=== PATIENT | female | born 1940 | race Caucasian/White ===

== ENCOUNTER 2016-11-21 10:23 | Inpatient (IN) | payer MEDICARE, OTHER ==
--- NOTE | 2016-11-21 10:58 | ERNOTE ---
Neuro HPI ER Record Date of Service: 11/21/16 Presenting Symptoms: confusion Time Seen by Provider: 11/21/16 10:34 Source: RN notes reviewed, EMS notes reviewed Exam Limitations: clinical condition, hard of hearing Immunizations: IMMUNIZATION HX Immunizations Up to Date Yes History of Influenza Vaccine Yes Hx Pneumococcal Vaccination Yes Allergies/Adverse Reactions: Allergies Allergy/AdvReac Type Severity Reaction Status Date / Time ibuprofen Allergy Verified 10/04/16 03:12 ketorolac tromethamine Allergy Verified 10/04/16 03:12 [From Toradol] tuberculin,PPD,multi-puncture Allergy Verified 10/04/16 03:12 Home Medications: HOME MEDICATIONS Albuterol Sulfate [Albuterol Sulfate 2.5 MG/0.5ML] 1 vial IH Q4H PRN 08/04/16 [ Last Taken Unknown] Glycerin/Witch Diana [place] [Tucks Medicated Pads] 1 appl TP PRN PRN 08/04/16 [ Last Taken Unknown] Hydrophilic Ointment [Aquaphilic Ointment] 1 appl TP PRN PRN 08/04/16 [Last Taken Unknown] Insulin Detemir [Levemir] 10 units SC Q12H 08/04/16 [Last Taken 08/04/16 07:00] Menthol [Biofreeze] 1 appl TP Q4H PRN 08/04/16 [Last Taken Unknown] Multivitamin [One Daily Essential] 1 each PO DAILY 08/04/16 [Last Taken 08:00] Polyvinyl Alcohol [Artificial Tears] 1 drop OP Q4H 08/04/16 [Last Taken 08:00] Simvastatin [Zocor] 40 mg PO HS 08/04/16 [Last Taken 08/03/16 20:00] Acetaminophen [Tylenol] 650 mg PO QID PRN #1 tablet 08/09/16 [Last Taken Unknown ] Sertraline HCl [Zoloft] 50 mg PO DAILY 08/22/16 [Last Taken Unknown] Carvedilol [Coreg] 3.125 mg PO BID #60 tablet 08/23/16 [Last Taken Unknown] Lisinopril [Zestril] 20 mg PO BID #60 tablet 08/23/16 [Last Taken Unknown] Folic Acid 1 mg PO DAILY 09/09/16 [Last Taken Unknown] Warfarin Sodium [Jantoven] 5 mg PO DAILY 09/27/16 [Last Taken Unknown] Cefuroxime Axetil [Ceftin] 500 mg PO BID #60 tab 10/04/16 [Last Taken Unknown] Cholecalciferol [Vitamin D] 1,000 unit PO DAILY capsule 10/04/16 [Last Taken Unknown] Furosemide [Lasix] 40 mg PO DAILY tablet 10/04/16 [Last Taken Unknown] Insulin Lispro [Humalog] See Protocol SC ACHSINS vial 10/04/16 [Last Taken Unknown] Multivitamins [Multivitamin Ines] 1 cap PO DAILY capsule 10/04/16 [Last Taken Unknown] Nystatin [Mycostatin Ointment] 1 appl TP BID tube 10/04/16 [Last Taken Unknown] Psyllium Husk (with Sugar) [Metamucil] 1 each PO BID packet 10/04/16 [Last Taken Unknown] Sertraline HCl [Zoloft] 50 mg PO DAILY tablet 10/04/16 [Last Taken Unknown] risperiDONE [Risperdal] 0.25 mg PO BID tablet 10/04/16 [Last Taken Unknown] - History of Present Illness Narrative: Altagracia is a 76 y/o female brought to the ED by EMS from [facility] for alterred mental status that was first noticed yesterday. She is reported to be wheezing as well. Her caregivers reported that when she becomes confused like this, it is usually due to a UTI. She does not answer questions appropriately but moans. She is chronically confused and oriented to self only. Onset: cannot confirm onset, continues in ER - Character of Deficits Additional Deficits: Present: bed-ridden Baseline Cognition: Present: poor alertness Baseline Gait: Present: unable to walk Associated Symptoms: Reports: altered mental status. Denies: fainting, seizure , agitated, unresponsive Prior Treament: Reports: recently seen, treated by physician, similar symptoms before Review of Systems - Review of Systems Constitutional: Present: recent illness, fever - NE reported temp of 99, fatigue , malaise EYE: Present: no symptoms reported ENT: Present: no symptoms reported Respiratory: Present: cough, wheezing Cardiology: Present: no symptoms reported Gastrointestinal/Abdominal: Absent: vomiting, diarrhea Genitourinary: Present: no symptoms reported Musculoskeletal: Present: no symptoms reported Neurological: Present: weakness. Absent: seizure Endocrine: Present: no symptoms reported Hematologic/Lymphatic: Present: no symptoms reported Psych: Present: no symptoms reported - Patient's Past Medical History Patient History - Medical: Anemia, Anxiety, Arthritis, Cataracts, Chronic Pain, Diabetes Type 2, GERD, Renal Failure, Rheumatoid Arthritis, UTI'S, Other Patient History - Cardiac/Respiratory: Hypertension, Pulmonary Embolism Patient History - Cancer: Colon Patient History - Surgical Procedures: Amputation, Colon Resection, Hysterectomy , Other Patient History - Other: None LMP (females 10-50): Menopausal - Family History Mother Family History - Medical: Family History - Cardiac/Respiratory: History Unknown Father Family History - Medical: Family History - Cardiac/Respiratory: Myocardial Infarction - Social History Living Situations: prison Abuse History: No History of abuse Psych History: Psychiatric Hx, Hx of Anxiety, Hx of Depression, Hx of Schizophrenia, Hx of Psychiatric Tx, Current tx/ever been on anti-depressants or anti-anxiety meds Does anyone smoke in the home?: No Alcohol Use: none Drug Use: none - Immunizations Immunizations Up to Date: Yes Hx Pneumococcal Vaccination: Yes History of Influenza Vaccine: Yes Physical Exam - Physical Exam General Appearance: Present: no apparent distress, lethargic - arouseable, obese Eye Exam: Normal inspection: bilateral, PERRL: bilateral Ears, Nose, Throat: Present: normal ENT inspection, hearing decreased, normal pharynx Neck: Present: normal inspection, nontender, supple Respiratory: Present: no respiratory distress, accessory muscle use - shallow resps, tachypneic but does not appear in distress, rhonchi. Absent: wheezing Cardiovascular/Chest: Present: regular rate, rhythm, no murmur, normal peripheral pulses Gastrointestinal/Abdominal: Present: normal bowel sounds, tenderness - diffuse, moans with palpation of abdomen, distended, hernia - ventral, soft, no discoloration Extremity Exam: Present: normal inspection, non-tender, no edema, other - Rt BKA Neurological Exam: Present: no motor/sensory deficits, disoriented to person, disoriented to time, disoriented to place, disoriented to situation Skin Exam: Present: warm/dry, pallor Diana Coma Scale - Assess Eye Opening: To Voice Motor: Localizes to Pain Verbal: Inappropriate - Total Coma Scale Total: 11 ED Progress - Results and Orders Patient's Lab Results:: I have reviewed the patient's lab results. - Vital Signs Patient's Vital Signs:: I have reviewed the patient's vital signs. Vital Signs: Vital Signs 11/21/16 10:23 Temperature 36.5 C Pulse Rate 70 Respiratory 29 H Rate Blood Pressure 166/72 O2 Sat by Pulse 98 Oximetry - EKG EKG: NSR, nonspecific ST T wave changes - X-Ray X-Ray #1 X-Ray: chest Interpretation: Reviewed by me X-ray Comments: Technique: Frontal views of the chest are evaluated. (1) views. Comparison: Prior exams, most recent is September 27, 2016. Findings: Overlying ECG leads. The lungs are hypoinflated with bibasilar bronchovascular crowding and bibasilar opacities. Slight elevation of the right diaphragm. No pneumothorax or pleural effusion. Suggestion of cardiac silhouette enlargement. Mediastinal contours are unchanged. There is prominence of the central pulmonary vasculature, which is likely secondary to the limited inspiratory result. The osseous structures are remarkable for degenerative changes. No acute osseous findings. IMPRESSION: Hypoventilatory changes. Probable bibasilar atelectasis. Cardiac silhouette enlargement. Additional findings and comments are as above. Electronically signed by Bhupendra Camacho D.O.. - CT/Ultrasound CT/Ultrasound Narrative: Findings: CT Head W/O Contrast *: The patient is tilted in the CT gantry. Exam is degraded by patient motion artifact. Age-related cortical atrophy and periventricular white matter chronic ischemic changes are present. Unchanged appearance of the ventricular system. No obvious acute intracranial hemorrhage. No midline shift or herniation. Unchanged hyperdense mass at the extra-axial right frontal lobe and partially calcified extra-axial mass at the left middle cranial fossa, compatible with meningiomas. No evidence of mass effect. The cortical rios/white matter differentiation is grossly intact. Benign intracranial calcifications noted. There is suggestion of merritt sinus mucosal thickening. There is partial opacification of the sphenoid sinus. Small air-fluid level within the left maxillary sinus. Mastoid air cell complexes are grossly patent. The osseous and soft tissues are unremarkable. IMPRESSION: No obvious acute intracranial hemorrhage or mass effect within the limitations of patient motion. Sinus disease. Additional findings and comments are as above. Electronically signed by Bhupendra Camacho D.O.. - Progress/Reassessment Chief Complaint: Altered Mental Status Progress:: Unchanged Progress Note-Subjective: 11/21/16 12:23 Potassium IVPB ordered for K+ of 2.9. Vitamin K ordered for INR of 8.22. Her last INR was 5.34 on 11/18/16. Her Coumadin was decreased from 5 mg to 4 mg daily at that time. The patient's son is now here. He reports that she has been doing remarkably well since her last hospitalization in September. She has not had any illnesses until yesterday when he was contacted about her having a low grade fever and congestion. Plan - Plan Plan: Admission discussed with Dr. Soler for IV antibiotics and correction of hypokalemia and elevated INR. Son in agreement with plan. Departure Clinical Impression: Prolonged INR, Hypokalemia, UTI (urinary tract infection), bacterial Altered mental status Qualifiers: Altered mental status type: unspecified Qualified Code(s): R41.82 - Altered mental status, unspecified - Departure Disposition: [facility] Condition: Fair
[2016-11-21 11:00] LABS: Hematocrit 33.7 % (37.0-47.0); Mean Cell Volume 91.6 fl (78-100); Mean Corpuscular Hemoglobin 29.9 pg (27-31); Mean Corpuscular Hgb Conc 32.6 g/dl (32-36); Mean Platelet Volume 9.1 fl (6.0-9.5); Neutrophil # 2.5 K/mm3 (1.3-6.0); Neutrophil % 75.1 % (42-75.0); Platelet Count 120 K/mm3 (150-450); Red Blood Count 3.68 M/mm3 (4.2-5.4); Red Cell Distribution Width 19.3 % (11.5-14.0); White Blood Count 3.4 K/mm3 (4.0-10.5)
[2016-11-21 11:16] LABS: Anion Gap 5.8 mmol/L (6.8-13.8); BUN/Creatinine Ratio 13.2 (9.0-21.6); Bilirubin, Total 0.6 mg/dL (0.0-1.1); Ca. Corrected For Albumin 9.1 mg/dL (8.4-10.2); Calcium * 8.6 mg/dL (7.9-10.9); Carbon Dioxide 28.1 mmol/L (24-32.6); Potassium 2.9 mmol/L (3.4-4.6); Total Protein 6.4 gm/dL (6.2-8.2)
[2016-11-21] MEDS ORDERED: POTASSIUM CHLORIDE 100 ML IV ONE (11:25)
[2016-11-21 11:26] LABS: Prothrombin Time (Patient) 85.5 Seconds (9.4-11.4)
[2016-11-21 11:29] LABS: INR 8.22 INR (0.90-1.10)
[2016-11-21] MEDS ORDERED: PHYTONADIONE (VIT K1) 10 MG/ML AMPUL IV ONE (11:57)
[2016-11-21 12:04] LABS: Urine Bilirubin Negative (NEGATIVE); Urine Blood 50 /ul (NEGATIVE); Urine Ketone Negative (NEGATIVE); Urine Protein 30 mg/dL (NEGATIVE); Urine Urobilinogen Normal (NORMAL)
[2016-11-21] MEDS ORDERED: PHYTONADIONE (VIT K1) 10 MG/ML AMPUL ONE (12:04)
[2016-11-21 12:20] LABS: Urine Appearance Turbid; Urine Color Yellow; Urine Nitrite Positive (NEGATIVE); Urine RBC >50 /hpf (0-5)
[2016-11-21 12:21] LABS: Urine WBC >50 /hpf (0-5)
[2016-11-21] MEDS ORDERED: POTASSIUM CHLORIDE 20 MEQ TABLET.SA PO ONE (13:49)
[2016-11-21] MEDS ORDERED: POTASSIUM CHLORIDE 20 MEQ TABLET.SA ONE (14:15)
[2016-11-21] MEDS ORDERED: HYDROPHILIC OINTMENT 454 APPL JAR TP PRN (14:18)
[2016-11-21] MEDS ORDERED: NON-FORMULARY 1 DOSE DOSE (Menthol [Biofreeze] 1 APPL) TP PRN (14:18)
[2016-11-21] MEDS ORDERED: GLYCERIN/WITCH HAZEL LEAF 40 APPL BOX TP PRN (14:18)
[2016-11-21] MEDS ORDERED: ALBUTEROL SULFATE 2.5 MG/0.5 ML VIAL.NEB IH PRN (14:18)
[2016-11-21] MEDS ORDERED: VANCOMYCIN HCL 1 GM in DEXTROSE 5 % IN WATER 250 ML IV ONE ×2 (14:25)
[2016-11-21] MEDS: MEROPENEM 1 GM in NORMAL SALINE 100 ML IV SCH (15:57)
[2016-11-21] MEDS: POTASSIUM CHLORIDE 20 MEQ TABLET.SA PO SCH (16:18)
[2016-11-21] MEDS: VANCOMYCIN HCL 1 GM in DEXTROSE 5 % IN WATER 250 ML IV SCH ×2 (16:45)
[2016-11-21] MEDS: POLYVINYL ALCOHOL 150 DROP BTL OP SCH ×2 (16:59→21:08)
--- NOTE | 2016-11-21 18:42 | HP ---
Chief Complaint - Chief Complaint Date of Service: 11/21/16 Time of Service: 18:44 Chief Complaint: Altered mental status History of Present Illness: Altagracia is a 76 [facility] female [facility] ED by EMS from [facility] for alterred mental status that was first noticed yesterday. She is reported to be wheezing as well. Her caregivers reported that when she becomes confused like this, it is usually due to a UTI. She does not answer questions appropriately but moans. She is chronically confused and oriented to self only. By phone today, the [facility] staff reported she was too obtunded today to take any oral medications. She has diabetes. There was no fever at the [facility]. 6 weeks ago, she was in this same hospital for pneumonia and a UTI. Upon discharge, she was given one month of oral cefuroxime 500 mg twice daily, which ended about two weeks ago. There is also a previous history in this individual of MRSA infection. - Patient's Past Medical History Patient History - Medical: Anemia, Anxiety, Arthritis, Cataracts, Chronic Pain, Diabetes Type 2, GERD, Renal Failure, Rheumatoid Arthritis, UTI'S, Other - schizophrenia Patient History - Cardiac/Respiratory: Hypertension, Pulmonary Embolism Patient History - Cancer: Colon Patient History - Surgical Procedures: Amputation, Colon Resection, Hysterectomy Patient History - Other: None LMP (females 10-50): Menopausal - Family History Mother Family History - Medical: Family History - Cardiac/Respiratory: History Unknown Father Family History - Medical: Family History - Cardiac/Respiratory: Myocardial Infarction - Social History Living Situations: [facility] Abuse History: No History of abuse Psych History: Psychiatric Hx, Hx of Anxiety, Hx of Depression, Hx of Schizophrenia, Hx of Psychiatric Tx, Current tx/ever been on anti-depressants or anti-anxiety meds Does anyone smoke in the home?: No Smoking Status: Never smoker Have you smoked in the past 12 months: No Alcohol Use: none Drug Use: none - Immunizations Immunizations Up to Date: Yes Hx Pneumococcal Vaccination: Yes History of Influenza Vaccine: Yes Review Of Systems (GEN) - Review of Systems Generalized/Overall Review: Present: No Symptoms Reported - unable to provide, obtunded and confused. Allergies/Adverse Reactions: Allergies Allergy/AdvReac Type Severity Reaction Status Date / Time ibuprofen Allergy Verified 11/21/16 15:16 ketorolac tromethamine Allergy Verified 11/21/16 15:16 [From Toradol] tuberculin,PPD,multi-puncture Allergy Verified 11/21/16 15:16 Home Medications: HOME MEDICATIONS Acetaminophen 650 mg PO BID 11/21/16 [Last Taken Unknown] Acetaminophen 650 mg PO QID PRN 11/21/16 [Last Taken Unknown] Albuterol Sulfate [Albuterol Sulfate 2.5 MG/0.5ML] 1 vial IH Q4H PRN 11/21/16 [ Last Taken Unknown] Carvedilol [Coreg] 3.125 mg PO BID 11/21/16 [Last Taken Unknown] Cholecalciferol (Vitamin D3) [Vitamin D3] 1,000 unit PO DAILY 11/21/16 [Last Taken Unknown] Colchicine [Colcrys] 0.6 mg PO BID 11/21/16 [Last Taken Unknown] Folic Acid 1 mg PO DAILY 11/21/16 [Last Taken Unknown] Furosemide [Lasix] 40 mg PO DAILY 11/21/16 [Last Taken Unknown] Insulin Aspart [Novolog] 0 units SQ ACHS 11/21/16 [Last Taken Unknown] Insulin Detemir [Levemir] 10 unit SQ BID 11/21/16 [Last Taken Unknown] Lisinopril [Zestril] 20 mg PO BID 11/21/16 [Last Taken Unknown] Menthol [Biofreeze] 1 appl TP Q4H PRN 11/21/16 [Last Taken Unknown] Multivitamins [Multivitamin Ines] 1 cap PO DAILY 11/21/16 [Last Taken Unknown] Oxymetazoline HCl [Afrin Nasal [place]] 2 sprays NS BID 11/21/16 [Last Taken Unknown] Polyvinyl Alcohol [Artificial Tears] 1 drop OP Q4H 11/21/16 [Last Taken Unknown] Promethazine HCl [Phenergan] 6.25 mg PO QID PRN 11/21/16 [Last Taken Unknown] Psyllium Husk (with Sugar) [Metamucil] 1 pkt PO BID 11/21/16 [Last Taken Unknown ] Sertraline HCl [Zoloft] 50 mg PO DAILY 11/21/16 [Last Taken Unknown] Simvastatin [Zocor] 40 mg PO HS 11/21/16 [Last Taken Unknown] Warfarin Sodium [Jantoven] 4 mg PO DAILY 11/21/16 [Last Taken Unknown] risperiDONE [Risperdal] 0.25 mg PO BID 11/21/16 [Last Taken Unknown] Exam - Exam Vital Signs: Vital Signs - Last Taken Temp 36.8 C 11/21/16 16:11 Pulse 73 11/21/16 17:08 Resp 20 11/21/16 16:11 BP 187/78 11/21/16 16:11 Pulse Ox 97 11/21/16 16:11 Constitutional: Present: Cooperative, Well developed, Mild distress, Obese ENT Exam: Present: normal ENT inspection, hard of hearing Eye Exam: bilateral eye: normal inspection, PERRL, EOMI Neck: Present: normal inspection Back Exam: Present: normal inspection Respiratory: Present: normal breath sounds, respiratory distress Cardiovascular/Chest: Present: regular rate, rhythm, no murmur Abdomen: Present: Normal bowel sounds, soft, nontender, nondistended, no rebound tenderness, no hepatospenomegaly, no masses, obese Extremity: Present: pedal edema, other - right leg amputation Skin Exam: Present: no cyanosis, cool/dry Neurologic: Present: motor weakness. Absent: oriented x 3 Appearance: Present: appropriate appearance, neat Eye contact: Present: cooperative Diagnostic Studies: Laboratory Results WBC 3.4 K/mm3 (4.0-10.5) L 11/21/16 10:51 RBC 3.68 M/mm3 (4.2-5.4) L 11/21/16 10:51 Hgb 11.0 gm/dL (12.5-16.0) L 11/21/16 10:51 Hct 33.7 % (37.0-47.0) L 11/21/16 10:51 MCV 91.6 fl (78-100) 11/21/16 10:51 MCH 29.9 pg (27-31) 11/21/16 10:51 MCHC 32.6 g/dl (32-36) 11/21/16 10:51 RDW 19.3 % (11.5-14.0) H 11/21/16 10:51 Plt Count 120 K/mm3 (150-450) L 11/21/16 10:51 MPV 9.1 fl (6.0-9.5) 11/21/16 10:51 Immature Gran % (Auto) 1.80 % (0.001-0.429) H 11/21/16 10:51 Immature Gran # (Auto) 0.06 K/mm3 (0.000-0.0310) H 11/21/16 10:51 Neutrophils % 75.1 % (42-75.0) H 11/21/16 10:51 Lymphocytes % 8.9 % (20-51) L 11/21/16 10:51 Monocytes % 13.9 % (0.0-9) H 11/21/16 10:51 Eosinophils % 0.3 % (0.0-3.0) 11/21/16 10:51 Basophils % 0.0 % (0.0-1.0) 11/21/16 10:51 Nucleated RBC % 0.0 k/mm3 (0-1) 11/21/16 10:51 Neutrophils # 2.5 K/mm3 (1.3-6.0) 11/21/16 10:51 Lymphocytes # 0.3 k/mm3 (1.5-3.5) L 11/21/16 10:51 Monocytes # 0.5 k/mm3 (0.0-1.0) 11/21/16 10:51 Eosinophils # 0.0 k/mm3 (0.0-0.7) 11/21/16 10:51 Absolute Basophils 0.0 k/mm3 (0.0-0.1) 11/21/16 10:51 PT 85.5 Seconds (9.4-11.4) H 11/21/16 10:51 INR (Anticoag Therapy) 8.22 INR (0.90-1.10) H* 11/21/16 10:51 Sodium 140 mmol/L (132-142) 11/21/16 10:51 Plasma Sodium 140 mmol/L (130-142) 11/21/16 10:51 Potassium 2.9 mmol/L (3.4-4.6) L 11/21/16 10:51 Chloride 109 mmol/L (97-106) H 11/21/16 10:51 Carbon Dioxide 28.1 mmol/L (24-32.6) 11/21/16 10:51 Anion Gap 5.8 mmol/L (6.8-13.8) L 11/21/16 10:51 BUN 12 mg/dL (3-23) 11/21/16 10:51 Creatinine 0.91 mg/dL (0.4-1.4) 11/21/16 10:51 Est GFR (Non-Af Amer) 64 mL/min (60-130) 11/21/16 10:51 BUN/Creatinine Ratio 13.2 (9.0-21.6) 11/21/16 10:51 Random Glucose 94 mg/dL (70-110) 11/21/16 10:51 Lactic Acid, Venous 1.7 mmol/L (0.4-2.0) 11/21/16 10:51 Calcium 8.6 mg/dL (7.9-10.9) 11/21/16 10:51 Calcium Adj for Albumin 9.1 mg/dL (8.4-10.2) 11/21/16 10:51 Total Bilirubin 0.6 mg/dL (0.0-1.1) 11/21/16 10:51 AST 46 U/L (0-48) 11/21/16 10:51 ALT 52 U/L (19-67) 11/21/16 10:51 Alkaline Phosphatase 110 U/L (50-170) 11/21/16 10:51 Total Protein 6.4 gm/dL (6.2-8.2) 11/21/16 10:51 Albumin 3.0 gm/dl (3.4-5.0) L 11/21/16 10:51 Urine Color Yellow 11/21/16 11:39 Urine Appearance Turbid 11/21/16 11:39 Urine pH 6.0 pH (5.0-7.0) 11/21/16 11:39 Ur Specific [place] 1.020 SP.GR. (1.005-1.010) 11/21/16 11:39 Urine Protein 30 mg/dL (NEGATIVE) H 11/21/16 11:39 Urine Glucose (UA) Negative mg/dL (NEGATIVE) 11/21/16 11:39 Urine Ketones Negative mg/dL (NEGATIVE) 11/21/16 11:39 Urine Blood 50 /ul (NEGATIVE) H 11/21/16 11:39 Urine Nitrate Positive (NEGATIVE) H 11/21/16 11:39 Urine Bilirubin Negative mg/dl (NEGATIVE) 11/21/16 11:39 Prot Sulfosalicylic Acd 2+ mg/dL (0) H 11/21/16 11:39 Urine Urobilinogen Normal EU/dl (NORMAL) 11/21/16 11:39 Ur Leukocyte Esterase 500 /ul (NEGATIVE) H 11/21/16 11:39 Urine RBC >50 /hpf (0-5) H 11/21/16 11:39 Urine WBC >50 /hpf (0-5) H 11/21/16 11:39 Urine Culture Comments Culture to follow 11/21/16 11:39 Assessment/Plan - Narrative Narrative: Hold any psychoactive drugs for now. IV Merem and Vancomycin, because she is a MRSA carrier and also just finished Cefuroxime 500 mg BID two weeks ago for a UTI and Pneumonia, pending cultures. Restore potassium. Follow labs. Estimate stay of 3-4 days. Hold coumadin, because her INR is supratherapeutic. - Assessment/Plan (1) Altered mental status Assessment: Due to UTI and sepsis Problem: Acute Qualifiers: Altered mental status type: delirium Qualified Code(s): R41.0 - Disorientation, unspecified (2) Prolonged INR Problem: Acute (3) UTI (urinary tract infection), bacterial Problem: Acute (4) Leukopenia Problem: Acute Qualifiers: Leukopenia type: neutropenia Neutropenia type: unspecified Qualified Code (s): D70.9 - Neutropenia, unspecified (5) Altered mental status Problem: Acute Qualifiers: Altered mental status type: delirium Qualified Code(s): R41.0 - Disorientation, unspecified (6) Anemia Problem: Chronic Qualifiers: Anemia type: iron deficiency Iron deficiency anemia type: unspecified iron deficiency Qualified Code(s): D50.9 - Iron deficiency anemia, unspecified (7) Chronic congestive heart failure with left ventricular diastolic dysfunction Problem: Chronic (8) Chronic pain Problem: Chronic Qualifiers: Chronic pain type: other chronic pain Qualified Code(s): G89.29 - Other chronic pain (9) Chronic restrictive lung disease Problem: Chronic (10) 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 Problem: Chronic Qualifiers: 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 type: type 2 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 complication status: with other specified complication 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 manager terminal insulin use: with half-way use Qualified Code(s): E11.69 - Type 2 diabetes mellitus with other specified complication (11) GERD (gastroesophageal reflux disease) Problem: Chronic Qualifiers: Esophagitis presence: without esophagitis (12) Gallstones Problem: Chronic Qualifiers: Cholecystitis presence: without cholecystitis Biliary obstruction: without biliary obstruction Qualified Code(s): K80.20 - Calculus of gallbladder without cholecystitis without obstruction (13) Gout Problem: Chronic Qualifiers: Gout site: unspecified site Gout etiology: idiopathic Chronicity: chronic Presence of tophus: without tophus Qualified Code(s): M1A.00X0 - Idiopathic chronic gout, unspecified site, without tophus (tophi) (14) HLD (hyperlipidemia) Problem: Chronic Qualifiers: Hyperlipidemia type: mixed hyperlipidemia Qualified Code(s): E78.2 - Mixed hyperlipidemia (15) RED DEVIL (hard of hearing) Problem: Chronic Qualifiers: Laterality: bilateral Qualified Code(s): H91.93 - Unspecified hearing loss , bilateral (16) History of recurrent UTIs Problem: Chronic (17) Hypertension Problem: Chronic Qualifiers: Hypertension type: essential hypertension Qualified Code(s): I10 - Essential (primary) hypertension (18) Hypoventilation associated with obesity syndrome Problem: Chronic (19) Immunosuppressed status Problem: Chronic (20) MRSA (methicillin resistant Staphylococcus aureus) carrier Problem: Chronic (21) Parkinsons Problem: Chronic (22) Pulmonary hypertension Problem: Chronic (23) Severe hearing loss Problem: Chronic Qualifiers: Laterality: bilateral Qualified Code(s): H91.93 - Unspecified hearing loss , bilateral (24) 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
[2016-11-21] MEDS: INSULIN DETEMIR 100 UNITS/ML VIAL SC SCH (20:42)
[2016-11-21] MEDS: CARVEDILOL 3.125 MG TABLET PO SCH (20:43)
[2016-11-21] MEDS: COLCHICINE 0.6 MG TABLET PO SCH (20:43)
[2016-11-21] MEDS: PSYLLIUM SEED 1 PACKET PACKET PO SCH (20:43)
[2016-11-21] MEDS: LISINOPRIL 20 MG TABLET PO SCH (20:44)
[2016-11-21] MEDS: SIMVASTATIN 40 MG TABLET PO SCH (20:44)
[2016-11-21] MEDS: NYSTATIN 15 APPL TUBE TP SCH (20:44)
[2016-11-22] MEDS: MEROPENEM 1 GM in NORMAL SALINE 100 ML IV SCH ×2 (02:40→15:37)
[2016-11-22] MEDS: POLYVINYL ALCOHOL 150 DROP BTL OP SCH ×6 (02:40→22:04)
[2016-11-22] MEDS: VANCOMYCIN HCL 1 GM in DEXTROSE 5 % IN WATER 250 ML IV SCH ×2 (03:19)
[2016-11-22 06:11] LABS: Hematocrit 31.4 % (37.0-47.0); Hemoglobin 10.1 gm/dL (12.5-16.0); Mean Cell Volume 92.6 fl (78-100); Mean Corpuscular Hemoglobin 29.8 pg (27-31); Mean Corpuscular Hgb Conc 32.2 g/dl (32-36); Mean Platelet Volume 10.4 fl (6.0-9.5); Platelet Count 110 K/mm3 (150-450); Red Blood Count 3.39 M/mm3 (4.2-5.4); Red Cell Distribution Width 19.5 % (11.5-14.0); White Blood Count 2.8 K/mm3 (4.0-10.5)
[2016-11-22 06:14] LABS: Total Cells Counted 100
[2016-11-22 06:17] LABS: Prothrombin Time (Patient) 16.7 Seconds (9.4-11.4)
[2016-11-22 06:19] LABS: INR 1.61 INR (0.90-1.10)
[2016-11-22 06:23] LABS: Albumin * 2.8 gm/dl (3.4-5.0); Anion Gap 13.5 mmol/L (6.8-13.8); BUN/Creatinine Ratio 12.1 (9.0-21.6); Bilirubin, Total 0.9 mg/dL (0.0-1.1); Calcium * 8.4 mg/dL (7.9-10.9); Carbon Dioxide 25.9 mmol/L (24-32.6); Potassium 3.4 mmol/L (3.4-4.6); Total Protein 5.9 gm/dL (6.2-8.2)
[2016-11-22 06:45] LABS: Atypical (Reactive) Lymph 3 % (0-2); Eosinophil 1 % (0-3); Lymphocyte 14 % (20-51); Monocyte 15 % (0-9); Neutrophil 67 % (42-75); Neutrophil # 1.9 K/mm3 (1.3-6.0); Platelet Estimate Normal (NORMAL)
[2016-11-22 06:47] LABS: Tear Drop Cells Trace
[2016-11-22] MEDS ORDERED: NON-FORMULARY 1 DOSE DOSE (Multivitamin [One Daily Essential] 1 EACH) PO SCH (09:00)
[2016-11-22] MEDS: FUROSEMIDE 40 MG TABLET PO SCH (09:04)
[2016-11-22] MEDS: CARVEDILOL 3.125 MG TABLET PO SCH ×2 (09:04→21:56)
[2016-11-22] MEDS: MULTIVITAMINS 1 CAP CAPSULE PO SCH (09:04)
[2016-11-22] MEDS: COLCHICINE 0.6 MG TABLET PO SCH ×2 (09:04→21:56)
[2016-11-22] MEDS: NYSTATIN 15 APPL TUBE TP SCH ×2 (09:05→21:57)
[2016-11-22] MEDS: CHOLECALCIFEROL 1,000 UNIT CAPSULE PO SCH (09:05)
[2016-11-22] MEDS: POTASSIUM CHLORIDE 20 MEQ TABLET.SA PO SCH ×2 (09:05→16:36)
[2016-11-22] MEDS: PSYLLIUM SEED 1 PACKET PACKET PO SCH ×2 (09:05→21:57)
[2016-11-22] MEDS: FOLIC ACID 1 MG TABLET PO SCH (09:05)
[2016-11-22] MEDS: INSULIN DETEMIR 100 UNITS/ML VIAL SC SCH ×2 (09:05→21:58)
[2016-11-22] MEDS: LISINOPRIL 20 MG TABLET PO SCH ×2 (09:05→21:58)
--- NOTE | 2016-11-22 12:23 | PN ---
Subjective - Date and Time Seen Date: 11/22/16 Time: 06:50 Subjective Narrative: Denies pain. Denies SOB. Denies nausea. More awake this morning. MRSA screen positive. Growing gram negative rods from urine culture. Objective - Review of Systems Generalized/Overall Review: Reports: No Symptoms Reported EENTM: Reports: No Symptoms Reported Respiratory: Reports: No Symptoms Reported Cardiac: Reports: No Symptoms Reported Abdominal: Reports: No Symptoms Reported Genitourinary Symptoms: Reports: No Symptoms Reported Musculoskeletal Complaints: Reports: No Symptoms Reported Neurological: Reports: Pre-existing Deficit Skin: Reports: No Symptoms Reported Endocrine: Reports: No Symptoms Reported Misc: All systems neg except as marked - Vitals Vitals: Last Vital Signs Selected Entries 11/21/16 11/21/16 11/21/16 10:23 11:05 16:11 Temperature 36.5 C 36.2 C L 36.8 C Temperature Tympanic Oral Source Pulse Rate 70 75 Pulse Rhythm Regular Pulse Strength Normal Respiratory 29 H 20 Rate Respiratory Normal Depth Respiratory Normal Effort Non-Labored Respiratory Tachypnea Normal Pattern Blood Pressure 166/72 187/78 Blood Pressure Supine Sitting Position O2 Sat by Pulse 98 97 Oximetry Oxygen Delivery Room Air Room Air Method 11/22/16 06:30 Temperature 36.3 C L Temperature Oral Source Pulse Rate 73 Pulse Rhythm Pulse Strength Respiratory 18 Rate Respiratory Normal Depth Respiratory Effort Respiratory Pattern Blood Pressure 166/70 Blood Pressure Supine Position O2 Sat by Pulse 98 Oximetry Oxygen Delivery Room Air Method - Abnormal Lab Findings Abnormal Lab Findings: Abnormal Lab Results 11/22/16 11/22/16 11/22/16 Range/Units 05:00 05:00 05:00 WBC 2.8 L (4.0-10.5) K/mm3 RBC 3.39 L (4.2-5.4) M/mm3 Hgb 10.1 L (12.5-16.0) gm/dL Hct 31.4 L (37.0-47.0) % RDW 19.5 H (11.5-14.0) % Plt Count 110 L (150-450) K/mm3 MPV 10.4 H (6.0-9.5) fl Lymphocytes % (Manual) 14 L (20-51) % Monocytes % (Manual) 15 H (0-9) % Lymphocytes # (Manual) 0.4 L (1.5-3.5) k/mm3 Atypic/Reactive Lymphs 3 H (0-2) % PT 16.7 H (9.4-11.4) Seconds INR (Anticoag Therapy) 1.61 H (0.90-1.10) INR Plasma Sodium 143 H (130-142) mmol/L Random Glucose 146 H D (70-110) mg/dL Total Protein 5.9 L (6.2-8.2) gm/dL Albumin 2.8 L (3.4-5.0) gm/dl - Exam Constitutional: Present: Alert, Cooperative, Well developed, No distress, Obese ENT Exam: Present: normal ENT inspection, hard of hearing Neck: Present: normal inspection Respiratory: Present: lungs clear, no respiratory distress Cardiovascular/Chest: Present: regular rate, rhythm, no murmur Abdomen: Present: Normal bowel sounds, soft, nontender, nondistended, no rebound tenderness, no hepatospenomegaly, no masses, obese Extremity: Present: pedal edema - right leg amputation Skin Exam: Present: normal color, warm/dry, no cyanosis Neurologic: Present: alert, other - oriented to her person and to me. Appearance: Present: appropriate appearance, neat Eye contact: Present: cooperative Assessment/Plan Plan Narrative: Follow labs. IV antibiotics. Bactroban and Hibiclens for positive nasal swab. - Problems/Diagnosis (1) Altered mental status Problem: Acute Qualifiers: Altered mental status type: delirium Qualified Code(s): R41.0 - Disorientation, unspecified (2) Prolonged INR Problem: Acute (3) UTI (urinary tract infection), bacterial Problem: Acute (4) Leukopenia Problem: Acute Qualifiers: Leukopenia type: neutropenia Neutropenia type: unspecified Qualified Code (s): D70.9 - Neutropenia, unspecified (5) Altered mental status Problem: Acute Qualifiers: Altered mental status type: delirium Qualified Code(s): R41.0 - Disorientation, unspecified (6) Anemia Problem: Chronic Qualifiers: Anemia type: iron deficiency Iron deficiency anemia type: unspecified iron deficiency Qualified Code(s): D50.9 - Iron deficiency anemia, unspecified (7) Chronic congestive heart failure with left ventricular diastolic dysfunction Problem: Chronic (8) Chronic pain Problem: Chronic Qualifiers: Chronic pain type: other chronic pain Qualified Code(s): G89.29 - Other chronic pain (9) Chronic restrictive lung disease Problem: Chronic (10) 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 Problem: Chronic Qualifiers: 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 type: type 2 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 complication status: with other specified complication 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 fpc insulin use: with fpc use Qualified Code(s): E11.69 - Type 2 diabetes mellitus with other specified complication (11) GERD (gastroesophageal reflux disease) Problem: Chronic Qualifiers: Esophagitis presence: without esophagitis (12) Gallstones Problem: Chronic Qualifiers: Cholecystitis presence: without cholecystitis Biliary obstruction: without biliary obstruction Qualified Code(s): K80.20 - Calculus of gallbladder without cholecystitis without obstruction (13) Gout Problem: Chronic Qualifiers: Gout site: unspecified site Gout etiology: idiopathic Chronicity: chronic Presence of tophus: without tophus Qualified Code(s): M1A.00X0 - Idiopathic chronic gout, unspecified site, without tophus (tophi) (14) HLD (hyperlipidemia) Problem: Chronic Qualifiers: Hyperlipidemia type: mixed hyperlipidemia Qualified Code(s): E78.2 - Mixed hyperlipidemia (15) [place] (hard of hearing) Problem: Chronic Qualifiers: Laterality: bilateral Qualified Code(s): H91.93 - Unspecified hearing loss , bilateral (16) History of recurrent UTIs Problem: Chronic (17) Hypertension Problem: Chronic Qualifiers: Hypertension type: essential hypertension Qualified Code(s): I10 - Essential (primary) hypertension (18) Hypoventilation associated with obesity syndrome Problem: Chronic (19) Immunosuppressed status Problem: Chronic (20) MRSA (methicillin resistant Staphylococcus aureus) carrier Problem: Chronic (21) Parkinsons Problem: Chronic (22) Pulmonary hypertension Problem: Chronic (23) Severe hearing loss Problem: Chronic Qualifiers: Laterality: bilateral Qualified Code(s): H91.93 - Unspecified hearing loss , bilateral (24) 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
[2016-11-22] MEDS: WARFARIN SODIUM 5 MG TABLET PO SCH (16:37)
[2016-11-22] MEDS: MUPIROCIN 22 APPL TUBE TP SCH (21:56)
[2016-11-22] MEDS: CHLORHEX GL/ISOPROPYL ALCOHOL 960 APPL BTL TP SCH (21:57)
[2016-11-22] MEDS: SIMVASTATIN 40 MG TABLET PO SCH (21:58)
[2016-11-23] MEDS: POLYVINYL ALCOHOL 150 DROP BTL OP SCH ×6 (02:16→21:10)
[2016-11-23] MEDS: MEROPENEM 1 GM in NORMAL SALINE 100 ML IV SCH (04:05)
[2016-11-23 04:52] LABS: Hematocrit 33.2 % (37.0-47.0); Hemoglobin 10.6 gm/dL (12.5-16.0); Mean Cell Volume 92.5 fl (78-100); Mean Corpuscular Hemoglobin 29.5 pg (27-31); Mean Corpuscular Hgb Conc 31.9 g/dl (32-36); Mean Platelet Volume 10.5 fl (6.0-9.5); Neutrophil # 1.3 K/mm3 (1.3-6.0); Neutrophil % 52.4 % (42-75.0); Platelet Count 106 K/mm3 (150-450); Red Blood Count 3.59 M/mm3 (4.2-5.4); Red Cell Distribution Width 19.1 % (11.5-14.0); White Blood Count 2.5 K/mm3 (4.0-10.5)
[2016-11-23 05:00] LABS: Prothrombin Time (Patient) 10.9 Seconds (9.4-11.4)
[2016-11-23 05:02] LABS: INR 1.05 INR (0.90-1.10)
[2016-11-23 05:08] LABS: Anion Gap 11.8 mmol/L (6.8-13.8); BUN/Creatinine Ratio 18.5 (9.0-21.6); Calcium * 9.1 mg/dL (7.9-10.9); Carbon Dioxide 26.1 mmol/L (24-32.6); Estimated Creat Clear 42.4; Potassium 3.9 mmol/L (3.4-4.6)
--- NOTE | 2016-11-23 07:18 | PN ---
Subjective - Date and Time Seen Date: 11/23/16 Time: 07:15 Subjective Narrative: Denies pain. Denies SOB. Denies nausea. More awake this morning, but disoriented and confused. MRSA screen positive. Growing gram negative rods from urine culture. Ongoing pancytopenia, unknown cause. Objective - Review of Systems Generalized/Overall Review: Reports: No Symptoms Reported - poor historian due to dementia - Vitals Vitals: Last Vital Signs Selected Entries 11/23/16 03:00 Temperature 36.9 C Temperature Oral Source Pulse Rate 81 Respiratory 20 Rate Blood Pressure 179/78 Blood Pressure Supine Position O2 Sat by Pulse 94 Oximetry Oxygen Delivery Room Air Method - Abnormal Lab Findings Abnormal Lab Findings: Abnormal Lab Results 11/23/16 11/23/16 Range/Units 04:51 04:51 WBC 2.5 L (4.0-10.5) K/mm3 RBC 3.59 L (4.2-5.4) M/mm3 Hgb 10.6 L (12.5-16.0) gm/dL Hct 33.2 L (37.0-47.0) % MCHC 31.9 L (32-36) g/dl RDW 19.1 H (11.5-14.0) % Plt Count 106 L (150-450) K/mm3 MPV 10.5 H (6.0-9.5) fl Immature Gran % (Auto) 2.40 H (0.001-0.429) % Immature Gran # (Auto) 0.06 H (0.000-0.0310) K/mm3 Monocytes % 20.8 H (0.0-9) % Lymphocytes # 0.6 L (1.5-3.5) k/mm3 Random Glucose 126 H (70-110) mg/dL - Exam Constitutional: Present: Alert, Cooperative, Well developed, Mild distress ENT Exam: Present: normal ENT inspection, hard of hearing Neck: Present: normal inspection Respiratory: Present: lungs clear, no respiratory distress Cardiovascular/Chest: Present: regular rate, rhythm, no murmur Abdomen: Present: Normal bowel sounds, soft, nontender, no rebound tenderness, no masses Extremity: Present: pedal edema, other - amputation right leg Skin Exam: Present: normal color, warm/dry, no cyanosis Neurologic: Present: alert Appearance: Present: appropriate appearance, neat Eye contact: Present: cooperative Assessment/Plan Plan Narrative: DC tele. Follow labs. Continue IV antibiotics. Resume risperdal. - Problems/Diagnosis (1) Altered mental status Problem: Acute Qualifiers: Altered mental status type: delirium Qualified Code(s): R41.0 - Disorientation, unspecified (2) Prolonged INR Problem: Acute (3) UTI (urinary tract infection), bacterial Problem: Acute (4) Leukopenia Problem: Acute Qualifiers: Leukopenia type: neutropenia Neutropenia type: unspecified Qualified Code (s): D70.9 - Neutropenia, unspecified (5) Altered mental status Problem: Acute Qualifiers: Altered mental status type: delirium Qualified Code(s): R41.0 - Disorientation, unspecified (6) Anemia Problem: Chronic Qualifiers: Anemia type: iron deficiency Iron deficiency anemia type: unspecified iron deficiency Qualified Code(s): D50.9 - Iron deficiency anemia, unspecified (7) Chronic congestive heart failure with left ventricular diastolic dysfunction Problem: Chronic (8) Chronic pain Problem: Chronic Qualifiers: Chronic pain type: other chronic pain Qualified Code(s): G89.29 - Other chronic pain (9) Chronic restrictive lung disease Problem: Chronic (10) 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 Problem: Chronic Qualifiers: 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 type: type 2 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 complication status: with other specified complication 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 intermediate designer insulin use: with half-way use Qualified Code(s): E11.69 - Type 2 diabetes mellitus with other specified complication (11) GERD (gastroesophageal reflux disease) Problem: Chronic Qualifiers: Esophagitis presence: without esophagitis (12) Gallstones Problem: Chronic Qualifiers: Cholecystitis presence: without cholecystitis Biliary obstruction: without biliary obstruction Qualified Code(s): K80.20 - Calculus of gallbladder without cholecystitis without obstruction (13) Gout Problem: Chronic Qualifiers: Gout site: unspecified site Gout etiology: idiopathic Chronicity: chronic Presence of tophus: without tophus Qualified Code(s): M1A.00X0 - Idiopathic chronic gout, unspecified site, without tophus (tophi) (14) HLD (hyperlipidemia) Problem: Chronic Qualifiers: Hyperlipidemia type: mixed hyperlipidemia Qualified Code(s): E78.2 - Mixed hyperlipidemia (15) [place] (hard of hearing) Problem: Chronic Qualifiers: Laterality: bilateral Qualified Code(s): H91.93 - Unspecified hearing loss , bilateral (16) History of recurrent UTIs Problem: Chronic (17) Hypertension Problem: Chronic Qualifiers: Hypertension type: essential hypertension Qualified Code(s): I10 - Essential (primary) hypertension (18) Hypoventilation associated with obesity syndrome Problem: Chronic (19) Immunosuppressed status Problem: Chronic (20) MRSA (methicillin resistant Staphylococcus aureus) carrier Problem: Chronic (21) Parkinsons Problem: Chronic (22) Pulmonary hypertension Problem: Chronic (23) Severe hearing loss Problem: Chronic Qualifiers: Laterality: bilateral Qualified Code(s): H91.93 - Unspecified hearing loss , bilateral (24) 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
[2016-11-23] MEDS: MULTIVITAMINS 1 CAP CAPSULE PO SCH (08:22)
[2016-11-23] MEDS: LISINOPRIL 20 MG TABLET PO SCH ×2 (08:22→21:10)
[2016-11-23] MEDS: POTASSIUM CHLORIDE 20 MEQ TABLET.SA PO SCH ×2 (08:22→17:40)
[2016-11-23] MEDS: FOLIC ACID 1 MG TABLET PO SCH (08:22)
[2016-11-23] MEDS: COLCHICINE 0.6 MG TABLET PO SCH ×2 (08:22→21:08)
[2016-11-23] MEDS: MUPIROCIN 22 APPL TUBE TP SCH ×2 (08:23→21:08)
[2016-11-23] MEDS: FUROSEMIDE 40 MG TABLET PO SCH (08:23)
[2016-11-23] MEDS: PSYLLIUM SEED 1 PACKET PACKET PO SCH ×2 (08:23→21:09)
[2016-11-23] MEDS: CHOLECALCIFEROL 1,000 UNIT CAPSULE PO SCH (08:23)
[2016-11-23] MEDS: CHLORHEX GL/ISOPROPYL ALCOHOL 960 APPL BTL TP SCH ×2 (08:23→21:09)
[2016-11-23] MEDS: CARVEDILOL 3.125 MG TABLET PO SCH ×2 (08:23→21:09)
[2016-11-23] MEDS: NYSTATIN 15 APPL TUBE TP SCH ×2 (08:24→21:10)
[2016-11-23] MEDS: INSULIN DETEMIR 100 UNITS/ML VIAL SC SCH ×2 (08:25→21:09)
[2016-11-23] MEDS ORDERED: VANCOMYCIN HCL LEVEL XX ONE (15:30)
[2016-11-23] MEDS: WARFARIN SODIUM 5 MG TABLET PO SCH (17:40)
[2016-11-23] MEDS ORDERED: risperiDONE 0.25 MG TABLET PO SCH (21:00)
[2016-11-23] MEDS: CIPROFLOXACIN HCL 500 MG TABLET PO SCH (21:08)
[2016-11-23] MEDS: SIMVASTATIN 40 MG TABLET PO SCH (21:10)
[2016-11-24] MEDS: POLYVINYL ALCOHOL 150 DROP BTL OP SCH ×6 (01:07→22:32)
[2016-11-24 05:10] LABS: Anion Gap 13.6 mmol/L (6.8-13.8); BUN/Creatinine Ratio 21.1 (9.0-21.6); Calcium * 9.1 mg/dL (7.9-10.9); Carbon Dioxide 26.9 mmol/L (24-32.6); Estimated Creat Clear 43.3; Hematocrit 33.6 % (37.0-47.0); Hemoglobin 10.5 gm/dL (12.5-16.0); Mean Cell Volume 95.2 fl (78-100); Mean Corpuscular Hemoglobin 29.7 pg (27-31); Mean Corpuscular Hgb Conc 31.3 g/dl (32-36); Mean Platelet Volume 11.9 fl (6.0-9.5); Platelet Count 108 K/mm3 (150-450); Potassium 3.5 mmol/L (3.4-4.6); Red Blood Count 3.53 M/mm3 (4.2-5.4); Red Cell Distribution Width 19.4 % (11.5-14.0); White Blood Count 1.8 K/mm3 (4.0-10.5)
[2016-11-24 05:12] LABS: INR 1.11 INR (0.90-1.10); Prothrombin Time (Patient) 11.5 Seconds (9.4-11.4); Total Cells Counted 100
[2016-11-24 06:00] LABS: Lymphocyte 48 % (20-51); Monocyte 5 % (0-9); Neutrophil 47 % (42-75)
[2016-11-24 06:01] LABS: Platelet Estimate Decreased (NORMAL)
[2016-11-24 06:03] LABS: Anisocytosis 1+; Spherocyte 1+
[2016-11-24 06:46] LABS: Urine Bilirubin Negative (NEGATIVE); Urine Blood Negative /ul (NEGATIVE); Urine Ketone Negative (NEGATIVE); Urine Nitrite Negative (NEGATIVE); Urine Protein 30 mg/dL (NEGATIVE); Urine Specific Gravity 1.025 SP.GR. (1.005-1.010); Urine Urobilinogen Normal (NORMAL); Urine pH 5.5 pH (5.0-7.0)
[2016-11-24 07:00] LABS: Urine Appearance Cloudy; Urine Color Yellow
[2016-11-24 07:01] LABS: Urine Bacteria TRACE; Urine RBC None Seen /hpf (0-5); Urine WBC 0-5 /hpf (0-5)
--- NOTE | 2016-11-24 08:25 | PN ---
Subjective - Date and Time Seen Date: 11/24/16 Time: 06:50 Subjective Narrative: Denies pain. Denies SOB. Denies nausea. More awake this morning, but disoriented and confused. MRSA screen positive. Growing Enterobacter from urine culture, sensitive to Cipro. Ongoing pancytopenia, unknown cause. Objective - Review of Systems Generalized/Overall Review: Reports: No Symptoms Reported - poor historian, confused - Vitals Vitals: Last Vital Signs Selected Entries 11/24/16 01:40 Temperature 36.6 C Temperature Oral Source Pulse Rate 80 Respiratory 18 Rate Blood Pressure 166/79 Blood Pressure Supine Position O2 Sat by Pulse 92 Oximetry Oxygen Delivery Room Air Method - Abnormal Lab Findings Abnormal Lab Findings: Abnormal Lab Results 11/23/16 11/24/16 11/24/16 Range/Units 15:40 04:55 04:55 WBC 1.8 L D (4.0-10.5) K/mm3 RBC 3.53 L (4.2-5.4) M/mm3 Hgb 10.5 L (12.5-16.0) gm/dL Hct 33.6 L (37.0-47.0) % MCHC 31.3 L (32-36) g/dl RDW 19.4 H (11.5-14.0) % Plt Count 108 L (150-450) K/mm3 MPV 11.9 H (6.0-9.5) fl Lymphocytes # (Manual) 0.9 L (1.5-3.5) k/mm3 Platelet Estimate Decreased L (NORMAL) PT 11.5 H (9.4-11.4) Seconds INR (Anticoag Therapy) 1.11 H (0.90-1.10) INR Sodium (132-142) mmol/L Plasma Sodium (130-142) mmol/L Chloride (97-106) mmol/L Random Glucose (70-110) mg/dL Urine Protein (NEGATIVE) mg/dL Ur Leukocyte Esterase (NEGATIVE) /ul Urine Comment Vancomycin Trough 7.7 L (10.0-20.0) mcg/mL 11/24/16 11/24/16 Range/Units 04:55 06:23 WBC (4.0-10.5) K/mm3 RBC (4.2-5.4) M/mm3 Hgb (12.5-16.0) gm/dL Hct (37.0-47.0) % MCHC (32-36) g/dl RDW (11.5-14.0) % Plt Count (150-450) K/mm3 MPV (6.0-9.5) fl Lymphocytes # (Manual) (1.5-3.5) k/mm3 Platelet Estimate (NORMAL) PT (9.4-11.4) Seconds INR (Anticoag Therapy) (0.90-1.10) INR Sodium 144 H (132-142) mmol/L Plasma Sodium 144 H (130-142) mmol/L Chloride 107 H (97-106) mmol/L Random Glucose 116 H (70-110) mg/dL Urine Protein 30 H (NEGATIVE) mg/dL Ur Leukocyte Esterase 25 H (NEGATIVE) /ul Urine Comment Culture ordered L Vancomycin Trough (10.0-20.0) mcg/mL - Exam Constitutional: Present: Alert, Cooperative, Well developed, Well nourished, No distress ENT Exam: Present: normal ENT inspection, hard of hearing Neck: Present: normal inspection Respiratory: Present: lungs clear, no respiratory distress Cardiovascular/Chest: Present: regular rate, rhythm, no murmur Abdomen: Present: Normal bowel sounds, soft, nontender, nondistended, no rebound tenderness, no hepatospenomegaly, no masses Extremity: Present: normal inspection, pedal edema, other - amputation right leg Skin Exam: Present: normal color, warm/dry, no cyanosis Lymphatic: Present: no adenopathy Neurologic: Present: disoriented x 3 Appearance: Present: appropriate appearance, neat Eye contact: Present: cooperative Assessment/Plan Plan Narrative: Follow blood count. Cipro. - Problems/Diagnosis (1) Altered mental status Problem: Acute Qualifiers: Altered mental status type: delirium Qualified Code(s): R41.0 - Disorientation, unspecified (2) Prolonged INR Problem: Acute (3) UTI (urinary tract infection), bacterial Problem: Acute (4) Leukopenia Problem: Acute Qualifiers: Leukopenia type: neutropenia Neutropenia type: unspecified Qualified Code (s): D70.9 - Neutropenia, unspecified (5) Altered mental status Problem: Acute Qualifiers: Altered mental status type: delirium Qualified Code(s): R41.0 - Disorientation, unspecified (6) Anemia Problem: Chronic Qualifiers: Anemia type: iron deficiency Iron deficiency anemia type: unspecified iron deficiency Qualified Code(s): D50.9 - Iron deficiency anemia, unspecified (7) Chronic congestive heart failure with left ventricular diastolic dysfunction Problem: Chronic (8) Chronic pain Problem: Chronic Qualifiers: Chronic pain type: other chronic pain Qualified Code(s): G89.29 - Other chronic pain (9) Chronic restrictive lung disease Problem: Chronic (10) 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 Problem: Chronic Qualifiers: 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 type: type 2 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 complication status: with other specified complication 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 exterminator helper termite insulin use: with prison use Qualified Code(s): E11.69 - Type 2 diabetes mellitus with other specified complication (11) GERD (gastroesophageal reflux disease) Problem: Chronic Qualifiers: Esophagitis presence: without esophagitis (12) Gallstones Problem: Chronic Qualifiers: Cholecystitis presence: without cholecystitis Biliary obstruction: without biliary obstruction Qualified Code(s): K80.20 - Calculus of gallbladder without cholecystitis without obstruction (13) Gout Problem: Chronic Qualifiers: Gout site: unspecified site Gout etiology: idiopathic Chronicity: chronic Presence of tophus: without tophus Qualified Code(s): M1A.00X0 - Idiopathic chronic gout, unspecified site, without tophus (tophi) (14) HLD (hyperlipidemia) Problem: Chronic Qualifiers: Hyperlipidemia type: mixed hyperlipidemia Qualified Code(s): E78.2 - Mixed hyperlipidemia (15) [place] (hard of hearing) Problem: Chronic Qualifiers: Laterality: bilateral Qualified Code(s): H91.93 - Unspecified hearing loss , bilateral (16) History of recurrent UTIs Problem: Chronic (17) Hypertension Problem: Chronic Qualifiers: Hypertension type: essential hypertension Qualified Code(s): I10 - Essential (primary) hypertension (18) Hypoventilation associated with obesity syndrome Problem: Chronic (19) Immunosuppressed status Problem: Chronic (20) MRSA (methicillin resistant Staphylococcus aureus) carrier Problem: Chronic (21) Parkinsons Problem: Chronic (22) Pulmonary hypertension Problem: Chronic (23) Severe hearing loss Problem: Chronic Qualifiers: Laterality: bilateral Qualified Code(s): H91.93 - Unspecified hearing loss , bilateral (24) 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
[2016-11-24] MEDS: COLCHICINE 0.6 MG TABLET PO SCH ×2 (10:24→20:14)
[2016-11-24] MEDS: FUROSEMIDE 40 MG TABLET PO SCH (10:24)
[2016-11-24] MEDS: MUPIROCIN 22 APPL TUBE TP SCH ×2 (10:24→20:14)
[2016-11-24] MEDS: FOLIC ACID 1 MG TABLET PO SCH (10:25)
[2016-11-24] MEDS: LISINOPRIL 20 MG TABLET PO SCH ×2 (10:25→20:16)
[2016-11-24] MEDS: MULTIVITAMINS 1 CAP CAPSULE PO SCH (10:25)
[2016-11-24] MEDS: CARVEDILOL 3.125 MG TABLET PO SCH ×2 (10:25→20:15)
[2016-11-24] MEDS: CIPROFLOXACIN HCL 500 MG TABLET PO SCH ×2 (10:25→20:14)
[2016-11-24] MEDS: POTASSIUM CHLORIDE 20 MEQ TABLET.SA PO SCH ×2 (10:25→16:46)
[2016-11-24] MEDS: CHOLECALCIFEROL 1,000 UNIT CAPSULE PO SCH (10:26)
[2016-11-24] MEDS: PSYLLIUM SEED 1 PACKET PACKET PO SCH ×2 (10:26→20:16)
[2016-11-24] MEDS: INSULIN DETEMIR 100 UNITS/ML VIAL SC SCH ×2 (10:26→20:21)
[2016-11-24] MEDS: CHLORHEX GL/ISOPROPYL ALCOHOL 960 APPL BTL TP SCH ×2 (10:27→20:17)
[2016-11-24] MEDS: NYSTATIN 15 APPL TUBE TP SCH ×2 (10:27→20:16)
[2016-11-24] MEDS: metroNIDAZOLE 500 MG TABLET PO SCH ×3 (13:27→20:15)
[2016-11-24] MEDS: SACCHAROMYCES BOULARDII 250 MG CAPSULE PO SCH ×3 (13:27→20:15)
[2016-11-24] MEDS: ACETAMINOPHEN 325 MG TABLET PO PRN (13:33)
[2016-11-24] MEDS: WARFARIN SODIUM 5 MG TABLET PO SCH (16:46)
[2016-11-24] MEDS: ZIPRASIDONE HCL 20 MG CAPSULE PO SCH (20:15)
[2016-11-24] MEDS: SIMVASTATIN 40 MG TABLET PO SCH (20:16)
[2016-11-25] MEDS: POLYVINYL ALCOHOL 150 DROP BTL OP SCH ×6 (01:42→21:09)
[2016-11-25 07:01] LABS: Hematocrit 34.3 % (37.0-47.0); Mean Corpuscular Hemoglobin 29.5 pg (27-31); Mean Corpuscular Hgb Conc 32.1 g/dl (32-36); Neutrophil # 1.2 K/mm3 (1.3-6.0); Neutrophil % 55.4 % (42-75.0); Platelet Count 149 K/mm3 (150-450); Red Blood Count 3.73 M/mm3 (4.2-5.4); Red Cell Distribution Width 18.8 % (11.5-14.0); White Blood Count 2.1 K/mm3 (4.0-10.5)
[2016-11-25 07:05] LABS: Prothrombin Time (Patient) 13.6 Seconds (9.4-11.4)
[2016-11-25 07:15] LABS: Urine Bilirubin Negative (NEGATIVE); Urine Blood Negative /ul (NEGATIVE); Urine Ketone Negative (NEGATIVE); Urine Nitrite Negative (NEGATIVE); Urine Protein Negative (NEGATIVE); Urine Urobilinogen Normal (NORMAL); Urine pH 5.5 pH (5.0-7.0)
[2016-11-25 07:18] LABS: INR 1.31 INR (0.90-1.10)
[2016-11-25 07:20] LABS: Albumin * 2.9 gm/dl (3.4-5.0); Anion Gap 14.9 mmol/L (6.8-13.8); BUN/Creatinine Ratio 24.2 (9.0-21.6); Bilirubin, Total 0.5 mg/dL (0.0-1.1); Ca. Corrected For Albumin 9.7 mg/dL (8.4-10.2); Calcium * 9.1 mg/dL (7.9-10.9); Carbon Dioxide 26.5 mmol/L (24-32.6); Potassium 3.4 mmol/L (3.4-4.6); Total Protein 6.2 gm/dL (6.2-8.2)
[2016-11-25 07:24] LABS: Urine Appearance Clear; Urine Bacteria 1+; Urine Color Yellow; Urine RBC None Seen /hpf (0-5); Urine WBC None Seen /hpf (0-5)
[2016-11-25] MEDS: CIPROFLOXACIN HCL 500 MG TABLET PO SCH ×2 (09:12→21:07)
[2016-11-25] MEDS: FOLIC ACID 1 MG TABLET PO SCH (09:13)
[2016-11-25] MEDS: SACCHAROMYCES BOULARDII 250 MG CAPSULE PO SCH ×4 (09:13→21:08)
[2016-11-25] MEDS: MULTIVITAMINS 1 CAP CAPSULE PO SCH (09:14)
[2016-11-25] MEDS: metroNIDAZOLE 500 MG TABLET PO SCH ×4 (09:14→21:05)
[2016-11-25] MEDS: FUROSEMIDE 40 MG TABLET PO SCH (09:14)
[2016-11-25] MEDS: MUPIROCIN 22 APPL TUBE TP SCH ×2 (09:15→21:04)
[2016-11-25] MEDS: CARVEDILOL 3.125 MG TABLET PO SCH ×2 (09:15→21:05)
[2016-11-25] MEDS: COLCHICINE 0.6 MG TABLET PO SCH ×2 (09:15→21:07)
[2016-11-25] MEDS: NYSTATIN 15 APPL TUBE TP SCH ×2 (09:16→21:08)
[2016-11-25] MEDS: CHLORHEX GL/ISOPROPYL ALCOHOL 960 APPL BTL TP SCH ×2 (09:17→21:06)
[2016-11-25] MEDS: CHOLECALCIFEROL 1,000 UNIT CAPSULE PO SCH (09:17)
[2016-11-25] MEDS: INSULIN DETEMIR 100 UNITS/ML VIAL SC SCH ×2 (09:18→21:32)
[2016-11-25] MEDS: PSYLLIUM SEED 1 PACKET PACKET PO SCH ×2 (09:18→21:06)
[2016-11-25] MEDS: LISINOPRIL 20 MG TABLET PO SCH ×2 (09:18→21:08)
[2016-11-25] MEDS: POTASSIUM CHLORIDE 20 MEQ TABLET.SA PO SCH ×2 (09:33→17:08)
[2016-11-25] MEDS: LACTOBACILLUS ACIDOPHILUS 100 CAP BTL PO SCH ×3 (09:33→17:06)
[2016-11-25] MEDS: ACETAMINOPHEN 325 MG TABLET PO PRN (10:53)
--- NOTE | 2016-11-25 13:03 | PN ---
Subjective - Date and Time Seen Date: 11/25/16 Time: 06:30 Subjective Narrative: Denies pain. Denies SOB. Denies nausea. More awake this morning, but disoriented and confused. MRSA screen positive. Growing Enterobacter from urine culture, sensitive to Cipro. Ongoing pancytopenia, unknown cause. WBC count a little better this morning. Objective - Review of Systems Generalized/Overall Review: Reports: Malaise EENTM: Reports: No Symptoms Reported Respiratory: Reports: No Symptoms Reported Cardiac: Reports: No Symptoms Reported Abdominal: Reports: No Symptoms Reported Genitourinary Symptoms: Reports: No Symptoms Reported Musculoskeletal Complaints: Reports: No Symptoms Reported Neurological: Reports: No Symptoms Reported Skin: Reports: No Symptoms Reported Endocrine: Reports: No Symptoms Reported Misc: All systems neg except as marked - Vitals Vitals: Last Vital Signs Selected Entries 11/25/16 06:25 Temperature 37.1 C Temperature Tympanic Source Pulse Rate 70 Respiratory 24 H Rate Respiratory Normal Depth Blood Pressure 176/75 Blood Pressure Supine Position O2 Sat by Pulse 95 Oximetry Oxygen Delivery Room Air Method - Abnormal Lab Findings Abnormal Lab Findings: Abnormal Lab Results 11/25/16 11/25/16 11/25/16 Range/Units 06:30 06:52 06:52 WBC 2.1 L (4.0-10.5) K/mm3 RBC 3.73 L (4.2-5.4) M/mm3 Hgb 11.0 L (12.5-16.0) gm/dL Hct 34.3 L (37.0-47.0) % RDW 18.8 H (11.5-14.0) % Plt Count 149 L (150-450) K/mm3 MPV 10.0 H (6.0-9.5) fl Immature Gran % (Auto) 0.90 H (0.001-0.429) % Monocytes % 15.5 H (0.0-9) % Neutrophils # 1.2 L (1.3-6.0) K/mm3 Lymphocytes # 0.6 L (1.5-3.5) k/mm3 PT 13.6 H (9.4-11.4) Seconds INR (Anticoag Therapy) 1.31 H (0.90-1.10) INR Sodium (132-142) mmol/L Plasma Sodium (130-142) mmol/L Anion Gap (6.8-13.8) mmol/L BUN/Creatinine Ratio (9.0-21.6) Random Glucose (70-110) mg/dL Albumin (3.4-5.0) gm/dl Urine Bacteria 1+ H (NONE) 11/25/16 Range/Units 06:52 WBC (4.0-10.5) K/mm3 RBC (4.2-5.4) M/mm3 Hgb (12.5-16.0) gm/dL Hct (37.0-47.0) % RDW (11.5-14.0) % Plt Count (150-450) K/mm3 MPV (6.0-9.5) fl Immature Gran % (Auto) (0.001-0.429) % Monocytes % (0.0-9) % Neutrophils # (1.3-6.0) K/mm3 Lymphocytes # (1.5-3.5) k/mm3 PT (9.4-11.4) Seconds INR (Anticoag Therapy) (0.90-1.10) INR Sodium 144 H (132-142) mmol/L Plasma Sodium 144 H (130-142) mmol/L Anion Gap 14.9 H (6.8-13.8) mmol/L BUN/Creatinine Ratio 24.2 H (9.0-21.6) Random Glucose 125 H (70-110) mg/dL Albumin 2.9 L (3.4-5.0) gm/dl Urine Bacteria (NONE) - Exam Constitutional: Present: Alert, Cooperative, Well developed, No distress ENT Exam: Present: normal ENT inspection, hard of hearing Neck: Present: normal inspection Respiratory: Present: lungs clear, no respiratory distress Cardiovascular/Chest: Present: regular rate, rhythm, no murmur Abdomen: Present: Normal bowel sounds, soft, nontender, nondistended, no rebound tenderness, no hepatospenomegaly, no masses Extremity: Present: non-tender, no pedal edema Skin Exam: Present: normal color, warm/dry, no cyanosis Neurologic: Present: alert Appearance: Present: appropriate appearance, neat Eye contact: Present: cooperative Assessment/Plan Plan Narrative: continue antibiotics. follow labs. continue lasix. - Problems/Diagnosis (1) Altered mental status Problem: Acute Qualifiers: Altered mental status type: delirium Qualified Code(s): R41.0 - Disorientation, unspecified (2) Prolonged INR Problem: Acute (3) UTI (urinary tract infection), bacterial Problem: Acute (4) Leukopenia Problem: Acute Qualifiers: Leukopenia type: neutropenia Neutropenia type: unspecified Qualified Code (s): D70.9 - Neutropenia, unspecified (5) Altered mental status Problem: Acute Qualifiers: Altered mental status type: delirium Qualified Code(s): R41.0 - Disorientation, unspecified (6) Anemia Problem: Chronic Qualifiers: Anemia type: iron deficiency Iron deficiency anemia type: unspecified iron deficiency Qualified Code(s): D50.9 - Iron deficiency anemia, unspecified (7) Chronic congestive heart failure with left ventricular diastolic dysfunction Problem: Chronic (8) Chronic pain Problem: Chronic Qualifiers: Chronic pain type: other chronic pain Qualified Code(s): G89.29 - Other chronic pain (9) Chronic restrictive lung disease Problem: Chronic (10) 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 Problem: Chronic Qualifiers: 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 type: type 2 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 complication status: with other specified complication 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 halfway insulin use: with halfway use Qualified Code(s): E11.69 - Type 2 diabetes mellitus with other specified complication (11) GERD (gastroesophageal reflux disease) Problem: Chronic Qualifiers: Esophagitis presence: without esophagitis (12) Gallstones Problem: Chronic Qualifiers: Cholecystitis presence: without cholecystitis Biliary obstruction: without biliary obstruction Qualified Code(s): K80.20 - Calculus of gallbladder without cholecystitis without obstruction (13) Gout Problem: Chronic Qualifiers: Gout site: unspecified site Gout etiology: idiopathic Chronicity: chronic Presence of tophus: without tophus Qualified Code(s): M1A.00X0 - Idiopathic chronic gout, unspecified site, without tophus (tophi) (14) HLD (hyperlipidemia) Problem: Chronic Qualifiers: Hyperlipidemia type: mixed hyperlipidemia Qualified Code(s): E78.2 - Mixed hyperlipidemia (15) [place] (hard of hearing) Problem: Chronic Qualifiers: Laterality: bilateral Qualified Code(s): H91.93 - Unspecified hearing loss , bilateral (16) History of recurrent UTIs Problem: Chronic (17) Hypertension Problem: Chronic Qualifiers: Hypertension type: essential hypertension Qualified Code(s): I10 - Essential (primary) hypertension (18) Hypoventilation associated with obesity syndrome Problem: Chronic (19) Immunosuppressed status Problem: Chronic (20) MRSA (methicillin resistant Staphylococcus aureus) carrier Problem: Chronic (21) Parkinsons Problem: Chronic (22) Pulmonary hypertension Problem: Chronic (23) Severe hearing loss Problem: Chronic Qualifiers: Laterality: bilateral Qualified Code(s): H91.93 - Unspecified hearing loss , bilateral (24) 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
[2016-11-25] MEDS: WARFARIN SODIUM 5 MG TABLET PO SCH (17:06)
[2016-11-25] MEDS: ZIPRASIDONE HCL 20 MG CAPSULE PO SCH (21:06)
[2016-11-25] MEDS: SIMVASTATIN 40 MG TABLET PO SCH (21:09)
[2016-11-26] MEDS: POLYVINYL ALCOHOL 150 DROP BTL OP SCH ×6 (02:33→21:17)
[2016-11-26 05:17] LABS: Hematocrit 35.6 % (37.0-47.0); Hemoglobin 11.4 gm/dL (12.5-16.0); Mean Cell Volume 92.5 fl (78-100); Mean Corpuscular Hemoglobin 29.6 pg (27-31); Mean Platelet Volume 10.4 fl (6.0-9.5); Neutrophil # 2.1 K/mm3 (1.3-6.0); Neutrophil % 67.1 % (42-75.0); Platelet Count 157 K/mm3 (150-450); Red Blood Count 3.85 M/mm3 (4.2-5.4); Red Cell Distribution Width 19.1 % (11.5-14.0); White Blood Count 3.2 K/mm3 (4.0-10.5)
[2016-11-26 05:37] LABS: Prothrombin Time (Patient) 18.7 Seconds (9.4-11.4)
[2016-11-26 05:39] LABS: Anion Gap 16.2 mmol/L (6.8-13.8); BUN/Creatinine Ratio 21.7 (9.0-21.6); Carbon Dioxide 24.3 mmol/L (24-32.6); Estimated Creat Clear 33.9; Potassium 3.5 mmol/L (3.4-4.6)
[2016-11-26 05:49] LABS: INR 1.8 INR (0.90-1.10)
[2016-11-26] MEDS: metroNIDAZOLE 500 MG TABLET PO SCH ×4 (10:58→21:13)
[2016-11-26] MEDS: COLCHICINE 0.6 MG TABLET PO SCH ×2 (10:58→21:11)
[2016-11-26] MEDS: CIPROFLOXACIN HCL 500 MG TABLET PO SCH ×2 (10:58→21:11)
[2016-11-26] MEDS: MUPIROCIN 22 APPL TUBE TP SCH ×2 (10:58→23:08)
[2016-11-26] MEDS: LACTOBACILLUS ACIDOPHILUS 100 CAP BTL PO SCH ×3 (10:58→16:18)
[2016-11-26] MEDS: CARVEDILOL 3.125 MG TABLET PO SCH ×2 (10:58→21:12)
[2016-11-26] MEDS: MULTIVITAMINS 1 CAP CAPSULE PO SCH (10:59)
[2016-11-26] MEDS: FOLIC ACID 1 MG TABLET PO SCH (10:59)
[2016-11-26] MEDS: NYSTATIN 15 APPL TUBE TP SCH ×2 (10:59→21:16)
[2016-11-26] MEDS: POTASSIUM CHLORIDE 20 MEQ TABLET.SA PO SCH ×2 (10:59→16:20)
[2016-11-26] MEDS: SACCHAROMYCES BOULARDII 250 MG CAPSULE PO SCH ×4 (10:59→21:13)
[2016-11-26] MEDS: FUROSEMIDE 40 MG TABLET PO SCH (10:59)
[2016-11-26] MEDS: CHLORHEX GL/ISOPROPYL ALCOHOL 960 APPL BTL TP SCH ×2 (10:59→21:14)
[2016-11-26] MEDS: CHOLECALCIFEROL 1,000 UNIT CAPSULE PO SCH (10:59)
[2016-11-26] MEDS: LISINOPRIL 20 MG TABLET PO SCH ×2 (10:59→21:17)
[2016-11-26] MEDS: PSYLLIUM SEED 1 PACKET PACKET PO SCH ×2 (10:59→21:16)
[2016-11-26] MEDS: INSULIN DETEMIR 100 UNITS/ML VIAL SC SCH ×2 (11:00→21:14)
[2016-11-26] MEDS: ACETAMINOPHEN 325 MG TABLET PO PRN (16:17)
[2016-11-26] MEDS: WARFARIN SODIUM 5 MG TABLET PO SCH (16:19)
--- NOTE | 2016-11-26 17:53 | PN ---
Subjective - Date and Time Seen Date: 11/26/16 Time: 06:50 Subjective Narrative: Denies pain. Denies SOB. Denies nausea. More awake this morning, but disoriented and confused. MRSA screen positive. Growing Enterobacter from urine culture, sensitive to Cipro. Ongoing pancytopenia, unknown cause. WBC count a little better this morning. C dif from stool, now taking oral flagyl. Objective - Review of Systems Generalized/Overall Review: Reports: Malaise EENTM: Reports: No Symptoms Reported Respiratory: Reports: No Symptoms Reported Cardiac: Reports: No Symptoms Reported Abdominal: Reports: Abdominal Pain Genitourinary Symptoms: Reports: No Symptoms Reported Musculoskeletal Complaints: Reports: No Symptoms Reported Neurological: Reports: No Symptoms Reported Skin: Reports: No Symptoms Reported Endocrine: Reports: No Symptoms Reported Misc: All systems neg except as marked - Vitals Vitals: Last Vital Signs Selected Entries 11/25/16 06:25 Temperature 37.1 C Temperature Tympanic Source Pulse Rate 70 Respiratory 24 H Rate Respiratory Normal Depth Blood Pressure 176/75 Blood Pressure Supine Position O2 Sat by Pulse 95 Oximetry Oxygen Delivery Room Air Method - Abnormal Lab Findings Abnormal Lab Findings: Abnormal Lab Results 11/26/16 11/26/16 11/26/16 Range/Units 04:55 04:55 04:55 WBC 3.2 L D (4.0-10.5) K/mm3 RBC 3.85 L (4.2-5.4) M/mm3 Hgb 11.4 L (12.5-16.0) gm/dL Hct 35.6 L (37.0-47.0) % RDW 19.1 H (11.5-14.0) % MPV 10.4 H (6.0-9.5) fl Immature Gran % (Auto) 0.90 H (0.001-0.429) % Lymphocytes % 18.9 L (20-51) % Monocytes % 11.9 H (0.0-9) % Lymphocytes # 0.6 L (1.5-3.5) k/mm3 PT 18.7 H (9.4-11.4) Seconds INR (Anticoag Therapy) 1.80 H (0.90-1.10) INR Sodium 144 H (132-142) mmol/L Plasma Sodium 144 H (130-142) mmol/L Chloride 107 H (97-106) mmol/L Anion Gap 16.2 H (6.8-13.8) mmol/L BUN 25 H (3-23) mg/dL Est GFR (Non-Af Amer) 49 L (60-130) mL/min BUN/Creatinine Ratio 21.7 H (9.0-21.6) Random Glucose 128 H (70-110) mg/dL - Exam Constitutional: Present: Alert, Cooperative, Well developed, No distress ENT Exam: Present: normal ENT inspection, hearing grossly normal Neck: Present: normal inspection Respiratory: Present: lungs clear, no respiratory distress Cardiovascular/Chest: Present: normal peripheral pulses, regular rate, rhythm, no chest tenderness, no edema, no gallop, no JVD, no murmur Extremity: Present: pedal edema Skin Exam: Present: normal color, warm/dry, no cyanosis Neurologic: Present: alert Appearance: Present: appropriate appearance, neat. Absent: appropriate insight , no memory impairment Eye contact: Present: cooperative Thoughts: Absent: normal thought pattern Assessment/Plan Plan Narrative: Continue flagyl. Follow labs. - Problems/Diagnosis (1) Altered mental status Problem: Acute Qualifiers: Altered mental status type: delirium Qualified Code(s): R41.0 - Disorientation, unspecified (2) Prolonged INR Problem: Acute (3) UTI (urinary tract infection), bacterial Problem: Acute (4) Leukopenia Problem: Acute Qualifiers: Leukopenia type: neutropenia Neutropenia type: unspecified Qualified Code (s): D70.9 - Neutropenia, unspecified (5) Altered mental status Problem: Acute Qualifiers: Altered mental status type: delirium Qualified Code(s): R41.0 - Disorientation, unspecified (6) Anemia Problem: Chronic Qualifiers: Anemia type: iron deficiency Iron deficiency anemia type: unspecified iron deficiency Qualified Code(s): D50.9 - Iron deficiency anemia, unspecified (7) Chronic congestive heart failure with left ventricular diastolic dysfunction Problem: Chronic (8) Chronic pain Problem: Chronic Qualifiers: Chronic pain type: other chronic pain Qualified Code(s): G89.29 - Other chronic pain (9) Chronic restrictive lung disease Problem: Chronic (10) 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 Problem: Chronic Qualifiers: 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 type: type 2 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 complication status: with other specified complication 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 long term care social worker insulin use: with long term care social worker use Qualified Code(s): E11.69 - Type 2 diabetes mellitus with other specified complication (11) GERD (gastroesophageal reflux disease) Problem: Chronic Qualifiers: Esophagitis presence: without esophagitis (12) Gallstones Problem: Chronic Qualifiers: Cholecystitis presence: without cholecystitis Biliary obstruction: without biliary obstruction Qualified Code(s): K80.20 - Calculus of gallbladder without cholecystitis without obstruction (13) Gout Problem: Chronic Qualifiers: Gout site: unspecified site Gout etiology: idiopathic Chronicity: chronic Presence of tophus: without tophus Qualified Code(s): M1A.00X0 - Idiopathic chronic gout, unspecified site, without tophus (tophi) (14) HLD (hyperlipidemia) Problem: Chronic Qualifiers: Hyperlipidemia type: mixed hyperlipidemia Qualified Code(s): E78.2 - Mixed hyperlipidemia (15) [place] (hard of hearing) Problem: Chronic Qualifiers: Laterality: bilateral Qualified Code(s): H91.93 - Unspecified hearing loss , bilateral (16) History of recurrent UTIs Problem: Chronic (17) Hypertension Problem: Chronic Qualifiers: Hypertension type: essential hypertension Qualified Code(s): I10 - Essential (primary) hypertension (18) Hypoventilation associated with obesity syndrome Problem: Chronic (19) Immunosuppressed status Problem: Chronic (20) MRSA (methicillin resistant Staphylococcus aureus) carrier Problem: Chronic (21) Parkinsons Problem: Chronic (22) Pulmonary hypertension Problem: Chronic (23) Severe hearing loss Problem: Chronic Qualifiers: Laterality: bilateral Qualified Code(s): H91.93 - Unspecified hearing loss , bilateral (24) 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
[2016-11-26] MEDS: ZIPRASIDONE HCL 20 MG CAPSULE PO SCH (21:14)
[2016-11-26] MEDS: SIMVASTATIN 40 MG TABLET PO SCH (21:17)
[2016-11-27] MEDS: POLYVINYL ALCOHOL 150 DROP BTL OP SCH ×6 (03:13→22:52)
[2016-11-27 05:52] LABS: Hemoglobin 10.8 gm/dL (12.5-16.0); Mean Cell Volume 91.6 fl (78-100); Mean Corpuscular Hemoglobin 29.1 pg (27-31); Mean Corpuscular Hgb Conc 31.8 g/dl (32-36); Mean Platelet Volume 10.3 fl (6.0-9.5); Neutrophil # 1.2 K/mm3 (1.3-6.0); Neutrophil % 57.1 % (42-75.0); Platelet Count 142 K/mm3 (150-450); Red Blood Count 3.71 M/mm3 (4.2-5.4); White Blood Count 2.2 K/mm3 (4.0-10.5)
[2016-11-27 06:03] LABS: Prothrombin Time (Patient) 28.2 Seconds (9.4-11.4)
[2016-11-27 06:04] LABS: Anion Gap 15.6 mmol/L (6.8-13.8); BUN/Creatinine Ratio 21.1 (9.0-21.6); Calcium * 8.4 mg/dL (7.9-10.9); Carbon Dioxide 23.9 mmol/L (24-32.6); Estimated Creat Clear 27.4; Potassium 3.5 mmol/L (3.4-4.6)
[2016-11-27 06:06] LABS: INR 2.71 INR (0.90-1.10)
[2016-11-27] MEDS: FUROSEMIDE 40 MG TABLET PO SCH (08:54)
[2016-11-27] MEDS: LISINOPRIL 20 MG TABLET PO SCH ×2 (08:55→20:13)
[2016-11-27] MEDS: FOLIC ACID 1 MG TABLET PO SCH (08:56)
[2016-11-27] MEDS: CHOLECALCIFEROL 1,000 UNIT CAPSULE PO SCH (08:56)
[2016-11-27] MEDS: metroNIDAZOLE 500 MG TABLET PO SCH ×4 (08:57→20:10)
[2016-11-27] MEDS: SACCHAROMYCES BOULARDII 250 MG CAPSULE PO SCH ×4 (08:57→20:10)
[2016-11-27] MEDS: POTASSIUM CHLORIDE 20 MEQ TABLET.SA PO SCH (08:57)
[2016-11-27] MEDS: CIPROFLOXACIN HCL 500 MG TABLET PO SCH ×2 (08:57→20:08)
[2016-11-27] MEDS: COLCHICINE 0.6 MG TABLET PO SCH ×2 (08:58→20:08)
[2016-11-27] MEDS: PSYLLIUM SEED 1 PACKET PACKET PO SCH ×2 (08:59→20:12)
[2016-11-27] MEDS: CARVEDILOL 3.125 MG TABLET PO SCH ×2 (08:59→20:09)
[2016-11-27] MEDS: NYSTATIN 15 APPL TUBE TP SCH ×2 (08:59→20:12)
[2016-11-27] MEDS: MULTIVITAMINS 1 CAP CAPSULE PO SCH (08:59)
[2016-11-27] MEDS: CHLORHEX GL/ISOPROPYL ALCOHOL 960 APPL BTL TP SCH ×2 (09:01→20:11)
[2016-11-27] MEDS: LACTOBACILLUS ACIDOPHILUS 100 CAP BTL PO SCH ×3 (09:01→16:50)
[2016-11-27] MEDS: INSULIN DETEMIR 100 UNITS/ML VIAL SC SCH ×2 (09:02→20:14)
[2016-11-27] MEDS: ACETAMINOPHEN 325 MG TABLET PO PRN (11:53)
[2016-11-27] MEDS ORDERED: WARFARIN SODIUM 1 MG TABLET PO SCH (17:00)
[2016-11-27] MEDS: PROMETHAZINE HCL 12.5 MG in DEXTROSE 5 % IN WATER 50 ML IV SCH ×4 (17:20→22:53)
[2016-11-27] MEDS: SIMVASTATIN 40 MG TABLET PO SCH (20:13)
[2016-11-27] MEDS: ZIPRASIDONE HCL 20 MG CAPSULE PO SCH (20:15)
[2016-11-28] MEDS: POLYVINYL ALCOHOL 150 DROP BTL OP SCH ×6 (01:51→23:42)
[2016-11-28] MEDS: PROMETHAZINE HCL 12.5 MG in DEXTROSE 5 % IN WATER 50 ML IV SCH ×8 (05:20→23:49)
[2016-11-28 06:14] LABS: Hematocrit 35.8 % (37.0-47.0); Hemoglobin 11.4 gm/dL (12.5-16.0); Mean Corpuscular Hemoglobin 29.3 pg (27-31); Mean Corpuscular Hgb Conc 31.8 g/dl (32-36); Mean Platelet Volume 10.2 fl (6.0-9.5); Neutrophil # 2.1 K/mm3 (1.3-6.0); Neutrophil % 65.2 % (42-75.0); Platelet Count 152 K/mm3 (150-450); Red Blood Count 3.89 M/mm3 (4.2-5.4); Red Cell Distribution Width 19.2 % (11.5-14.0); White Blood Count 3.2 K/mm3 (4.0-10.5)
[2016-11-28 06:21] LABS: Anion Gap 13.5 mmol/L (6.8-13.8); BUN/Creatinine Ratio 22.2 (9.0-21.6); Calcium * 8.2 mg/dL (7.9-10.9); Carbon Dioxide 24.1 mmol/L (24-32.6); Estimated Creat Clear 27.1; Potassium 3.6 mmol/L (3.4-4.6)
[2016-11-28] MEDS: metroNIDAZOLE/SODIUM CHLORIDE 500 MG/100 ML BAG IV SCH ×3 (07:09→19:05)
[2016-11-28] MEDS ORDERED: COD LIVER OIL/ZINC OXIDE 113 APPL TUBE TP PRN (07:34)
[2016-11-28 07:39] LABS: Prothrombin Time (Patient) 41.8 Seconds (9.4-11.4)
[2016-11-28 07:49] LABS: INR 4.02 INR (0.90-1.10)
[2016-11-28] MEDS: COLCHICINE 0.6 MG TABLET PO SCH (08:25)
[2016-11-28] MEDS: FOLIC ACID 1 MG TABLET PO SCH (08:26)
[2016-11-28] MEDS: CIPROFLOXACIN HCL 500 MG TABLET PO SCH ×2 (08:26→20:35)
[2016-11-28] MEDS: LISINOPRIL 20 MG TABLET PO SCH ×2 (08:26→20:45)
[2016-11-28] MEDS: MULTIVITAMINS 1 CAP CAPSULE PO SCH (08:27)
[2016-11-28] MEDS: CARVEDILOL 3.125 MG TABLET PO SCH ×2 (08:28→20:45)
[2016-11-28] MEDS: SACCHAROMYCES BOULARDII 250 MG CAPSULE PO SCH ×4 (08:28→20:36)
[2016-11-28] MEDS: CHOLECALCIFEROL 1,000 UNIT CAPSULE PO SCH (08:30)
[2016-11-28] MEDS: PSYLLIUM SEED 1 PACKET PACKET PO SCH ×2 (08:31→20:35)
[2016-11-28] MEDS: LACTOBACILLUS ACIDOPHILUS 100 CAP BTL PO SCH ×3 (08:33→17:02)
[2016-11-28] MEDS: CHLORHEX GL/ISOPROPYL ALCOHOL 960 APPL BTL TP SCH ×2 (08:34→20:34)
[2016-11-28] MEDS: NYSTATIN 15 APPL TUBE TP SCH ×2 (08:34→20:34)
[2016-11-28] MEDS: INSULIN DETEMIR 100 UNITS/ML VIAL SC SCH ×2 (08:38→20:46)
--- NOTE | 2016-11-28 13:06 | PN ---
Subjective - Date and Time Seen Date: 11/28/16 Time: 21:10 Subjective Narrative: Denies pain. Denies SOB. Denies nausea. Mid day today vomited a small amount, and has been nauseated the rest of the day. I suspect the cause is the oral flagyl, so I changed it to IV, and we are giving small doses of IV Phenergan. Objective - Review of Systems Generalized/Overall Review: Reports: Malaise EENTM: Reports: No Symptoms Reported Respiratory: Reports: No Symptoms Reported Cardiac: Reports: No Symptoms Reported Abdominal: Reports: Nausea Genitourinary Symptoms: Reports: No Symptoms Reported Musculoskeletal Complaints: Reports: No Symptoms Reported Neurological: Reports: No Symptoms Reported Skin: Reports: No Symptoms Reported Endocrine: Reports: No Symptoms Reported Misc: All systems neg except as marked - Vitals Vitals: Last Vital Signs Selected Entries 11/27/16 11/27/16 11/27/16 18:02 20:09 20:13 Temperature 36.8 C Temperature Oral Source Pulse Rate 70 70 70 Respiratory 24 H Rate Blood Pressure 171/72 171/72 171/72 Blood Pressure Supine Position O2 Sat by Pulse 99 Oximetry Oxygen Delivery Room Air Method - Abnormal Lab Findings Abnormal Lab Findings: Abnormal Lab Results 11/28/16 11/28/16 11/28/16 Range/Units 06:00 06:11 06:11 WBC 3.2 L D (4.0-10.5) K/mm3 RBC 3.89 L (4.2-5.4) M/mm3 Hgb 11.4 L (12.5-16.0) gm/dL Hct 35.8 L (37.0-47.0) % MCHC 31.8 L (32-36) g/dl RDW 19.2 H (11.5-14.0) % MPV 10.2 H (6.0-9.5) fl Immature Gran % (Auto) 0.60 H (0.001-0.429) % Monocytes % 11.1 H (0.0-9) % Lymphocytes # 0.7 L (1.5-3.5) k/mm3 PT 41.8 H (9.4-11.4) Seconds INR (Anticoag Therapy) 4.02 H* (0.90-1.10) INR Chloride 108 H (97-106) mmol/L BUN 32 H (3-23) mg/dL Creatinine 1.44 H (0.4-1.4) mg/dL Est GFR (Non-Af Amer) 38 L (60-130) mL/min BUN/Creatinine Ratio 22.2 H (9.0-21.6) Random Glucose 117 H (70-110) mg/dL - Exam Constitutional: Present: Alert, Cooperative, Well developed, No distress ENT Exam: Present: normal ENT inspection, hard of hearing Neck: Present: normal inspection Respiratory: Present: lungs clear, no respiratory distress Cardiovascular/Chest: Present: regular rate, rhythm, no murmur Abdomen: Present: Normal bowel sounds, soft, nontender, nondistended, no rebound tenderness, no hepatospenomegaly, no masses Extremity: Present: pedal edema, 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 Appearance: Present: appropriate appearance, neat Eye contact: Present: cooperative Assessment/Plan Plan Narrative: Switch oral flagyl to IV flagyl. IV phenergan. Follow labs. - Problems/Diagnosis (1) Altered mental status Problem: Acute Qualifiers: Altered mental status type: delirium Qualified Code(s): R41.0 - Disorientation, unspecified (2) Prolonged INR Problem: Acute (3) UTI (urinary tract infection), bacterial Problem: Acute (4) Leukopenia Problem: Acute Qualifiers: Leukopenia type: neutropenia Neutropenia type: unspecified Qualified Code (s): D70.9 - Neutropenia, unspecified (5) Altered mental status Problem: Acute Qualifiers: Altered mental status type: delirium Qualified Code(s): R41.0 - Disorientation, unspecified (6) Anemia Problem: Chronic Qualifiers: Anemia type: iron deficiency Iron deficiency anemia type: unspecified iron deficiency Qualified Code(s): D50.9 - Iron deficiency anemia, unspecified (7) Chronic congestive heart failure with left ventricular diastolic dysfunction Problem: Chronic (8) Chronic pain Problem: Chronic Qualifiers: Chronic pain type: other chronic pain Qualified Code(s): G89.29 - Other chronic pain (9) Chronic restrictive lung disease Problem: Chronic (10) 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 Problem: Chronic Qualifiers: 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 type: type 2 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 complication status: with other specified complication 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 marketing professor insulin use: with senior care use Qualified Code(s): E11.69 - Type 2 diabetes mellitus with other specified complication (11) GERD (gastroesophageal reflux disease) Problem: Chronic Qualifiers: Esophagitis presence: without esophagitis (12) Gallstones Problem: Chronic Qualifiers: Cholecystitis presence: without cholecystitis Biliary obstruction: without biliary obstruction Qualified Code(s): K80.20 - Calculus of gallbladder without cholecystitis without obstruction (13) Gout Problem: Chronic Qualifiers: Gout site: unspecified site Gout etiology: idiopathic Chronicity: chronic Presence of tophus: without tophus Qualified Code(s): M1A.00X0 - Idiopathic chronic gout, unspecified site, without tophus (tophi) (14) HLD (hyperlipidemia) Problem: Chronic Qualifiers: Hyperlipidemia type: mixed hyperlipidemia Qualified Code(s): E78.2 - Mixed hyperlipidemia (15) [place] (hard of hearing) Problem: Chronic Qualifiers: Laterality: bilateral Qualified Code(s): H91.93 - Unspecified hearing loss , bilateral (16) History of recurrent UTIs Problem: Chronic (17) Hypertension Problem: Chronic Qualifiers: Hypertension type: essential hypertension Qualified Code(s): I10 - Essential (primary) hypertension (18) Hypoventilation associated with obesity syndrome Problem: Chronic (19) Immunosuppressed status Problem: Chronic (20) MRSA (methicillin resistant Staphylococcus aureus) carrier Problem: Chronic (21) Parkinsons Problem: Chronic (22) Pulmonary hypertension Problem: Chronic (23) Severe hearing loss Problem: Chronic Qualifiers: Laterality: bilateral Qualified Code(s): H91.93 - Unspecified hearing loss , bilateral (24) 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
--- NOTE | 2016-11-28 18:56 | PN ---
Subjective - Date and Time Seen Date: 11/28/16 Time: 18:53 Subjective Narrative: Denies pain. Denies SOB. Denies nausea. No more vomiting. Still has loose stools, but no todd diarrhea. Objective - Review of Systems Generalized/Overall Review: Reports: Malaise EENTM: Reports: No Symptoms Reported Respiratory: Reports: No Symptoms Reported Cardiac: Reports: No Symptoms Reported Abdominal: Reports: Diarrhea Genitourinary Symptoms: Reports: No Symptoms Reported Musculoskeletal Complaints: Reports: No Symptoms Reported Neurological: Reports: No Symptoms Reported Skin: Reports: No Symptoms Reported Endocrine: Reports: No Symptoms Reported Misc: All systems neg except as marked - Vitals Vitals: Last Vital Signs Selected Entries 11/28/16 14:00 Temperature 36.4 C L Temperature Oral Source Pulse Rate 74 Respiratory 18 Rate Blood Pressure 127/67 Blood Pressure Supine Position O2 Sat by Pulse 98 Oximetry Oxygen Delivery Room Air Method - Abnormal Lab Findings Abnormal Lab Findings: Abnormal Lab Results 11/28/16 11/28/16 11/28/16 Range/Units 06:00 06:11 06:11 WBC 3.2 L D (4.0-10.5) K/mm3 RBC 3.89 L (4.2-5.4) M/mm3 Hgb 11.4 L (12.5-16.0) gm/dL Hct 35.8 L (37.0-47.0) % MCHC 31.8 L (32-36) g/dl RDW 19.2 H (11.5-14.0) % MPV 10.2 H (6.0-9.5) fl Immature Gran % (Auto) 0.60 H (0.001-0.429) % Monocytes % 11.1 H (0.0-9) % Lymphocytes # 0.7 L (1.5-3.5) k/mm3 PT 41.8 H (9.4-11.4) Seconds INR (Anticoag Therapy) 4.02 H* (0.90-1.10) INR Chloride 108 H (97-106) mmol/L BUN 32 H (3-23) mg/dL Creatinine 1.44 H (0.4-1.4) mg/dL Est GFR (Non-Af Amer) 38 L (60-130) mL/min BUN/Creatinine Ratio 22.2 H (9.0-21.6) Random Glucose 117 H (70-110) mg/dL - Exam Constitutional: Present: Alert, Cooperative, Well developed, Well nourished, No distress ENT Exam: Present: normal ENT inspection, hard of hearing Neck: Present: normal inspection Respiratory: Present: lungs clear, no respiratory distress Cardiovascular/Chest: Present: regular rate, rhythm, no murmur Abdomen: Present: Normal bowel sounds, soft, nontender, nondistended, no rebound tenderness, no hepatospenomegaly, no masses Extremity: Present: non-tender, no calf tenderness, pedal edema, other - right leg amputation Skin Exam: Present: normal color, warm/dry, no cyanosis Neurologic: Present: depressed affect Appearance: Present: appropriate appearance, neat Eye contact: Present: cooperative Assessment/Plan Plan Narrative: We will continue current antibiotics. We will follow labs. We will continue to keep her safe, with paln to send her home in the near future. - Problems/Diagnosis (1) Altered mental status Problem: Acute Qualifiers: Altered mental status type: delirium Qualified Code(s): R41.0 - Disorientation, unspecified (2) Prolonged INR Problem: Acute (3) UTI (urinary tract infection), bacterial Problem: Acute (4) Leukopenia Problem: Acute Qualifiers: Leukopenia type: neutropenia Neutropenia type: unspecified Qualified Code (s): D70.9 - Neutropenia, unspecified (5) Altered mental status Problem: Acute Qualifiers: Altered mental status type: delirium Qualified Code(s): R41.0 - Disorientation, unspecified (6) Anemia Problem: Chronic Qualifiers: Anemia type: iron deficiency Iron deficiency anemia type: unspecified iron deficiency Qualified Code(s): D50.9 - Iron deficiency anemia, unspecified (7) Chronic congestive heart failure with left ventricular diastolic dysfunction Problem: Chronic (8) Chronic pain Problem: Chronic Qualifiers: Chronic pain type: other chronic pain Qualified Code(s): G89.29 - Other chronic pain (9) Chronic restrictive lung disease Problem: Chronic (10) 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 Problem: Chronic Qualifiers: 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 type: type 2 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 complication status: with other specified complication 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 shelter insulin use: with shelter use Qualified Code(s): E11.69 - Type 2 diabetes mellitus with other specified complication (11) GERD (gastroesophageal reflux disease) Problem: Chronic Qualifiers: Esophagitis presence: without esophagitis (12) Gallstones Problem: Chronic Qualifiers: Cholecystitis presence: without cholecystitis Biliary obstruction: without biliary obstruction Qualified Code(s): K80.20 - Calculus of gallbladder without cholecystitis without obstruction (13) Gout Problem: Chronic Qualifiers: Gout site: unspecified site Gout etiology: idiopathic Chronicity: chronic Presence of tophus: without tophus Qualified Code(s): M1A.00X0 - Idiopathic chronic gout, unspecified site, without tophus (tophi) (14) HLD (hyperlipidemia) Problem: Chronic Qualifiers: Hyperlipidemia type: mixed hyperlipidemia Qualified Code(s): E78.2 - Mixed hyperlipidemia (15) [place] (hard of hearing) Problem: Chronic Qualifiers: Laterality: bilateral Qualified Code(s): H91.93 - Unspecified hearing loss , bilateral (16) History of recurrent UTIs Problem: Chronic (17) Hypertension Problem: Chronic Qualifiers: Hypertension type: essential hypertension Qualified Code(s): I10 - Essential (primary) hypertension (18) Hypoventilation associated with obesity syndrome Problem: Chronic (19) Immunosuppressed status Problem: Chronic (20) MRSA (methicillin resistant Staphylococcus aureus) carrier Problem: Chronic (21) Parkinsons Problem: Chronic (22) Pulmonary hypertension Problem: Chronic (23) Severe hearing loss Problem: Chronic Qualifiers: Laterality: bilateral Qualified Code(s): H91.93 - Unspecified hearing loss , bilateral (24) 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
[2016-11-28] MEDS: SIMVASTATIN 40 MG TABLET PO SCH (20:36)
[2016-11-28] MEDS: ZIPRASIDONE HCL 20 MG CAPSULE PO SCH (20:36)
[2016-11-29] MEDS: POLYVINYL ALCOHOL 150 DROP BTL OP SCH ×6 (02:44→21:17)
[2016-11-29] MEDS: metroNIDAZOLE/SODIUM CHLORIDE 500 MG/100 ML BAG IV SCH ×4 (02:44→19:52)
[2016-11-29] MEDS: PROMETHAZINE HCL 12.5 MG in DEXTROSE 5 % IN WATER 50 ML IV SCH ×2 (05:06)
[2016-11-29 06:23] LABS: Hemoglobin 10.7 gm/dL (12.5-16.0); Mean Cell Volume 90.7 fl (78-100); Mean Corpuscular Hemoglobin 29.4 pg (27-31); Mean Corpuscular Hgb Conc 32.4 g/dl (32-36); Neutrophil # 1.7 K/mm3 (1.3-6.0); Neutrophil % 58.3 % (42-75.0); Platelet Count 146 K/mm3 (150-450); Red Blood Count 3.64 M/mm3 (4.2-5.4); Red Cell Distribution Width 19.2 % (11.5-14.0); White Blood Count 2.9 K/mm3 (4.0-10.5)
[2016-11-29 06:31] LABS: INR 3.85 INR (0.90-1.10)
[2016-11-29 06:32] LABS: Anion Gap 16.1 mmol/L (6.8-13.8); BUN/Creatinine Ratio 21.6 (9.0-21.6); Carbon Dioxide 20.2 mmol/L (24-32.6); Estimated Creat Clear 22.8; Potassium 3.3 mmol/L (3.4-4.6)
[2016-11-29] MEDS ORDERED: DEXTROSE 5% IV PRN ×2 (07:02)
[2016-11-29] MEDS ORDERED: PROMETHAZINE HCL IV PRN ×2 (07:02)
[2016-11-29] MEDS ORDERED: WATER IV PRN ×2 (07:02)
--- NOTE | 2016-11-29 07:13 | PN ---
Subjective - Date and Time Seen Date: 11/29/16 Time: 07:08 Subjective Narrative: Too sleepy to wake this morning. Yesterday, did fine, including eating. Loose stools, no diarrhea. Objective - Review of Systems Generalized/Overall Review: Reports: No Symptoms Reported - too sleepy to answer - Vitals Vitals: Last Vital Signs Selected Entries 11/29/16 01:51 Temperature 36.9 C Temperature Oral Source Pulse Rate 84 Respiratory 20 Rate Blood Pressure 129/75 Blood Pressure Supine Position O2 Sat by Pulse 98 Oximetry Oxygen Delivery Room Air Method - Abnormal Lab Findings Abnormal Lab Findings: Abnormal Lab Results 11/28/16 11/29/16 11/29/16 Range/Units 06:00 06:14 06:14 WBC 2.9 L (4.0-10.5) K/mm3 RBC 3.64 L (4.2-5.4) M/mm3 Hgb 10.7 L (12.5-16.0) gm/dL Hct 33.0 L (37.0-47.0) % RDW 19.2 H (11.5-14.0) % Plt Count 146 L (150-450) K/mm3 MPV 10.0 H (6.0-9.5) fl Immature Gran % (Auto) 1.00 H (0.001-0.429) % Monocytes % 15.3 H (0.0-9) % Lymphocytes # 0.7 L (1.5-3.5) k/mm3 PT 41.8 H (9.4-11.4) Seconds INR (Anticoag Therapy) 4.02 H* (0.90-1.10) INR Potassium 3.3 L (3.4-4.6) mmol/L Carbon Dioxide 20.2 L (24-32.6) mmol/L Anion Gap 16.1 H (6.8-13.8) mmol/L BUN 37 H (3-23) mg/dL Creatinine 1.71 H (0.4-1.4) mg/dL Est GFR (Non-Af Amer) 31 L (60-130) mL/min Random Glucose 124 H (70-110) mg/dL 11/29/16 Range/Units 06:14 WBC (4.0-10.5) K/mm3 RBC (4.2-5.4) M/mm3 Hgb (12.5-16.0) gm/dL Hct (37.0-47.0) % RDW (11.5-14.0) % Plt Count (150-450) K/mm3 MPV (6.0-9.5) fl Immature Gran % (Auto) (0.001-0.429) % Monocytes % (0.0-9) % Lymphocytes # (1.5-3.5) k/mm3 PT 40.0 H (9.4-11.4) Seconds INR (Anticoag Therapy) 3.85 H (0.90-1.10) INR Potassium (3.4-4.6) mmol/L Carbon Dioxide (24-32.6) mmol/L Anion Gap (6.8-13.8) mmol/L BUN (3-23) mg/dL Creatinine (0.4-1.4) mg/dL Est GFR (Non-Af Amer) (60-130) mL/min Random Glucose (70-110) mg/dL - Exam Constitutional: Present: Well developed, Well nourished, No distress, Obtunded, Elderly ENT Exam: Present: normal ENT inspection Neck: Present: normal inspection Respiratory: Present: lungs clear, no respiratory distress Cardiovascular/Chest: Present: regular rate, rhythm, no murmur Abdomen: Present: Normal bowel sounds, soft, nondistended, no hepatospenomegaly , no masses Skin Exam: Present: normal color, warm/dry, no cyanosis Appearance: Present: appropriate appearance, neat Assessment/Plan Plan Narrative: Nausea apparently resolve with IV flagyl instead of po. Too sleepy with current dose phenergan. Loose stools. IV flagyl. Check stools. Oral potassium. Follow labs. Possibly mcc in 3 days. Decrease phenergan dose and make it prn. - Problems/Diagnosis (1) Altered mental status Problem: Acute Qualifiers: Altered mental status type: delirium Qualified Code(s): R41.0 - Disorientation, unspecified (2) Prolonged INR Problem: Acute (3) UTI (urinary tract infection), bacterial Problem: Acute (4) Leukopenia Problem: Acute Qualifiers: Leukopenia type: neutropenia Neutropenia type: unspecified Qualified Code (s): D70.9 - Neutropenia, unspecified (5) Altered mental status Problem: Acute Qualifiers: Altered mental status type: delirium Qualified Code(s): R41.0 - Disorientation, unspecified (6) Anemia Problem: Chronic Qualifiers: Anemia type: iron deficiency Iron deficiency anemia type: unspecified iron deficiency Qualified Code(s): D50.9 - Iron deficiency anemia, unspecified (7) Chronic congestive heart failure with left ventricular diastolic dysfunction Problem: Chronic (8) Chronic pain Problem: Chronic Qualifiers: Chronic pain type: other chronic pain Qualified Code(s): G89.29 - Other chronic pain (9) Chronic restrictive lung disease Problem: Chronic (10) 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 Problem: Chronic Qualifiers: 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 type: type 2 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 complication status: with other specified complication 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 superintendent marine oil terminal insulin use: with jail use Qualified Code(s): E11.69 - Type 2 diabetes mellitus with other specified complication (11) GERD (gastroesophageal reflux disease) Problem: Chronic Qualifiers: Esophagitis presence: without esophagitis (12) Gallstones Problem: Chronic Qualifiers: Cholecystitis presence: without cholecystitis Biliary obstruction: without biliary obstruction Qualified Code(s): K80.20 - Calculus of gallbladder without cholecystitis without obstruction (13) Gout Problem: Chronic Qualifiers: Gout site: unspecified site Gout etiology: idiopathic Chronicity: chronic Presence of tophus: without tophus Qualified Code(s): M1A.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 - Idiopathic chronic gout, unspecified site, without tophus (tophi) (14) HLD (hyperlipidemia) Problem: Chronic Qualifiers: Hyperlipidemia type: mixed hyperlipidemia Qualified Code(s): E78.2 - Mixed hyperlipidemia (15) [place] (hard of hearing) Problem: Chronic Qualifiers: Laterality: bilateral Qualified Code(s): H91.93 - Unspecified hearing loss , bilateral (16) History of recurrent UTIs Problem: Chronic (17) Hypertension Problem: Chronic Qualifiers: Hypertension type: essential hypertension Qualified Code(s): I10 - Essential (primary) hypertension (18) Hypoventilation associated with obesity syndrome Problem: Chronic (19) Immunosuppressed status Problem: Chronic (20) MRSA (methicillin resistant Staphylococcus aureus) carrier Problem: Chronic (21) Parkinsons Problem: Chronic (22) Pulmonary hypertension Problem: Chronic (23) Severe hearing loss Problem: Chronic Qualifiers: Laterality: bilateral Qualified Code(s): H91.93 - Unspecified hearing loss , bilateral (24) 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
[2016-11-29] MEDS ORDERED: POTASSIUM CHLORIDE 20 MEQ TABLET.SA PO SCH (09:00)
[2016-11-29] MEDS: CHLORHEX GL/ISOPROPYL ALCOHOL 960 APPL BTL TP SCH ×3 (09:45→20:38)
[2016-11-29] MEDS: FOLIC ACID 1 MG TABLET PO SCH (09:45)
[2016-11-29] MEDS: CARVEDILOL 3.125 MG TABLET PO SCH ×2 (09:45→20:18)
[2016-11-29] MEDS: CIPROFLOXACIN HCL 500 MG TABLET PO SCH ×2 (09:45→20:18)
[2016-11-29] MEDS: INSULIN DETEMIR 100 UNITS/ML VIAL SC SCH ×2 (09:45→20:33)
[2016-11-29] MEDS: SACCHAROMYCES BOULARDII 250 MG CAPSULE PO SCH ×4 (09:45→20:19)
[2016-11-29] MEDS: LACTOBACILLUS ACIDOPHILUS 100 CAP BTL PO SCH ×3 (09:45→17:27)
[2016-11-29] MEDS: COLCHICINE 0.6 MG TABLET PO SCH (09:45)
[2016-11-29] MEDS: LISINOPRIL 20 MG TABLET PO SCH ×2 (09:46→20:20)
[2016-11-29] MEDS: PSYLLIUM SEED 1 PACKET PACKET PO SCH ×2 (09:46→20:20)
[2016-11-29] MEDS: CHOLECALCIFEROL 1,000 UNIT CAPSULE PO SCH (09:46)
[2016-11-29] MEDS: MULTIVITAMINS 1 CAP CAPSULE PO SCH (09:46)
[2016-11-29] MEDS: NYSTATIN 15 APPL TUBE TP SCH ×2 (09:46→20:21)
[2016-11-29] MEDS ORDERED: WARFARIN SODIUM 1 TAB TAB PO SCH (17:00)
[2016-11-29] MEDS: SIMVASTATIN 40 MG TABLET PO SCH (20:20)
[2016-11-29] MEDS: ZIPRASIDONE HCL 20 MG CAPSULE PO SCH (20:20)
[2016-11-30] MEDS: metroNIDAZOLE/SODIUM CHLORIDE 500 MG/100 ML BAG IV SCH ×4 (01:44→19:22)
[2016-11-30] MEDS: POLYVINYL ALCOHOL 150 DROP BTL OP SCH ×6 (01:44→21:30)
[2016-11-30 05:50] LABS: Hematocrit 31.8 % (37.0-47.0); Hemoglobin 10.2 gm/dL (12.5-16.0); Mean Cell Volume 90.9 fl (78-100); Mean Corpuscular Hemoglobin 29.1 pg (27-31); Mean Corpuscular Hgb Conc 32.1 g/dl (32-36); Mean Platelet Volume 10.6 fl (6.0-9.5); Neutrophil # 1.4 K/mm3 (1.3-6.0); Neutrophil % 56.5 % (42-75.0); Platelet Count 136 K/mm3 (150-450); White Blood Count 2.5 K/mm3 (4.0-10.5)
[2016-11-30 06:05] LABS: Anion Gap 16.2 mmol/L (6.8-13.8); BUN/Creatinine Ratio 26.6 (9.0-21.6); Calcium * 8.2 mg/dL (7.9-10.9); Carbon Dioxide 20.1 mmol/L (24-32.6); Estimated Creat Clear 25.3; Potassium 3.3 mmol/L (3.4-4.6)
[2016-11-30 06:06] LABS: Prothrombin Time (Patient) 30.7 Seconds (9.4-11.4)
[2016-11-30 06:07] LABS: INR 2.95 INR (0.90-1.10)
--- NOTE | 2016-11-30 08:50 | PN ---
Subjective - Date and Time Seen Date: 11/30/16 Time: 08:47 Subjective Narrative: Awake. No pain. No vomiting. No nausea. Still with diarrhea. Still C dif positive in spite of flagyl. Objective - Review of Systems Generalized/Overall Review: Reports: Malaise EENTM: Reports: No Symptoms Reported Respiratory: Reports: No Symptoms Reported Cardiac: Reports: No Symptoms Reported Abdominal: Reports: Diarrhea Genitourinary Symptoms: Reports: No Symptoms Reported Musculoskeletal Complaints: Reports: No Symptoms Reported Neurological: Reports: No Symptoms Reported Skin: Reports: No Symptoms Reported Endocrine: Reports: No Symptoms Reported Misc: All systems neg except as marked - Vitals Vitals: Last Vital Signs Selected Entries 11/30/16 06:54 Temperature 36.7 C Temperature Oral Source Pulse Rate 74 Respiratory 20 Rate Blood Pressure 144/67 Blood Pressure Supine Position O2 Sat by Pulse 96 Oximetry Oxygen Delivery Room Air Method - Abnormal Lab Findings Abnormal Lab Findings: Abnormal Lab Results 11/29/16 11/30/16 11/30/16 Range/Units 09:40 04:55 04:55 WBC 2.5 L (4.0-10.5) K/mm3 RBC 3.50 L (4.2-5.4) M/mm3 Hgb 10.2 L (12.5-16.0) gm/dL Hct 31.8 L (37.0-47.0) % RDW 19.0 H (11.5-14.0) % Plt Count 136 L (150-450) K/mm3 MPV 10.6 H (6.0-9.5) fl Immature Gran % (Auto) 0.80 H (0.001-0.429) % Monocytes % 15.4 H (0.0-9) % Lymphocytes # 0.7 L (1.5-3.5) k/mm3 PT 30.7 H (9.4-11.4) Seconds INR (Anticoag Therapy) 2.95 H (0.90-1.10) INR Potassium (3.4-4.6) mmol/L Chloride (97-106) mmol/L Carbon Dioxide (24-32.6) mmol/L Anion Gap (6.8-13.8) mmol/L BUN (3-23) mg/dL Creatinine (0.4-1.4) mg/dL Est GFR (Non-Af Amer) (60-130) mL/min BUN/Creatinine Ratio (9.0-21.6) Random Glucose (70-110) mg/dL Stl C.difficile Tox A&B Positive H (Negative) 11/30/16 Range/Units 04:55 WBC (4.0-10.5) K/mm3 RBC (4.2-5.4) M/mm3 Hgb (12.5-16.0) gm/dL Hct (37.0-47.0) % RDW (11.5-14.0) % Plt Count (150-450) K/mm3 MPV (6.0-9.5) fl Immature Gran % (Auto) (0.001-0.429) % Monocytes % (0.0-9) % Lymphocytes # (1.5-3.5) k/mm3 PT (9.4-11.4) Seconds INR (Anticoag Therapy) (0.90-1.10) INR Potassium 3.3 L (3.4-4.6) mmol/L Chloride 109 H (97-106) mmol/L Carbon Dioxide 20.1 L (24-32.6) mmol/L Anion Gap 16.2 H (6.8-13.8) mmol/L BUN 41 H (3-23) mg/dL Creatinine 1.54 H (0.4-1.4) mg/dL Est GFR (Non-Af Amer) 35 L (60-130) mL/min BUN/Creatinine Ratio 26.6 H (9.0-21.6) Random Glucose 117 H (70-110) mg/dL Stl C.difficile Tox A&B (Negative) - Exam Constitutional: Present: Alert, Cooperative, Well developed, Well nourished, No distress ENT Exam: Present: normal ENT inspection, hard of hearing Neck: Present: normal inspection Respiratory: Present: lungs clear, no respiratory distress Cardiovascular/Chest: Present: regular rate, rhythm, no murmur Abdomen: Present: Normal bowel sounds, soft, nontender, nondistended, no rebound tenderness, no hepatospenomegaly, no masses Extremity: Present: pedal edema - amputation right leg Skin Exam: Present: normal color, warm/dry, no cyanosis Neurologic: Present: alert Appearance: Present: appropriate appearance, neat Eye contact: Present: cooperative Assessment/Plan Plan Narrative: Follow labs. Add oral vancomycin to IV flagyl. - Problems/Diagnosis (1) Altered mental status Problem: Acute Qualifiers: Altered mental status type: delirium Qualified Code(s): R41.0 - Disorientation, unspecified (2) Prolonged INR Problem: Acute (3) UTI (urinary tract infection), bacterial Problem: Acute (4) Leukopenia Problem: Acute Qualifiers: Leukopenia type: neutropenia Neutropenia type: unspecified Qualified Code (s): D70.9 - Neutropenia, unspecified (5) Altered mental status Problem: Acute Qualifiers: Altered mental status type: delirium Qualified Code(s): R41.0 - Disorientation, unspecified (6) Anemia Problem: Chronic Qualifiers: Anemia type: iron deficiency Iron deficiency anemia type: unspecified iron deficiency Qualified Code(s): D50.9 - Iron deficiency anemia, unspecified (7) Chronic congestive heart failure with left ventricular diastolic dysfunction Problem: Chronic (8) Chronic pain Problem: Chronic Qualifiers: Chronic pain type: other chronic pain Qualified Code(s): G89.29 - Other chronic pain (9) Chronic restrictive lung disease Problem: Chronic (10) 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 Problem: Chronic Qualifiers: 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 type: type 2 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 complication status: with other specified complication 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 nursing home insulin use: with intermediate frame tender use Qualified Code(s): E11.69 - Type 2 diabetes mellitus with other specified complication (11) GERD (gastroesophageal reflux disease) Problem: Chronic Qualifiers: Esophagitis presence: without esophagitis (12) Gallstones Problem: Chronic Qualifiers: Cholecystitis presence: without cholecystitis Biliary obstruction: without biliary obstruction Qualified Code(s): K80.20 - Calculus of gallbladder without cholecystitis without obstruction (13) Gout Problem: Chronic Qualifiers: Gout site: unspecified site Gout etiology: idiopathic Chronicity: chronic Presence of tophus: without tophus Qualified Code(s): M1A.00X0 - Idiopathic chronic gout, unspecified site, without tophus (tophi) (14) HLD (hyperlipidemia) Problem: Chronic Qualifiers: Hyperlipidemia type: mixed hyperlipidemia Qualified Code(s): E78.2 - Mixed hyperlipidemia (15) [place] (hard of hearing) Problem: Chronic Qualifiers: Laterality: bilateral Qualified Code(s): H91.93 - Unspecified hearing loss , bilateral (16) History of recurrent UTIs Problem: Chronic (17) Hypertension Problem: Chronic Qualifiers: Hypertension type: essential hypertension Qualified Code(s): I10 - Essential (primary) hypertension (18) Hypoventilation associated with obesity syndrome Problem: Chronic (19) Immunosuppressed status Problem: Chronic (20) MRSA (methicillin resistant Staphylococcus aureus) carrier Problem: Chronic (21) Parkinsons Problem: Chronic (22) Pulmonary hypertension Problem: Chronic (23) Severe hearing loss Problem: Chronic Qualifiers: Laterality: bilateral Qualified Code(s): H91.93 - Unspecified hearing loss , bilateral (24) 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
[2016-11-30] MEDS: CIPROFLOXACIN HCL 500 MG TABLET PO SCH ×2 (09:36→21:24)
[2016-11-30] MEDS: COLCHICINE 0.6 MG TABLET PO SCH (09:36)
[2016-11-30] MEDS: LACTOBACILLUS ACIDOPHILUS 100 CAP BTL PO SCH ×3 (09:36→17:29)
[2016-11-30] MEDS: FOLIC ACID 1 MG TABLET PO SCH (09:37)
[2016-11-30] MEDS: CARVEDILOL 3.125 MG TABLET PO SCH ×2 (09:37→21:25)
[2016-11-30] MEDS: SACCHAROMYCES BOULARDII 250 MG CAPSULE PO SCH ×4 (09:37→21:33)
[2016-11-30] MEDS: POTASSIUM CHLORIDE 20 MEQ TABLET.SA PO SCH ×2 (09:37→21:28)
[2016-11-30] MEDS: INSULIN DETEMIR 100 UNITS/ML VIAL SC SCH ×2 (09:37→21:31)
[2016-11-30] MEDS: LISINOPRIL 20 MG TABLET PO SCH ×2 (09:38→21:29)
[2016-11-30] MEDS: CHOLECALCIFEROL 1,000 UNIT CAPSULE PO SCH (09:38)
[2016-11-30] MEDS: NYSTATIN 15 APPL TUBE TP SCH ×2 (09:38→21:28)
[2016-11-30] MEDS: MULTIVITAMINS 1 CAP CAPSULE PO SCH (09:38)
[2016-11-30] MEDS: VANCOMYCIN HCL 50 MG/ML BTL PO SCH ×3 (09:38→21:35)
[2016-11-30] MEDS: PSYLLIUM SEED 1 PACKET PACKET PO SCH ×2 (09:38→21:28)
[2016-11-30] MEDS: WARFARIN SODIUM 4 MG TABLET PO SCH (17:30)
[2016-11-30] MEDS: ZIPRASIDONE HCL 20 MG CAPSULE PO SCH (21:27)
[2016-11-30] MEDS: SIMVASTATIN 40 MG TABLET PO SCH (21:30)
[2016-12-01] MEDS: metroNIDAZOLE/SODIUM CHLORIDE 500 MG/100 ML BAG IV SCH ×4 (02:24→19:53)
[2016-12-01] MEDS: POLYVINYL ALCOHOL 150 DROP BTL OP SCH ×6 (02:25→21:02)
[2016-12-01] MEDS: VANCOMYCIN HCL 50 MG/ML BTL PO SCH ×4 (02:25→20:55)
[2016-12-01 05:44] LABS: Hematocrit 30.6 % (37.0-47.0); Hemoglobin 9.7 gm/dL (12.5-16.0); Mean Cell Volume 90.8 fl (78-100); Mean Corpuscular Hemoglobin 28.8 pg (27-31); Mean Corpuscular Hgb Conc 31.7 g/dl (32-36); Mean Platelet Volume 11.5 fl (6.0-9.5); Neutrophil # 1.1 K/mm3 (1.3-6.0); Neutrophil % 50.4 % (42-75.0); Platelet Count 140 K/mm3 (150-450); Red Blood Count 3.37 M/mm3 (4.2-5.4); Red Cell Distribution Width 19.1 % (11.5-14.0); White Blood Count 2.1 K/mm3 (4.0-10.5)
[2016-12-01 05:53] LABS: Anion Gap 16.1 mmol/L (6.8-13.8); BUN/Creatinine Ratio 28.6 (9.0-21.6); Calcium * 8.5 mg/dL (7.9-10.9); Carbon Dioxide 20.7 mmol/L (24-32.6); Estimated Creat Clear 30.9; Potassium 3.8 mmol/L (3.4-4.6)
[2016-12-01 05:54] LABS: Prothrombin Time (Patient) 23.5 Seconds (9.4-11.4)
[2016-12-01 06:05] LABS: INR 2.26 INR (0.90-1.10)
[2016-12-01] MEDS: CIPROFLOXACIN HCL 500 MG TABLET PO SCH (09:47)
[2016-12-01] MEDS: LACTOBACILLUS ACIDOPHILUS 100 CAP BTL PO SCH ×4 (09:47→20:46)
[2016-12-01] MEDS: COLCHICINE 0.6 MG TABLET PO SCH (09:47)
[2016-12-01] MEDS: FOLIC ACID 1 MG TABLET PO SCH (09:48)
[2016-12-01] MEDS: SACCHAROMYCES BOULARDII 250 MG CAPSULE PO SCH ×4 (09:48→20:47)
[2016-12-01] MEDS: CARVEDILOL 3.125 MG TABLET PO SCH ×2 (09:48→20:47)
[2016-12-01] MEDS: POTASSIUM CHLORIDE 20 MEQ TABLET.SA PO SCH ×2 (09:48→20:48)
[2016-12-01] MEDS: INSULIN DETEMIR 100 UNITS/ML VIAL SC SCH ×2 (09:48→20:52)
[2016-12-01] MEDS: MULTIVITAMINS 1 CAP CAPSULE PO SCH (09:49)
[2016-12-01] MEDS: PSYLLIUM SEED 1 PACKET PACKET PO SCH ×2 (09:49→20:49)
[2016-12-01] MEDS: LISINOPRIL 20 MG TABLET PO SCH ×2 (09:49→20:50)
[2016-12-01] MEDS: CHOLECALCIFEROL 1,000 UNIT CAPSULE PO SCH (09:50)
[2016-12-01] MEDS: NYSTATIN 15 APPL TUBE TP SCH ×2 (09:50→20:49)
--- NOTE | 2016-12-01 12:48 | PN ---
Subjective - Date and Time Seen Date: 12/01/16 Time: 12:45 Subjective Narrative: Awake. No pain. No vomiting. No nausea. Still with diarrhea. Still C dif positive in spite of flagyl. Has completed 10 days of Cipro for her UTI, so we will stop it. In good spirits. Objective - Review of Systems Generalized/Overall Review: Reports: Malaise EENTM: Reports: No Symptoms Reported Respiratory: Reports: No Symptoms Reported Cardiac: Reports: No Symptoms Reported Abdominal: Reports: Diarrhea Genitourinary Symptoms: Reports: No Symptoms Reported Musculoskeletal Complaints: Reports: No Symptoms Reported Neurological: Reports: No Symptoms Reported Skin: Reports: No Symptoms Reported Endocrine: Reports: No Symptoms Reported Misc: All systems neg except as marked - Vitals Vitals: Last Vital Signs Selected Entries 12/01/16 12/01/16 01:57 09:49 Temperature 36.9 C Temperature Oral Source Pulse Rate 68 68 Respiratory 20 Rate Respiratory Normal Depth Respiratory Normal Effort Respiratory Normal Pattern Blood Pressure 125/68 125/68 Blood Pressure Supine Position Oxygen Delivery Room Air Method Oxygen Flow 98 Rate - Abnormal Lab Findings Abnormal Lab Findings: Abnormal Lab Results 12/01/16 12/01/16 12/01/16 Range/Units 05:00 05:00 05:00 WBC 2.1 L (4.0-10.5) K/mm3 RBC 3.37 L (4.2-5.4) M/mm3 Hgb 9.7 L (12.5-16.0) gm/dL Hct 30.6 L (37.0-47.0) % MCHC 31.7 L (32-36) g/dl RDW 19.1 H (11.5-14.0) % Plt Count 140 L (150-450) K/mm3 MPV 11.5 H (6.0-9.5) fl Immature Gran % (Auto) 1.00 H (0.001-0.429) % Monocytes % 19.5 H (0.0-9) % Neutrophils # 1.1 L (1.3-6.0) K/mm3 Lymphocytes # 0.6 L (1.5-3.5) k/mm3 PT 23.5 H (9.4-11.4) Seconds INR (Anticoag Therapy) 2.26 H (0.90-1.10) INR Sodium 143 H (132-142) mmol/L Plasma Sodium 143 H (130-142) mmol/L Chloride 110 H (97-106) mmol/L Carbon Dioxide 20.7 L (24-32.6) mmol/L Anion Gap 16.1 H (6.8-13.8) mmol/L BUN 36 H (3-23) mg/dL Est GFR (Non-Af Amer) 44 L D (60-130) mL/min BUN/Creatinine Ratio 28.6 H (9.0-21.6) Random Glucose 123 H (70-110) mg/dL - Exam Constitutional: Present: Alert, Cooperative, Well developed, No distress, Obese ENT Exam: Present: normal ENT inspection, hard of hearing Neck: Present: normal inspection Respiratory: Present: lungs clear, no respiratory distress Cardiovascular/Chest: Present: regular rate, rhythm, no edema Abdomen: Present: Normal bowel sounds, soft, nontender, nondistended, no rebound tenderness, no hepatospenomegaly, no masses, obese Extremity: Present: pedal edema, other - amputation right leg. Lymphatic: Present: no adenopathy Neurologic: Present: alert Appearance: Present: appropriate appearance, neat Eye contact: Present: cooperative Assessment/Plan Plan Narrative: Stop Cipro. Follow labs. Continue oral vancomycine, oral probiotics and IV flagyl. - Problems/Diagnosis (1) Altered mental status Problem: Acute Qualifiers: Altered mental status type: delirium Qualified Code(s): R41.0 - Disorientation, unspecified (2) Prolonged INR Problem: Acute (3) UTI (urinary tract infection), bacterial Problem: Acute (4) Leukopenia Problem: Acute Qualifiers: Leukopenia type: neutropenia Neutropenia type: unspecified Qualified Code (s): D70.9 - Neutropenia, unspecified (5) Altered mental status Problem: Acute Qualifiers: Altered mental status type: delirium Qualified Code(s): R41.0 - Disorientation, unspecified (6) Anemia Problem: Chronic Qualifiers: Anemia type: iron deficiency Iron deficiency anemia type: unspecified iron deficiency Qualified Code(s): D50.9 - Iron deficiency anemia, unspecified (7) Chronic congestive heart failure with left ventricular diastolic dysfunction Problem: Chronic (8) Chronic pain Problem: Chronic Qualifiers: Chronic pain type: other chronic pain Qualified Code(s): G89.29 - Other chronic pain (9) Chronic restrictive lung disease Problem: Chronic (10) 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 Problem: Chronic Qualifiers: 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 type: type 2 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 complication status: with other specified complication 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 exterminator helper termite insulin use: with exterminator helper termite use Qualified Code(s): E11.69 - Type 2 diabetes mellitus with other specified complication (11) GERD (gastroesophageal reflux disease) Problem: Chronic Qualifiers: Esophagitis presence: without esophagitis (12) Gallstones Problem: Chronic Qualifiers: Cholecystitis presence: without cholecystitis Biliary obstruction: without biliary obstruction Qualified Code(s): K80.20 - Calculus of gallbladder without cholecystitis without obstruction (13) Gout Problem: Chronic Qualifiers: Gout site: unspecified site Gout etiology: idiopathic Chronicity: chronic Presence of tophus: without tophus Qualified Code(s): M1A.00X0 - Idiopathic chronic gout, unspecified site, without tophus (tophi) (14) HLD (hyperlipidemia) Problem: Chronic Qualifiers: Hyperlipidemia type: mixed hyperlipidemia Qualified Code(s): E78.2 - Mixed hyperlipidemia (15) [place] (hard of hearing) Problem: Chronic Qualifiers: Laterality: bilateral Qualified Code(s): H91.93 - Unspecified hearing loss , bilateral (16) History of recurrent UTIs Problem: Chronic (17) Hypertension Problem: Chronic Qualifiers: Hypertension type: essential hypertension Qualified Code(s): I10 - Essential (primary) hypertension (18) Hypoventilation associated with obesity syndrome Problem: Chronic (19) Immunosuppressed status Problem: Chronic (20) MRSA (methicillin resistant Staphylococcus aureus) carrier Problem: Chronic (21) Parkinsons Problem: Chronic (22) Pulmonary hypertension Problem: Chronic (23) Severe hearing loss Problem: Chronic Qualifiers: Laterality: bilateral Qualified Code(s): H91.93 - Unspecified hearing loss , bilateral (24) 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
[2016-12-01] MEDS: WARFARIN SODIUM 4 MG TABLET PO SCH (17:10)
[2016-12-01] MEDS: ZIPRASIDONE HCL 20 MG CAPSULE PO SCH (20:48)
[2016-12-01] MEDS: SIMVASTATIN 40 MG TABLET PO SCH (20:51)
[2016-12-02] MEDS: metroNIDAZOLE/SODIUM CHLORIDE 500 MG/100 ML BAG IV SCH ×4 (01:38→18:50)
[2016-12-02] MEDS: POLYVINYL ALCOHOL 150 DROP BTL OP SCH ×6 (01:39→22:52)
[2016-12-02] MEDS: VANCOMYCIN HCL 50 MG/ML BTL PO SCH ×4 (03:49→20:12)
[2016-12-02 05:47] LABS: Hematocrit 30.3 % (37.0-47.0); Hemoglobin 9.9 gm/dL (12.5-16.0); Mean Cell Volume 91.3 fl (78-100); Mean Corpuscular Hemoglobin 29.8 pg (27-31); Mean Corpuscular Hgb Conc 32.7 g/dl (32-36); Mean Platelet Volume 10.7 fl (6.0-9.5); Neutrophil # 1.1 K/mm3 (1.3-6.0); Neutrophil % 49.9 % (42-75.0); Platelet Count 120 K/mm3 (150-450); Red Blood Count 3.32 M/mm3 (4.2-5.4); Red Cell Distribution Width 19.1 % (11.5-14.0); White Blood Count 2.2 K/mm3 (4.0-10.5)
[2016-12-02 05:57] LABS: Prothrombin Time (Patient) 26.9 Seconds (9.4-11.4)
[2016-12-02 05:58] LABS: INR 2.59 INR (0.90-1.10)
[2016-12-02 05:59] LABS: Anion Gap 14.9 mmol/L (6.8-13.8); BUN/Creatinine Ratio 26.3 (9.0-21.6); Calcium * 8.5 mg/dL (7.9-10.9); Carbon Dioxide 19.2 mmol/L (24-32.6); Estimated Creat Clear 39.4; Potassium 4.1 mmol/L (3.4-4.6)
--- NOTE | 2016-12-02 07:33 | PN ---
Subjective - Date and Time Seen Date: 12/02/16 Time: 07:28 Subjective Narrative: Awake. No pain. No vomiting. No nausea. Still with diarrhea. Cheerful, working in [employer] book. Best she's looked since admission. Objective - Review of Systems Generalized/Overall Review: Reports: No Symptoms Reported EENTM: Reports: No Symptoms Reported Respiratory: Reports: No Symptoms Reported Cardiac: Reports: No Symptoms Reported Abdominal: Reports: Diarrhea Genitourinary Symptoms: Reports: No Symptoms Reported Musculoskeletal Complaints: Reports: No Symptoms Reported Neurological: Reports: No Symptoms Reported Skin: Reports: No Symptoms Reported Endocrine: Reports: No Symptoms Reported Misc: All systems neg except as marked - Vitals Vitals: Last Vital Signs Selected Entries 12/02/16 07:15 Temperature 36.6 C Temperature Oral Source Pulse Rate 77 Respiratory 20 Rate Blood Pressure 155/79 Blood Pressure Sitting Position O2 Sat by Pulse 99 Oximetry Oxygen Delivery Room Air Method - Abnormal Lab Findings Abnormal Lab Findings: Abnormal Lab Results 12/02/16 12/02/16 12/02/16 Range/Units 04:55 04:55 04:55 WBC 2.2 L (4.0-10.5) K/mm3 RBC 3.32 L (4.2-5.4) M/mm3 Hgb 9.9 L (12.5-16.0) gm/dL Hct 30.3 L (37.0-47.0) % RDW 19.1 H (11.5-14.0) % Plt Count 120 L (150-450) K/mm3 MPV 10.7 H (6.0-9.5) fl Immature Gran % (Auto) 1.40 H (0.001-0.429) % Monocytes % 17.6 H (0.0-9) % Neutrophils # 1.1 L (1.3-6.0) K/mm3 Lymphocytes # 0.7 L (1.5-3.5) k/mm3 PT 26.9 H (9.4-11.4) Seconds INR (Anticoag Therapy) 2.59 H (0.90-1.10) INR Chloride 111 H (97-106) mmol/L Carbon Dioxide 19.2 L (24-32.6) mmol/L Anion Gap 14.9 H (6.8-13.8) mmol/L BUN 26 H (3-23) mg/dL Est GFR (Non-Af Amer) 58 L D (60-130) mL/min BUN/Creatinine Ratio 26.3 H (9.0-21.6) Random Glucose 131 H (70-110) mg/dL - Exam Constitutional: Present: Alert, Cooperative, Well developed, No distress, Other - oriented except to time, Obese ENT Exam: Present: normal ENT inspection, hard of hearing Neck: Present: normal inspection Respiratory: Present: lungs clear, no respiratory distress Cardiovascular/Chest: Present: regular rate, rhythm, no murmur Abdomen: Present: Normal bowel sounds, soft, nontender, nondistended, no rebound tenderness, no hepatospenomegaly, no masses, obese Extremity: Present: pedal edema, other - amputation right leg Skin Exam: Present: normal color, warm/dry, no cyanosis Neurologic: Present: alert Appearance: Present: appropriate appearance, neat Eye contact: Present: cooperative, good eye contact Assessment/Plan Plan Narrative: Follow labs. Continue IV flagyl and oral vancomycin. Back to skilled nursing when eating well and diarrhea better. - Problems/Diagnosis (1) Altered mental status Problem: Acute Qualifiers: Altered mental status type: delirium Qualified Code(s): R41.0 - Disorientation, unspecified (2) Prolonged INR Problem: Acute (3) Leukopenia Problem: Acute Qualifiers: Leukopenia type: neutropenia Neutropenia type: unspecified Qualified Code (s): D70.9 - Neutropenia, unspecified (4) Altered mental status Problem: Acute Qualifiers: Altered mental status type: delirium Qualified Code(s): R41.0 - Disorientation, unspecified (5) Anemia Problem: Chronic Qualifiers: Anemia type: iron deficiency Iron deficiency anemia type: unspecified iron deficiency Qualified Code(s): D50.9 - Iron deficiency anemia, unspecified (6) Chronic congestive heart failure with left ventricular diastolic dysfunction Problem: Chronic (7) Chronic pain Problem: Chronic Qualifiers: Chronic pain type: other chronic pain Qualified Code(s): G89.29 - Other chronic pain (8) Chronic restrictive lung disease Problem: Chronic (9) 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 Problem: Chronic Qualifiers: 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 type: type 2 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 complication status: with other specified complication 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 nursing home insulin use: 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 Qualified Code(s): E11.69 - Type 2 diabetes mellitus with other specified complication (10) GERD (gastroesophageal reflux disease) Problem: Chronic Qualifiers: Esophagitis presence: without esophagitis (11) Gallstones Problem: Chronic Qualifiers: Cholecystitis presence: without cholecystitis Biliary obstruction: without biliary obstruction Qualified Code(s): K80.20 - Calculus of gallbladder without cholecystitis without obstruction (12) Gout Problem: Chronic Qualifiers: Gout site: unspecified site Gout etiology: idiopathic Chronicity: chronic Presence of tophus: without tophus Qualified Code(s): M1A.00X0 - Idiopathic chronic gout, unspecified site, without tophus (tophi) (13) HLD (hyperlipidemia) Problem: Chronic Qualifiers: Hyperlipidemia type: mixed hyperlipidemia Qualified Code(s): E78.2 - Mixed hyperlipidemia (14) [place] (hard of hearing) Problem: Chronic Qualifiers: Laterality: bilateral Qualified Code(s): H91.93 - Unspecified hearing loss , bilateral (15) History of recurrent UTIs Problem: Chronic (16) Hypertension Problem: Chronic Qualifiers: Hypertension type: essential hypertension Qualified Code(s): I10 - Essential (primary) hypertension (17) Hypoventilation associated with obesity syndrome Problem: Chronic (18) Immunosuppressed status Problem: Chronic (19) MRSA (methicillin resistant Staphylococcus aureus) carrier Problem: Chronic (20) Parkinsons Problem: Chronic (21) Pulmonary hypertension Problem: Chronic (22) Severe hearing loss Problem: Chronic Qualifiers: Laterality: bilateral Qualified Code(s): H91.93 - Unspecified hearing loss , bilateral (23) 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 (24) Vitamin D deficiency Problem: Chronic (25) chronic psychiatric illness Problem: Chronic (26) Sepsis Problem: Acute Qualifiers: Sepsis type: sepsis due to unspecified organism Qualified Code(s): A41.9 - Sepsis, unspecified organism (27) Hypokalemia Problem: Acute (28) Clostridium difficile colitis Problem: Acute (29) Vomiting Problem: Acute Qualifiers: Vomiting type: unspecified Vomiting Intractability: non-intractable Nausea presence: with nausea Qualified Code(s): R11.2 - Nausea with vomiting, unspecified (30) Infection caused by Enterobacter cloacae Problem: Acute (31) UTI (lower urinary tract infection) Problem: Acute Narrative: Enterobacter
[2016-12-02] MEDS: FOLIC ACID 1 MG TABLET PO SCH (09:21)
[2016-12-02] MEDS: LACTOBACILLUS ACIDOPHILUS 100 CAP BTL PO SCH ×4 (09:21→20:01)
[2016-12-02] MEDS: SACCHAROMYCES BOULARDII 250 MG CAPSULE PO SCH ×4 (09:21→20:02)
[2016-12-02] MEDS: CARVEDILOL 3.125 MG TABLET PO SCH ×2 (09:21→20:01)
[2016-12-02] MEDS: POTASSIUM CHLORIDE 20 MEQ TABLET.SA PO SCH ×2 (09:22→20:02)
[2016-12-02] MEDS: NYSTATIN 15 APPL TUBE TP SCH ×2 (09:22→20:03)
[2016-12-02] MEDS: MULTIVITAMINS 1 CAP CAPSULE PO SCH (09:22)
[2016-12-02] MEDS: PSYLLIUM SEED 1 PACKET PACKET PO SCH ×2 (09:22→20:03)
[2016-12-02] MEDS: LISINOPRIL 20 MG TABLET PO SCH ×2 (09:23→20:03)
[2016-12-02] MEDS: CHOLECALCIFEROL 1,000 UNIT CAPSULE PO SCH (09:23)
[2016-12-02] MEDS: INSULIN DETEMIR 100 UNITS/ML VIAL SC SCH ×2 (09:25→20:11)
[2016-12-02] MEDS ORDERED: ONDANSETRON HCL/PF 2 MG/ML VIAL IV PRN (14:07)
[2016-12-02] MEDS: WARFARIN SODIUM 4 MG TABLET PO SCH (16:40)
[2016-12-02] MEDS: ZIPRASIDONE HCL 20 MG CAPSULE PO SCH (20:02)
[2016-12-02] MEDS: SIMVASTATIN 40 MG TABLET PO SCH (20:03)
[2016-12-03] MEDS: POLYVINYL ALCOHOL 150 DROP BTL OP SCH ×6 (02:02→21:23)
[2016-12-03] MEDS: VANCOMYCIN HCL 50 MG/ML BTL PO SCH ×4 (02:03→21:24)
[2016-12-03] MEDS: metroNIDAZOLE/SODIUM CHLORIDE 500 MG/100 ML BAG IV SCH ×4 (02:03→19:18)
[2016-12-03 05:35] LABS: Hematocrit 31.3 % (37.0-47.0); Hemoglobin 9.9 gm/dL (12.5-16.0); Mean Cell Volume 92.3 fl (78-100); Mean Corpuscular Hemoglobin 29.2 pg (27-31); Mean Corpuscular Hgb Conc 31.6 g/dl (32-36); Mean Platelet Volume 10.2 fl (6.0-9.5); Neutrophil # 1.5 K/mm3 (1.3-6.0); Neutrophil % 56.5 % (42-75.0); Platelet Count 143 K/mm3 (150-450); Red Blood Count 3.39 M/mm3 (4.2-5.4); Red Cell Distribution Width 19.2 % (11.5-14.0); White Blood Count 2.7 K/mm3 (4.0-10.5)
[2016-12-03 05:47] LABS: Prothrombin Time (Patient) 33.1 Seconds (9.4-11.4)
[2016-12-03 05:56] LABS: Anion Gap 12.6 mmol/L (6.8-13.8); BUN/Creatinine Ratio 22.6 (9.0-21.6); Calcium * 8.9 mg/dL (7.9-10.9); Carbon Dioxide 20.2 mmol/L (24-32.6); Estimated Creat Clear 36.8; INR 3.18 INR (0.90-1.10); Potassium 4.8 mmol/L (3.4-4.6)
--- NOTE | 2016-12-03 06:59 | PN ---
Subjective - Date and Time Seen Date: 12/03/16 Time: 06:56 Subjective Narrative: Awake. No pain. No vomiting. No nausea. Still with diarrhea. Sugars slightly on the high side. Objective - Review of Systems Generalized/Overall Review: Reports: No Symptoms Reported EENTM: Reports: No Symptoms Reported Respiratory: Reports: No Symptoms Reported Cardiac: Reports: No Symptoms Reported Abdominal: Reports: Diarrhea Genitourinary Symptoms: Reports: No Symptoms Reported Musculoskeletal Complaints: Reports: No Symptoms Reported Neurological: Reports: No Symptoms Reported Skin: Reports: No Symptoms Reported Endocrine: Reports: No Symptoms Reported Misc: All systems neg except as marked - Vitals Vitals: Last Vital Signs Selected Entries 12/03/16 06:40 Temperature 36.8 C Temperature Oral Source Pulse Rate 70 Respiratory 20 Rate Blood Pressure 148/60 Blood Pressure Supine Position O2 Sat by Pulse 96 Oximetry Oxygen Delivery Room Air Method - Abnormal Lab Findings Abnormal Lab Findings: Abnormal Lab Results 12/03/16 12/03/16 12/03/16 Range/Units 05:00 05:00 05:00 WBC 2.7 L D (4.0-10.5) K/mm3 RBC 3.39 L (4.2-5.4) M/mm3 Hgb 9.9 L (12.5-16.0) gm/dL Hct 31.3 L (37.0-47.0) % MCHC 31.6 L (32-36) g/dl RDW 19.2 H (11.5-14.0) % Plt Count 143 L (150-450) K/mm3 MPV 10.2 H (6.0-9.5) fl Immature Gran % (Auto) 1.90 H (0.001-0.429) % Immature Gran # (Auto) 0.05 H (0.000-0.0310) K/mm3 Monocytes % 17.0 H (0.0-9) % Lymphocytes # 0.6 L (1.5-3.5) k/mm3 PT 33.1 H (9.4-11.4) Seconds INR (Anticoag Therapy) 3.18 H (0.90-1.10) INR Potassium 4.8 H (3.4-4.6) mmol/L Chloride 111 H (97-106) mmol/L Carbon Dioxide 20.2 L (24-32.6) mmol/L BUN 24 H (3-23) mg/dL Est GFR (Non-Af Amer) 53 L (60-130) mL/min BUN/Creatinine Ratio 22.6 H (9.0-21.6) Random Glucose 149 H (70-110) mg/dL - Exam Constitutional: Present: Alert, Cooperative, Well developed, No distress, Obese ENT Exam: Present: normal ENT inspection, hard of hearing Neck: Present: normal inspection Respiratory: Present: lungs clear, no respiratory distress Cardiovascular/Chest: Present: regular rate, rhythm, no murmur Abdomen: Present: Normal bowel sounds, soft, nontender, nondistended, no rebound tenderness, no hepatospenomegaly, no masses, obese Extremity: Present: pedal edema, other - amputation right leg Skin Exam: Present: normal color, warm/dry, no cyanosis Neurologic: Present: alert Appearance: Present: appropriate appearance, neat Eye contact: Present: cooperative Assessment/Plan Plan Narrative: Adjust insulin. Continue IV flagyl and oral vancomycin. Follow labs. Possibly back to the correction tomorrow. - Problems/Diagnosis (1) Altered mental status Problem: Acute Qualifiers: Altered mental status type: delirium Qualified Code(s): R41.0 - Disorientation, unspecified (2) Prolonged INR Problem: Acute (3) Leukopenia Problem: Acute Qualifiers: Leukopenia type: neutropenia Neutropenia type: unspecified Qualified Code (s): D70.9 - Neutropenia, unspecified (4) Altered mental status Problem: Acute Qualifiers: Altered mental status type: delirium Qualified Code(s): R41.0 - Disorientation, unspecified (5) Anemia Problem: Chronic Qualifiers: Anemia type: iron deficiency Iron deficiency anemia type: unspecified iron deficiency Qualified Code(s): D50.9 - Iron deficiency anemia, unspecified (6) Chronic congestive heart failure with left ventricular diastolic dysfunction Problem: Chronic (7) Chronic pain Problem: Chronic Qualifiers: Chronic pain type: other chronic pain Qualified Code(s): G89.29 - Other chronic pain (8) Chronic restrictive lung disease Problem: Chronic (9) 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 Problem: Chronic Qualifiers: 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 type: type 2 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 complication status: with other specified complication 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 long-term insulin use: with exterminator use Qualified Code(s): E11.69 - Type 2 diabetes mellitus with other specified complication (10) GERD (gastroesophageal reflux disease) Problem: Chronic Qualifiers: Esophagitis presence: without esophagitis (11) Gallstones Problem: Chronic Qualifiers: Cholecystitis presence: without cholecystitis Biliary obstruction: without biliary obstruction Qualified Code(s): K80.20 - Calculus of gallbladder without cholecystitis without obstruction (12) Gout Problem: Chronic Qualifiers: Gout site: unspecified site Gout etiology: idiopathic Chronicity: chronic Presence of tophus: without tophus Qualified Code(s): M1A.00X0 - Idiopathic chronic gout, unspecified site, without tophus (tophi) (13) HLD (hyperlipidemia) Problem: Chronic Qualifiers: Hyperlipidemia type: mixed hyperlipidemia Qualified Code(s): E78.2 - Mixed hyperlipidemia (14) [place] (hard of hearing) Problem: Chronic Qualifiers: Laterality: bilateral Qualified Code(s): H91.93 - Unspecified hearing loss , bilateral (15) History of recurrent UTIs Problem: Chronic (16) Hypertension Problem: Chronic Qualifiers: Hypertension type: essential hypertension Qualified Code(s): I10 - Essential (primary) hypertension (17) Hypoventilation associated with obesity syndrome Problem: Chronic (18) Immunosuppressed status Problem: Chronic (19) MRSA (methicillin resistant Staphylococcus aureus) carrier Problem: Chronic (20) Parkinsons Problem: Chronic (21) Pulmonary hypertension Problem: Chronic (22) Severe hearing loss Problem: Chronic Qualifiers: Laterality: bilateral Qualified Code(s): H91.93 - Unspecified hearing loss , bilateral (23) 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 (24) Vitamin D deficiency Problem: Chronic (25) chronic psychiatric illness Problem: Chronic (26) Sepsis Problem: Acute Qualifiers: Sepsis type: sepsis due to unspecified organism Qualified Code(s): A41.9 - Sepsis, unspecified organism (27) Hypokalemia Problem: Acute (28) Clostridium difficile colitis Problem: Acute (29) Vomiting Problem: Acute Qualifiers: Vomiting type: unspecified Vomiting Intractability: non-intractable Nausea presence: with nausea Qualified Code(s): R11.2 - Nausea with vomiting, unspecified (30) Infection caused by Enterobacter cloacae Problem: Acute (31) UTI (lower urinary tract infection) Problem: Acute
[2016-12-03] MEDS: INSULIN LISPRO 100 UNITS/ML VIAL SC SCH ×4 (07:33→21:26)
[2016-12-03] MEDS: INSULIN DETEMIR 100 UNITS/ML VIAL SC SCH ×2 (07:34→17:55)
[2016-12-03] MEDS: ACETAMINOPHEN 325 MG TABLET PO PRN ×2 (08:45→19:21)
[2016-12-03] MEDS ORDERED: POTASSIUM CHLORIDE 20 MEQ TABLET.SA PO SCH (09:00)
[2016-12-03] MEDS: SACCHAROMYCES BOULARDII 250 MG CAPSULE PO SCH ×4 (10:16→21:22)
[2016-12-03] MEDS: CARVEDILOL 3.125 MG TABLET PO SCH ×2 (10:17→21:22)
[2016-12-03] MEDS: LISINOPRIL 20 MG TABLET PO SCH ×2 (10:17→21:23)
[2016-12-03] MEDS: CHOLECALCIFEROL 1,000 UNIT CAPSULE PO SCH (10:17)
[2016-12-03] MEDS: FOLIC ACID 1 MG TABLET PO SCH (10:19)
[2016-12-03] MEDS: MULTIVITAMINS 1 CAP CAPSULE PO SCH (10:19)
[2016-12-03] MEDS: NYSTATIN 15 APPL TUBE TP SCH ×2 (10:19→21:23)
[2016-12-03] MEDS: PSYLLIUM SEED 1 PACKET PACKET PO SCH ×2 (10:19→21:22)
[2016-12-03] MEDS: LACTOBACILLUS ACIDOPHILUS 100 CAP BTL PO SCH ×4 (10:19→21:21)
[2016-12-03] MEDS: ZIPRASIDONE HCL 20 MG CAPSULE PO SCH (21:22)
[2016-12-03] MEDS: SIMVASTATIN 40 MG TABLET PO SCH (21:22)
[2016-12-04] MEDS: metroNIDAZOLE/SODIUM CHLORIDE 500 MG/100 ML BAG IV SCH ×2 (02:02→07:08)
[2016-12-04] MEDS: POLYVINYL ALCOHOL 150 DROP BTL OP SCH ×3 (02:02→10:37)
[2016-12-04] MEDS: VANCOMYCIN HCL 50 MG/ML BTL PO SCH ×2 (02:03→08:39)
[2016-12-04 05:52] LABS: Hematocrit 33.8 % (37.0-47.0); Hemoglobin 10.7 gm/dL (12.5-16.0); Mean Cell Volume 92.9 fl (78-100); Mean Corpuscular Hemoglobin 29.4 pg (27-31); Mean Corpuscular Hgb Conc 31.7 g/dl (32-36); Mean Platelet Volume 10.7 fl (6.0-9.5); Neutrophil % 61.1 % (42-75.0); Platelet Count 159 K/mm3 (150-450); Red Blood Count 3.64 M/mm3 (4.2-5.4); Red Cell Distribution Width 19.6 % (11.5-14.0); White Blood Count 3.2 K/mm3 (4.0-10.5)
[2016-12-04 05:57] LABS: Prothrombin Time (Patient) 32.2 Seconds (9.4-11.4)
[2016-12-04 06:00] LABS: Anion Gap 15.2 mmol/L (6.8-13.8); BUN/Creatinine Ratio 21.3 (9.0-21.6); Calcium * 8.9 mg/dL (7.9-10.9); Carbon Dioxide 19.5 mmol/L (24-32.6); Estimated Creat Clear 41.5; Potassium 4.7 mmol/L (3.4-4.6)
[2016-12-04 06:05] LABS: INR 3.1 INR (0.90-1.10)
[2016-12-04] MEDS: INSULIN LISPRO 100 UNITS/ML VIAL SC SCH (07:03)
[2016-12-04] MEDS: INSULIN DETEMIR 100 UNITS/ML VIAL SC SCH (07:05)
[2016-12-04 07:07] VITALS: BP 165/75
--- NOTE | 2016-12-04 07:07 | DS ---
(1) Altered mental status Problem: Acute Qualifiers: Altered mental status type: delirium Qualified Code(s): R41.0 - Disorientation, unspecified (2) Prolonged INR Problem: Acute (3) Leukopenia Problem: Acute Qualifiers: Leukopenia type: neutropenia Neutropenia type: unspecified Qualified Code (s): D70.9 - Neutropenia, unspecified (4) Altered mental status Problem: Resolved Qualifiers: Altered mental status type: delirium Qualified Code(s): R41.0 - Disorientation, unspecified (5) Anemia Problem: Chronic Qualifiers: Anemia type: iron deficiency Iron deficiency anemia type: unspecified iron deficiency Qualified Code(s): D50.9 - Iron deficiency anemia, unspecified (6) Chronic congestive heart failure with left ventricular diastolic dysfunction Problem: Chronic (7) Chronic pain Problem: Chronic Qualifiers: Chronic pain type: other chronic pain Qualified Code(s): G89.29 - Other chronic pain (8) Chronic restrictive lung disease Problem: Chronic (9) 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 Problem: Chronic Qualifiers: 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 type: type 2 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 complication status: with other specified complication 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 extermination inspector insulin use: with [facility] use Qualified Code(s): E11.69 - Type 2 diabetes mellitus with other specified complication; Z79.4 - USP (current) use of insulin (10) GERD (gastroesophageal reflux disease) Problem: Chronic Qualifiers: Esophagitis presence: without esophagitis Qualified Code(s): K21.9 - Gastro -esophageal reflux disease without esophagitis (11) Gallstones Problem: Chronic Qualifiers: Cholecystitis presence: without cholecystitis Biliary obstruction: without biliary obstruction Qualified Code(s): K80.20 - Calculus of gallbladder without cholecystitis without obstruction (12) Gout Problem: Chronic Qualifiers: Gout site: unspecified site Gout etiology: idiopathic Chronicity: chronic Presence of tophus: without tophus Qualified Code(s): M1A.00X0 - Idiopathic chronic gout, unspecified site, without tophus (tophi) (13) HLD (hyperlipidemia) Problem: Chronic Qualifiers: Hyperlipidemia type: mixed hyperlipidemia Qualified Code(s): E78.2 - Mixed hyperlipidemia (14) [place] (hard of hearing) Problem: Chronic Qualifiers: Laterality: bilateral (15) History of recurrent UTIs Problem: Chronic (16) Hypertension Problem: Chronic Qualifiers: Hypertension type: essential hypertension Qualified Code(s): I10 - Essential (primary) hypertension (17) Hypoventilation associated with obesity syndrome Problem: Chronic (18) Immunosuppressed status Problem: Chronic (19) MRSA (methicillin resistant Staphylococcus aureus) carrier Problem: Chronic (20) Parkinsons Problem: Chronic (21) Pulmonary hypertension Problem: Chronic (22) Severe hearing loss Problem: Chronic Qualifiers: Laterality: bilateral Qualified Code(s): H91.93 - Unspecified hearing loss , bilateral (23) 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 (24) Vitamin D deficiency Problem: Chronic (25) chronic psychiatric illness Problem: Chronic (26) Sepsis Problem: Acute Qualifiers: Sepsis type: sepsis due to unspecified organism Qualified Code(s): A41.9 - Sepsis, unspecified organism (27) Hypokalemia Problem: Acute (28) Clostridium difficile colitis Problem: Acute (29) Vomiting Problem: Acute Qualifiers: Vomiting type: unspecified Vomiting Intractability: non-intractable Nausea presence: with nausea Qualified Code(s): R11.2 - Nausea with vomiting, unspecified (30) Infection caused by Enterobacter cloacae Problem: Acute (31) UTI (lower urinary tract infection) Diagnosis(s): Enterobacter Problem: Acute (32) Weakness generalized Problem: Acute (33) Thrombocytopenia Problem: Acute (34) Pulmonary embolism Problem: Chronic Qualifiers: Pulmonary embolism type: other Chronicity: unspecified Acute cor pulmonale presence: without acute cor pulmonale Qualified Code(s): I26.99 - Other pulmonary embolism without acute cor pulmonale Description of Stay: Slow resolution of uti with antibiotics, but then developed C dif colitis. Started on oral flagyl, but diarrhea persisted and she became nauseated, so switched to oral vancomycin and IV flagyl. Diarrhea persists, but nausea is better. Delerium resolved. She is probably at baseline dementia. She is a jasmin lift only at present, but has been able to stand and take steps in the past. Sugars were elevated, and diabetic meds adjusted. Procedures Performed: none Discharge Disposition: [facility] Disposition: [facility] [place] Condition: Fair Discharge Activity: Activity as tolerated Discharge Diet: Consistent carbs Discharge Level of Care:: SNF - [facility] Therapy: Physicial Therapy, Occupation Therapy Problem Oriented Discharge Instructions to Patient/Family: Clostridium Difficile FAQs - [place], Urosepsis Additional Patient Instructions (free text): At present, she is a jasmin lift only, but in the past could walk with her prosthesis. Let's see if we can gradually restore her with PT OT. Fingerstick blood sugars before meals and at bedtime. CBC BMP and Prothrombin Time in 5 days. Prescriptions (Any new or edited meds): Carvedilol [Coreg] 6.25 mg PO BID #1 tablet Insulin Lispro [Humalog] 0 units SC ACHSINS #1 vial Lactobacillus Acidophilus [Bacid] 1 cap PO QID #56 cap Saccharomyces Boulardii [Florastor] 250 mg PO QID #56 capsule Vancomycin HCl [Vancomycin] 250 mg PO Q6H #1 btl Warfarin Sodium [Coumadin] 3 mg PO DAILY #1 tablet Complete Home Medications List: Complete Home Medication List: Acetaminophen [Tylenol] 650 mg PO QID PRN #0 tablet 12/04/16 Carvedilol [Coreg] 6.25 mg PO BID #1 tablet 12/04/16 Cholecalciferol [Vitamin D] 1,000 unit PO DAILY capsule 12/04/16 Cod Liver Oil/Zinc Oxide [Desitin] 1 appl TP PRN PRN #0 tube 12/04/16 Folic Acid 1 mg PO DAILY tablet 12/04/16 Glycerin/Witch [place] [Tucks Medicated Pads] 1 appl TP PRN PRN #0 box Hydrophilic Ointment [Aquaphilic Ointment] 1 appl TP PRN PRN #0 jar 12/04/16 Insulin Detemir [Levemir] 14 units SC Q12H vial 12/04/16 Insulin Lispro [Humalog] 0 units SC ACHSINS #1 vial 12/04/16 Lactobacillus Acidophilus [Bacid] 1 cap PO QID #56 cap 12/04/16 Lisinopril [Zestril] 20 mg PO BID tablet 12/04/16 Menthol [Biofreeze] 1 appl TP Q4H PRN 12/04/16 Multivitamins [Multivitamin Ines] 1 cap PO DAILY capsule 12/04/16 Nystatin [Mycostatin Ointment] 1 appl TP BID tube 12/04/16 Polyvinyl Alcohol [Artificial Tears] 1 drop OP Q4H btl 12/04/16 Psyllium Husk (with Sugar) [Metamucil] 1 each PO BID packet 12/04/16 Saccharomyces Boulardii [Florastor] 250 mg PO QID #56 capsule 12/04/16 Simvastatin [Zocor] 40 mg PO HS tablet 12/04/16 Vancomycin HCl [Vancomycin] 250 mg PO Q6H #1 btl 12/04/16 Warfarin Sodium [Coumadin] 3 mg PO DAILY #1 tablet 12/04/16 Ziprasidone HCl [Geodon] 20 mg PO HS capsule 12/04/16 Amb Orders for Discharge: Basic Metabolic Panel Time Frame: 5 Days, Location: Determined By Patient CBC Time Frame: 5 Days, Location: Determined By Patient Prothrombin Time Time Frame: 5 Days, Location: Determined By Patient
[2016-12-04] MEDS: ACETAMINOPHEN 325 MG TABLET PO PRN (07:16)
[2016-12-04] MEDS: PSYLLIUM SEED 1 PACKET PACKET PO SCH (08:32)
[2016-12-04] MEDS: LISINOPRIL 20 MG TABLET PO SCH (08:32)
[2016-12-04] MEDS: FOLIC ACID 1 MG TABLET PO SCH (08:33)
[2016-12-04] MEDS: MULTIVITAMINS 1 CAP CAPSULE PO SCH (08:33)
[2016-12-04] MEDS: SACCHAROMYCES BOULARDII 250 MG CAPSULE PO SCH (08:33)
[2016-12-04] MEDS: CARVEDILOL 3.125 MG TABLET PO SCH (08:33)
[2016-12-04] MEDS: CHOLECALCIFEROL 1,000 UNIT CAPSULE PO SCH (08:33)
[2016-12-04] MEDS: LACTOBACILLUS ACIDOPHILUS 100 CAP BTL PO SCH (08:34)
[2016-12-04] MEDS: NYSTATIN 15 APPL TUBE TP SCH (08:35)
[2016-12-04] MEDS ORDERED: WARFARIN SODIUM 1 TAB TAB PO SCH (17:00)
== END 2016-12-04 11:40 | DRG 872 ==
LOC: ER 10:23 → UNDOADMIN 13:55 → MS 13:55
PROVIDERS: ADMIT Allergy & Immunology; ATTEND Allergy & Immunology
DX: A41.9 Sepsis, unspecified organism (principal); N39.0 Urinary tract infection, site not specified; I50.32 Chronic diastolic (congestive) heart failure; N18.4 Chronic kidney disease, stage 4 (severe); E87.6 Hypokalemia; R41.82 Altered mental status, unspecified; D70.9 Neutropenia, unspecified; D50.9 Iron deficiency anemia, unspecified; E78.2 Mixed hyperlipidemia; I27.2 Other secondary pulmonary hypertension; E11.22 Type 2 diabetes mellitus with diabetic chronic kidney disease; I12.9 Hypertensive chronic kidney disease with stage 1 through stage 4 chronic kidney disease, or unspecified chronic kidney disease; B96.89 Other specified bacterial agents as the cause of diseases classified elsewhere; Z79.4 Long term (current) use of insulin; Z86.711 Personal history of pulmonary embolism; Z79.01 Long term (current) use of anticoagulants; Z22.322 Carrier or suspected carrier of Methicillin resistant Staphylococcus aureus

== ENCOUNTER 2016-12-18 18:41 | Inpatient (IN) | payer MEDICARE, OTHER ==
[2016-12-18] MEDS ORDERED: NORMAL SALINE 1,000 ML IV ONE (19:37)
--- OUTSIDE RECORDS SUMMARY | 2016-12-18 19:38 | XMS REPORT | Continuity of Care Document ---
:1940 Author Organization [facility] ([facility]) Address [place] [address] Phone [phone] Care Team Providers Name Role Phone Jaylen Soler Primary Care Provider [phone] Source Comments This disclosure is being made pursuant to the Care Everywhere program, applicable federal and state laws, and may not contain all informaitonavailable regarding this patient.[facility] ([facility]) Active Allergies and Adverse Reactions Allergen Noted Date Severity Reactions Comments Ibuprofen 09/04/2010 Unknown Ketorolac 09/04/2010 Unknown Other Agent 03/08/2011 OTHER TB Vaccination Current Medications Prescription Sig. Disp. Refills Start Date End Date Status metoPROLol (LOPRESSOR) Take 1 Tab by mouth 60 Tab 0 09/19/2010 Active 25 mg tablet every 12 hours. Indications: Hypertension MULTIVITAMIN PO Take by mouth. Active cholecalciferol Take 1,000 Units by Active (VITAMIN D3) 1,000 unit mouth daily. Tab tablet hydroxychloroquine 200 Take 200 mg by Active mg tablet mouth 2 times daily. artificial tears 1 Drop as needed. Active (ARTIFICIAL TEARS) Drop ophthalmic solution colchicine (COLCRYS) Take 0.6 mg by Active 0.6 mg tablet mouth daily. sucralfate 1000 mg Take 1,000 mg by Active tablet mouth before meals and at bedtime. docusate 100 mg capsule Take 100 mg by Active mouth 2 times daily as needed. acetaminophen 325 mg Take 325 mg by Active tablet mouth every 4 hours as needed. budesonide (PULMICORT) Use 0.5 mg by Active 0.5 mg/2 mL nebulizer inhalation daily. suspension enalapril 20 mg tablet Take 20 mg by mouth Active daily. FUROSEMIDE 80 mg tablet Take 80 mg by mouth 02/06/2015 Active daily. GABAPENTIN 300 mg Take 300 mg by 02/06/2015 Active capsule mouth 3 times daily GLIPIZIDE 5 mg tablet Take 10 mg by mouth 02/17/2015 Active 2 times daily KLOR-CON M20 20 mEq Take 20 mEq by 02/06/2015 Active tablet mouth 2 times daily SIMVASTATIN 40 mg Take 40 mg by mouth 02/06/2015 Active tablet at bedtime pantoprazole 40 mg EC Take 40 mg by mouth Active tablet daily albuterol 2.5 mg/3 mL Use 3 mL by Active inhalation solution inhalation every 4 hours as needed polyethylene glycol Take 17 g by mouth Active 3350 17 gram packet daily as needed MONOJECT INSULIN SAFETY 08/17/2015 Active SYR 29 x 1/2" syrg MONOJECT INSULIN SAFETY 08/17/2015 Active SYRING 1/2 mL 29 x 1/2" syrg JANTOVEN 2.5 mg tab 09/07/2015 Active tablet montelukast 10 mg 08/20/2015 Active tablet LEVEMIR 100 unit/mL 6 Units every 07/15/2015 Active injection vial morning. GENTAK 0.3 % (3 mg/g) 08/18/2015 Active oint ophthalmic ointment sulfacetamide 10 % 12/12/2015 Active ophthalmic solution ipratropium 0.06 % 11/30/2015 Active nasal spray JANTOVEN 3 mg tab 11/30/2015 Active tablet SUPPLY blood glucose 2 times daily Check Active test strips blood sugar BID . risperiDONE 0.5 mg Take 1 tablet (0.5 30 tablet 11 12/25/2015 Active tablet mg total) by mouth daily. risperiDONE 1 mg tablet Take 1 tablet (1 mg 30 tablet 6 02/19/2016 Active total) by mouth at bedtime. furosemide 20 mg tablet Take 20 mg by mouth Active daily. psyllium (METAMUCIL SF) Take 3.4 g by mouth Active powder daily. Dilute in at least 8 ounces of water. insulin aspart (NovoLOG Inject Active PENFILL) 100 unit/mL (3 subcutaneously 3 mL) cartridge times daily before meals. SERTraline 50 mg tablet One tab daily 30 tablet 6 07/01/2016 Active Active Problems Problem Noted Date Urinary obstruction 01/22/2014 Hydronephrosis 01/22/2014 Meningioma 2013 Anemia 09/04/2010 Essential hypertension 09/04/2010 Schizophrenia, paranoid 09/04/2010 Personal history of venous thrombosis and embolism 09/04/2010 Status post colectomy 09/04/2010 Overview: For colon cancer, remote, uncertain amount of colon resected Osteomyelitis of ankle, right, acute 09/04/2010 Most Recent Encounters Date Type Specialty Providers Description 10/08/2016 Office Visit Urology Mago Alexandra MD Dx: Urinary retention (Primary Dx) Social History Tobacco Use Types Packs/Day Years Used Date Never Smoker Smokeless Tobacco: Never Used Tobacco Cessation:Counseling Given: Yes Comments: Alcohol Use Drinks/Week oz/Week Comments No Last Filed Vital Signs Vital Sign Reading Time Taken Blood Pressure 191/81 07/01/2016 9:27 AM CDT Pulse 59 07/01/2016 9:27 AM CDT Temperature 36.4 C (97.5 F) 03/28/2016 11:15 AM CDT Respiratory Rate 20 09/01/2014 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 Height 1.67 m (5' 5.75") 12/14/2015 12:38 PM 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 Weight 87.544 kg (193 lb) 07/01/2016 9:27 AM CDT Body Mass Index 31.39 07/01/2016 9:27 AM CDT Oxygen Saturation 92% 08/04/2013 1:19 PM CDT Plan of Care Date Type Specialty Providers Description 12/19/2016 Appointment Radiology Chief Comp: Patient Reported Reason For Visit 12/19/2016 Appointment Urology Mago Alexandra, Chief Comp: Patient Reported Reason For [address] [place] [address] [phone] (Fax) 12/30/2016 Appointment 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, 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 Reason For [address] [place] [address] [phone] (Fax) 12/30/2016 Appointment Radiology Chief Comp: Patient Reported Reason For Visit 12/30/2016 Appointment Radiation Oncology Segundo Samson MD Chief Comp: Patient [address] [place] [address] Visit [phone] (Fax) Health Maintenance Due Date Last Done Comments Hepatitis B Vaccine (1 of 3 - Primary Series) 1940 Tdap Vaccine 1950 Lipid Disorder Screening 1957 Td Vaccine 1957 Mammogram 1979 Colonoscopy 08/15/1989 Zoster Vaccine 1999 Osteoporosis Screening (DXA Bone Density) 2004 Pneumococcal Vaccine (1 of 2 - PCV13) 2004 Influenza Vaccine: Seasonal (#1) 05/20/2016 Results from Last 3 Months Not on file
--- NOTE | 2016-12-18 19:56 | ERNOTE ---
Upper Extremity HPI - Narrative Date of Service: 12/18/16 - General Extremities Pain Location: arm: left Time Seen by Provider: 12/18/16 19:23 Source: patient Exam Limitations: no limitations - Immun/Allergies/Home Medications Immunizations: IMMUNIZATION HX Immunizations Up to Date Yes History of Influenza Vaccine Yes Hx Pneumococcal Vaccination Yes Allergies/Adverse Reactions: Allergies Allergy/AdvReac Type Severity Reaction Status Date / Time ibuprofen Allergy Verified 12/18/16 19:00 ketorolac tromethamine Allergy Verified 12/18/16 19:00 [From Toradol] tuberculin,PPD,multi-puncture Allergy Verified 12/18/16 19:00 risperidone [From Risperdal] AdvReac Severe pancytopeni Verified 12/18/16 19:00 a Home Medications: HOME MEDICATIONS Acetaminophen [Tylenol] 650 mg PO QID PRN #0 tablet 12/04/16 [Last Taken Unknown ] Carvedilol [Coreg] 6.25 mg PO BID #1 tablet 12/04/16 [Last Taken Unknown] Cholecalciferol [Vitamin D] 1,000 unit PO DAILY capsule 12/04/16 [Last Taken Unknown] Cod Liver Oil/Zinc Oxide [Desitin] 1 appl TP PRN PRN #0 tube 12/04/16 [Last Taken Unknown] Folic Acid 1 mg PO DAILY tablet 12/04/16 [Last Taken Unknown] Glycerin/Witch Diana Gobles [Tucks Medicated Pads] 1 appl TP PRN PRN #0 box [Last Taken Unknown] Hydrophilic Ointment [Aquaphilic Ointment] 1 appl TP PRN PRN #0 jar 12/04/16 [ Last Taken Unknown] Insulin Detemir [Levemir] 14 units SC Q12H vial 12/04/16 [Last Taken Unknown] Lactobacillus Acidophilus [Bacid] 1 cap PO QID #56 cap 12/04/16 [Last Taken Unknown] Lisinopril [Zestril] 20 mg PO BID tablet 12/04/16 [Last Taken Unknown] Menthol [Biofreeze] 1 appl TP Q4H PRN 12/04/16 [Last Taken Unknown] Multivitamins [Multivitamin Ines] 1 cap PO DAILY capsule 12/04/16 [Last Taken Unknown] Nystatin [Mycostatin Ointment] 1 appl TP BID tube 12/04/16 [Last Taken Unknown] Polyvinyl Alcohol [Artificial Tears] 1 drop OP Q4H btl 12/04/16 [Last Taken Unknown] Psyllium Husk (with Sugar) [Metamucil] 1 each PO BID packet 12/04/16 [Last Taken Unknown] Saccharomyces Boulardii [Florastor] 250 mg PO QID #56 capsule 12/04/16 [Last Taken Unknown] Simvastatin [Zocor] 40 mg PO HS tablet 12/04/16 [Last Taken Unknown] Warfarin Sodium [Coumadin] 3 mg PO DAILY #1 tablet 12/04/16 [Last Taken Unknown] Ziprasidone HCl [Geodon] 20 mg PO HS capsule 12/04/16 [Last Taken Unknown] Insulin Aspart [Novolog] See Protocol SQ ACHS 12/19/16 [Last Taken Unknown] LORazepam [Ativan] 0.5 mg PO TID 12/19/16 [Last Taken Unknown] Potassium Chloride 8 meq PO DAILY 12/19/16 [Last Taken Unknown] Vancomycin HCl [Vancomycin] 125 mg PO Q6H 12/19/16 [Last Taken Unknown] - History of Present Illness Narrative: Pt. comes in with c/o swollen L arm and leg with redness of the left forearm and fever of T max 101.1 today. Pt. denies any SOB, CP, NVD, numbness or tingling. Pt. has an extensive medical history and [facility]. Pt. denies any prehospital treatment, alleviating factors or aggravating factors. Pt. was recently treated for cellulitis of the R hand. Review of Systems - Review of Systems Constitutional: Present: recent illness, fever, fatigue, malaise. Absent: weakness, weight loss EYE: Present: no symptoms reported ENT: Present: no symptoms reported Respiratory: Present: shortness of breath. Absent: cough, wheezing Cardiology: Present: edema - LLQ LUQ. Absent: chest pain, palpitations Gastrointestinal/Abdominal: Absent: nausea, vomiting, diarrhea, abdominal pain Genitourinary: Present: no symptoms reported Musculoskeletal: Present: joint pain - L arm. Absent: back pain Skin: Present: change in color - redness ALLISON Neurological: Present: no symptoms reported. Absent: headache, dizziness/light- headedness, numbness, tingling All Other Systems: All systems neg except as marked - Patient's Past Medical History Patient History - Medical: Anemia, Anxiety, Arthritis, Cataracts, Chronic Pain, Diabetes Type 2, GERD, Renal Failure, Rheumatoid Arthritis, UTI'S Patient History - Cardiac/Respiratory: Hypertension, Pulmonary Embolism Patient History - Cancer: Colon Patient History - Surgical Procedures: Amputation, Colon Resection, Hysterectomy Patient History - Other: None - Family History Mother Family History - Medical: Family History - Cardiac/Respiratory: History Unknown Father Family History - Medical: Family History - Cardiac/Respiratory: Myocardial Infarction - Social History Living Situations: snf Abuse History: No History of abuse Psych History: Psychiatric Hx, Hx of Anxiety, Hx of Depression, Hx of Schizophrenia, Hx of Psychiatric Tx, Current tx/ever been on anti-depressants or anti-anxiety meds Does anyone smoke in the home?: No Smoking Status: Never smoker Have you smoked in the past 12 months: No Alcohol Use: none Drug Use: none - Immunizations Immunizations Up to Date: Yes Hx Pneumococcal Vaccination: Yes History of Influenza Vaccine: Yes Physical Exam - Physical Exam General Appearance: Present: wd/wn, alert, no apparent distress Eye Exam: Normal inspection: bilateral, PERRL: bilateral, EOMI: bilateral Ears, Nose, Throat: Present: normal ENT inspection, normal pharynx Neck: Present: normal inspection, nontender Respiratory: Present: normal breath sounds, no accessory muscle use, chest nontender, lungs clear, other - tachypneic. Absent: rales, rhonchi, stridor Cardiovascular/Chest: Present: regular rate, rhythm, no murmur, normal peripheral pulses Gastrointestinal/Abdominal: Present: normal bowel sounds, nontender, soft, no organomegaly, distended Back Exam: Present: normal inspection Extremity Exam: Present: extremity edema - LUE LLE +3 Neurological Exam: Present: alert, oriented, normal mood/affect, motor weakness - normal for pt Skin Exam: Present: warm/dry, pallor ED Progress - Date and Time Seen: Date and Time: 12/18/16 21:53 Discussed with Sima and she will admit pt. for CHF, cellulitis, SIRS, hyponatremia, and hypertension. - Results and Orders Patient's Lab Results:: I have reviewed the patient's lab results. - Vital Signs Patient's Vital Signs:: I have reviewed the patient's vital signs. Vital Signs: Vital Signs 12/18/16 18:54 Temperature 37.8 C H Pulse Rate 96 Respiratory 32 H Rate Blood Pressure 218/96 O2 Sat by Pulse 97 Oximetry - EKG EKG: NSR, unchanged from 10/04, other - old inferior wall changes no acute EKG read: Interp. by me - X-Ray X-Ray #1 X-Ray: chest Interpretation: Interp. by me X-ray Comments: bilateral atelactasis and mild stable cardiomegaly. 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
[2016-12-18 20:03] LABS: Hematocrit 29.2 % (37.0-47.0); Hemoglobin 9.1 gm/dL (12.5-16.0); Mean Cell Volume 90.7 fl (78-100); Mean Corpuscular Hemoglobin 28.3 pg (27-31); Mean Corpuscular Hgb Conc 31.2 g/dl (32-36); Mean Platelet Volume 9.3 fl (6.0-9.5); Neutrophil % 83.7 % (42-75.0); Platelet Count 163 K/mm3 (150-450); Red Blood Count 3.22 M/mm3 (4.2-5.4); White Blood Count 9.6 K/mm3 (4.0-10.5)
[2016-12-18 20:14] LABS: Prothrombin Time (Patient) 20.2 Seconds (9.4-11.4)
[2016-12-18 20:22] LABS: Albumin * 2.3 gm/dl (3.4-5.0); BUN/Creatinine Ratio 14.4 (9.0-21.6); Bilirubin, Total 0.4 mg/dL (0.0-1.1); Ca. Corrected For Albumin 9.5 mg/dL (8.4-10.2); Calcium * 8.5 mg/dL (7.9-10.9); Carbon Dioxide 25.9 mmol/L (24-32.6); Potassium 2.9 mmol/L (3.4-4.6); Total Protein 5.9 gm/dL (6.2-8.2); Troponin I 0.02 ng/ml (0.00-0.10)
[2016-12-18 20:23] LABS: INR 1.94 INR (0.90-1.10); Partial Thrombolplastin Time 42.3 Seconds (24-32)
[2016-12-18] MEDS ORDERED: POTASSIUM CHLORIDE 100 ML IV ONE ×2 (20:44→20:52)
[2016-12-18] MEDS ORDERED: FUROSEMIDE 10 MG/ML VIAL IV ONE (20:44)
[2016-12-18] MEDS ORDERED: hydrALAZINE HCL 20 MG/ML VIAL IV ONE (21:36)
--- OUTSIDE RECORDS SUMMARY | 2016-12-18 21:59 | XMS REPORT | Continuity of Care Document ---
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 1.67 m (5' 5.75") 12/14/2015 12:38 PM 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 Weight 87.544 kg (193 lb) 07/01/2016 9:27 AM CDT Body Mass Index 31.39 07/01/2016 9:27 AM CDT Oxygen Saturation 92% 08/04/2013 1:19 PM CDT Plan of Care Date Type Specialty Providers Description 12/19/2016 Appointment Radiology Chief Comp: Patient Reported Reason For Visit 12/19/2016 Appointment Urology Mago Alexandra, Chief Comp: Patient Reported Reason For [address] [place] [address] [phone] (Fax) 12/30/2016 Appointment 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
[2016-12-18 22:15] LABS: Urine Bilirubin Negative (NEGATIVE); Urine Blood Negative /ul (NEGATIVE); Urine Ketone Negative (NEGATIVE); Urine Nitrite Negative (NEGATIVE); Urine Protein 100 mg/dL (NEGATIVE); Urine Specific Gravity 1.015 SP.GR. (1.005-1.010); Urine Urobilinogen Normal (NORMAL)
[2016-12-18 22:24] LABS: Urine Appearance Clear; Urine Bacteria TRACE; Urine Color Yellow; Urine RBC None Seen /hpf (0-5); Urine WBC None Seen /hpf (0-5)
[2016-12-18 22:25] LABS: Urine Other Crystal Moderate - 2+ /hpf
[2016-12-19] MEDS ORDERED: HYDROPHILIC OINTMENT 454 APPL JAR TP PRN (01:10)
[2016-12-19] MEDS ORDERED: NON-FORMULARY 1 DOSE DOSE (Menthol [Biofreeze] 1 APPL) TP PRN (01:18)
[2016-12-19] MEDS ORDERED: GLYCERIN/WITCH HAZEL LEAF 40 APPL BOX TP PRN (01:18)
[2016-12-19] MEDS ORDERED: COD LIVER OIL/ZINC OXIDE 113 APPL TUBE TP PRN (01:18)
[2016-12-19] MEDS ORDERED: POTASSIUM CHLORIDE 20 MEQ TABLET.SA PO ONE (01:30)
[2016-12-19] MEDS ORDERED: INSULIN DETEMIR 100 UNITS/ML VIAL SC SCH (01:30)
[2016-12-19] MEDS: hydrALAZINE HCL 20 MG/ML VIAL IV PRN (01:32)
[2016-12-19] MEDS: POLYVINYL ALCOHOL 150 DROP BTL OP SCH ×6 (01:43→21:10)
--- NOTE | 2016-12-19 02:02 | HP ---
<Jaylen Gold - Last Filed: 12/19/16 10:42> Immunizations: IMMUNIZATION HX Immunizations Up to Date Yes History of Influenza Vaccine Yes Hx Pneumococcal Vaccination Yes Allergies/Adverse Reactions: Allergies Allergy/AdvReac Type Severity Reaction Status Date / Time ibuprofen Allergy Verified 12/18/16 19:00 ketorolac tromethamine Allergy Verified 12/18/16 19:00 [From Toradol] tuberculin,PPD,multi-puncture Allergy Verified 12/18/16 19:00 risperidone [From Risperdal] AdvReac Severe pancytopeni Verified 12/18/16 19:00 a Home Medications: HOME MEDICATIONS Acetaminophen [Tylenol] 650 mg PO QID PRN #0 tablet 12/04/16 [Last Taken Unknown ] Carvedilol [Coreg] 6.25 mg PO BID #1 tablet 12/04/16 [Last Taken Unknown] Cholecalciferol [Vitamin D] 1,000 unit PO DAILY capsule 12/04/16 [Last Taken Unknown] Cod Liver Oil/Zinc Oxide [Desitin] 1 appl TP PRN PRN #0 tube 12/04/16 [Last Taken Unknown] Folic Acid 1 mg PO DAILY tablet 12/04/16 [Last Taken Unknown] Glycerin/Witch Diana [place] [Tucks Medicated Pads] 1 appl TP PRN PRN #0 box [Last Taken Unknown] Hydrophilic Ointment [Aquaphilic Ointment] 1 appl TP PRN PRN #0 jar 12/04/16 [ Last Taken Unknown] Insulin Detemir [Levemir] 14 units SC Q12H vial 12/04/16 [Last Taken Unknown] Lactobacillus Acidophilus [Bacid] 1 cap PO QID #56 cap 12/04/16 [Last Taken Unknown] Lisinopril [Zestril] 20 mg PO BID tablet 12/04/16 [Last Taken Unknown] Menthol [Biofreeze] 1 appl TP Q4H PRN 12/04/16 [Last Taken Unknown] Multivitamins [Multivitamin Ines] 1 cap PO DAILY capsule 12/04/16 [Last Taken Unknown] Nystatin [Mycostatin Ointment] 1 appl TP BID tube 12/04/16 [Last Taken Unknown] Polyvinyl Alcohol [Artificial Tears] 1 drop OP Q4H btl 12/04/16 [Last Taken Unknown] Psyllium Husk (with Sugar) [Metamucil] 1 each PO BID packet 12/04/16 [Last Taken Unknown] Saccharomyces Boulardii [Florastor] 250 mg PO QID #56 capsule 12/04/16 [Last Taken Unknown] Simvastatin [Zocor] 40 mg PO HS tablet 12/04/16 [Last Taken Unknown] Warfarin Sodium [Coumadin] 3 mg PO DAILY #1 tablet 12/04/16 [Last Taken Unknown] Ziprasidone HCl [Geodon] 20 mg PO HS capsule 12/04/16 [Last Taken Unknown] Insulin Aspart [Novolog] See Protocol SQ ACHS 12/19/16 [Last Taken Unknown] LORazepam [Ativan] 0.5 mg PO TID 12/19/16 [Last Taken Unknown] Potassium Chloride 8 meq PO DAILY 12/19/16 [Last Taken Unknown] Vancomycin HCl [Vancomycin] 125 mg PO Q6H 12/19/16 [Last Taken Unknown] Exam - Exam Vital Signs: Vital Signs - Last Taken Temp 37 C 12/19/16 10:10 Pulse 82 12/19/16 10:10 Resp 24 H 12/19/16 10:10 BP 136/64 12/19/16 10:10 Pulse Ox 94 12/19/16 10:10 Diagnostic Studies: Abnormal Lab Results 12/18/16 12/19/16 12/19/16 Range/Units 22:12 10:15 10:15 RBC 2.90 L (4.2-5.4) M/mm3 Hgb 8.2 L (12.5-16.0) gm/dL Hct 26.3 L (37.0-47.0) % MCHC 31.2 L (32-36) g/dl RDW 17.8 H (11.5-14.0) % Immature Gran % (Auto) 1.20 H (0.001-0.429) % Immature Gran # (Auto) 0.10 H (0.000-0.0310) K/mm3 Neutrophils % 83.9 H (42-75.0) % Lymphocytes % 5.7 L (20-51) % Neutrophils # 7.2 H (1.3-6.0) K/mm3 Lymphocytes # 0.5 L (1.5-3.5) k/mm3 PT 19.4 H (9.4-11.4) Seconds INR (Anticoag Therapy) 1.87 H (0.90-1.10) INR Urine Protein 100 H (NEGATIVE) mg/dL Other Crystals Moderate - 2+ H (NONE) /hpf Microbiology 12/18/16 Unknown Urine Culture - Preliminary Urine,Catheterized No Growth Laboratory Results WBC 8.5 K/mm3 (4.0-10.5) 12/19/16 10:15 RBC 2.90 M/mm3 (4.2-5.4) L 12/19/16 10:15 Hgb 8.2 gm/dL (12.5-16.0) L 12/19/16 10:15 Hct 26.3 % (37.0-47.0) L 12/19/16 10:15 MCV 90.7 fl (78-100) 12/19/16 10:15 MCH 28.3 pg (27-31) 12/19/16 10:15 MCHC 31.2 g/dl (32-36) L 12/19/16 10:15 RDW 17.8 % (11.5-14.0) H 12/19/16 10:15 Plt Count 161 K/mm3 (150-450) 12/19/16 10:15 MPV 9.3 fl (6.0-9.5) 12/19/16 10:15 Immature Gran % (Auto) 1.20 % (0.001-0.429) H 12/19/16 10:15 Immature Gran # (Auto) 0.10 K/mm3 (0.000-0.0310) H 12/19/16 10:15 Neutrophils % 83.9 % (42-75.0) H 12/19/16 10:15 Lymphocytes % 5.7 % (20-51) L 12/19/16 10:15 Monocytes % 8.5 % (0.0-9) 12/19/16 10:15 Eosinophils % 0.6 % (0.0-3.0) 12/19/16 10:15 Basophils % 0.1 % (0.0-1.0) 12/19/16 10:15 Nucleated RBC % 0.0 k/mm3 (0-1) 12/19/16 10:15 Neutrophils # 7.2 K/mm3 (1.3-6.0) H 12/19/16 10:15 Lymphocytes # 0.5 k/mm3 (1.5-3.5) L 12/19/16 10:15 Monocytes # 0.7 k/mm3 (0.0-1.0) 12/19/16 10:15 Eosinophils # 0.1 k/mm3 (0.0-0.7) 12/19/16 10:15 Absolute Basophils 0.0 k/mm3 (0.0-0.1) 12/19/16 10:15 ESR 81 mm/hr (0-15) H 12/18/16 19:55 PT 19.4 Seconds (9.4-11.4) H 12/19/16 10:15 INR (Anticoag Therapy) 1.87 INR (0.90-1.10) H 12/19/16 10:15 PTT ([place]) 42.3 Seconds (24-32) H 12/18/16 19:55 Sodium 141 mmol/L (132-142) 12/18/16 19:55 Plasma Sodium 143 mmol/L (130-142) H 12/18/16 19:55 Potassium 2.9 mmol/L (3.4-4.6) L 12/18/16 19:55 Chloride 106 mmol/L (97-106) 12/18/16 19:55 Carbon Dioxide 25.9 mmol/L (24-32.6) 12/18/16 19:55 Anion Gap 12.0 mmol/L (6.8-13.8) 12/18/16 19:55 BUN 13 mg/dL (3-23) 12/18/16 19:55 Creatinine 0.90 mg/dL (0.4-1.4) 12/18/16 19:55 Est GFR (Non-Af Amer) 65 mL/min (60-130) D 12/18/16 19:55 BUN/Creatinine Ratio 14.4 (9.0-21.6) 12/18/16 19:55 Random Glucose 215 mg/dL (70-110) H D 12/18/16 19:55 Lactic Acid, Venous 2.0 mmol/L (0.4-2.0) 12/18/16 19:55 Calcium 8.5 mg/dL (7.9-10.9) 12/18/16 19:55 Calcium Adj for Albumin 9.5 mg/dL (8.4-10.2) 12/18/16 19:55 Total Bilirubin 0.4 mg/dL (0.0-1.1) 12/18/16 19:55 AST 19 U/L (0-48) 12/18/16 19:55 ALT 21 U/L (19-67) 12/18/16 19:55 Alkaline Phosphatase 72 U/L (50-170) 12/18/16 19:55 Troponin I 0.020 ng/ml (0.00-0.10) 12/18/16 19:55 C-Reactive Prot, Quant 17.0 mg/dL (0.0-0.9) H 12/18/16 19:55 B-Natriuretic Peptide 3048 pg/mL (5-550) H 12/18/16 19:55 Total Protein 5.9 gm/dL (6.2-8.2) L 12/18/16 19:55 Albumin 2.3 gm/dl (3.4-5.0) L 12/18/16 19:55 Urine Color Yellow 12/18/16 22:12 Urine Appearance Clear 12/18/16 22:12 Urine pH 6.0 pH (5.0-7.0) 12/18/16 22:12 Ur Specific [place] 1.015 SP.GR. (1.005-1.010) 12/18/16 22:12 Urine Protein 100 mg/dL (NEGATIVE) H 12/18/16 22:12 Urine Glucose (UA) Negative mg/dL (NEGATIVE) 12/18/16 22:12 Urine Ketones Negative mg/dL (NEGATIVE) 12/18/16 22:12 Urine Blood Negative /ul (NEGATIVE) 12/18/16 22:12 Urine Nitrate Negative (NEGATIVE) 12/18/16 22:12 Urine Bilirubin Negative mg/dl (NEGATIVE) 12/18/16 22:12 Prot Sulfosalicylic Acd 1+ mg/dL (0) 12/18/16 22:12 Urine Urobilinogen Normal EU/dl (NORMAL) 12/18/16 22:12 Ur Leukocyte Esterase Negative /ul (NEGATIVE) 12/18/16 22:12 Urine RBC None seen /hpf (0-5) 12/18/16 22:12 Urine WBC None seen /hpf (0-5) 12/18/16 22:12 Ur Epithelial Cells None seen /hpf (0-5) 12/18/16 22:12 Other Crystals Moderate - 2+ /hpf (NONE) H 12/18/16 22:12 Urine Bacteria Trace (NONE) 12/18/16 22:12 Urine Culture Comments Culture to follow 12/18/16 22:12 Assessment/Plan - Narrative Narrative: Radiologist now reporting pneumonia on today's CXR. Will add that to our current working diagnoses. Needless to say, current clinical condition quite complex. Record reviewed, patient examined. I directly supervised Sima Martinez's care for this patient. Estimate hospital stay of 1-2 weeks. - Assessment/Plan (1) Cellulitis of wrist Assessment: While she may indeed have cellulitis, the changes on inspection of her upper extremities, in combination with the SEVERE tenderness of her fingers, make me think this is more related to gout than cellulitis. Problem: Acute (2) Hypokalemia Assessment: Chemistries from this morning are still pending. Problem: Acute (3) Weakness generalized Problem: Acute (4) CHF (congestive heart failure) Problem: Chronic QualifierTitle: Congestive heart failure type: diastolic Congestive heart failure chronicity: chronic Qualified Code(s): I50.32 - Chronic diastolic (congestive) heart failure (5) Altered mental status Problem: Acute QualifierTitle: Altered mental status type: delirium Qualified Code(s): R41.0 - Disorientation, unspecified (6) Clostridium difficile colitis Assessment: Ongoing, still being treated, which makes the entire clinical situation difficult and dangerous, as she now needs antibiotics again. We will continue to treat for C dif colitis. Problem: Suspected (7) acute on chronic anemia Problem: Acute (8) Chronic congestive heart failure with left ventricular diastolic dysfunction Problem: Chronic (9) Chronic pain Problem: Chronic QualifierTitle: Chronic pain type: other chronic pain Qualified Code(s): G89.29 - Other chronic pain (10) Chronic restrictive lung disease Problem: Chronic (11) 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 Problem: Chronic QualifierTitle: 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 type: type 2 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 complication status: with other specified complication 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 buttermaker helper insulin use: with buttermaker helper use Qualified Code(s): E11.69 - Type 2 diabetes mellitus with other specified complication; Z79.4 - prison (current ) use of insulin (12) GERD (gastroesophageal reflux disease) Problem: Chronic QualifierTitle: Esophagitis presence: without esophagitis Qualified Code( s): K21.9 - Gastro-esophageal reflux disease without esophagitis (13) Gallstones Assessment: It is also slightly possible that acute cholecystitis is complicating the clinical picture now, but not very likely. Current antibiotics will also cover cholecystitis. Problem: Chronic QualifierTitle: Cholecystitis presence: without cholecystitis Biliary obstruction: without biliary obstruction Qualified Code(s): K80.20 - Calculus of gallbladder without cholecystitis without obstruction (14) Gout Problem: Acute QualifierTitle: Gout site: multiple sites Gout etiology: idiopathic Chronicity: chronic Presence of tophus: without tophus Qualified Code(s): M1A.09X0 - Idiopathic chronic gout, multiple sites, without tophus (tophi) (15) HLD (hyperlipidemia) Problem: Chronic QualifierTitle: Hyperlipidemia type: mixed hyperlipidemia Qualified Code( s): E78.2 - Mixed hyperlipidemia (16) ALUTIIQ (hard of hearing) Problem: Chronic QualifierTitle: Laterality: bilateral (17) History of recurrent UTIs Problem: Chronic (18) Hypertension Problem: Chronic QualifierTitle: Hypertension type: essential hypertension Qualified Code( s): I10 - Essential (primary) hypertension (19) Hypoventilation associated with obesity syndrome Problem: Chronic (20) Immunosuppressed status Problem: Chronic (21) MRSA (methicillin resistant Staphylococcus aureus) carrier Problem: Inactive (22) Parkinsons Problem: Chronic (23) Pulmonary embolism Problem: Inactive QualifierTitle: Pulmonary embolism type: other Chronicity: unspecified Acute cor pulmonale presence: without acute cor pulmonale Qualified Code(s): I26.99 - Other pulmonary embolism without acute cor pulmonale (24) Pulmonary hypertension Problem: Chronic (25) 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 (26) Vitamin D deficiency Problem: Chronic (27) chronic psychiatric illness Problem: Chronic (28) Pneumonia Problem: Acute QualifierTitle: Pneumonia type: due to unspecified organism Laterality: left Lung location: lower lobe of lung Qualified Code(s): J18.1 - Lobar pneumonia, unspecified organism <Sima Martinez - Last Filed: 12/19/16 21:22> Chief Complaint - Chief Complaint Date of Service: 12/18/16 Time of Service: 23:10 Chief Complaint: Left arm pain and swelling History of Present Illness: 76 years old female adm to the hospital from ER, pt a resident of [facility]. She was brought to the ER with reports of right arm pain and swelling. Pt a poor historian and additional information obtained from previous records. She is confused and oriented to self, she was last hospitalized 11/21 for altered mental status changes from her baseline and UTI. She was recently discharge back to halfway 12/04/16 and was DC with oral vanco for c-diff colitis. In ER CXR: Borderline pulmonary vascular congestion, low lung volume. Venous duplex negative for DVT, Hypokalemic with potassium 2.9, BNP 3048 and reports of diarrhea. f - Patient's Past Medical History Patient History - Medical: Anemia, Anxiety, Arthritis, Cataracts, Chronic Pain, Diabetes Type 2, Diabetes Type 2 Insulin Dependent, GERD, Renal Failure, Rheumatoid Arthritis, UTI'S Patient History - Cardiac/Respiratory: CHF - diastolic dysfunction, Hypertension , Pulmonary Embolism Patient History - Cancer: Colon Patient History - Surgical Procedures: Amputation, Colon Resection, Hysterectomy , Orthopedic - Right AKA Patient History - Other: None - Family History Mother Family History - Medical: Family History - Cardiac/Respiratory: History Unknown Father Family History - Medical: Family History - Cardiac/Respiratory: Myocardial Infarction - Social History Living Situations: [facility] Abuse History: No History of abuse Psych History: Psychiatric Hx, Hx of Anxiety, Hx of Depression, Hx of Schizophrenia, Hx of Psychiatric Tx, Current tx/ever been on anti-depressants or anti-anxiety meds Does anyone smoke in the home?: No Smoking Status: Never smoker Have you smoked in the past 12 months: No Alcohol Use: none Drug Use: none - Immunizations Immunizations Up to Date: Yes Hx Pneumococcal Vaccination: Yes History of Influenza Vaccine: Yes Review Of Systems (GEN) - Review of Systems Generalized/Overall Review: Present: Weakness EENTM: Present: No Symptoms Reported Respiratory: Present: No Symptoms Reported Cardiac: Present: No Symptoms Reported Abdominal: Present: No Symptoms Reported Genitourinary: Present: No Symptoms Reported Musculoskeletal: Present: Joint Pain, Joint Swelling, Muscle Pain Neurological: Present: No Symptoms Reported Skin: Present: Bruising, Other - cellulitis Endocrine: Present: No Symptoms Reported Immunizations: IMMUNIZATION HX Immunizations Up to Date Yes History of Influenza Vaccine Yes Hx Pneumococcal Vaccination Yes Exam - Exam Vital Signs: Vital Signs - Last Taken Temp 37.1 C 12/18/16 22:53 Pulse 100 12/19/16 01:32 Resp 24 H 12/18/16 23:38 BP 195/97 12/19/16 01:32 Pulse Ox 100 12/18/16 23:38 Constitutional: Present: Cooperative, No distress, Elderly, Obese ENT Exam: Present: hard of hearing, moist mucous membranes Eye Exam: bilateral eye: PERRL Neck: Present: full range of motion Back Exam: Present: normal inspection Breasts: Present: Exam deferred Respiratory: Present: normal breath sounds, no respiratory distress, decreased breath sounds Cardiovascular/Chest: Present: no chest tenderness, no JVD, edema - Left left, right stump and BL upper arms Peripheral Pulses: dorsalis-pedis (R): 0 - AKA, dorsalis-pedis (L): 2+ Abdomen: Present: Normal bowel sounds, soft, nontender, nondistended, no rebound tenderness /Rectal: Present: Other - Galo cath, placed in ER Extremity: Present: lower extremity edema, slow capillary refill, other - upper extremity edema Skin Exam: Present: other - righthand erythema and swelling, left elbow and hand erythema and swelling Neurologic: Present: motor weakness, disoriented x 3 Appearance: Present: impaired insight, impaired remote memory Eye contact: Present: good eye contact, normal speech Thoughts: Present: no apparent hallucination Diagnostic Studies: Abnormal Lab Results 12/18/16 Range/Units 22:12 Urine Protein 100 H (NEGATIVE) mg/dL Other Crystals Moderate - 2+ H (NONE) /hpf Laboratory Results WBC 9.6 K/mm3 (4.0-10.5) D 12/18/16 19:55 RBC 3.22 M/mm3 (4.2-5.4) L 12/18/16 19:55 Hgb 9.1 gm/dL (12.5-16.0) L 12/18/16 19:55 Hct 29.2 % (37.0-47.0) L 12/18/16 19:55 MCV 90.7 fl (78-100) 12/18/16 19:55 MCH 28.3 pg (27-31) 12/18/16 19:55 MCHC 31.2 g/dl (32-36) L 12/18/16 19:55 RDW 18.0 % (11.5-14.0) H 12/18/16 19:55 Plt Count 163 K/mm3 (150-450) 12/18/16 19:55 MPV 9.3 fl (6.0-9.5) 12/18/16 19:55 Immature Gran % (Auto) 1.00 % (0.001-0.429) H 12/18/16 19:55 Immature Gran # (Auto) 0.10 K/mm3 (0.000-0.0310) H 12/18/16 19:55 Neutrophils % 83.7 % (42-75.0) H 12/18/16 19:55 Lymphocytes % 6.4 % (20-51) L 12/18/16 19:55 Monocytes % 7.3 % (0.0-9) 12/18/16 19:55 Eosinophils % 1.5 % (0.0-3.0) 12/18/16 19:55 Basophils % 0.1 % (0.0-1.0) 12/18/16 19:55 Nucleated RBC % 0.0 k/mm3 (0-1) 12/18/16 19:55 Neutrophils # 8.0 K/mm3 (1.3-6.0) H 12/18/16 19:55 Lymphocytes # 0.6 k/mm3 (1.5-3.5) L 12/18/16 19:55 Monocytes # 0.7 k/mm3 (0.0-1.0) 12/18/16 19:55 Eosinophils # 0.1 k/mm3 (0.0-0.7) 12/18/16 19:55 Absolute Basophils 0.0 k/mm3 (0.0-0.1) 12/18/16 19:55 ESR 81 mm/hr (0-15) H 12/18/16 19:55 PT 20.2 Seconds (9.4-11.4) H 12/18/16 19:55 INR (Anticoag Therapy) 1.94 INR (0.90-1.10) H 12/18/16 19:55 PTT ([place]) 42.3 Seconds (24-32) H 12/18/16 19:55 Sodium 141 mmol/L (132-142) 12/18/16 19:55 Plasma Sodium 143 mmol/L (130-142) H 12/18/16 19:55 Potassium 2.9 mmol/L (3.4-4.6) L 12/18/16 19:55 Chloride 106 mmol/L (97-106) 12/18/16 19:55 Carbon Dioxide 25.9 mmol/L (24-32.6) 12/18/16 19:55 Anion Gap 12.0 mmol/L (6.8-13.8) 12/18/16 19:55 BUN 13 mg/dL (3-23) 12/18/16 19:55 Creatinine 0.90 mg/dL (0.4-1.4) 12/18/16 19:55 Est GFR (Non-Af Amer) 65 mL/min (60-130) D 12/18/16 19:55 BUN/Creatinine Ratio 14.4 (9.0-21.6) 12/18/16 19:55 Random Glucose 215 mg/dL (70-110) H D 12/18/16 19:55 Lactic Acid, Venous 2.0 mmol/L (0.4-2.0) 12/18/16 19:55 Calcium 8.5 mg/dL (7.9-10.9) 12/18/16 19:55 Calcium Adj for Albumin 9.5 mg/dL (8.4-10.2) 12/18/16 19:55 Total Bilirubin 0.4 mg/dL (0.0-1.1) 12/18/16 19:55 AST 19 U/L (0-48) 12/18/16 19:55 ALT 21 U/L (19-67) 12/18/16 19:55 Alkaline Phosphatase 72 U/L (50-170) 12/18/16 19:55 Troponin I 0.020 ng/ml (0.00-0.10) 12/18/16 19:55 C-Reactive Prot, Quant 17.0 mg/dL (0.0-0.9) H 12/18/16 19:55 B-Natriuretic Peptide 3048 pg/mL (5-550) H 12/18/16 19:55 Total Protein 5.9 gm/dL (6.2-8.2) L 12/18/16 19:55 Albumin 2.3 gm/dl (3.4-5.0) L 12/18/16 19:55 Urine Color Yellow 12/18/16 22:12 Urine Appearance Clear 12/18/16 22:12 Urine pH 6.0 pH (5.0-7.0) 12/18/16 22:12 Ur Specific [place] 1.015 SP.GR. (1.005-1.010) 12/18/16 22:12 Urine Protein 100 mg/dL (NEGATIVE) H 12/18/16 22:12 Urine Glucose (UA) Negative mg/dL (NEGATIVE) 12/18/16 22:12 Urine Ketones Negative mg/dL (NEGATIVE) 12/18/16 22:12 Urine Blood Negative /ul (NEGATIVE) 12/18/16 22:12 Urine Nitrate Negative (NEGATIVE) 12/18/16 22:12 Urine Bilirubin Negative mg/dl (NEGATIVE) 12/18/16 22:12 Prot Sulfosalicylic Acd 1+ mg/dL (0) 12/18/16 22:12 Urine Urobilinogen Normal EU/dl (NORMAL) 12/18/16 22:12 Ur Leukocyte Esterase Negative /ul (NEGATIVE) 12/18/16 22:12 Urine RBC None seen /hpf (0-5) 12/18/16 22:12 Urine WBC None seen /hpf (0-5) 12/18/16 22:12 Ur Epithelial Cells None seen /hpf (0-5) 12/18/16 22:12 Other Crystals Moderate - 2+ /hpf (NONE) H 12/18/16 22:12 Urine Bacteria Trace (NONE) 12/18/16 22:12 Urine Culture Comments Culture to follow 12/18/16 22:12 Assessment/Plan - Narrative Narrative: Cellulitis Right hand likely due to chronic edema On adm WBC 9.6--WNL, neutrophils 83.7, temp 37.7, ESR 81 and CRP 17, lactic acid 2.0 continue to trend in am Continue with IV Rocephin and keep limbs elevated Blood cultures pending Venous duplex negative for DVT Diabetes Monitor Accu-check AC+HS and sliding scale May resume home dose of medications On adm blood glucose 215 CHF diastolic dysfunction 08/04 Last Echo EF 60% LVEF normal, A/E reversed diastolic dysfunction. Right leg pitting edema and borderline pulmonary vascular congestion seen on CXR BNP > 3K monitor in am Lasix 20mg given in ER Hypertension- gradually improving On adm BP 195/97 Monitor vital signs and Hydralazine 10mg for SBP >160 and DBP>80 May resume home dose of medications Hypokalemia- pt with chronic history and possible due to diarrhea On adm Potassium level 2.9 Supplemented and monitor CMP in am PE -chronic on Coumadin INR 1.9, continue to monitor daily and resume home dose of Coumadin pharmacy to dose. SIRs: likely due to cellulitis plans same as #1 Code status : DNR VTE ppx : Therapeutic coumadin Anticipate 1-3 days and DC to care home Time 45 minutes - Assessment/Plan (1) Hypokalemia Problem: Acute (2) CHF (congestive heart failure) Problem: Chronic Qualifiers: Congestive heart failure type: diastolic Congestive heart failure chronicity: chronic Qualified Code(s): I50.32 - Chronic diastolic (congestive ) heart failure (3) 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 Problem: Chronic Qualifiers: 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 type: type 2 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 complication status: with other specified complication 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 nursing home insulin use: with nursing home use Qualified Code(s): E11.69 - Type 2 diabetes mellitus with other specified complication; 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
[2016-12-19] MEDS ORDERED: FUROSEMIDE 10 MG/ML VIAL IV ONE (06:00)
[2016-12-19] MEDS: VANCOMYCIN HCL 50 MG/ML BTL PO SCH ×3 (06:02→18:46)
[2016-12-19] MEDS: INSULIN LISPRO 100 UNITS/ML VIAL SC SCH ×4 (07:05→21:10)
[2016-12-19] MEDS: HYDROcodone/ACETAMINOPHEN 1 EACH TABLET PO PRN ×2 (08:56→17:05)
[2016-12-19] MEDS: AMPICILLIN SODIUM/SULBACTAM NA 1.5 GM in NORMAL SALINE 100 ML IV SCH ×3 (08:58→21:02)
[2016-12-19] MEDS ORDERED: CARVEDILOL 3.125 MG TABLET PO SCH (09:00)
[2016-12-19] MEDS: ZIPRASIDONE HCL 20 MG CAPSULE PO SCH ×2 (09:07→21:09)
[2016-12-19] MEDS: COLCHICINE 0.6 MG TABLET PO SCH (09:07)
[2016-12-19] MEDS: POTASSIUM CHLORIDE 20 MEQ TABLET.SA PO SCH ×2 (09:08→16:52)
[2016-12-19] MEDS: LISINOPRIL 20 MG TABLET PO SCH ×2 (09:09→21:09)
[2016-12-19] MEDS: CHOLECALCIFEROL 1,000 UNIT CAPSULE PO SCH (09:10)
[2016-12-19] MEDS: FOLIC ACID 1 MG TABLET PO SCH (09:10)
[2016-12-19] MEDS: MULTIVITAMINS 1 CAP CAPSULE PO SCH (09:10)
[2016-12-19] MEDS: LACTOBACILLUS ACIDOPHILUS 100 CAP BTL PO SCH ×4 (09:11→21:08)
[2016-12-19] MEDS: CARVEDILOL 6.25 MG TABLET PO SCH ×2 (09:11→21:09)
[2016-12-19] MEDS: NYSTATIN 15 APPL TUBE TP SCH ×2 (09:12→21:09)
[2016-12-19] MEDS: LORazepam 0.5 MG TABLET PO SCH ×3 (09:13→17:05)
[2016-12-19] MEDS: INSULIN DETEMIR 100 UNITS/ML VIAL SC SCH ×2 (09:20→21:15)
[2016-12-19 10:30] LABS: Hematocrit 26.3 % (37.0-47.0); Hemoglobin 8.2 gm/dL (12.5-16.0); Mean Cell Volume 90.7 fl (78-100); Mean Corpuscular Hemoglobin 28.3 pg (27-31); Mean Corpuscular Hgb Conc 31.2 g/dl (32-36); Mean Platelet Volume 9.3 fl (6.0-9.5); Neutrophil # 7.2 K/mm3 (1.3-6.0); Neutrophil % 83.9 % (42-75.0); Platelet Count 161 K/mm3 (150-450); Red Cell Distribution Width 17.8 % (11.5-14.0); White Blood Count 8.5 K/mm3 (4.0-10.5)
[2016-12-19 10:32] LABS: Prothrombin Time (Patient) 19.4 Seconds (9.4-11.4)
[2016-12-19 10:33] LABS: INR 1.87 INR (0.90-1.10)
[2016-12-19 10:46] LABS: Albumin * 1.9 gm/dl (3.4-5.0); Anion Gap 11.4 mmol/L (6.8-13.8); BUN/Creatinine Ratio 13.9 (9.0-21.6); Bilirubin, Total 0.4 mg/dL (0.0-1.1); Ca. Corrected For Albumin 9.5 mg/dL (8.4-10.2); Calcium * 8.1 mg/dL (7.9-10.9); Carbon Dioxide 26.9 mmol/L (24-32.6); Potassium 3.3 mmol/L (3.4-4.6); Total Protein 5.4 gm/dL (6.2-8.2)
[2016-12-19] MEDS: WARFARIN SODIUM 3 MG TABLET PO SCH (16:52)
[2016-12-19] MEDS ORDERED: ZIPRASIDONE HCL 20 MG CAPSULE PO SCH (21:00)
[2016-12-19] MEDS: SIMVASTATIN 40 MG TABLET PO SCH (21:09)
[2016-12-20] MEDS: VANCOMYCIN HCL 50 MG/ML BTL PO SCH ×5 (00:06→23:51)
[2016-12-20] MEDS: AMPICILLIN SODIUM/SULBACTAM NA 1.5 GM in NORMAL SALINE 100 ML IV SCH ×4 (01:18→19:53)
[2016-12-20] MEDS: hydrALAZINE HCL 20 MG/ML VIAL IV PRN ×2 (01:19→19:49)
[2016-12-20] MEDS: POLYVINYL ALCOHOL 150 DROP BTL OP SCH ×6 (01:19→21:55)
[2016-12-20 05:27] LABS: Hematocrit 26.9 % (37.0-47.0); Hemoglobin 8.2 gm/dL (12.5-16.0); Mean Cell Volume 91.8 fl (78-100); Mean Corpuscular Hgb Conc 30.5 g/dl (32-36); Mean Platelet Volume 9.7 fl (6.0-9.5); Neutrophil # 7.1 K/mm3 (1.3-6.0); Neutrophil % 82.7 % (42-75.0); Platelet Count 162 K/mm3 (150-450); Red Blood Count 2.93 M/mm3 (4.2-5.4); Red Cell Distribution Width 18.1 % (11.5-14.0); White Blood Count 8.6 K/mm3 (4.0-10.5)
[2016-12-20] MEDS: HYDROcodone/ACETAMINOPHEN 1 EACH TABLET PO PRN (05:31)
[2016-12-20] MEDS: INSULIN LISPRO 100 UNITS/ML VIAL SC SCH ×4 (06:54→21:49)
[2016-12-20] MEDS: LACTOBACILLUS ACIDOPHILUS 100 CAP BTL PO SCH ×4 (08:42→20:43)
[2016-12-20] MEDS: LORazepam 0.5 MG TABLET PO SCH ×3 (08:42→16:25)
[2016-12-20] MEDS: POTASSIUM CHLORIDE 20 MEQ TABLET.SA PO SCH ×2 (08:43→16:27)
[2016-12-20] MEDS: CARVEDILOL 6.25 MG TABLET PO SCH ×2 (08:43→20:41)
[2016-12-20] MEDS: ZIPRASIDONE HCL 20 MG CAPSULE PO SCH ×2 (08:43→20:41)
[2016-12-20] MEDS: FOLIC ACID 1 MG TABLET PO SCH (08:43)
[2016-12-20] MEDS: COLCHICINE 0.6 MG TABLET PO SCH (08:43)
[2016-12-20] MEDS: MULTIVITAMINS 1 CAP CAPSULE PO SCH (08:44)
[2016-12-20] MEDS: NYSTATIN 15 APPL TUBE TP SCH ×2 (08:44→20:43)
[2016-12-20] MEDS: INSULIN DETEMIR 100 UNITS/ML VIAL SC SCH ×3 (08:44→21:49)
[2016-12-20] MEDS: CHOLECALCIFEROL 1,000 UNIT CAPSULE PO SCH (08:45)
[2016-12-20] MEDS: LISINOPRIL 20 MG TABLET PO SCH ×2 (08:45→20:40)
[2016-12-20] MEDS: ACETAMINOPHEN 325 MG TABLET PO PRN (08:50)
[2016-12-20 15:04] LABS: Anion Gap 13.4 mmol/L (6.8-13.8); BUN/Creatinine Ratio 16.3 (9.0-21.6); Bilirubin, Total 0.5 mg/dL (0.0-1.1); Ca. Corrected For Albumin 9.8 mg/dL (8.4-10.2); Calcium * 8.5 mg/dL (7.9-10.9); Carbon Dioxide 24.6 mmol/L (24-32.6); Total Protein 5.7 gm/dL (6.2-8.2)
[2016-12-20 15:34] LABS: Prothrombin Time (Patient) 25.7 Seconds (9.4-11.4)
[2016-12-20 15:35] LABS: INR 2.47 INR (0.90-1.10)
[2016-12-20] MEDS: WARFARIN SODIUM 3 MG TABLET PO SCH (16:26)
--- NOTE | 2016-12-20 18:11 | PN ---
Subjective - Date and Time Seen Date: 12/20/16 Time: 18:09 Subjective Narrative: Confused. Poor historian. Refusing needle sticks today. Objective - Review of Systems Generalized/Overall Review: Reports: No Symptoms Reported - poor historian - Vitals Vitals: Last Vital Signs Selected Entries 12/20/16 12/20/16 10:18 14:24 Temperature 36.8 C Temperature Temporal Artery Source Scan Pulse Rate 80 Respiratory 26 H 40 H Rate Respiratory Short of Breath Effort Blood Pressure 125/87 Blood Pressure Supine Position O2 Sat by Pulse 95 Oximetry Oxygen Delivery Room Air Method - Abnormal Lab Findings Abnormal Lab Findings: Abnormal Lab Results 12/20/16 12/20/16 12/20/16 Range/Units 00:06 05:20 05:21 RBC 2.93 L (4.2-5.4) M/mm3 Hgb 8.2 L (12.5-16.0) gm/dL Hct 26.9 L (37.0-47.0) % MCHC 30.5 L (32-36) g/dl RDW 18.1 H (11.5-14.0) % MPV 9.7 H (6.0-9.5) fl Immature Gran % (Auto) 1.30 H (0.001-0.429) % Immature Gran # (Auto) 0.11 H (0.000-0.0310) K/mm3 Neutrophils % 82.7 H (42-75.0) % Lymphocytes % 6.8 L (20-51) % Neutrophils # 7.1 H (1.3-6.0) K/mm3 Lymphocytes # 0.6 L (1.5-3.5) k/mm3 ESR 98 H (0-15) mm/hr PT (9.4-11.4) Seconds INR (Anticoag Therapy) (0.90-1.10) INR Total Protein (6.2-8.2) gm/dL Albumin (3.4-5.0) gm/dl Stl C.difficile Tox A&B Formed stool A (Negative) 12/20/16 12/20/16 Range/Units 06:00 15:20 RBC (4.2-5.4) M/mm3 Hgb (12.5-16.0) gm/dL Hct (37.0-47.0) % MCHC (32-36) g/dl RDW (11.5-14.0) % MPV (6.0-9.5) fl Immature Gran % (Auto) (0.001-0.429) % Immature Gran # (Auto) (0.000-0.0310) K/mm3 Neutrophils % (42-75.0) % Lymphocytes % (20-51) % Neutrophils # (1.3-6.0) K/mm3 Lymphocytes # (1.5-3.5) k/mm3 ESR (0-15) mm/hr PT 25.7 H (9.4-11.4) Seconds INR (Anticoag Therapy) 2.47 H (0.90-1.10) INR Total Protein 5.7 L (6.2-8.2) gm/dL Albumin 2.0 L (3.4-5.0) gm/dl Stl C.difficile Tox A&B (Negative) - Exam Constitutional: Present: Alert, Well developed, Obese ENT Exam: Present: normal ENT inspection, hard of hearing Neck: Present: normal inspection Respiratory: Present: normal breath sounds, other - tachypnea Cardiovascular/Chest: Present: regular rate, rhythm, no murmur Abdomen: Present: Normal bowel sounds, soft, nontender, nondistended, no rebound tenderness, no hepatospenomegaly, no masses, obese Extremity: Present: pedal edema, other - tender finger joints. Lymphatic: Present: no adenopathy Neurologic: Present: alert. Absent: oriented x 3 Appearance: Present: appropriate appearance, neat Cauti Physician Documentation - Urinary Catheter Management Uretheral (Galo) Date of Insertion: 12/18/16 Time of Insertion: 22:10 Assessment/Plan Plan Narrative: Continue IV antibiotics. Follow labs. - Problems/Diagnosis (1) Cellulitis of wrist Problem: Acute (2) Hypokalemia Problem: Acute (3) Weakness generalized Problem: Acute (4) CHF (congestive heart failure) Problem: Chronic Qualifiers: Congestive heart failure type: diastolic Congestive heart failure chronicity: acute on chronic Qualified Code(s): I50.33 - Acute on chronic diastolic (congestive) heart failure (5) Altered mental status Problem: Acute Qualifiers: Altered mental status type: delirium Qualified Code(s): R41.0 - Disorientation, unspecified (6) Clostridium difficile colitis Problem: Suspected (7) acute on chronic anemia Problem: Acute (8) Chronic congestive heart failure with left ventricular diastolic dysfunction Problem: Chronic (9) Chronic pain Problem: Chronic Qualifiers: Chronic pain type: other chronic pain Qualified Code(s): G89.29 - Other chronic pain (10) Chronic restrictive lung disease Problem: Chronic (11) 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 Problem: Chronic Qualifiers: 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 type: type 2 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 complication status: with other specified complication 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 exterminator helper termite insulin use: with exterminator helper termite use Qualified Code(s): E11.69 - Type 2 diabetes mellitus with other specified complication; Z79.4 - intermediate (current) use of insulin (12) GERD (gastroesophageal reflux disease) Problem: Chronic Qualifiers: Esophagitis presence: without esophagitis Qualified Code(s): K21.9 - Gastro -esophageal reflux disease without esophagitis (13) Gallstones Problem: Chronic Qualifiers: Cholecystitis presence: without cholecystitis Biliary obstruction: without biliary obstruction Qualified Code(s): K80.20 - Calculus of gallbladder without cholecystitis without obstruction (14) Gout Problem: Acute Qualifiers: Gout site: multiple sites Gout etiology: idiopathic Chronicity: chronic Presence of tophus: without tophus Qualified Code(s): M1A.09X0 - Idiopathic chronic gout, multiple sites, without tophus (tophi) (15) HLD (hyperlipidemia) Problem: Chronic Qualifiers: Hyperlipidemia type: mixed hyperlipidemia Qualified Code(s): E78.2 - Mixed hyperlipidemia (16) [place] (hard of hearing) Problem: Chronic Qualifiers: Laterality: bilateral (17) History of recurrent UTIs Problem: Chronic (18) Hypertension Problem: Chronic Qualifiers: Hypertension type: essential hypertension Qualified Code(s): I10 - Essential (primary) hypertension (19) Hypoventilation associated with obesity syndrome Problem: Chronic (20) Immunosuppressed status Problem: Chronic (21) MRSA (methicillin resistant Staphylococcus aureus) carrier Problem: Inactive (22) Parkinsons Problem: Chronic (23) Pulmonary embolism Problem: Inactive Qualifiers: Pulmonary embolism type: other Chronicity: unspecified Acute cor pulmonale presence: without acute cor pulmonale Qualified Code(s): I26.99 - Other pulmonary embolism without acute cor pulmonale (24) Pulmonary hypertension Problem: Chronic (25) 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
[2016-12-20] MEDS: SIMVASTATIN 40 MG TABLET PO SCH (20:40)
[2016-12-21] MEDS ORDERED: FUROSEMIDE 10 MG/ML VIAL IV ONE (00:32)
[2016-12-21] MEDS: ACETAMINOPHEN 325 MG TABLET PO PRN (01:45)
[2016-12-21] MEDS: POLYVINYL ALCOHOL 150 DROP BTL OP SCH ×6 (01:47→23:28)
[2016-12-21] MEDS: hydrALAZINE HCL 20 MG/ML VIAL IV PRN (01:49)
[2016-12-21] MEDS: AMPICILLIN SODIUM/SULBACTAM NA 1.5 GM in NORMAL SALINE 100 ML IV SCH ×4 (01:51→20:43)
[2016-12-21] MEDS: VANCOMYCIN HCL 50 MG/ML BTL PO SCH ×4 (05:37→23:35)
[2016-12-21 06:27] LABS: Prothrombin Time (Patient) 20.9 Seconds (9.4-11.4)
[2016-12-21 06:28] LABS: INR 2.01 INR (0.90-1.10); Uric Acid 8.9 mg/dL (2.6-7.2)
[2016-12-21 06:40] LABS: CRP 33.3 mg/dL (0.0-0.9)
[2016-12-21] MEDS: INSULIN LISPRO 100 UNITS/ML VIAL SC SCH ×4 (07:14→20:56)
[2016-12-21] MEDS: HYDROcodone/ACETAMINOPHEN 1 EACH TABLET PO PRN ×2 (07:15→14:43)
[2016-12-21] MEDS ORDERED: VANCOMYCIN HCL 1 GM in DEXTROSE 5 % IN WATER 250 ML IV ONE ×2 (08:07)
[2016-12-21] MEDS ORDERED: VANCOMYCIN HCL 1 GM in DEXTROSE 5 % IN WATER 250 ML IV SCH ×4 (08:15→09:30)
[2016-12-21] MEDS ORDERED: VANCOMYCIN HCL 1.25 GM in DEXTROSE 5 % IN WATER 250 ML IV SCH ×2 (09:30)
[2016-12-21] MEDS: NYSTATIN 15 APPL TUBE TP SCH ×2 (09:38→20:54)
[2016-12-21] MEDS: LACTOBACILLUS ACIDOPHILUS 100 CAP BTL PO SCH ×4 (09:39→20:50)
[2016-12-21] MEDS: ALLOPURINOL 300 MG TABLET PO SCH (09:40)
[2016-12-21] MEDS: COLCHICINE 0.6 MG TABLET PO SCH ×3 (09:40→16:23)
[2016-12-21] MEDS: FOLIC ACID 1 MG TABLET PO SCH (09:41)
[2016-12-21] MEDS: CARVEDILOL 6.25 MG TABLET PO SCH ×2 (09:42→20:52)
[2016-12-21] MEDS: CHOLECALCIFEROL 1,000 UNIT CAPSULE PO SCH (09:42)
[2016-12-21] MEDS: LISINOPRIL 20 MG TABLET PO SCH ×2 (09:43→20:53)
[2016-12-21] MEDS: MULTIVITAMINS 1 CAP CAPSULE PO SCH (09:43)
[2016-12-21] MEDS: ZIPRASIDONE HCL 20 MG CAPSULE PO SCH ×2 (09:44→20:51)
[2016-12-21] MEDS: POTASSIUM CHLORIDE 20 MEQ TABLET.SA PO SCH ×2 (09:44→16:27)
[2016-12-21] MEDS: LEVOFLOXACIN/D5W 500 MG/100 ML BAG IV SCH (09:49)
--- NOTE | 2016-12-21 09:52 | PN ---
Subjective - Date and Time Seen Date: 12/21/16 Time: 09:45 Subjective Narrative: Confused. Poor historian. Neck pain. Left knee pain. Sed rate and CRP going up in spite of antibiotics. Tachypnea, but good O2 sats. Elevated uric acid level. Objective - Review of Systems Generalized/Overall Review: Reports: Weakness, Malaise EENTM: Reports: No Symptoms Reported Respiratory: Reports: No Symptoms Reported - but is tachypneic Cardiac: Reports: No Symptoms Reported Abdominal: Reports: No Symptoms Reported Genitourinary Symptoms: Reports: No Symptoms Reported Musculoskeletal Complaints: Reports: Other - see HPI Neurological: Reports: No Symptoms Reported Skin: Reports: No Symptoms Reported Endocrine: Reports: No Symptoms Reported Misc: All systems neg except as marked - Vitals Vitals: Last Vital Signs Selected Entries 12/20/16 12/21/16 12/21/16 23:20 00:40 07:10 Temperature 37.2 C 36.8 C Temperature Temporal Artery Oral Source Scan Pulse Rate 87 83 Respiratory 22 H 48 H 30 H Rate Respiratory Irregular Pattern Blood Pressure 188/85 185/78 Blood Pressure Supine Position O2 Sat by Pulse 92 95 Oximetry Oxygen Delivery Room Air Room Air Method - Abnormal Lab Findings Abnormal Lab Findings: Abnormal Lab Results 12/20/16 12/20/16 12/21/16 Range/Units 06:00 15:20 05:57 ESR (0-15) mm/hr PT 25.7 H 20.9 H (9.4-11.4) Seconds INR (Anticoag Therapy) 2.47 H 2.01 H (0.90-1.10) INR Uric Acid (2.6-7.2) mg/dL C-Reactive Prot, Quant (0.0-0.9) mg/dL Total Protein 5.7 L (6.2-8.2) gm/dL Albumin 2.0 L (3.4-5.0) gm/dl 12/21/16 12/21/16 Range/Units 05:57 05:57 ESR 100 H (0-15) mm/hr PT (9.4-11.4) Seconds INR (Anticoag Therapy) (0.90-1.10) INR Uric Acid 8.9 H (2.6-7.2) mg/dL C-Reactive Prot, Quant 33.3 H (0.0-0.9) mg/dL Total Protein (6.2-8.2) gm/dL Albumin (3.4-5.0) gm/dl - Exam Constitutional: Present: Alert, Cooperative, Well developed, No distress - but tachypneic, Obese ENT Exam: Present: normal ENT inspection, hard of hearing Neck: Present: normal inspection Respiratory: Present: lungs clear, no respiratory distress Cardiovascular/Chest: Present: regular rate, rhythm, no murmur Abdomen: Present: Normal bowel sounds, soft, nontender, nondistended, no rebound tenderness, no hepatospenomegaly, no masses, obese Extremity: Present: pedal edema Skin Exam: Present: normal color, warm/dry, no cyanosis Neurologic: Present: alert, oriented x 3 Appearance: Present: appropriate appearance, neat Eye contact: Present: cooperative Cauti Physician Documentation - Urinary Catheter Management Uretheral (Galo) Date of Insertion: 12/18/16 Time of Insertion: 22:10 Assessment/Plan Plan Narrative: Has pneumonia, nothing growing on culture to guide therapy. Elevated uric acid. CRP and sed rate going up. Expand antibiotic coverage for pneumonia. C/ 0 neck and shoulder pain (chronic). Add allopurinol. Increase colchicine. Follow labs. May easily be in hospital another week or two for IV antibiotics. Clinical picture is fuzzy at present. - Problems/Diagnosis (1) Cellulitis of wrist Problem: Acute (2) Hypokalemia Problem: Acute (3) Weakness generalized Problem: Acute (4) CHF (congestive heart failure) Problem: Chronic Qualifiers: Congestive heart failure type: diastolic Congestive heart failure chronicity: acute on chronic Qualified Code(s): I50.33 - Acute on chronic diastolic (congestive) heart failure (5) Altered mental status Problem: Acute Qualifiers: Altered mental status type: delirium Qualified Code(s): R41.0 - Disorientation, unspecified (6) Clostridium difficile colitis Problem: Suspected (7) acute on chronic anemia Problem: Acute (8) Chronic congestive heart failure with left ventricular diastolic dysfunction Problem: Chronic (9) Chronic pain Problem: Chronic Qualifiers: Chronic pain type: other chronic pain Qualified Code(s): G89.29 - Other chronic pain (10) Chronic restrictive lung disease Problem: Chronic (11) 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 Problem: Chronic Qualifiers: 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 type: type 2 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 complication status: with other specified complication 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 termite control technician insulin use: with custodial use Qualified Code(s): E11.69 - Type 2 diabetes mellitus with other specified complication; Z79.4 - assisted (current) use of insulin (12) GERD (gastroesophageal reflux disease) Problem: Chronic Qualifiers: Esophagitis presence: without esophagitis Qualified Code(s): K21.9 - Gastro -esophageal reflux disease without esophagitis (13) Gallstones Problem: Chronic Qualifiers: Cholecystitis presence: without cholecystitis Biliary obstruction: without biliary obstruction Qualified Code(s): K80.20 - Calculus of gallbladder without cholecystitis without obstruction (14) Gout Problem: Acute Qualifiers: Gout site: multiple sites Gout etiology: idiopathic Chronicity: chronic Presence of tophus: without tophus Qualified Code(s): M1A.09X0 - Idiopathic chronic gout, multiple sites, without tophus (tophi) (15) HLD (hyperlipidemia) Problem: Chronic Qualifiers: Hyperlipidemia type: mixed hyperlipidemia Qualified Code(s): E78.2 - Mixed hyperlipidemia (16) [place] (hard of hearing) Problem: Chronic Qualifiers: Laterality: bilateral (17) History of recurrent UTIs Problem: Chronic (18) Hypertension Problem: Chronic Qualifiers: Hypertension type: essential hypertension Qualified Code(s): I10 - Essential (primary) hypertension (19) Hypoventilation associated with obesity syndrome Problem: Chronic (20) Immunosuppressed status Problem: Chronic (21) MRSA (methicillin resistant Staphylococcus aureus) carrier Problem: Inactive (22) Parkinsons Problem: Chronic (23) Pulmonary embolism Problem: Inactive Qualifiers: Pulmonary embolism type: other Chronicity: unspecified Acute cor pulmonale presence: without acute cor pulmonale Qualified Code(s): I26.99 - Other pulmonary embolism without acute cor pulmonale (24) Pulmonary hypertension Problem: Chronic (25) 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
[2016-12-21] MEDS: INSULIN DETEMIR 100 UNITS/ML VIAL SC SCH ×2 (10:05→20:58)
[2016-12-21] MEDS: LORazepam 0.5 MG TABLET PO SCH ×3 (10:10→16:31)
[2016-12-21] MEDS: hydrALAZINE HCL 10 MG TABLET PO SCH ×3 (11:11→23:36)
[2016-12-21 15:14] LABS: Urine Appearance Slightly Cloudy; Urine Color Yellow
[2016-12-21 15:15] LABS: Urine Amorphous Sediment Few - 1+ (NONE-FEW); Urine Bacteria None Seen; Urine Bilirubin Negative (NEGATIVE); Urine Blood 50 /ul (NEGATIVE); Urine Ketone Negative (NEGATIVE); Urine Nitrite Negative (NEGATIVE); Urine Protein 100 mg/dL (NEGATIVE); Urine Urobilinogen Normal (NORMAL); Urine WBC 0-5 /hpf (0-5)
[2016-12-21] MEDS: WARFARIN SODIUM 3 MG TABLET PO SCH (16:24)
[2016-12-21] MEDS: SIMVASTATIN 40 MG TABLET PO SCH (20:53)
[2016-12-22] MEDS: POLYVINYL ALCOHOL 150 DROP BTL OP SCH ×6 (02:13→22:30)
[2016-12-22] MEDS: AMPICILLIN SODIUM/SULBACTAM NA 1.5 GM in NORMAL SALINE 100 ML IV SCH ×4 (02:14→20:23)
[2016-12-22] MEDS: hydrALAZINE HCL 10 MG TABLET PO SCH ×4 (05:06→22:29)
[2016-12-22] MEDS: VANCOMYCIN HCL 50 MG/ML BTL PO SCH ×3 (05:06→17:11)
[2016-12-22] MEDS: INSULIN LISPRO 100 UNITS/ML VIAL SC SCH ×4 (07:34→20:30)
--- NOTE | 2016-12-22 08:02 | PN ---
Subjective - Date and Time Seen Date: 12/22/16 Time: 08:00 Subjective Narrative: Confused. Poor historian. Neck pain. Left knee pain. Labs not yet drawn this morning due to lack of patient cooperation. Objective - Review of Systems Generalized/Overall Review: Reports: Malaise EENTM: Reports: No Symptoms Reported Respiratory: Reports: No Symptoms Reported Cardiac: Reports: No Symptoms Reported Abdominal: Reports: No Symptoms Reported Genitourinary Symptoms: Reports: No Symptoms Reported Musculoskeletal Complaints: Reports: Joint Pain, Neck Pain Neurological: Reports: No Symptoms Reported Skin: Reports: No Symptoms Reported Endocrine: Reports: No Symptoms Reported Misc: All systems neg except as marked - Vitals Vitals: Last Vital Signs Selected Entries 12/22/16 06:46 Temperature 36.9 C Temperature Oral Source Pulse Rate 83 Respiratory 28 H Rate Blood Pressure 186/75 Blood Pressure Supine Position O2 Sat by Pulse 96 Oximetry Oxygen Delivery Room Air Method - Abnormal Lab Findings Abnormal Lab Findings: Abnormal Lab Results 12/21/16 Range/Units 14:45 Urine Protein 100 H (NEGATIVE) mg/dL Urine Blood 50 H (NEGATIVE) /ul Prot Sulfosalicylic Acd 4+ H (0) mg/dL Urine RBC 5-10 H (0-5) /hpf - Exam Constitutional: Present: Alert, Well developed, No distress, Obese. Absent: Cooperative ENT Exam: Present: normal ENT inspection, hard of hearing Neck: Present: normal inspection, tender midline Respiratory: Present: lungs clear, no respiratory distress Cardiovascular/Chest: Present: regular rate, rhythm, no murmur Abdomen: Present: Normal bowel sounds, soft, nontender, nondistended, no rebound tenderness, no hepatospenomegaly, no masses, obese Extremity: Present: pedal edema, other - amputation right leg Neurologic: Present: alert Appearance: Present: appropriate appearance, neat Eye contact: Absent: cooperative Cauti Physician Documentation - Urinary Catheter Management Uretheral (Galo) Date of Insertion: 12/18/16 Time of Insertion: 22:10 Assessment/Plan Plan Narrative: Labs. Antibiotics. Increase hydralazine. - Problems/Diagnosis (1) Cellulitis of wrist Problem: Acute (2) Hypokalemia Problem: Acute (3) Weakness generalized Problem: Acute (4) CHF (congestive heart failure) Problem: Chronic Qualifiers: Congestive heart failure type: diastolic Congestive heart failure chronicity: acute on chronic Qualified Code(s): I50.33 - Acute on chronic diastolic (congestive) heart failure (5) Altered mental status Problem: Acute Qualifiers: Altered mental status type: delirium Qualified Code(s): R41.0 - Disorientation, unspecified (6) Clostridium difficile colitis Problem: Suspected (7) acute on chronic anemia Problem: Acute (8) Chronic congestive heart failure with left ventricular diastolic dysfunction Problem: Chronic (9) Chronic pain Problem: Chronic Qualifiers: Chronic pain type: other chronic pain Qualified Code(s): G89.29 - Other chronic pain (10) Chronic restrictive lung disease Problem: Chronic (11) 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 Problem: Chronic Qualifiers: 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 type: type 2 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 complication status: with other specified complication 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 prison insulin use: with watermelon harvesting supervisor use Qualified Code(s): E11.69 - Type 2 diabetes mellitus with other specified complication; Z79.4 - watermelon harvesting supervisor (current) use of insulin (12) GERD (gastroesophageal reflux disease) Problem: Chronic Qualifiers: Esophagitis presence: without esophagitis Qualified Code(s): K21.9 - Gastro -esophageal reflux disease without esophagitis (13) Gallstones Problem: Chronic Qualifiers: Cholecystitis presence: without cholecystitis Biliary obstruction: without biliary obstruction Qualified Code(s): K80.20 - Calculus of gallbladder without cholecystitis without obstruction (14) Gout Problem: Acute Qualifiers: Gout site: multiple sites Gout etiology: idiopathic Chronicity: chronic Presence of tophus: without tophus Qualified Code(s): M1A.09X0 - Idiopathic chronic gout, multiple sites, without tophus (tophi) (15) HLD (hyperlipidemia) Problem: Chronic Qualifiers: Hyperlipidemia type: mixed hyperlipidemia Qualified Code(s): E78.2 - Mixed hyperlipidemia (16) [place] (hard of hearing) Problem: Chronic Qualifiers: Laterality: bilateral (17) History of recurrent UTIs Problem: Chronic (18) Hypertension Problem: Chronic Qualifiers: Hypertension type: essential hypertension Qualified Code(s): I10 - Essential (primary) hypertension (19) Hypoventilation associated with obesity syndrome Problem: Chronic (20) Immunosuppressed status Problem: Chronic (21) MRSA (methicillin resistant Staphylococcus aureus) carrier Problem: Inactive (22) Parkinsons Problem: Chronic (23) Pulmonary embolism Problem: Inactive Qualifiers: Pulmonary embolism type: other Chronicity: unspecified Acute cor pulmonale presence: without acute cor pulmonale Qualified Code(s): I26.99 - Other pulmonary embolism without acute cor pulmonale (24) Pulmonary hypertension Problem: Chronic (25) 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
[2016-12-22] MEDS ORDERED: LORazepam 0.5 MG TABLET PO ONE (08:07)
[2016-12-22] MEDS ORDERED: ZIPRASIDONE HCL 20 MG CAPSULE PO ONE (08:07)
[2016-12-22] MEDS: LORazepam 0.5 MG TABLET PO SCH ×3 (08:30→16:36)
[2016-12-22] MEDS: LEVOFLOXACIN/D5W 500 MG/100 ML BAG IV SCH (08:32)
[2016-12-22] MEDS: FOLIC ACID 1 MG TABLET PO SCH (08:33)
[2016-12-22] MEDS: COLCHICINE 0.6 MG TABLET PO SCH ×3 (08:33→16:38)
[2016-12-22] MEDS: CARVEDILOL 6.25 MG TABLET PO SCH ×2 (08:33→20:35)
[2016-12-22] MEDS: LACTOBACILLUS ACIDOPHILUS 100 CAP BTL PO SCH ×4 (08:33→20:27)
[2016-12-22] MEDS: INSULIN DETEMIR 100 UNITS/ML VIAL SC SCH ×2 (08:34→20:33)
[2016-12-22] MEDS: MULTIVITAMINS 1 CAP CAPSULE PO SCH (08:34)
[2016-12-22] MEDS: ZIPRASIDONE HCL 20 MG CAPSULE PO SCH ×2 (08:34→20:35)
[2016-12-22] MEDS: POTASSIUM CHLORIDE 20 MEQ TABLET.SA PO SCH ×2 (08:34→16:40)
[2016-12-22] MEDS: NYSTATIN 15 APPL TUBE TP SCH ×2 (08:35→20:34)
[2016-12-22] MEDS: CHOLECALCIFEROL 1,000 UNIT CAPSULE PO SCH (08:35)
[2016-12-22] MEDS: LISINOPRIL 20 MG TABLET PO SCH ×2 (08:35→20:35)
[2016-12-22] MEDS: ALLOPURINOL 300 MG TABLET PO SCH (08:35)
[2016-12-22] MEDS ORDERED: VANCOMYCIN HCL 1.5 GM in DEXTROSE 5 % IN WATER 500 ML IV SCH ×2 (08:45)
[2016-12-22] MEDS: HYDROcodone/ACETAMINOPHEN 1 EACH TABLET PO PRN ×2 (08:56→20:41)
[2016-12-22] MEDS: VANCOMYCIN HCL 1.5 GM in DEXTROSE 5 % IN WATER 500 ML IV SCH ×2 (09:49)
[2016-12-22 09:54] LABS: Hematocrit 25.5 % (37.0-47.0); Mean Cell Volume 90.4 fl (78-100); Mean Corpuscular Hemoglobin 28.4 pg (27-31); Mean Corpuscular Hgb Conc 31.4 g/dl (32-36); Mean Platelet Volume 9.1 fl (6.0-9.5); Neutrophil # 2.4 K/mm3 (1.3-6.0); Neutrophil % 69.8 % (42-75.0); Platelet Count 183 K/mm3 (150-450); Red Blood Count 2.82 M/mm3 (4.2-5.4); Red Cell Distribution Width 17.9 % (11.5-14.0); White Blood Count 3.4 K/mm3 (4.0-10.5)
[2016-12-22 09:59] LABS: Anion Gap 12.4 mmol/L (6.8-13.8); BUN/Creatinine Ratio 19.8 (9.0-21.6); Calcium * 8.3 mg/dL (7.9-10.9); Carbon Dioxide 25.9 mmol/L (24-32.6); Estimated Creat Clear 35.2; Potassium 4.3 mmol/L (3.4-4.6)
[2016-12-22 10:05] LABS: CRP 14.9 mg/dL (0.0-0.9)
[2016-12-22 10:31] LABS: INR 2.21 INR (0.90-1.10)
[2016-12-22] MEDS: WARFARIN SODIUM 3 MG TABLET PO SCH (16:38)
[2016-12-22] MEDS: SIMVASTATIN 40 MG TABLET PO SCH (20:35)
[2016-12-23] MEDS: VANCOMYCIN HCL 50 MG/ML BTL PO SCH ×4 (00:19→17:17)
[2016-12-23] MEDS: POLYVINYL ALCOHOL 150 DROP BTL OP SCH ×6 (02:06→22:12)
[2016-12-23] MEDS: AMPICILLIN SODIUM/SULBACTAM NA 1.5 GM in NORMAL SALINE 100 ML IV SCH ×4 (02:07→19:38)
[2016-12-23] MEDS: hydrALAZINE HCL 10 MG TABLET PO SCH ×2 (05:22→11:12)
[2016-12-23] MEDS: INSULIN LISPRO 100 UNITS/ML VIAL SC SCH ×4 (07:26→22:05)
[2016-12-23 08:04] LABS: Hematocrit 27.7 % (37.0-47.0); Hemoglobin 8.5 gm/dL (12.5-16.0); Mean Cell Volume 90.5 fl (78-100); Mean Corpuscular Hemoglobin 27.8 pg (27-31); Mean Corpuscular Hgb Conc 30.7 g/dl (32-36); Mean Platelet Volume 9.3 fl (6.0-9.5); Platelet Count 207 K/mm3 (150-450); Red Blood Count 3.06 M/mm3 (4.2-5.4); Red Cell Distribution Width 17.8 % (11.5-14.0)
[2016-12-23] MEDS: LEVOFLOXACIN/D5W 500 MG/100 ML BAG IV SCH (08:05)
[2016-12-23 08:07] LABS: Prothrombin Time (Patient) 29.7 Seconds (9.4-11.4)
[2016-12-23 08:08] LABS: Total Cells Counted 100
[2016-12-23 08:09] LABS: Anion Gap 13.9 mmol/L (6.8-13.8); BUN/Creatinine Ratio 19.5 (9.0-21.6); CRP 7.3 mg/dL (0.0-0.9); Calcium * 8.7 mg/dL (7.9-10.9); Carbon Dioxide 27.1 mmol/L (24-32.6); Estimated Creat Clear 45.4; INR 2.86 INR (0.90-1.10)
[2016-12-23 09:04] LABS: Band 4 % (0-2.0); Basophil 1 % (0-1); Eosinophil 3 % (0-3); Lymphocyte 19 % (20-51); Monocyte 5 % (0-9); Neutrophil 68 % (42-75)
[2016-12-23 09:05] LABS: Platelet Estimate Normal (NORMAL); RBC Morphology Normal (NORMAL)
[2016-12-23] MEDS: COLCHICINE 0.6 MG TABLET PO SCH ×3 (09:12→16:43)
[2016-12-23] MEDS: FOLIC ACID 1 MG TABLET PO SCH (09:13)
[2016-12-23] MEDS: ZIPRASIDONE HCL 20 MG CAPSULE PO SCH ×2 (09:13→22:11)
[2016-12-23] MEDS: CARVEDILOL 6.25 MG TABLET PO SCH (09:13)
[2016-12-23] MEDS: POTASSIUM CHLORIDE 20 MEQ TABLET.SA PO SCH ×2 (09:14→16:44)
[2016-12-23] MEDS: MULTIVITAMINS 1 CAP CAPSULE PO SCH (09:15)
[2016-12-23] MEDS: CHOLECALCIFEROL 1,000 UNIT CAPSULE PO SCH (09:16)
[2016-12-23] MEDS: NYSTATIN 15 APPL TUBE TP SCH ×2 (09:16→22:19)
[2016-12-23] MEDS: LISINOPRIL 20 MG TABLET PO SCH ×2 (09:16→22:11)
[2016-12-23] MEDS: ALLOPURINOL 300 MG TABLET PO SCH (09:17)
[2016-12-23] MEDS: VANCOMYCIN HCL 1.5 GM in DEXTROSE 5 % IN WATER 500 ML IV SCH ×2 (09:17)
[2016-12-23] MEDS: INSULIN DETEMIR 100 UNITS/ML VIAL SC SCH ×2 (09:21→22:04)
[2016-12-23] MEDS: LACTOBACILLUS ACIDOPHILUS 100 CAP BTL PO SCH ×4 (09:36→22:08)
[2016-12-23] MEDS: LORazepam 0.5 MG TABLET PO SCH ×3 (09:36→17:00)
[2016-12-23] MEDS: hydrALAZINE HCL 25 MG TABLET PO SCH ×2 (13:16→19:37)
[2016-12-23] MEDS: WARFARIN SODIUM 3 MG TABLET PO SCH (16:43)
[2016-12-23] MEDS: HYDROcodone/ACETAMINOPHEN 1 EACH TABLET PO PRN (17:08)
[2016-12-23] MEDS ORDERED: 0.5 NORMAL SALINE 1,000 ML IV PRN (17:52)
--- NOTE | 2016-12-23 17:57 | PN ---
Subjective - Date and Time Seen Date: 12/23/16 Time: 17:54 Subjective Narrative: Confused. Poor historian. Neck pain. Left knee pain. Uncooperative and loud off and on. Objective - Review of Systems Generalized/Overall Review: Reports: Malaise EENTM: Reports: No Symptoms Reported Respiratory: Reports: No Symptoms Reported Cardiac: Reports: No Symptoms Reported Abdominal: Reports: No Symptoms Reported Genitourinary Symptoms: Reports: No Symptoms Reported Musculoskeletal Complaints: Reports: No Symptoms Reported Neurological: Reports: No Symptoms Reported Skin: Reports: No Symptoms Reported Endocrine: Reports: No Symptoms Reported Misc: All systems neg except as marked - Vitals Vitals: Last Vital Signs Selected Entries 12/23/16 14:57 Temperature 36.4 C L Temperature Oral Source Pulse Rate 74 Respiratory 24 H Rate Blood Pressure 191/82 Blood Pressure Sitting Position O2 Sat by Pulse 96 Oximetry Oxygen Delivery Room Air Method - Abnormal Lab Findings Abnormal Lab Findings: Abnormal Lab Results 12/23/16 12/23/16 12/23/16 Range/Units 07:40 07:40 07:40 WBC 3.0 L (4.0-10.5) K/mm3 RBC 3.06 L (4.2-5.4) M/mm3 Hgb 8.5 L (12.5-16.0) gm/dL Hct 27.7 L (37.0-47.0) % MCHC 30.7 L (32-36) g/dl RDW 17.8 H (11.5-14.0) % Band Neuts % (Manual) 4 H (0-2.0) % Lymphocytes % (Manual) 19 L (20-51) % Lymphocytes # (Manual) 0.6 L (1.5-3.5) k/mm3 ESR 82 H (0-15) mm/hr PT 29.7 H (9.4-11.4) Seconds INR (Anticoag Therapy) 2.86 H (0.90-1.10) INR Sodium (132-142) mmol/L Plasma Sodium (130-142) mmol/L Chloride (97-106) mmol/L Anion Gap (6.8-13.8) mmol/L Random Glucose (70-110) mg/dL C-Reactive Prot, Quant (0.0-0.9) mg/dL 12/23/16 Range/Units 07:40 WBC (4.0-10.5) K/mm3 RBC (4.2-5.4) M/mm3 Hgb (12.5-16.0) gm/dL Hct (37.0-47.0) % MCHC (32-36) g/dl RDW (11.5-14.0) % Band Neuts % (Manual) (0-2.0) % Lymphocytes % (Manual) (20-51) % Lymphocytes # (Manual) (1.5-3.5) k/mm3 ESR (0-15) mm/hr PT (9.4-11.4) Seconds INR (Anticoag Therapy) (0.90-1.10) INR Sodium 145 H (132-142) mmol/L Plasma Sodium 145 H (130-142) mmol/L Chloride 108 H (97-106) mmol/L Anion Gap 13.9 H (6.8-13.8) mmol/L Random Glucose 111 H D (70-110) mg/dL C-Reactive Prot, Quant 7.3 H (0.0-0.9) mg/dL - Exam Constitutional: Present: Alert, Well developed, Obese ENT Exam: Present: normal ENT inspection, hard of hearing Neck: Present: normal inspection Respiratory: Present: normal breath sounds, no accessory muscle use Cardiovascular/Chest: Present: regular rate, rhythm, no murmur Abdomen: Present: Normal bowel sounds, soft, nontender, nondistended, no rebound tenderness, no hepatospenomegaly, no masses, obese Extremity: Present: pedal edema Skin Exam: Present: normal color, warm/dry, no cyanosis Neurologic: Present: alert Appearance: Present: appropriate appearance, neat Eye contact: Present: cooperative Cauti Physician Documentation - Urinary Catheter Management Uretheral (Galo) Date of Insertion: 12/18/16 Time of Insertion: 22:10 Assessment/Plan Plan Narrative: 2 normal saline. monitor labs. sed rate and crp coming down. continue antibiotics. - Problems/Diagnosis (1) Cellulitis of wrist Problem: Acute (2) Hypokalemia Problem: Acute (3) Weakness generalized Problem: Acute (4) CHF (congestive heart failure) Problem: Chronic Qualifiers: Congestive heart failure type: diastolic Congestive heart failure chronicity: acute on chronic Qualified Code(s): I50.33 - Acute on chronic diastolic (congestive) heart failure (5) Altered mental status Problem: Acute Qualifiers: Altered mental status type: delirium Qualified Code(s): R41.0 - Disorientation, unspecified (6) Clostridium difficile colitis Problem: Suspected (7) acute on chronic anemia Problem: Acute (8) Chronic congestive heart failure with left ventricular diastolic dysfunction Problem: Chronic (9) Chronic pain Problem: Chronic Qualifiers: Chronic pain type: other chronic pain Qualified Code(s): G89.29 - Other chronic pain (10) Chronic restrictive lung disease Problem: Chronic (11) 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 Problem: Chronic Qualifiers: 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 type: type 2 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 complication status: with other specified complication 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 fdc insulin use: with fdc use Qualified Code(s): E11.69 - Type 2 diabetes mellitus with other specified complication; Z79.4 - group home (current) use of insulin (12) GERD (gastroesophageal reflux disease) Problem: Chronic Qualifiers: Esophagitis presence: without esophagitis Qualified Code(s): K21.9 - Gastro -esophageal reflux disease without esophagitis (13) Gallstones Problem: Chronic Qualifiers: Cholecystitis presence: without cholecystitis Biliary obstruction: without biliary obstruction Qualified Code(s): K80.20 - Calculus of gallbladder without cholecystitis without obstruction (14) Gout Problem: Acute Qualifiers: Gout site: multiple sites Gout etiology: idiopathic Chronicity: chronic Presence of tophus: without tophus Qualified Code(s): M1A.09X0 - Idiopathic chronic gout, multiple sites, without tophus (tophi) (15) HLD (hyperlipidemia) Problem: Chronic Qualifiers: Hyperlipidemia type: mixed hyperlipidemia Qualified Code(s): E78.2 - Mixed hyperlipidemia (16) HUSLIA (hard of hearing) Problem: Chronic Qualifiers: Laterality: bilateral (17) History of recurrent UTIs Problem: Chronic (18) Hypertension Problem: Chronic Qualifiers: Hypertension type: essential hypertension Qualified Code(s): I10 - Essential (primary) hypertension (19) Hypoventilation associated with obesity syndrome Problem: Chronic (20) Immunosuppressed status Problem: Chronic (21) MRSA (methicillin resistant Staphylococcus aureus) carrier Problem: Inactive (22) Parkinsons Problem: Chronic (23) Pulmonary embolism Problem: Inactive Qualifiers: Pulmonary embolism type: other Chronicity: unspecified Acute cor pulmonale presence: without acute cor pulmonale Qualified Code(s): I26.99 - Other pulmonary embolism without acute cor pulmonale (24) Pulmonary hypertension Problem: Chronic (25) 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
[2016-12-23] MEDS: SIMVASTATIN 40 MG TABLET PO SCH (22:12)
[2016-12-23] MEDS: CARVEDILOL 25 MG TABLET PO SCH (22:12)
[2016-12-23] MEDS ORDERED: FUROSEMIDE 10 MG/ML VIAL IV ONE (23:53)
[2016-12-24] MEDS: VANCOMYCIN HCL 50 MG/ML BTL PO SCH ×4 (01:08→17:38)
[2016-12-24] MEDS: POLYVINYL ALCOHOL 150 DROP BTL OP SCH ×6 (01:10→21:01)
[2016-12-24] MEDS: hydrALAZINE HCL 25 MG TABLET PO SCH ×3 (01:10→18:11)
[2016-12-24] MEDS: AMPICILLIN SODIUM/SULBACTAM NA 1.5 GM in NORMAL SALINE 100 ML IV SCH ×4 (01:11→20:57)
[2016-12-24] MEDS ORDERED: COD LIVER OIL/ZINC OXIDE 113 APPL TUBE TP PRN (06:03)
[2016-12-24] MEDS: INSULIN LISPRO 100 UNITS/ML VIAL SC SCH ×4 (07:34→21:05)
[2016-12-24 07:38] LABS: BUN/Creatinine Ratio 15.3 (9.0-21.6); CRP 3.6 mg/dL (0.0-0.9); Calcium * 8.7 mg/dL (7.9-10.9); Carbon Dioxide 28.6 mmol/L (24-32.6); Estimated Creat Clear 43.8; INR 3.23 INR (0.90-1.10); Potassium 3.6 mmol/L (3.4-4.6); Prothrombin Time (Patient) 33.6 Seconds (9.4-11.4)
[2016-12-24] MEDS: LEVOFLOXACIN/D5W 500 MG/100 ML BAG IV SCH (08:23)
[2016-12-24] MEDS: COLCHICINE 0.6 MG TABLET PO SCH (09:39)
[2016-12-24] MEDS: ZIPRASIDONE HCL 20 MG CAPSULE PO SCH ×2 (09:39→21:10)
[2016-12-24] MEDS: LISINOPRIL 20 MG TABLET PO SCH ×2 (09:40→21:00)
[2016-12-24] MEDS: CHOLECALCIFEROL 1,000 UNIT CAPSULE PO SCH (09:40)
[2016-12-24] MEDS: MULTIVITAMINS 1 CAP CAPSULE PO SCH (09:40)
[2016-12-24] MEDS: CARVEDILOL 25 MG TABLET PO SCH ×2 (09:40→20:59)
[2016-12-24] MEDS: FOLIC ACID 1 MG TABLET PO SCH (09:40)
[2016-12-24] MEDS: LACTOBACILLUS ACIDOPHILUS 100 CAP BTL PO SCH ×4 (09:41→20:59)
[2016-12-24] MEDS: POTASSIUM CHLORIDE 20 MEQ TABLET.SA PO SCH ×2 (09:41→17:38)
[2016-12-24] MEDS: INSULIN DETEMIR 100 UNITS/ML VIAL SC SCH ×2 (09:42→21:07)
[2016-12-24] MEDS: NYSTATIN 15 APPL TUBE TP SCH ×2 (09:43→21:01)
[2016-12-24] MEDS: ALLOPURINOL 100 MG TABLET PO SCH (09:44)
[2016-12-24] MEDS: VANCOMYCIN HCL 1.5 GM in DEXTROSE 5 % IN WATER 500 ML IV SCH ×2 (10:18)
[2016-12-24] MEDS: LORazepam 0.5 MG TABLET PO SCH ×3 (11:49→20:58)
[2016-12-24] MEDS: ONDANSETRON HCL 4 MG TABLET PO SCH ×3 (11:49→21:00)
[2016-12-24] MEDS: FUROSEMIDE 20 MG TABLET PO SCH (11:50)
[2016-12-24] MEDS ORDERED: PROMETHAZINE HCL 12.5 MG in DEXTROSE 5 % IN WATER 50 ML IV PRN ×2 (13:54)
[2016-12-24] MEDS ORDERED: hydrALAZINE HCL 25 MG TABLET PO SCH (13:55)
[2016-12-24] MEDS: hydrALAZINE HCL 50 MG TABLET PO SCH ×2 (14:42→20:59)
--- NOTE | 2016-12-24 18:21 | PN ---
Subjective - Date and Time Seen Date: 12/24/16 Time: 06:40 Subjective Narrative: Confused. Poor historian. Nauseated. Objective - Review of Systems Generalized/Overall Review: Reports: Malaise EENTM: Reports: No Symptoms Reported Respiratory: Reports: No Symptoms Reported Cardiac: Reports: No Symptoms Reported Abdominal: Reports: Nausea Genitourinary Symptoms: Reports: No Symptoms Reported Musculoskeletal Complaints: Reports: No Symptoms Reported Neurological: Reports: No Symptoms Reported Skin: Reports: No Symptoms Reported Endocrine: Reports: No Symptoms Reported Misc: All systems neg except as marked - Vitals Vitals: Last Vital Signs Selected Entries 12/24/16 04:02 Temperature 36.7 C Temperature Oral Source Pulse Rate 67 Pulse Rhythm Regular Respiratory 40 H Rate Respiratory Deep Depth Respiratory Grunting Effort Respiratory Normal Pattern Blood Pressure 183/81 Blood Pressure Supine Position O2 Sat by Pulse 100 Oximetry Oxygen Delivery Room Air Method - Abnormal Lab Findings Abnormal Lab Findings: Abnormal Lab Results 12/24/16 12/24/16 Range/Units 07:25 07:25 PT 33.6 H (9.4-11.4) Seconds INR (Anticoag Therapy) 3.23 H (0.90-1.10) INR Sodium 144 H (132-142) mmol/L Plasma Sodium 144 H (130-142) mmol/L Chloride 108 H (97-106) mmol/L C-Reactive Prot, Quant 3.6 H (0.0-0.9) mg/dL - Exam Constitutional: Present: Cooperative, Well developed, No distress, Somnolent, Obese ENT Exam: Present: normal ENT inspection, hard of hearing Neck: Present: normal inspection Respiratory: Present: lungs clear, no respiratory distress Cardiovascular/Chest: Present: regular rate, rhythm, no murmur Abdomen: Present: Normal bowel sounds, soft, nontender, nondistended, no rebound tenderness, no hepatospenomegaly, no masses, obese Extremity: Present: normal inspection, other - amputation right leg Skin Exam: Present: normal color, warm/dry, no cyanosis Neurologic: Absent: alert Appearance: Present: appropriate appearance, neat Eye contact: Present: cooperative Cauti Physician Documentation - Urinary Catheter Management Uretheral (Galo) Date of Insertion: 12/18/16 Time of Insertion: 22:10 Date of Removal: 12/23/16 Time of Removal: 22:15 Assessment/Plan Plan Narrative: Decrease colchicine and allopurinol. Ativan for nausea. Follow labs. - Problems/Diagnosis (1) Cellulitis of wrist Problem: Acute (2) Hypokalemia Problem: Acute (3) Weakness generalized Problem: Acute (4) CHF (congestive heart failure) Problem: Chronic Qualifiers: Congestive heart failure type: diastolic Congestive heart failure chronicity: acute on chronic Qualified Code(s): I50.33 - Acute on chronic diastolic (congestive) heart failure (5) Altered mental status Problem: Acute Qualifiers: Altered mental status type: delirium Qualified Code(s): R41.0 - Disorientation, unspecified (6) Clostridium difficile colitis Problem: Suspected (7) acute on chronic anemia Problem: Acute (8) Chronic congestive heart failure with left ventricular diastolic dysfunction Problem: Chronic (9) Chronic pain Problem: Chronic Qualifiers: Chronic pain type: other chronic pain Qualified Code(s): G89.29 - Other chronic pain (10) Chronic restrictive lung disease Problem: Chronic (11) 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 Problem: Chronic Qualifiers: 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 type: type 2 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 complication status: with other specified complication 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 prison insulin use: with prison use Qualified Code(s): E11.69 - Type 2 diabetes mellitus with other specified complication; Z79.4 - penitentiary (current) use of insulin (12) GERD (gastroesophageal reflux disease) Problem: Chronic Qualifiers: Esophagitis presence: without esophagitis Qualified Code(s): K21.9 - Gastro -esophageal reflux disease without esophagitis (13) Gallstones Problem: Chronic Qualifiers: Cholecystitis presence: without cholecystitis Biliary obstruction: without biliary obstruction Qualified Code(s): K80.20 - Calculus of gallbladder without cholecystitis without obstruction (14) Gout Problem: Acute Qualifiers: Gout site: multiple sites Gout etiology: idiopathic Chronicity: chronic Presence of tophus: without tophus Qualified Code(s): M1A.09X0 - Idiopathic chronic gout, multiple sites, without tophus (tophi) (15) HLD (hyperlipidemia) Problem: Chronic Qualifiers: Hyperlipidemia type: mixed hyperlipidemia Qualified Code(s): E78.2 - Mixed hyperlipidemia (16) QAWALANGIN (hard of hearing) Problem: Chronic Qualifiers: Laterality: bilateral (17) History of recurrent UTIs Problem: Chronic (18) Hypertension Problem: Chronic Qualifiers: Hypertension type: essential hypertension Qualified Code(s): I10 - Essential (primary) hypertension (19) Hypoventilation associated with obesity syndrome Problem: Chronic (20) Immunosuppressed status Problem: Chronic (21) MRSA (methicillin resistant Staphylococcus aureus) carrier Problem: Inactive (22) Parkinsons Problem: Chronic (23) Pulmonary embolism Problem: Inactive Qualifiers: Pulmonary embolism type: other Chronicity: unspecified Acute cor pulmonale presence: without acute cor pulmonale Qualified Code(s): I26.99 - Other pulmonary embolism without acute cor pulmonale (24) Pulmonary hypertension Problem: Chronic (25) 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
[2016-12-24] MEDS: SIMVASTATIN 40 MG TABLET PO SCH (21:00)
[2016-12-25] MEDS: VANCOMYCIN HCL 50 MG/ML BTL PO SCH ×5 (01:17→17:14)
[2016-12-25] MEDS: AMPICILLIN SODIUM/SULBACTAM NA 1.5 GM in NORMAL SALINE 100 ML IV SCH ×4 (01:19→21:31)
[2016-12-25] MEDS: POLYVINYL ALCOHOL 150 DROP BTL OP SCH ×6 (01:19→21:45)
[2016-12-25] MEDS: hydrALAZINE HCL 50 MG TABLET PO SCH ×4 (01:23→21:34)
[2016-12-25 06:29] LABS: Anion Gap 10.9 mmol/L (6.8-13.8); BUN/Creatinine Ratio 12.4 (9.0-21.6); CRP 1.9 mg/dL (0.0-0.9); Calcium * 8.5 mg/dL (7.9-10.9); Carbon Dioxide 29.2 mmol/L (24-32.6); Estimated Creat Clear 30.8; Potassium 4.1 mmol/L (3.4-4.6)
[2016-12-25 06:33] LABS: Hematocrit 26.9 % (37.0-47.0); Hemoglobin 8.2 gm/dL (12.5-16.0); Mean Cell Volume 92.1 fl (78-100); Mean Corpuscular Hemoglobin 28.1 pg (27-31); Mean Corpuscular Hgb Conc 30.5 g/dl (32-36); Mean Platelet Volume 9.2 fl (6.0-9.5); Neutrophil # 4.1 K/mm3 (1.3-6.0); Neutrophil % 76.1 % (42-75.0); Platelet Count 271 K/mm3 (150-450); Red Blood Count 2.92 M/mm3 (4.2-5.4); Red Cell Distribution Width 18.4 % (11.5-14.0); White Blood Count 5.4 K/mm3 (4.0-10.5)
[2016-12-25] MEDS: INSULIN LISPRO 100 UNITS/ML VIAL SC SCH ×4 (06:40→21:41)
[2016-12-25] MEDS: ONDANSETRON HCL 4 MG TABLET PO SCH ×4 (06:56→21:45)
[2016-12-25] MEDS: LORazepam 0.5 MG TABLET PO SCH ×4 (06:56→17:12)
[2016-12-25 07:13] LABS: INR 3.13 INR (0.90-1.10); Prothrombin Time (Patient) 32.6 Seconds (9.4-11.4)
[2016-12-25] MEDS ORDERED: PROMETHAZINE HCL IV PRN ×2 (07:31)
[2016-12-25] MEDS ORDERED: WATER IV PRN ×2 (07:31)
[2016-12-25] MEDS ORDERED: DEXTROSE 5% IV PRN ×2 (07:31)
[2016-12-25] MEDS: LEVOFLOXACIN/D5W 500 MG/100 ML BAG IV SCH (07:43)
[2016-12-25] MEDS: CHOLECALCIFEROL 1,000 UNIT CAPSULE PO SCH (08:24)
[2016-12-25] MEDS: ALLOPURINOL 100 MG TABLET PO SCH (08:25)
[2016-12-25] MEDS: LISINOPRIL 20 MG TABLET PO SCH ×2 (08:27→21:40)
[2016-12-25] MEDS ORDERED: VANCOMYCIN HCL LEVEL XX ONE (09:00)
[2016-12-25] MEDS: LACTOBACILLUS ACIDOPHILUS 100 CAP BTL PO SCH ×4 (09:03→21:38)
[2016-12-25] MEDS: COLCHICINE 0.6 MG TABLET PO SCH (09:04)
[2016-12-25] MEDS: CARVEDILOL 25 MG TABLET PO SCH ×2 (09:04→21:39)
[2016-12-25] MEDS: ZIPRASIDONE HCL 20 MG CAPSULE PO SCH ×2 (09:05→21:39)
[2016-12-25] MEDS: POTASSIUM CHLORIDE 20 MEQ TABLET.SA PO SCH ×2 (09:05→17:07)
[2016-12-25] MEDS: FOLIC ACID 1 MG TABLET PO SCH (09:05)
[2016-12-25] MEDS: MULTIVITAMINS 1 CAP CAPSULE PO SCH (09:06)
[2016-12-25] MEDS: NYSTATIN 15 APPL TUBE TP SCH ×2 (09:06→21:42)
--- NOTE | 2016-12-25 09:06 | PN ---
Subjective - Date and Time Seen Date: 12/25/16 Time: 07:10 Subjective Narrative: Confused. Very lethargic. No more nausea. Objective - Review of Systems Generalized/Overall Review: Reports: No Symptoms Reported - too lethargic for review of systems. - Vitals Vitals: Last Vital Signs Selected Entries 12/25/16 12/25/16 06:50 07:00 Temperature 37.0 C Temperature Temporal Artery Source Scan Pulse Rate 59 L 59 L Respiratory 16 Rate Blood Pressure 128/57 Blood Pressure Supine Position O2 Sat by Pulse 96 Oximetry Oxygen Delivery Nasal Cannula Method Oxygen Flow 2 Rate - Abnormal Lab Findings Abnormal Lab Findings: Abnormal Lab Results 12/25/16 12/25/16 12/25/16 Range/Units 05:30 05:30 05:30 RBC 2.92 L (4.2-5.4) M/mm3 Hgb 8.2 L (12.5-16.0) gm/dL Hct 26.9 L (37.0-47.0) % MCHC 30.5 L (32-36) g/dl RDW 18.4 H (11.5-14.0) % Immature Gran % (Auto) 2.00 H (0.001-0.429) % Immature Gran # (Auto) 0.11 H (0.000-0.0310) K/mm3 Neutrophils % 76.1 H (42-75.0) % Lymphocytes % 12.2 L (20-51) % Lymphocytes # 0.7 L (1.5-3.5) k/mm3 ESR 60 H (0-15) mm/hr PT (9.4-11.4) Seconds INR (Anticoag Therapy) (0.90-1.10) INR Est GFR (Non-Af Amer) 46 L D (60-130) mL/min C-Reactive Prot, Quant 1.9 H (0.0-0.9) mg/dL 12/25/16 Range/Units 07:03 RBC (4.2-5.4) M/mm3 Hgb (12.5-16.0) gm/dL Hct (37.0-47.0) % MCHC (32-36) g/dl RDW (11.5-14.0) % Immature Gran % (Auto) (0.001-0.429) % Immature Gran # (Auto) (0.000-0.0310) K/mm3 Neutrophils % (42-75.0) % Lymphocytes % (20-51) % Lymphocytes # (1.5-3.5) k/mm3 ESR (0-15) mm/hr PT 32.6 H (9.4-11.4) Seconds INR (Anticoag Therapy) 3.13 H (0.90-1.10) INR Est GFR (Non-Af Amer) (60-130) mL/min C-Reactive Prot, Quant (0.0-0.9) mg/dL - Exam Constitutional: Present: Somnolent ENT Exam: Present: normal ENT inspection Neck: Present: normal inspection Respiratory: Present: normal breath sounds, no respiratory distress Cardiovascular/Chest: Present: regular rate, rhythm, no murmur Abdomen: Present: Normal bowel sounds, soft, nondistended, no hepatospenomegaly , no masses 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 Absent: pedal edema Skin Exam: Present: normal color, warm/dry Cauti Physician Documentation - Urinary Catheter Management Uretheral (Galo) Date of Insertion: 12/18/16 Time of Insertion: 22:10 Date of Removal: 12/23/16 Time of Removal: 22:15 Assessment/Plan Plan Narrative: Follow labs. Continue IV antibiotics. BP now controlled. Back off meds. - Problems/Diagnosis (1) Cellulitis of wrist Problem: Acute (2) Hypokalemia Problem: Acute (3) Weakness generalized Problem: Acute (4) CHF (congestive heart failure) Problem: Chronic Qualifiers: Congestive heart failure type: diastolic Congestive heart failure chronicity: acute on chronic Qualified Code(s): I50.33 - Acute on chronic diastolic (congestive) heart failure (5) Altered mental status Problem: Acute Qualifiers: Altered mental status type: delirium Qualified Code(s): R41.0 - Disorientation, unspecified (6) Clostridium difficile colitis Problem: Suspected (7) acute on chronic anemia Problem: Acute (8) Chronic congestive heart failure with left ventricular diastolic dysfunction Problem: Chronic (9) Chronic pain Problem: Chronic Qualifiers: Chronic pain type: other chronic pain Qualified Code(s): G89.29 - Other chronic pain (10) Chronic restrictive lung disease Problem: Chronic (11) 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 Problem: Chronic Qualifiers: 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 type: type 2 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 complication status: with other specified complication 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 prison insulin use: with termite helper use Qualified Code(s): E11.69 - Type 2 diabetes mellitus with other specified complication; Z79.4 - detention (current) use of insulin (12) GERD (gastroesophageal reflux disease) Problem: Chronic Qualifiers: Esophagitis presence: without esophagitis Qualified Code(s): K21.9 - Gastro -esophageal reflux disease without esophagitis (13) Gallstones Problem: Chronic Qualifiers: Cholecystitis presence: without cholecystitis Biliary obstruction: without biliary obstruction Qualified Code(s): K80.20 - Calculus of gallbladder without cholecystitis without obstruction (14) Gout Problem: Acute Qualifiers: Gout site: multiple sites Gout etiology: idiopathic Chronicity: chronic Presence of tophus: without tophus Qualified Code(s): M1A.09X0 - Idiopathic chronic gout, multiple sites, without tophus (tophi) (15) HLD (hyperlipidemia) Problem: Chronic Qualifiers: Hyperlipidemia type: mixed hyperlipidemia Qualified Code(s): E78.2 - Mixed hyperlipidemia (16) CHITINA (hard of hearing) Problem: Chronic Qualifiers: Laterality: bilateral (17) History of recurrent UTIs Problem: Chronic (18) Hypertension Problem: Chronic Qualifiers: Hypertension type: essential hypertension Qualified Code(s): I10 - Essential (primary) hypertension (19) Hypoventilation associated with obesity syndrome Problem: Chronic (20) Immunosuppressed status Problem: Chronic (21) MRSA (methicillin resistant Staphylococcus aureus) carrier Problem: Inactive (22) Parkinsons Problem: Chronic (23) Pulmonary embolism Problem: Inactive Qualifiers: Pulmonary embolism type: other Chronicity: unspecified Acute cor pulmonale presence: without acute cor pulmonale Qualified Code(s): I26.99 - Other pulmonary embolism without acute cor pulmonale (24) Pulmonary hypertension Problem: Chronic (25) 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
[2016-12-25] MEDS: INSULIN DETEMIR 100 UNITS/ML VIAL SC SCH ×2 (09:24→21:42)
[2016-12-25] MEDS: VANCOMYCIN HCL 1.5 GM in DEXTROSE 5 % IN WATER 500 ML IV SCH ×2 (10:41)
[2016-12-25] MEDS: FUROSEMIDE 20 MG TABLET PO SCH (11:44)
[2016-12-25] MEDS: SIMVASTATIN 40 MG TABLET PO SCH (21:40)
[2016-12-26] MEDS: VANCOMYCIN HCL 50 MG/ML BTL PO SCH ×5 (00:01→23:54)
[2016-12-26] MEDS: AMPICILLIN SODIUM/SULBACTAM NA 1.5 GM in NORMAL SALINE 100 ML IV SCH ×4 (02:33→19:53)
[2016-12-26] MEDS: hydrALAZINE HCL 50 MG TABLET PO SCH ×2 (02:33→07:00)
[2016-12-26] MEDS: POLYVINYL ALCOHOL 150 DROP BTL OP SCH ×6 (02:36→21:51)
[2016-12-26 05:05] LABS: Hematocrit 27.7 % (37.0-47.0); Hemoglobin 8.4 gm/dL (12.5-16.0); Mean Corpuscular Hemoglobin 27.9 pg (27-31); Mean Corpuscular Hgb Conc 30.3 g/dl (32-36); Mean Platelet Volume 9.4 fl (6.0-9.5); Neutrophil # 4.5 K/mm3 (1.3-6.0); Neutrophil % 78.5 % (42-75.0); Platelet Count 210 K/mm3 (150-450); Red Blood Count 3.01 M/mm3 (4.2-5.4); Red Cell Distribution Width 18.3 % (11.5-14.0); White Blood Count 5.8 K/mm3 (4.0-10.5)
[2016-12-26 05:15] LABS: Prothrombin Time (Patient) 24.8 Seconds (9.4-11.4)
[2016-12-26 05:17] LABS: BUN/Creatinine Ratio 16.3 (9.0-21.6); CRP 1.2 mg/dL (0.0-0.9); Calcium * 8.4 mg/dL (7.9-10.9); Estimated Creat Clear 35.8
[2016-12-26 05:24] LABS: INR 2.38 INR (0.90-1.10)
[2016-12-26] MEDS: INSULIN LISPRO 100 UNITS/ML VIAL SC SCH ×4 (06:50→21:47)
[2016-12-26] MEDS: ONDANSETRON HCL 4 MG TABLET PO SCH ×4 (06:52→21:35)
--- NOTE | 2016-12-26 07:43 | PN ---
Subjective - Date and Time Seen Date: 12/26/16 Time: 07:40 Subjective Narrative: Less confused. No vomiting. Potassium is five. CRP and sed rate continue to improve. Objective - Review of Systems Generalized/Overall Review: Reports: Malaise EENTM: Reports: No Symptoms Reported Respiratory: Reports: No Symptoms Reported Cardiac: Reports: No Symptoms Reported Abdominal: Reports: No Symptoms Reported Genitourinary Symptoms: Reports: No Symptoms Reported Musculoskeletal Complaints: Reports: No Symptoms Reported Neurological: Reports: No Symptoms Reported Skin: Reports: No Symptoms Reported Endocrine: Reports: No Symptoms Reported Misc: All systems neg except as marked - Vitals Vitals: Last Vital Signs Selected Entries 12/26/16 07:19 Temperature 36.8 C Temperature Oral Source Pulse Rate 74 Respiratory 20 Rate Blood Pressure 164/88 O2 Sat by Pulse 96 Oximetry Oxygen Delivery Nasal Cannula Method Oxygen Flow 2 Rate - Abnormal Lab Findings Abnormal Lab Findings: Abnormal Lab Results 12/25/16 12/26/16 12/26/16 Range/Units 09:25 05:00 05:00 RBC 3.01 L (4.2-5.4) M/mm3 Hgb 8.4 L (12.5-16.0) gm/dL Hct 27.7 L (37.0-47.0) % MCHC 30.3 L (32-36) g/dl RDW 18.3 H (11.5-14.0) % Immature Gran % (Auto) 2.60 H (0.001-0.429) % Immature Gran # (Auto) 0.15 H (0.000-0.0310) K/mm3 Neutrophils % 78.5 H (42-75.0) % Lymphocytes % 10.6 L (20-51) % Lymphocytes # 0.6 L (1.5-3.5) k/mm3 ESR (0-15) mm/hr PT 24.8 H (9.4-11.4) Seconds INR (Anticoag Therapy) 2.38 H (0.90-1.10) INR Potassium (3.4-4.6) mmol/L Est GFR (Non-Af Amer) (60-130) mL/min C-Reactive Prot, Quant (0.0-0.9) mg/dL Vancomycin Trough 24.7 H (10.0-20.0) mcg/mL 12/26/16 12/26/16 Range/Units 05:00 05:00 RBC (4.2-5.4) M/mm3 Hgb (12.5-16.0) gm/dL Hct (37.0-47.0) % MCHC (32-36) g/dl RDW (11.5-14.0) % Immature Gran % (Auto) (0.001-0.429) % Immature Gran # (Auto) (0.000-0.0310) K/mm3 Neutrophils % (42-75.0) % Lymphocytes % (20-51) % Lymphocytes # (1.5-3.5) k/mm3 ESR 54 H (0-15) mm/hr PT (9.4-11.4) Seconds INR (Anticoag Therapy) (0.90-1.10) INR Potassium 5.0 H D (3.4-4.6) mmol/L Est GFR (Non-Af Amer) 55 L (60-130) mL/min C-Reactive Prot, Quant 1.2 H (0.0-0.9) mg/dL Vancomycin Trough (10.0-20.0) mcg/mL - Exam Constitutional: Present: Cooperative, Well developed, Obese ENT Exam: Present: normal ENT inspection, hard of hearing Neck: Present: normal inspection Respiratory: Present: lungs clear, no respiratory distress Cardiovascular/Chest: Present: regular rate, rhythm, no murmur Abdomen: Present: Normal bowel sounds, soft, nontender, nondistended, no rebound tenderness, no hepatospenomegaly, no masses, obese Extremity: Present: normal range of motion, non-tender, normal inspection Skin Exam: Present: normal color, warm/dry, no cyanosis Neurologic: Absent: alert Appearance: Present: appropriate appearance, neat Eye contact: Present: cooperative Cauti Physician Documentation - Urinary Catheter Management Uretheral (Galo) Date of Insertion: 12/18/16 Time of Insertion: 22:10 Date of Removal: 12/23/16 Time of Removal: 22:15 Assessment/Plan Plan Narrative: Continue IV and oral antibiotics. Decrease potassium supplement. Increase BP medicine. Follow labs. - Problems/Diagnosis (1) Cellulitis of wrist Problem: Acute (2) Hypokalemia Problem: Acute (3) Weakness generalized Problem: Acute (4) CHF (congestive heart failure) Problem: Chronic Qualifiers: Congestive heart failure type: diastolic Congestive heart failure chronicity: acute on chronic Qualified Code(s): I50.33 - Acute on chronic diastolic (congestive) heart failure (5) Altered mental status Problem: Acute Qualifiers: Altered mental status type: delirium Qualified Code(s): R41.0 - Disorientation, unspecified (6) Clostridium difficile colitis Problem: Suspected (7) acute on chronic anemia Problem: Acute (8) Chronic congestive heart failure with left ventricular diastolic dysfunction Problem: Chronic (9) Chronic pain Problem: Chronic Qualifiers: Chronic pain type: other chronic pain Qualified Code(s): G89.29 - Other chronic pain (10) Chronic restrictive lung disease Problem: Chronic (11) 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 Problem: Chronic Qualifiers: 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 type: type 2 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 complication status: with other specified complication 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 watermelon inspector insulin use: with watermelon inspector use Qualified Code(s): E11.69 - Type 2 diabetes mellitus with other specified complication; Z79.4 - assisted (current) use of insulin (12) GERD (gastroesophageal reflux disease) Problem: Chronic Qualifiers: Esophagitis presence: without esophagitis Qualified Code(s): K21.9 - Gastro -esophageal reflux disease without esophagitis (13) Gallstones Problem: Chronic Qualifiers: Cholecystitis presence: without cholecystitis Biliary obstruction: without biliary obstruction Qualified Code(s): K80.20 - Calculus of gallbladder without cholecystitis without obstruction (14) Gout Problem: Acute Qualifiers: Gout site: multiple sites Gout etiology: idiopathic Chronicity: chronic Presence of tophus: without tophus Qualified Code(s): M1A.09X0 - Idiopathic chronic gout, multiple sites, without tophus (tophi) (15) HLD (hyperlipidemia) Problem: Chronic Qualifiers: Hyperlipidemia type: mixed hyperlipidemia Qualified Code(s): E78.2 - Mixed hyperlipidemia (16) [place] (hard of hearing) Problem: Chronic Qualifiers: Laterality: bilateral (17) History of recurrent UTIs Problem: Chronic (18) Hypertension Problem: Chronic Qualifiers: Hypertension type: essential hypertension Qualified Code(s): I10 - Essential (primary) hypertension (19) Hypoventilation associated with obesity syndrome Problem: Chronic (20) Immunosuppressed status Problem: Chronic (21) MRSA (methicillin resistant Staphylococcus aureus) carrier Problem: Inactive (22) Parkinsons Problem: Chronic (23) Pulmonary embolism Problem: Inactive Qualifiers: Pulmonary embolism type: other Chronicity: unspecified Acute cor pulmonale presence: without acute cor pulmonale Qualified Code(s): I26.99 - Other pulmonary embolism without acute cor pulmonale (24) Pulmonary hypertension Problem: Chronic (25) 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
[2016-12-26] MEDS ORDERED: hydrALAZINE HCL 25 MG TABLET PO ONE (08:00)
[2016-12-26] MEDS: LEVOFLOXACIN/D5W 500 MG/100 ML BAG IV SCH (08:34)
[2016-12-26] MEDS: LORazepam 0.5 MG TABLET PO SCH ×3 (08:35→16:13)
[2016-12-26] MEDS: LACTOBACILLUS ACIDOPHILUS 100 CAP BTL PO SCH ×4 (08:35→21:31)
[2016-12-26] MEDS: FOLIC ACID 1 MG TABLET PO SCH (08:36)
[2016-12-26] MEDS: CARVEDILOL 25 MG TABLET PO SCH ×2 (08:36→21:31)
[2016-12-26] MEDS: COLCHICINE 0.6 MG TABLET PO SCH (08:36)
[2016-12-26] MEDS: ZIPRASIDONE HCL 20 MG CAPSULE PO SCH ×2 (08:37→21:32)
[2016-12-26] MEDS: INSULIN DETEMIR 100 UNITS/ML VIAL SC SCH ×2 (08:37→21:48)
[2016-12-26] MEDS: POTASSIUM CHLORIDE 20 MEQ TABLET.SA PO SCH (08:37)
[2016-12-26] MEDS: NYSTATIN 15 APPL TUBE TP SCH ×2 (08:38→21:32)
[2016-12-26] MEDS: MULTIVITAMINS 1 CAP CAPSULE PO SCH (08:38)
[2016-12-26] MEDS: CHOLECALCIFEROL 1,000 UNIT CAPSULE PO SCH (08:39)
[2016-12-26] MEDS: LISINOPRIL 20 MG TABLET PO SCH ×2 (08:39→21:33)
[2016-12-26] MEDS: ALLOPURINOL 100 MG TABLET PO SCH (08:40)
[2016-12-26] MEDS ORDERED: hydrALAZINE HCL 25 MG TABLET ONE (09:13)
[2016-12-26] MEDS: FUROSEMIDE 20 MG TABLET PO SCH (10:28)
[2016-12-26] MEDS: VANCOMYCIN HCL 1.25 GM in DEXTROSE 5 % IN WATER 250 ML IV SCH ×2 (10:28)
[2016-12-26] MEDS: hydrALAZINE HCL 25 MG TABLET PO SCH ×2 (13:16→19:48)
[2016-12-26] MEDS ORDERED: WARFARIN SODIUM 1 TAB TAB PO SCH (17:00)
[2016-12-26] MEDS: WARFARIN SODIUM 3 MG TABLET PO SCH (17:06)
[2016-12-26 18:24] LABS: Hematocrit 28.1 % (37.0-47.0); Hemoglobin 8.7 gm/dL (12.5-16.0); Mean Cell Volume 91.2 fl (78-100); Mean Corpuscular Hemoglobin 28.2 pg (27-31); Mean Platelet Volume 8.9 fl (6.0-9.5); Neutrophil # 4.5 K/mm3 (1.3-6.0); Neutrophil % 78.4 % (42-75.0); Platelet Count 231 K/mm3 (150-450); Red Blood Count 3.08 M/mm3 (4.2-5.4); Red Cell Distribution Width 19.1 % (11.5-14.0); White Blood Count 5.7 K/mm3 (4.0-10.5)
[2016-12-26 18:38] LABS: Albumin * 2.5 gm/dl (3.4-5.0); Anion Gap 9.9 mmol/L (6.8-13.8); BUN/Creatinine Ratio 16.1 (9.0-21.6); Bilirubin, Total 0.4 mg/dL (0.0-1.1); Ca. Corrected For Albumin 9.2 mg/dL (8.4-10.2); Calcium * 8.3 mg/dL (7.9-10.9); Carbon Dioxide 31.6 mmol/L (24-32.6); Potassium 4.5 mmol/L (3.4-4.6); Total Protein 5.8 gm/dL (6.2-8.2)
[2016-12-26] MEDS ORDERED: FUROSEMIDE 10 MG/ML VIAL IV ONE (20:07)
--- NOTE | 2016-12-26 20:12 | PN ---
Subjective - Date and Time Seen Date: 12/26/16 Time: 18:00 Subjective Narrative: was approached by patient's nurse at approximately 1800 on 12/26/16. pt's daughter was in room and had informed nurse that pt was very sleepy and did not recognize her. daughter would like hospitalist to come assess pt. immediately went to room to assess pt. did not respond to verbal stimuli. instructed nurse to attach oxygen sat monitor and o2 sats decreased. o2 applied via nc. i then sternal rubbed pt to which the pt finally grunted in response. at this point, i had the nurse call for more assistance. pt was assisted into bed by jasmin lift. abg drawn and orders given for labs, cxr. abg showed co2 of 51, orders given to RT to start bipap. with pt now in bed, o2 improved and oxygen decreased. sbp in the 140s. hr 60-70s. once in the bed, the patient started to respond more by grunting and moaning. at [address] dr cervantes was update on pt condition. chest xray showed enlarged heart with persistent LLL density concerning for possible hidden infiltrate vs chf. no significant change in chest xray from previous done 12/21/16. labs reviewed. bnp 4338. orders entered for 40 mg iv lasix. at 1999, dr cervantes updated again on pt condition. Objective Objective Narrative: unable to obtain ROS due to pt condition. - Vitals Vitals: Last Vital Signs Temp 36.8 C 12/26/16 14:00 Pulse 62 12/26/16 19:48 Resp 20 12/26/16 14:00 BP 146/60 12/26/16 19:48 Pulse Ox 90 12/26/16 14:00 - Abnormal Lab Findings Abnormal Lab Findings: Abnormal Lab Results 12/26/16 12/26/16 12/26/16 Range/Units 05:00 05:00 05:00 RBC 3.01 L (4.2-5.4) M/mm3 Hgb 8.4 L (12.5-16.0) gm/dL Hct 27.7 L (37.0-47.0) % MCHC 30.3 L (32-36) g/dl RDW 18.3 H (11.5-14.0) % Immature Gran % (Auto) 2.60 H (0.001-0.429) % Immature Gran # (Auto) 0.15 H (0.000-0.0310) K/mm3 Neutrophils % 78.5 H (42-75.0) % Lymphocytes % 10.6 L (20-51) % Lymphocytes # 0.6 L (1.5-3.5) k/mm3 ESR 54 H (0-15) mm/hr PT 24.8 H (9.4-11.4) Seconds INR (Anticoag Therapy) 2.38 H (0.90-1.10) INR pCO2 (32.0-45.0) mmHg pO2 (83.0-108.0) mmHg Total CO2 (19.0-24.0) mmol/L ABG pH (7.35-7.45) ABG O2 Sat (Measured) (94.0-98.0) % Potassium (3.4-4.6) mmol/L Est GFR (Non-Af Amer) (60-130) mL/min C-Reactive Prot, Quant (0.0-0.9) mg/dL B-Natriuretic Peptide (5-550) pg/mL Total Protein (6.2-8.2) gm/dL Albumin (3.4-5.0) gm/dl 12/26/16 12/26/16 12/26/16 Range/Units 05:00 18:03 18:21 RBC 3.08 L (4.2-5.4) M/mm3 Hgb 8.7 L (12.5-16.0) gm/dL Hct 28.1 L (37.0-47.0) % MCHC 31.0 L (32-36) g/dl RDW 19.1 H (11.5-14.0) % Immature Gran % (Auto) 2.60 H (0.001-0.429) % Immature Gran # (Auto) 0.15 H (0.000-0.0310) K/mm3 Neutrophils % 78.4 H (42-75.0) % Lymphocytes % 10.2 L (20-51) % Lymphocytes # 0.6 L (1.5-3.5) k/mm3 ESR (0-15) mm/hr PT (9.4-11.4) Seconds INR (Anticoag Therapy) (0.90-1.10) INR pCO2 51.7 H (32.0-45.0) mmHg pO2 142.3 H (83.0-108.0) mmHg Total CO2 27.4 H (19.0-24.0) mmol/L ABG pH 7.32 L (7.35-7.45) ABG O2 Sat (Measured) 98.6 H (94.0-98.0) % Potassium 5.0 H D (3.4-4.6) mmol/L Est GFR (Non-Af Amer) 55 L (60-130) mL/min C-Reactive Prot, Quant 1.2 H (0.0-0.9) mg/dL B-Natriuretic Peptide (5-550) pg/mL Total Protein (6.2-8.2) gm/dL Albumin (3.4-5.0) gm/dl 12/26/16 12/26/16 12/26/16 Range/Units 18:21 18:21 19:15 RBC (4.2-5.4) M/mm3 Hgb (12.5-16.0) gm/dL Hct (37.0-47.0) % MCHC (32-36) g/dl RDW (11.5-14.0) % Immature Gran % (Auto) (0.001-0.429) % Immature Gran # (Auto) (0.000-0.0310) K/mm3 Neutrophils % (42-75.0) % Lymphocytes % (20-51) % Lymphocytes # (1.5-3.5) k/mm3 ESR (0-15) mm/hr PT (9.4-11.4) Seconds INR (Anticoag Therapy) (0.90-1.10) INR pCO2 45.2 H (32.0-45.0) mmHg pO2 55.9 L (83.0-108.0) mmHg Total CO2 26.2 H (19.0-24.0) mmol/L ABG pH (7.35-7.45) ABG O2 Sat (Measured) 87.8 L (94.0-98.0) % Potassium (3.4-4.6) mmol/L Est GFR (Non-Af Amer) 47 L (60-130) mL/min C-Reactive Prot, Quant (0.0-0.9) mg/dL B-Natriuretic Peptide 4338 H (5-550) pg/mL Total Protein 5.8 L (6.2-8.2) gm/dL Albumin 2.5 L (3.4-5.0) gm/dl - EKG/Xray Findings EKG: NSR, nonspecific ST T wave chg, unchanged from - prior ekg. EKG read: Interp. by me - Exam Constitutional: Present: Obtunded - responsive to sternal rub, Elderly, Obese Breasts: Present: Exam deferred Respiratory: Present: other - severly diminished LLL, rhochi right lobe Cardiovascular/Chest: Present: regular rate, rhythm, JVD Abdomen: Present: soft, nontender, obese /Rectal: Present: Exam deferred Skin Exam: Present: no cyanosis, pallor Cauti Physician Documentation - Urinary Catheter Management Uretheral (Galo) Urethral Indwelling: No Date of Insertion: 12/18/16 Time of Insertion: 22:10 Date of Removal: 12/23/16 Time of Removal: 22:15 Assessment/Plan Plan Narrative: IV lasix, bipap overnight, check labs in am. already on iv abx for cellulitis. procalcitonin and lactic acid negative. unlikely to be septic but blood cultures are pending. reassess by pcp in am. - Problems/Diagnosis (1) CHF (congestive heart failure) Problem: Acute Qualifiers: Congestive heart failure type: diastolic Congestive heart failure chronicity: acute on chronic Qualified Code(s): I50.33 - Acute on chronic diastolic (congestive) heart failure (2) Acute respiratory distress Problem: Acute (3) CO2 retention Problem: Acute
[2016-12-26] MEDS: SIMVASTATIN 40 MG TABLET PO SCH (21:34)
[2016-12-27] MEDS: hydrALAZINE HCL 25 MG TABLET PO SCH ×4 (00:20→19:21)
[2016-12-27] MEDS: AMPICILLIN SODIUM/SULBACTAM NA 1.5 GM in NORMAL SALINE 100 ML IV SCH ×4 (01:50→19:29)
[2016-12-27] MEDS: POLYVINYL ALCOHOL 150 DROP BTL OP SCH ×6 (01:59→22:10)
[2016-12-27] MEDS: VANCOMYCIN HCL 50 MG/ML BTL PO SCH ×3 (05:15→17:16)
[2016-12-27 06:02] LABS: Hematocrit 27.6 % (37.0-47.0); Hemoglobin 8.3 gm/dL (12.5-16.0); Mean Cell Volume 92.6 fl (78-100); Mean Corpuscular Hemoglobin 27.9 pg (27-31); Mean Corpuscular Hgb Conc 30.1 g/dl (32-36); Mean Platelet Volume 9.3 fl (6.0-9.5); Neutrophil # 3.6 K/mm3 (1.3-6.0); Neutrophil % 79.4 % (42-75.0); Platelet Count 186 K/mm3 (150-450); Red Blood Count 2.98 M/mm3 (4.2-5.4); Red Cell Distribution Width 18.7 % (11.5-14.0); White Blood Count 4.5 K/mm3 (4.0-10.5)
[2016-12-27 06:11] LABS: Prothrombin Time (Patient) 19.3 Seconds (9.4-11.4)
[2016-12-27 06:12] LABS: INR 1.86 INR (0.90-1.10)
[2016-12-27 06:17] LABS: Anion Gap 9.2 mmol/L (6.8-13.8); BUN/Creatinine Ratio 17.1 (9.0-21.6); CRP 0.3 mg/dL (0.0-0.9); Calcium * 8.4 mg/dL (7.9-10.9); Estimated Creat Clear 30.3; Potassium 4.2 mmol/L (3.4-4.6)
[2016-12-27] MEDS: INSULIN LISPRO 100 UNITS/ML VIAL SC SCH ×3 (06:22→16:52)
[2016-12-27] MEDS: ONDANSETRON HCL 4 MG TABLET PO SCH ×4 (06:24→20:05)
[2016-12-27] MEDS: LEVOFLOXACIN/D5W 500 MG/100 ML BAG IV SCH (08:22)
[2016-12-27] MEDS: LORazepam 0.5 MG TABLET PO SCH ×3 (09:36→17:15)
[2016-12-27] MEDS: LACTOBACILLUS ACIDOPHILUS 100 CAP BTL PO SCH ×4 (09:37→20:04)
[2016-12-27] MEDS: COLCHICINE 0.6 MG TABLET PO SCH (09:38)
[2016-12-27] MEDS: CARVEDILOL 25 MG TABLET PO SCH ×2 (09:38→20:07)
[2016-12-27] MEDS: ZIPRASIDONE HCL 20 MG CAPSULE PO SCH ×2 (09:38→20:06)
[2016-12-27] MEDS: FOLIC ACID 1 MG TABLET PO SCH (09:38)
[2016-12-27] MEDS: INSULIN DETEMIR 100 UNITS/ML VIAL SC SCH ×2 (09:39→22:11)
[2016-12-27] MEDS: NYSTATIN 15 APPL TUBE TP SCH ×2 (09:39→20:09)
[2016-12-27] MEDS: MULTIVITAMINS 1 CAP CAPSULE PO SCH (09:39)
[2016-12-27] MEDS: POTASSIUM CHLORIDE 20 MEQ TABLET.SA PO SCH (09:39)
[2016-12-27] MEDS: VANCOMYCIN HCL 1.25 GM in DEXTROSE 5 % IN WATER 250 ML IV SCH ×2 (09:40)
[2016-12-27] MEDS: LISINOPRIL 20 MG TABLET PO SCH ×2 (09:40→20:05)
[2016-12-27] MEDS: ALLOPURINOL 100 MG TABLET PO SCH (09:40)
[2016-12-27] MEDS: CHOLECALCIFEROL 1,000 UNIT CAPSULE PO SCH (09:40)
[2016-12-27] MEDS: FUROSEMIDE 20 MG TABLET PO SCH (10:44)
[2016-12-27] MEDS ORDERED: WARFARIN SODIUM 1 MG TABLET ONE (17:35)
[2016-12-27] MEDS: WARFARIN SODIUM 3 MG TABLET PO SCH (17:41)
--- NOTE | 2016-12-27 18:43 | PN ---
Subjective - Date and Time Seen Date: 12/27/16 Time: 18:28 Subjective Narrative: Last night the patient was note to be very sleepy and did not recognize her daughter. This persisted, worsened, and the WATER CONTROL SUPERVISOR hospitalist examined the patient. She did not respond to verbal stimuli. O2 sat was 84% on room air. Supplemental O2 was given by nc. Patient remained minimally responsive. At this point, further studies were obtained including ABGs. ABGs showed a CO2 of 51. BiPap was started, O2 sat improved and oxygen amount was decreased. Systolic blood pressure was in the 140s and heart rate was in the 60-70s. She became more responsive. Chest xray showed an enlarged heart with persistent LLL density concerning for possible hidden infiltrate vs chf. No significant change was noted compared to the previous CXR done 12/21/16. Previous BNP was 4338. She was give 40 mg iv lasix. Today she is more alert, although still on BiPap this morning. She is now once again on n.c. oxygen. Her weight today has decreased 1 kg. from yesterday. This morning she refused all of her medication, but took it this afternoon. Objective - Review of Systems Generalized/Overall Review: Reports: Malaise EENTM: Reports: No Symptoms Reported Respiratory: Reports: No Symptoms Reported Cardiac: Reports: No Symptoms Reported Abdominal: Reports: No Symptoms Reported Genitourinary Symptoms: Reports: No Symptoms Reported Musculoskeletal Complaints: Reports: No Symptoms Reported Neurological: Reports: No Symptoms Reported Skin: Reports: No Symptoms Reported Endocrine: Reports: No Symptoms Reported Misc: All systems neg except as marked - Vitals Vitals: Last Vital Signs Selected Entries 12/26/16 07:10 Temperature 36.8 C Temperature Oral Source Pulse Rate 74 Respiratory 20 Rate Respiratory Normal Depth Blood Pressure 164/82 Blood Pressure Supine Position O2 Sat by Pulse 96 Oximetry Oxygen Delivery Nasal Cannula Method Oxygen Flow 2 Rate - Abnormal Lab Findings Abnormal Lab Findings: Abnormal Lab Results 12/26/16 12/26/16 12/26/16 Range/Units 18:21 18:21 18:21 RBC 3.08 L (4.2-5.4) M/mm3 Hgb 8.7 L (12.5-16.0) gm/dL Hct 28.1 L (37.0-47.0) % MCHC 31.0 L (32-36) g/dl RDW 19.1 H (11.5-14.0) % Immature Gran % (Auto) 2.60 H (0.001-0.429) % Immature Gran # (Auto) 0.15 H (0.000-0.0310) K/mm3 Neutrophils % 78.4 H (42-75.0) % Lymphocytes % 10.2 L (20-51) % Lymphocytes # 0.6 L (1.5-3.5) k/mm3 ESR (0-15) mm/hr PT (9.4-11.4) Seconds INR (Anticoag Therapy) (0.90-1.10) INR pCO2 (32.0-45.0) mmHg pO2 (83.0-108.0) mmHg Total CO2 (19.0-24.0) mmol/L ABG O2 Sat (Measured) (94.0-98.0) % Est GFR (Non-Af Amer) 47 L (60-130) mL/min B-Natriuretic Peptide 4338 H (5-550) pg/mL Total Protein 5.8 L (6.2-8.2) gm/dL Albumin 2.5 L (3.4-5.0) gm/dl 12/26/16 12/27/16 12/27/16 Range/Units 19:15 05:31 05:31 RBC 2.98 L (4.2-5.4) M/mm3 Hgb 8.3 L (12.5-16.0) gm/dL Hct 27.6 L (37.0-47.0) % MCHC 30.1 L (32-36) g/dl RDW 18.7 H (11.5-14.0) % Immature Gran % (Auto) 2.20 H (0.001-0.429) % Immature Gran # (Auto) 0.10 H (0.000-0.0310) K/mm3 Neutrophils % 79.4 H (42-75.0) % Lymphocytes % 11.1 L (20-51) % Lymphocytes # 0.5 L (1.5-3.5) k/mm3 ESR (0-15) mm/hr PT 19.3 H (9.4-11.4) Seconds INR (Anticoag Therapy) 1.86 H (0.90-1.10) INR pCO2 45.2 H (32.0-45.0) mmHg pO2 55.9 L (83.0-108.0) mmHg Total CO2 26.2 H (19.0-24.0) mmol/L ABG O2 Sat (Measured) 87.8 L (94.0-98.0) % Est GFR (Non-Af Amer) (60-130) mL/min B-Natriuretic Peptide (5-550) pg/mL Total Protein (6.2-8.2) gm/dL Albumin (3.4-5.0) gm/dl 12/27/16 12/27/16 Range/Units 05:31 05:31 RBC (4.2-5.4) M/mm3 Hgb (12.5-16.0) gm/dL Hct (37.0-47.0) % MCHC (32-36) g/dl RDW (11.5-14.0) % Immature Gran % (Auto) (0.001-0.429) % Immature Gran # (Auto) (0.000-0.0310) K/mm3 Neutrophils % (42-75.0) % Lymphocytes % (20-51) % Lymphocytes # (1.5-3.5) k/mm3 ESR 46 H (0-15) mm/hr PT (9.4-11.4) Seconds INR (Anticoag Therapy) (0.90-1.10) INR pCO2 (32.0-45.0) mmHg pO2 (83.0-108.0) mmHg Total CO2 (19.0-24.0) mmol/L ABG O2 Sat (Measured) (94.0-98.0) % Est GFR (Non-Af Amer) 45 L (60-130) mL/min B-Natriuretic Peptide (5-550) pg/mL Total Protein (6.2-8.2) gm/dL Albumin (3.4-5.0) gm/dl - Exam Constitutional: Present: Alert, Cooperative, Well developed, No distress, Obese ENT Exam: Present: normal ENT inspection, hard of hearing Neck: Present: normal inspection Respiratory: Present: lungs clear, no respiratory distress Cardiovascular/Chest: Present: regular rate, rhythm, no murmur Abdomen: Present: Normal bowel sounds, soft, nontender, nondistended, no rebound tenderness, no hepatospenomegaly, no masses, obese 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 Absent: pedal edema Skin Exam: Present: normal color, warm/dry, no cyanosis Neurologic: Present: alert Appearance: Present: appropriate appearance, neat Cauti Physician Documentation - Urinary Catheter Management Uretheral (Galo) Urethral Indwelling: No Date of Insertion: 12/18/16 Time of Insertion: 22:10 Date of Removal: 12/23/16 Time of Removal: 22:15 Assessment/Plan Plan Narrative: Increase Lasix. Follow labs. Continue IV antibiotics. Ensure stability before returning to the fpc. - Problems/Diagnosis (1) Cellulitis of wrist Problem: Acute (2) Hypokalemia Problem: Acute (3) Weakness generalized Problem: Acute (4) CHF (congestive heart failure) Problem: Acute Qualifiers: Congestive heart failure type: diastolic Congestive heart failure chronicity: acute on chronic Qualified Code(s): I50.33 - Acute on chronic diastolic (congestive) heart failure (5) Altered mental status Problem: Acute Qualifiers: Altered mental status type: delirium Qualified Code(s): R41.0 - Disorientation, unspecified (6) Clostridium difficile colitis Problem: Suspected (7) acute on chronic anemia Problem: Acute (8) Chronic congestive heart failure with left ventricular diastolic dysfunction Problem: Chronic (9) Chronic pain Problem: Chronic Qualifiers: Chronic pain type: other chronic pain Qualified Code(s): G89.29 - Other chronic pain (10) Chronic restrictive lung disease Problem: Chronic (11) 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 Problem: Chronic Qualifiers: 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 type: type 2 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 complication status: with other specified complication 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 termite inspector insulin use: with termite inspector use Qualified Code(s): E11.69 - Type 2 diabetes mellitus with other specified complication; Z79.4 - FDC (current) use of insulin (12) GERD (gastroesophageal reflux disease) Problem: Chronic Qualifiers: Esophagitis presence: without esophagitis Qualified Code(s): K21.9 - Gastro -esophageal reflux disease without esophagitis (13) Gallstones Problem: Chronic Qualifiers: Cholecystitis presence: without cholecystitis Biliary obstruction: without biliary obstruction Qualified Code(s): K80.20 - Calculus of gallbladder without cholecystitis without obstruction (14) Gout Problem: Acute Qualifiers: Gout site: multiple sites Gout etiology: idiopathic Chronicity: chronic Presence of tophus: without tophus Qualified Code(s): M1A.09X0 - Idiopathic chronic gout, multiple sites, without tophus (tophi) (15) HLD (hyperlipidemia) Problem: Chronic Qualifiers: Hyperlipidemia type: mixed hyperlipidemia Qualified Code(s): E78.2 - Mixed hyperlipidemia (16) [place] (hard of hearing) Problem: Chronic Qualifiers: Laterality: bilateral (17) History of recurrent UTIs Problem: Chronic (18) Hypertension Problem: Chronic Qualifiers: Hypertension type: essential hypertension Qualified Code(s): I10 - Essential (primary) hypertension (19) Hypoventilation associated with obesity syndrome Problem: Chronic (20) Immunosuppressed status Problem: Chronic (21) MRSA (methicillin resistant Staphylococcus aureus) carrier Problem: Inactive (22) Parkinsons Problem: Chronic (23) Pulmonary embolism Problem: Inactive Qualifiers: Pulmonary embolism type: other Chronicity: unspecified Acute cor pulmonale presence: without acute cor pulmonale Qualified Code(s): I26.99 - Other pulmonary embolism without acute cor pulmonale (24) Pulmonary hypertension Problem: Chronic (25) 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
[2016-12-27] MEDS: SIMVASTATIN 40 MG TABLET PO SCH (20:08)
[2016-12-28] MEDS: VANCOMYCIN HCL 50 MG/ML BTL PO SCH ×4 (00:18→19:34)
[2016-12-28] MEDS: hydrALAZINE HCL 25 MG TABLET PO SCH (00:19)
[2016-12-28] MEDS: AMPICILLIN SODIUM/SULBACTAM NA 1.5 GM in NORMAL SALINE 100 ML IV SCH ×4 (01:34→19:44)
[2016-12-28 06:17] LABS: Hematocrit 26.1 % (37.0-47.0); Mean Cell Volume 91.3 fl (78-100); Mean Corpuscular Hgb Conc 30.7 g/dl (32-36); Mean Platelet Volume 9.5 fl (6.0-9.5); Neutrophil # 4.4 K/mm3 (1.3-6.0); Neutrophil % 85.3 % (42-75.0); Platelet Count 175 K/mm3 (150-450); Red Blood Count 2.86 M/mm3 (4.2-5.4); Red Cell Distribution Width 18.5 % (11.5-14.0); White Blood Count 5.1 K/mm3 (4.0-10.5)
[2016-12-28 06:30] LABS: Anion Gap 9.3 mmol/L (6.8-13.8); BUN/Creatinine Ratio 16.4 (9.0-21.6); Blood Urea Nitrogen 20 mg/dL (3-23); Calcium * 8.2 mg/dL (7.9-10.9); Carbon Dioxide 30.5 mmol/L (24-32.6); Chloride 103 mmol/L (97-106); Estimated Creat Clear 30.5; Glucose * 80 mg/dL (70-110); Potassium 3.8 mmol/L (3.4-4.6); Sodium 139 mmol/L (132-142)
[2016-12-28 06:31] LABS: Prothrombin Time (Patient) 29.8 Seconds (9.4-11.4)
[2016-12-28 06:32] LABS: INR 2.87 INR (0.90-1.10)
[2016-12-28] MEDS: INSULIN LISPRO 100 UNITS/ML VIAL SC SCH ×5 (07:19→20:46)
[2016-12-28] MEDS: POLYVINYL ALCOHOL 150 DROP BTL OP SCH ×6 (07:21→21:32)
[2016-12-28] MEDS: hydrALAZINE HCL 50 MG TABLET PO SCH ×3 (07:23→20:14)
[2016-12-28] MEDS: ONDANSETRON HCL 4 MG TABLET PO SCH ×4 (07:30→20:16)
[2016-12-28] MEDS: LEVOFLOXACIN/D5W 500 MG/100 ML BAG IV SCH (08:20)
[2016-12-28] MEDS: VANCOMYCIN HCL 1.25 GM in DEXTROSE 5 % IN WATER 250 ML IV SCH ×2 (08:20)
[2016-12-28] MEDS: MULTIVITAMINS 1 CAP CAPSULE PO SCH (09:09)
[2016-12-28] MEDS: LACTOBACILLUS ACIDOPHILUS 100 CAP BTL PO SCH ×4 (09:09→20:14)
[2016-12-28] MEDS: FOLIC ACID 1 MG TABLET PO SCH (09:09)
[2016-12-28] MEDS: COLCHICINE 0.6 MG TABLET PO SCH (09:09)
[2016-12-28] MEDS: CARVEDILOL 25 MG TABLET PO SCH ×2 (09:09→20:15)
[2016-12-28] MEDS: POTASSIUM CHLORIDE 20 MEQ TABLET.SA PO SCH (09:09)
[2016-12-28] MEDS: CHOLECALCIFEROL 1,000 UNIT CAPSULE PO SCH (09:10)
[2016-12-28] MEDS: LISINOPRIL 20 MG TABLET PO SCH ×2 (09:10→20:16)
[2016-12-28] MEDS: ALLOPURINOL 100 MG TABLET PO SCH (09:11)
[2016-12-28] MEDS: NYSTATIN 15 APPL TUBE TP SCH ×2 (09:12→20:22)
[2016-12-28] MEDS: INSULIN DETEMIR 100 UNITS/ML VIAL SC SCH ×2 (09:13→20:48)
[2016-12-28] MEDS: FUROSEMIDE 20 MG TABLET PO SCH (11:33)
[2016-12-28 16:20] LABS: Hematocrit 31.3 % (37.0-47.0); Hemoglobin 9.7 gm/dL (12.5-16.0); Mean Corpuscular Hemoglobin 28.2 pg (27-31); Mean Platelet Volume 9.1 fl (6.0-9.5); Neutrophil # 5.8 K/mm3 (1.3-6.0); Neutrophil % 77.3 % (42-75.0); Platelet Count 274 K/mm3 (150-450); Red Blood Count 3.44 M/mm3 (4.2-5.4); Red Cell Distribution Width 18.8 % (11.5-14.0); White Blood Count 7.5 K/mm3 (4.0-10.5)
[2016-12-28 16:36] LABS: INR 3.34 INR (0.90-1.10); Prothrombin Time (Patient) 34.7 Seconds (9.4-11.4)
[2016-12-28 16:37] LABS: Partial Thrombolplastin Time 33.2 Seconds (24-32)
[2016-12-28 16:43] LABS: Troponin I Less than 0.017 ng/ml (0.00-0.10)
[2016-12-28 16:46] LABS: Anion Gap 14.4 mmol/L (6.8-13.8); BNP * 2582 pg/mL (5-550); Calcium * 8.7 mg/dL (7.9-10.9); Chloride 102 mmol/L (97-106); Estimated Creat Clear 28.4; Glucose * 114 mg/dL (70-110); Potassium 3.4 mmol/L (3.4-4.6); Sodium 140 mmol/L (132-142)
--- NOTE | 2016-12-28 16:54 | PN ---
<Raegan Mejia - Last Filed: 12/28/16 16:33> Subjective - Date and Time Seen Date: 12/28/16 Time: 16:00 Objective Objective Narrative: called into pt's room for COLLATOR HAND. pt unresponsive in chair, convulsing. shaking lasted approximately 30 seconds. pt did not lose pulse. bp stable. O2 sats dropped on bipap and bipap was increased by RT. pt transferred to bed. noticed that pt was incontient of bowel and urine during seizure. once in bed, pt opening eyes and grunting. orders given for labs, abg, ekg. vss now stable. no additional seizure like activity noticed. update given to family. POA very upset about situation. POA wanting higher level of care for pt. POA does not want to make pt DNR. Dr. KANG (attending) notified of incident - orders received for CT of head and IV keppra. - Vitals Vitals: Last Vital Signs Temp 36.7 C 12/28/16 14:38 Pulse 72 12/28/16 14:38 Resp 24 H 12/28/16 14:38 BP 131/74 12/28/16 14:38 Pulse Ox 93 12/28/16 14:38 - Abnormal Lab Findings Abnormal Lab Findings: Abnormal Lab Results 12/28/16 12/28/16 12/28/16 Range/Units 05:35 05:35 05:35 RBC 2.86 L (4.2-5.4) M/mm3 Hgb 8.0 L (12.5-16.0) gm/dL Hct 26.1 L (37.0-47.0) % MCHC 30.7 L (32-36) g/dl RDW 18.5 H (11.5-14.0) % Immature Gran % (Auto) 1.60 H (0.001-0.429) % Immature Gran # (Auto) 0.08 H (0.000-0.0310) K/mm3 Neutrophils % 85.3 H (42-75.0) % Lymphocytes % 7.0 L (20-51) % Lymphocytes # 0.4 L (1.5-3.5) k/mm3 ESR 44 H (0-15) mm/hr PT 29.8 H (9.4-11.4) Seconds INR (Anticoag Therapy) 2.87 H (0.90-1.10) INR pO2 (83.0-108.0) mmHg Total CO2 (19.0-24.0) mmol/L ABG O2 Sat (Measured) (94.0-98.0) % Est GFR (Non-Af Amer) (60-130) mL/min 12/28/16 12/28/16 12/28/16 Range/Units 05:35 16:10 16:10 RBC 3.44 L (4.2-5.4) M/mm3 Hgb 9.7 L (12.5-16.0) gm/dL Hct 31.3 L (37.0-47.0) % MCHC 31.0 L (32-36) g/dl RDW 18.8 H (11.5-14.0) % Immature Gran % (Auto) 4.00 H (0.001-0.429) % Immature Gran # (Auto) 0.30 H (0.000-0.0310) K/mm3 Neutrophils % 77.3 H (42-75.0) % Lymphocytes % 11.2 L (20-51) % Lymphocytes # 0.8 L (1.5-3.5) k/mm3 ESR (0-15) mm/hr PT (9.4-11.4) Seconds INR (Anticoag Therapy) (0.90-1.10) INR pO2 69.0 L (83.0-108.0) mmHg Total CO2 25.1 H (19.0-24.0) mmol/L ABG O2 Sat (Measured) 93.1 L (94.0-98.0) % Est GFR (Non-Af Amer) 45 L (60-130) mL/min Comments:: unable to obtain ROS due to pt condition. - EKG/Xray Findings EKG: NSR, ST depression EKG read: Interp. by me - Exam Constitutional: Present: Lethargic - opens eyes, grunts., Obese, Looks Older than stated age Neck: Present: supple Breasts: Present: Exam deferred Respiratory: Present: decreased breath sounds, other - on bipap Cardiovascular/Chest: Present: regular rate, rhythm Abdomen: Present: soft, nondistended, obese /Rectal: Present: Exam deferred Skin Exam: Present: warm/dry, no cyanosis Neurologic: Present: other - not responsive, opens eyes and grunts. Cauti Physician Documentation - Urinary Catheter Management Uretheral (Galo) Urethral Indwelling: No Date of Insertion: 12/18/16 Time of Insertion: 22:10 Date of Removal: 12/23/16 Time of Removal: 22:15 Assessment/Plan - Problems/Diagnosis (1) CHF (congestive heart failure) Problem: Acute QualifierTitle: Congestive heart failure type: diastolic Congestive heart failure chronicity: acute on chronic Qualified Code(s): I50.33 - Acute on chronic diastolic (congestive) heart failure (2) Acute respiratory distress Problem: Acute (3) CO2 retention Problem: Acute (4) Seizure Problem: Acute <Jaylen Gold - Last Filed: 12/28/16 20:31> Objective - Vitals Vitals: Last Vital Signs Temp 36.7 C 12/28/16 18:00 Pulse 101 H 12/28/16 20:16 Resp 20 12/28/16 18:00 BP 151/76 12/28/16 20:16 Pulse Ox 95 12/28/16 18:00 - Abnormal Lab Findings Abnormal Lab Findings: Abnormal Lab Results 12/28/16 12/28/16 12/28/16 Range/Units 05:35 05:35 05:35 RBC 2.86 L (4.2-5.4) M/mm3 Hgb 8.0 L (12.5-16.0) gm/dL Hct 26.1 L (37.0-47.0) % MCHC 30.7 L (32-36) g/dl RDW 18.5 H (11.5-14.0) % Immature Gran % (Auto) 1.60 H (0.001-0.429) % Immature Gran # (Auto) 0.08 H (0.000-0.0310) K/mm3 Neutrophils % 85.3 H (42-75.0) % Lymphocytes % 7.0 L (20-51) % Lymphocytes # 0.4 L (1.5-3.5) k/mm3 ESR 44 H (0-15) mm/hr PT 29.8 H (9.4-11.4) Seconds INR (Anticoag Therapy) 2.87 H (0.90-1.10) INR PTT ([place]) (24-32) Seconds pO2 (83.0-108.0) mmHg Total CO2 (19.0-24.0) mmol/L ABG O2 Sat (Measured) (94.0-98.0) % Anion Gap (6.8-13.8) mmol/L Est GFR (Non-Af Amer) (60-130) mL/min Random Glucose (70-110) mg/dL B-Natriuretic Peptide (5-550) pg/mL 12/28/16 12/28/16 12/28/16 Range/Units 05:35 16:10 16:10 RBC 3.44 L (4.2-5.4) M/mm3 Hgb 9.7 L (12.5-16.0) gm/dL Hct 31.3 L (37.0-47.0) % MCHC 31.0 L (32-36) g/dl RDW 18.8 H (11.5-14.0) % Immature Gran % (Auto) 4.00 H (0.001-0.429) % Immature Gran # (Auto) 0.30 H (0.000-0.0310) K/mm3 Neutrophils % 77.3 H (42-75.0) % Lymphocytes % 11.2 L (20-51) % Lymphocytes # 0.8 L (1.5-3.5) k/mm3 ESR (0-15) mm/hr PT (9.4-11.4) Seconds INR (Anticoag Therapy) (0.90-1.10) INR PTT (Su) (24-32) Seconds pO2 69.0 L (83.0-108.0) mmHg Total CO2 25.1 H (19.0-24.0) mmol/L ABG O2 Sat (Measured) 93.1 L (94.0-98.0) % Anion Gap (6.8-13.8) mmol/L Est GFR (Non-Af Amer) 45 L (60-130) mL/min Random Glucose (70-110) mg/dL B-Natriuretic Peptide (5-550) pg/mL 12/28/16 12/28/16 Range/Units 16:10 16:10 RBC (4.2-5.4) M/mm3 Hgb (12.5-16.0) gm/dL Hct (37.0-47.0) % MCHC (32-36) g/dl RDW (11.5-14.0) % Immature Gran % (Auto) (0.001-0.429) % Immature Gran # (Auto) (0.000-0.0310) K/mm3 Neutrophils % (42-75.0) % Lymphocytes % (20-51) % Lymphocytes # (1.5-3.5) k/mm3 ESR (0-15) mm/hr PT 34.7 H (9.4-11.4) Seconds INR (Anticoag Therapy) 3.34 H (0.90-1.10) INR PTT ([place]) 33.2 H D (24-32) Seconds pO2 (83.0-108.0) mmHg Total CO2 (19.0-24.0) mmol/L ABG O2 Sat (Measured) (94.0-98.0) % Anion Gap 14.4 H (6.8-13.8) mmol/L Est GFR (Non-Af Amer) 42 L (60-130) mL/min Random Glucose 114 H D (70-110) mg/dL B-Natriuretic Peptide 2582 H (5-550) pg/mL Assessment/Plan Plan Narrative: Brief seizure this afternoon, generalized tonic clonic. Workup negative. Might be related to stopping the Ativan because of obtundation and hypoventilation. Offered family transfer to [facility], if they wished. For now , here, will give Keppra and continue to monitor. I supervised Raegan Mejia' s care for this patient. - Problems/Diagnosis (1) Cellulitis of wrist Problem: Acute (2) Hypokalemia Problem: Acute (3) Weakness generalized Problem: Acute (4) CHF (congestive heart failure) Problem: Acute Qualifiers: Congestive heart failure type: diastolic Congestive heart failure chronicity: acute on chronic Qualified Code(s): I50.33 - Acute on chronic diastolic (congestive) heart failure (5) Altered mental status Problem: Acute Qualifiers: Altered mental status type: delirium Qualified Code(s): R41.0 - Disorientation, unspecified (6) Clostridium difficile colitis Problem: Suspected (7) acute on chronic anemia Problem: Acute (8) Chronic congestive heart failure with left ventricular diastolic dysfunction Problem: Chronic (9) Chronic pain Problem: Chronic Qualifiers: Chronic pain type: other chronic pain Qualified Code(s): G89.29 - Other chronic pain (10) Chronic restrictive lung disease Problem: Chronic (11) 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 Problem: Chronic Qualifiers: 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 type: type 2 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 complication status: with other specified complication 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 health education aide insulin use: with alf use Qualified Code(s): E11.69 - Type 2 diabetes mellitus with other specified complication; Z79.4 - assisted (current) use of insulin (12) GERD (gastroesophageal reflux disease) Problem: Chronic Qualifiers: Esophagitis presence: without esophagitis Qualified Code(s): K21.9 - Gastro -esophageal reflux disease without esophagitis (13) Gallstones Problem: Chronic Qualifiers: Cholecystitis presence: without cholecystitis Biliary obstruction: without biliary obstruction Qualified Code(s): K80.20 - Calculus of gallbladder without cholecystitis without obstruction (14) Gout Problem: Acute Qualifiers: Gout site: multiple sites Gout etiology: idiopathic Chronicity: chronic Presence of tophus: without tophus Qualified Code(s): M1A.09X0 - Idiopathic chronic gout, multiple sites, without tophus (tophi) (15) HLD (hyperlipidemia) Problem: Chronic Qualifiers: Hyperlipidemia type: mixed hyperlipidemia Qualified Code(s): E78.2 - Mixed hyperlipidemia (16) [place] (hard of hearing) Problem: Chronic Qualifiers: Laterality: bilateral (17) History of recurrent UTIs Problem: Chronic (18) Hypertension Problem: Chronic Qualifiers: Hypertension type: essential hypertension Qualified Code(s): I10 - Essential (primary) hypertension (19) Hypoventilation associated with obesity syndrome Problem: Chronic (20) Immunosuppressed status Problem: Chronic (21) MRSA (methicillin resistant Staphylococcus aureus) carrier Problem: Inactive (22) Parkinsons Problem: Chronic (23) Pulmonary embolism Problem: Inactive Qualifiers: Pulmonary embolism type: other Chronicity: unspecified Acute cor pulmonale presence: without acute cor pulmonale Qualified Code(s): I26.99 - Other pulmonary embolism without acute cor pulmonale (24) Pulmonary hypertension Problem: Chronic (25) 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
[2016-12-28 16:55] LABS: Blood Urea Nitrogen 17 mg/dL (3-23)
[2016-12-28] MEDS: WARFARIN SODIUM 3 MG TABLET PO SCH (17:30)
[2016-12-28] MEDS: SIMVASTATIN 40 MG TABLET PO SCH (20:17)
--- NOTE | 2016-12-28 20:34 | PN ---
Subjective - Date and Time Seen Date: 12/28/16 Time: 20:32 Subjective Narrative: Generalized tonic clonic convulsion today. Better now. Gave Keppra, and will continue to give. Will continue IV antibiotics, and continue to monitor. Objective - Vitals Vitals: Last Vital Signs Temp 36.7 C 12/28/16 18:00 Pulse 101 H 12/28/16 20:16 Resp 20 12/28/16 18:00 BP 151/76 12/28/16 20:16 Pulse Ox 95 12/28/16 18:00 - Abnormal Lab Findings Abnormal Lab Findings: Abnormal Lab Results 12/28/16 12/28/16 12/28/16 Range/Units 05:35 05:35 05:35 RBC 2.86 L (4.2-5.4) M/mm3 Hgb 8.0 L (12.5-16.0) gm/dL Hct 26.1 L (37.0-47.0) % MCHC 30.7 L (32-36) g/dl RDW 18.5 H (11.5-14.0) % Immature Gran % (Auto) 1.60 H (0.001-0.429) % Immature Gran # (Auto) 0.08 H (0.000-0.0310) K/mm3 Neutrophils % 85.3 H (42-75.0) % Lymphocytes % 7.0 L (20-51) % Lymphocytes # 0.4 L (1.5-3.5) k/mm3 ESR 44 H (0-15) mm/hr PT 29.8 H (9.4-11.4) Seconds INR (Anticoag Therapy) 2.87 H (0.90-1.10) INR PTT ([place]) (24-32) Seconds pO2 (83.0-108.0) mmHg Total CO2 (19.0-24.0) mmol/L ABG O2 Sat (Measured) (94.0-98.0) % Anion Gap (6.8-13.8) mmol/L Est GFR (Non-Af Amer) (60-130) mL/min Random Glucose (70-110) mg/dL B-Natriuretic Peptide (5-550) pg/mL 12/28/16 12/28/16 12/28/16 Range/Units 05:35 16:10 16:10 RBC 3.44 L (4.2-5.4) M/mm3 Hgb 9.7 L (12.5-16.0) gm/dL Hct 31.3 L (37.0-47.0) % MCHC 31.0 L (32-36) g/dl RDW 18.8 H (11.5-14.0) % Immature Gran % (Auto) 4.00 H (0.001-0.429) % Immature Gran # (Auto) 0.30 H (0.000-0.0310) K/mm3 Neutrophils % 77.3 H (42-75.0) % Lymphocytes % 11.2 L (20-51) % Lymphocytes # 0.8 L (1.5-3.5) k/mm3 ESR (0-15) mm/hr PT (9.4-11.4) Seconds INR (Anticoag Therapy) (0.90-1.10) INR PTT ([place]) (24-32) Seconds pO2 69.0 L (83.0-108.0) mmHg Total CO2 25.1 H (19.0-24.0) mmol/L ABG O2 Sat (Measured) 93.1 L (94.0-98.0) % Anion Gap (6.8-13.8) mmol/L Est GFR (Non-Af Amer) 45 L (60-130) mL/min Random Glucose (70-110) mg/dL B-Natriuretic Peptide (5-550) pg/mL 12/28/16 12/28/16 Range/Units 16:10 16:10 RBC (4.2-5.4) M/mm3 Hgb (12.5-16.0) gm/dL Hct (37.0-47.0) % MCHC (32-36) g/dl RDW (11.5-14.0) % Immature Gran % (Auto) (0.001-0.429) % Immature Gran # (Auto) (0.000-0.0310) K/mm3 Neutrophils % (42-75.0) % Lymphocytes % (20-51) % Lymphocytes # (1.5-3.5) k/mm3 ESR (0-15) mm/hr PT 34.7 H (9.4-11.4) Seconds INR (Anticoag Therapy) 3.34 H (0.90-1.10) INR PTT ([place]) 33.2 H D (24-32) Seconds pO2 (83.0-108.0) mmHg Total CO2 (19.0-24.0) mmol/L ABG O2 Sat (Measured) (94.0-98.0) % Anion Gap 14.4 H (6.8-13.8) mmol/L Est GFR (Non-Af Amer) 42 L (60-130) mL/min Random Glucose 114 H D (70-110) mg/dL B-Natriuretic Peptide 2582 H (5-550) pg/mL Cauti Physician Documentation - Urinary Catheter Management Uretheral (Galo) Urethral Indwelling: No Date of Insertion: 12/18/16 Time of Insertion: 22:10 Date of Removal: 12/23/16 Time of Removal: 22:15 Assessment/Plan - Problems/Diagnosis (1) Cellulitis of wrist Problem: Acute (2) Hypokalemia Problem: Acute (3) Weakness generalized Problem: Acute (4) CHF (congestive heart failure) Problem: Acute Qualifiers: Congestive heart failure type: diastolic Congestive heart failure chronicity: acute on chronic Qualified Code(s): I50.33 - Acute on chronic diastolic (congestive) heart failure (5) Altered mental status Problem: Acute Qualifiers: Altered mental status type: delirium Qualified Code(s): R41.0 - Disorientation, unspecified (6) Clostridium difficile colitis Problem: Suspected (7) acute on chronic anemia Problem: Acute (8) Chronic congestive heart failure with left ventricular diastolic dysfunction Problem: Chronic (9) Chronic pain Problem: Chronic Qualifiers: Chronic pain type: other chronic pain Qualified Code(s): G89.29 - Other chronic pain (10) Chronic restrictive lung disease Problem: Chronic (11) 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 Problem: Chronic Qualifiers: 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 type: type 2 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 complication status: with other specified complication 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 termite renewal inspector insulin use: with termite renewal inspector use Qualified Code(s): E11.69 - Type 2 diabetes mellitus with other specified complication; Z79.4 - ferry terminal agent (current) use of insulin (12) GERD (gastroesophageal reflux disease) Problem: Chronic Qualifiers: Esophagitis presence: without esophagitis Qualified Code(s): K21.9 - Gastro -esophageal reflux disease without esophagitis (13) Gallstones Problem: Chronic Qualifiers: Cholecystitis presence: without cholecystitis Biliary obstruction: without biliary obstruction Qualified Code(s): K80.20 - Calculus of gallbladder without cholecystitis without obstruction (14) Gout Problem: Acute Qualifiers: Gout site: multiple sites Gout etiology: idiopathic Chronicity: chronic Presence of tophus: without tophus Qualified Code(s): M1A.09X0 - Idiopathic chronic gout, multiple sites, without tophus (tophi) (15) HLD (hyperlipidemia) Problem: Chronic Qualifiers: Hyperlipidemia type: mixed hyperlipidemia Qualified Code(s): E78.2 - Mixed hyperlipidemia (16) [place] (hard of hearing) Problem: Chronic Qualifiers: Laterality: bilateral (17) History of recurrent UTIs Problem: Chronic (18) Hypertension Problem: Chronic Qualifiers: Hypertension type: essential hypertension Qualified Code(s): I10 - Essential (primary) hypertension (19) Hypoventilation associated with obesity syndrome Problem: Chronic (20) Immunosuppressed status Problem: Chronic (21) MRSA (methicillin resistant Staphylococcus aureus) carrier Problem: Inactive (22) Parkinsons Problem: Chronic (23) Pulmonary embolism Problem: Inactive Qualifiers: Pulmonary embolism type: other Chronicity: unspecified Acute cor pulmonale presence: without acute cor pulmonale Qualified Code(s): I26.99 - Other pulmonary embolism without acute cor pulmonale (24) Pulmonary hypertension Problem: Chronic (25) 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
[2016-12-28 23:00] LABS: Urine Bilirubin Negative (NEGATIVE); Urine Blood Negative /ul (NEGATIVE); Urine Ketone Negative (NEGATIVE); Urine Nitrite Negative (NEGATIVE); Urine Protein Negative (NEGATIVE); Urine Urobilinogen Normal (NORMAL); Urine pH 5.5 pH (5.0-7.0)
[2016-12-28 23:08] LABS: Urine Appearance Clear; Urine Bacteria None Seen; Urine Color Yellow; Urine RBC None Seen /hpf (0-5); Urine WBC None Seen /hpf (0-5)
[2016-12-29] MEDS: VANCOMYCIN HCL 50 MG/ML BTL PO SCH ×4 (00:32→17:29)
[2016-12-29] MEDS: hydrALAZINE HCL 50 MG TABLET PO SCH ×4 (00:33→19:46)
[2016-12-29] MEDS: POLYVINYL ALCOHOL 150 DROP BTL OP SCH ×6 (01:20→21:12)
[2016-12-29] MEDS: AMPICILLIN SODIUM/SULBACTAM NA 1.5 GM in NORMAL SALINE 100 ML IV SCH ×4 (01:20→19:32)
[2016-12-29] MEDS: INSULIN LISPRO 100 UNITS/ML VIAL SC SCH ×3 (06:50→16:36)
[2016-12-29] MEDS: ONDANSETRON HCL 4 MG TABLET PO SCH ×4 (07:33→21:11)
[2016-12-29] MEDS: INSULIN DETEMIR 100 UNITS/ML VIAL SC SCH ×2 (07:35→19:58)
--- NOTE | 2016-12-29 07:47 | PN ---
Subjective - Date and Time Seen Date: 12/29/16 Time: 07:40 Subjective Narrative: Generalized tonic clonic convulsion yesterday.None since. Gave Keppra IV, and will continue to give, but we will reduce the dose because of ongoing sedation. Will continue IV antibiotics, and continue to monitor. Pulse slow, will give less carvedilol. Blood sugars low, not eating well, will give less insulin. Slow respiratory rate, and requires BiPap to continue respirations. Objective - Review of Systems Generalized/Overall Review: Reports: No Symptoms Reported - somonolent, poor historian - Vitals Vitals: Last Vital Signs Selected Entries 12/29/16 12/29/16 06:23 06:54 Temperature 36.3 C L Temperature Axillary Source Pulse Rate 54 L 54 L Respiratory 16 Rate Respiratory Normal Depth Blood Pressure 151/60 151/60 Blood Pressure Supine Position O2 Sat by Pulse 96 Oximetry Oxygen Delivery Bi-pap Method - Abnormal Lab Findings Abnormal Lab Findings: Abnormal Lab Results 12/28/16 12/28/16 12/28/16 Range/Units 05:35 16:10 16:10 RBC 3.44 L (4.2-5.4) M/mm3 Hgb 9.7 L (12.5-16.0) gm/dL Hct 31.3 L (37.0-47.0) % MCHC 31.0 L (32-36) g/dl RDW 18.8 H (11.5-14.0) % Immature Gran % (Auto) 4.00 H (0.001-0.429) % Immature Gran # (Auto) 0.30 H (0.000-0.0310) K/mm3 Neutrophils % 77.3 H (42-75.0) % Lymphocytes % 11.2 L (20-51) % Lymphocytes # 0.8 L (1.5-3.5) k/mm3 ESR 44 H (0-15) mm/hr PT (9.4-11.4) Seconds INR (Anticoag Therapy) (0.90-1.10) INR PTT ([place]) (24-32) Seconds pO2 69.0 L (83.0-108.0) mmHg Total CO2 25.1 H (19.0-24.0) mmol/L ABG O2 Sat (Measured) 93.1 L (94.0-98.0) % Anion Gap (6.8-13.8) mmol/L Est GFR (Non-Af Amer) (60-130) mL/min Random Glucose (70-110) mg/dL B-Natriuretic Peptide (5-550) pg/mL 12/28/16 12/28/16 Range/Units 16:10 16:10 RBC (4.2-5.4) M/mm3 Hgb (12.5-16.0) gm/dL Hct (37.0-47.0) % MCHC (32-36) g/dl RDW (11.5-14.0) % Immature Gran % (Auto) (0.001-0.429) % Immature Gran # (Auto) (0.000-0.0310) K/mm3 Neutrophils % (42-75.0) % Lymphocytes % (20-51) % Lymphocytes # (1.5-3.5) k/mm3 ESR (0-15) mm/hr PT 34.7 H (9.4-11.4) Seconds INR (Anticoag Therapy) 3.34 H (0.90-1.10) INR PTT ([place]) 33.2 H D (24-32) Seconds pO2 (83.0-108.0) mmHg Total CO2 (19.0-24.0) mmol/L ABG O2 Sat (Measured) (94.0-98.0) % Anion Gap 14.4 H (6.8-13.8) mmol/L Est GFR (Non-Af Amer) 42 L (60-130) mL/min Random Glucose 114 H D (70-110) mg/dL B-Natriuretic Peptide 2582 H (5-550) pg/mL - Exam Constitutional: Present: Well developed, Obtunded, Obese ENT Exam: Present: normal ENT inspection Neck: Present: normal inspection Respiratory: Present: lungs clear, no respiratory distress Cardiovascular/Chest: Present: regular rate, rhythm, no murmur, bradycardia Abdomen: Present: Normal bowel sounds, soft, nondistended, no hepatospenomegaly , no masses 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 Decrease Keppra. Continue IV antibiotics. Follow labs. - Problems/Diagnosis (1) Cellulitis of wrist Problem: Acute (2) Hypokalemia Problem: Acute (3) Weakness generalized Problem: Acute (4) CHF (congestive heart failure) Problem: Acute Qualifiers: Congestive heart failure type: diastolic Congestive heart failure chronicity: acute on chronic Qualified Code(s): I50.33 - Acute on chronic diastolic (congestive) heart failure (5) Altered mental status Problem: Acute Qualifiers: Altered mental status type: delirium Qualified Code(s): R41.0 - Disorientation, unspecified (6) Clostridium difficile colitis Problem: Suspected (7) acute on chronic anemia Problem: Acute (8) Chronic congestive heart failure with left ventricular diastolic dysfunction Problem: Chronic (9) Chronic pain Problem: Chronic Qualifiers: Chronic pain type: other chronic pain Qualified Code(s): G89.29 - Other chronic pain (10) Chronic restrictive lung disease Problem: Chronic (11) 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 Problem: Chronic Qualifiers: 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 type: type 2 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 complication status: with other specified complication 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 correction insulin use: with correction use Qualified Code(s): E11.69 - Type 2 diabetes mellitus with other specified complication; Z79.4 - termite control servicer (current) use of insulin (12) GERD (gastroesophageal reflux disease) Problem: Chronic Qualifiers: Esophagitis presence: without esophagitis Qualified Code(s): K21.9 - Gastro -esophageal reflux disease without esophagitis (13) Gallstones Problem: Chronic Qualifiers: Cholecystitis presence: without cholecystitis Biliary obstruction: without biliary obstruction Qualified Code(s): K80.20 - Calculus of gallbladder without cholecystitis without obstruction (14) Gout Problem: Acute Qualifiers: Gout site: multiple sites Gout etiology: idiopathic Chronicity: chronic Presence of tophus: without tophus Qualified Code(s): M1A.09X0 - Idiopathic chronic gout, multiple sites, without tophus (tophi) (15) HLD (hyperlipidemia) Problem: Chronic Qualifiers: Hyperlipidemia type: mixed hyperlipidemia Qualified Code(s): E78.2 - Mixed hyperlipidemia (16) [place] (hard of hearing) Problem: Chronic Qualifiers: Laterality: bilateral (17) History of recurrent UTIs Problem: Chronic (18) Hypertension Problem: Chronic Qualifiers: Hypertension type: essential hypertension Qualified Code(s): I10 - Essential (primary) hypertension (19) Hypoventilation associated with obesity syndrome Problem: Chronic (20) Immunosuppressed status Problem: Chronic (21) MRSA (methicillin resistant Staphylococcus aureus) carrier Problem: Inactive (22) Parkinsons Problem: Chronic (23) Pulmonary embolism Problem: Inactive Qualifiers: Pulmonary embolism type: other Chronicity: unspecified Acute cor pulmonale presence: without acute cor pulmonale Qualified Code(s): I26.99 - Other pulmonary embolism without acute cor pulmonale (24) Pulmonary hypertension Problem: Chronic (25) 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
[2016-12-29 08:21] LABS: Prothrombin Time (Patient) 40.2 Seconds (9.4-11.4)
[2016-12-29 08:23] LABS: INR 3.87 INR (0.90-1.10)
[2016-12-29] MEDS ORDERED: VANCOMYCIN HCL LEVEL XX ONE (08:30)
[2016-12-29] MEDS: LISINOPRIL 20 MG TABLET PO SCH ×2 (09:06→21:10)
[2016-12-29] MEDS: LACTOBACILLUS ACIDOPHILUS 100 CAP BTL PO SCH ×4 (09:06→21:08)
[2016-12-29] MEDS: FOLIC ACID 1 MG TABLET PO SCH (09:07)
[2016-12-29] MEDS: POTASSIUM CHLORIDE 20 MEQ TABLET.SA PO SCH (09:07)
[2016-12-29] MEDS: MULTIVITAMINS 1 CAP CAPSULE PO SCH (09:08)
[2016-12-29] MEDS: CARVEDILOL 6.25 MG TABLET PO SCH ×2 (09:09→21:09)
[2016-12-29] MEDS: NYSTATIN 15 APPL TUBE TP SCH ×2 (09:10→21:12)
[2016-12-29] MEDS: CHOLECALCIFEROL 1,000 UNIT CAPSULE PO SCH (09:11)
[2016-12-29] MEDS: LEVOFLOXACIN/D5W 500 MG/100 ML BAG IV SCH (09:13)
[2016-12-29] MEDS: FUROSEMIDE 20 MG TABLET PO SCH (11:00)
[2016-12-29] MEDS ORDERED: ONDANSETRON 8 MG TAB.RAPDIS PO PRN (19:56)
[2016-12-29] MEDS: FUROSEMIDE 10 MG/ML VIAL IV SCH (20:59)
[2016-12-29] MEDS: SIMVASTATIN 40 MG TABLET PO SCH (21:11)
[2016-12-30] MEDS: VANCOMYCIN HCL 50 MG/ML BTL PO SCH ×4 (00:33→17:51)
[2016-12-30] MEDS: hydrALAZINE HCL 50 MG TABLET PO SCH ×4 (00:34→19:43)
[2016-12-30] MEDS: AMPICILLIN SODIUM/SULBACTAM NA 1.5 GM in NORMAL SALINE 100 ML IV SCH ×4 (01:59→19:45)
[2016-12-30] MEDS: POLYVINYL ALCOHOL 150 DROP BTL OP SCH ×5 (01:59→17:51)
[2016-12-30 06:50] LABS: Hemoglobin 8.9 gm/dL (12.5-16.0); Mean Cell Volume 91.2 fl (78-100); Mean Corpuscular Hgb Conc 30.7 g/dl (32-36); Mean Platelet Volume 10.3 fl (6.0-9.5); Neutrophil % 71.4 % (42-75.0); Platelet Count 157 K/mm3 (150-450); Red Blood Count 3.18 M/mm3 (4.2-5.4); Red Cell Distribution Width 18.6 % (11.5-14.0); White Blood Count 2.8 K/mm3 (4.0-10.5)
[2016-12-30 06:52] LABS: Anion Gap 9.1 mmol/L (6.8-13.8); BUN/Creatinine Ratio 12.5 (9.0-21.6); CRP 0.3 mg/dL (0.0-0.9); Calcium * 8.6 mg/dL (7.9-10.9); Carbon Dioxide 33.1 mmol/L (24-32.6); Estimated Creat Clear 33.3; Potassium 3.2 mmol/L (3.4-4.6)
[2016-12-30 07:00] LABS: Prothrombin Time (Patient) 31.9 Seconds (9.4-11.4)
[2016-12-30 07:05] LABS: INR 3.07 INR (0.90-1.10)
[2016-12-30] MEDS: ONDANSETRON HCL 4 MG TABLET PO SCH ×4 (07:49→20:02)
[2016-12-30] MEDS: FUROSEMIDE 10 MG/ML VIAL IV SCH ×2 (07:51→19:45)
[2016-12-30] MEDS: LEVOFLOXACIN/D5W 500 MG/100 ML BAG IV SCH (08:52)
[2016-12-30] MEDS: POTASSIUM CHLORIDE 20 MEQ TABLET.SA PO SCH ×2 (08:56→20:02)
[2016-12-30] MEDS: CARVEDILOL 6.25 MG TABLET PO SCH ×2 (08:56→20:02)
[2016-12-30] MEDS: FOLIC ACID 1 MG TABLET PO SCH (08:56)
[2016-12-30] MEDS: LISINOPRIL 20 MG TABLET PO SCH ×2 (08:57→20:02)
[2016-12-30] MEDS: MULTIVITAMINS 1 CAP CAPSULE PO SCH (08:57)
[2016-12-30] MEDS: CHOLECALCIFEROL 1,000 UNIT CAPSULE PO SCH (08:57)
[2016-12-30] MEDS: NYSTATIN 15 APPL TUBE TP SCH ×2 (08:57→20:03)
[2016-12-30] MEDS: LACTOBACILLUS ACIDOPHILUS 100 CAP BTL PO SCH ×4 (08:58→20:02)
[2016-12-30] MEDS: VANCOMYCIN HCL 1 GM in DEXTROSE 5 % IN WATER 250 ML IV SCH ×2 (10:02)
[2016-12-30] MEDS: ACETAMINOPHEN 325 MG TABLET PO PRN (12:15)
--- NOTE | 2016-12-30 16:40 | PN ---
Subjective - Date and Time Seen Date: 12/30/16 Time: 07:00 Subjective Narrative: Generalized tonic clonic convulsion 2 days ago. None since. Gave Keppra IV, and will continue to give, but we will reduce the dose because of ongoing sedation. Will continue IV antibiotics, and continue to monitor. Pulse slow, are giving less carvedilol. Blood sugars low, not eating well, have stopped insulin. Slow respiratory rate, and requires BiPap to continue respirations. This morning I couldn't wake her, but yesterday was more awake, took some meds and ate some foods. Objective - Review of Systems Generalized/Overall Review: Reports: No Symptoms Reported - unable to inquire, as she would not wake up this morning. - Vitals Vitals: Last Vital Signs Selected Entries 12/30/16 06:19 Temperature 36.5 C Temperature Oral Source Pulse Rate 54 L Respiratory 16 Rate Blood Pressure 145/52 O2 Sat by Pulse 97 Oximetry Oxygen Delivery Bi-pap Method - Abnormal Lab Findings Abnormal Lab Findings: Abnormal Lab Results 12/30/16 12/30/16 12/30/16 Range/Units 06:36 06:36 06:36 WBC 2.8 L D (4.0-10.5) K/mm3 RBC 3.18 L (4.2-5.4) M/mm3 Hgb 8.9 L (12.5-16.0) gm/dL Hct 29.0 L (37.0-47.0) % MCHC 30.7 L (32-36) g/dl RDW 18.6 H (11.5-14.0) % MPV 10.3 H (6.0-9.5) fl Immature Gran % (Auto) 1.10 H (0.001-0.429) % Lymphocytes % 16.4 L (20-51) % Monocytes % 10.0 H (0.0-9) % Lymphocytes # 0.5 L (1.5-3.5) k/mm3 ESR 28 H (0-15) mm/hr PT 31.9 H (9.4-11.4) Seconds INR (Anticoag Therapy) 3.07 H (0.90-1.10) INR Sodium (132-142) mmol/L Plasma Sodium (130-142) mmol/L Potassium (3.4-4.6) mmol/L Carbon Dioxide (24-32.6) mmol/L Est GFR (Non-Af Amer) (60-130) mL/min 12/30/16 Range/Units 06:36 WBC (4.0-10.5) K/mm3 RBC (4.2-5.4) M/mm3 Hgb (12.5-16.0) gm/dL Hct (37.0-47.0) % MCHC (32-36) g/dl RDW (11.5-14.0) % MPV (6.0-9.5) fl Immature Gran % (Auto) (0.001-0.429) % Lymphocytes % (20-51) % Monocytes % (0.0-9) % Lymphocytes # (1.5-3.5) k/mm3 ESR (0-15) mm/hr PT (9.4-11.4) Seconds INR (Anticoag Therapy) (0.90-1.10) INR Sodium 143 H (132-142) mmol/L Plasma Sodium 143 H (130-142) mmol/L Potassium 3.2 L (3.4-4.6) mmol/L Carbon Dioxide 33.1 H (24-32.6) mmol/L Est GFR (Non-Af Amer) 50 L (60-130) mL/min - Exam Constitutional: Present: Somnolent ENT Exam: Present: normal ENT inspection Neck: Present: normal inspection Respiratory: Present: lungs clear, no respiratory distress Cardiovascular/Chest: Present: regular rate, rhythm, no murmur Abdomen: Present: Normal bowel sounds, soft, nondistended, no hepatospenomegaly , no masses Extremity: Present: pedal edema - slight, left leg. amputation right leg. Neurologic: Present: other Appearance: Present: appropriate appearance, neat Cauti Physician Documentation - Urinary Catheter Management Uretheral (Galo) Urethral Indwelling: No Date of Insertion: 12/18/16 Time of Insertion: 22:10 Date of Removal: 12/23/16 Time of Removal: 22:15 Assessment/Plan Plan Narrative: Decrease Keppra dose. Follow labs. Continue IV antibiotics and BiPap. Discharge date as yet uncertain. - Problems/Diagnosis (1) Cellulitis of wrist Problem: Acute (2) Hypokalemia Problem: Acute (3) Weakness generalized Problem: Acute (4) CHF (congestive heart failure) Problem: Acute Qualifiers: Congestive heart failure type: diastolic Congestive heart failure chronicity: acute on chronic Qualified Code(s): I50.33 - Acute on chronic diastolic (congestive) heart failure (5) Altered mental status Problem: Acute Qualifiers: Altered mental status type: delirium Qualified Code(s): R41.0 - Disorientation, unspecified (6) Clostridium difficile colitis Problem: Suspected (7) acute on chronic anemia Problem: Acute (8) Chronic congestive heart failure with left ventricular diastolic dysfunction Problem: Chronic (9) Chronic pain Problem: Chronic Qualifiers: Chronic pain type: other chronic pain Qualified Code(s): G89.29 - Other chronic pain (10) Chronic restrictive lung disease Problem: Chronic (11) 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 Problem: Chronic Qualifiers: 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 type: type 2 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 complication status: with other specified complication 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 penitentiary insulin use: with ad terminal makeup operator use Qualified Code(s): E11.69 - Type 2 diabetes mellitus with other specified complication; Z79.4 - exterminator helper termite (current) use of insulin (12) GERD (gastroesophageal reflux disease) Problem: Chronic Qualifiers: Esophagitis presence: without esophagitis Qualified Code(s): K21.9 - Gastro -esophageal reflux disease without esophagitis (13) Gallstones Problem: Chronic Qualifiers: Cholecystitis presence: without cholecystitis Biliary obstruction: without biliary obstruction Qualified Code(s): K80.20 - Calculus of gallbladder without cholecystitis without obstruction (14) Gout Problem: Acute Qualifiers: Gout site: multiple sites Gout etiology: idiopathic Chronicity: chronic Presence of tophus: without tophus Qualified Code(s): M1A.09X0 - Idiopathic chronic gout, multiple sites, without tophus (tophi) (15) HLD (hyperlipidemia) Problem: Chronic Qualifiers: Hyperlipidemia type: mixed hyperlipidemia Qualified Code(s): E78.2 - Mixed hyperlipidemia (16) TIMBI-SHA SHOSHONE (hard of hearing) Problem: Chronic Qualifiers: Laterality: bilateral (17) History of recurrent UTIs Problem: Chronic (18) Hypertension Problem: Chronic Qualifiers: Hypertension type: essential hypertension Qualified Code(s): I10 - Essential (primary) hypertension (19) Hypoventilation associated with obesity syndrome Problem: Chronic (20) Immunosuppressed status Problem: Chronic (21) MRSA (methicillin resistant Staphylococcus aureus) carrier Problem: Inactive (22) Parkinsons Problem: Chronic (23) Pulmonary embolism Problem: Inactive Qualifiers: Pulmonary embolism type: other Chronicity: unspecified Acute cor pulmonale presence: without acute cor pulmonale Qualified Code(s): I26.99 - Other pulmonary embolism without acute cor pulmonale (24) Pulmonary hypertension Problem: Chronic (25) 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
[2016-12-30] MEDS: LEVETIRACETAM IV SCH (17:22)
[2016-12-30] MEDS: NORMAL SALINE IV SCH (17:22)
[2016-12-30] MEDS: SIMVASTATIN 40 MG TABLET PO SCH (20:02)
[2016-12-31] MEDS: POLYVINYL ALCOHOL 150 DROP BTL OP SCH ×7 (00:01→21:43)
[2016-12-31] MEDS: hydrALAZINE HCL 50 MG TABLET PO SCH ×4 (00:03→21:41)
[2016-12-31] MEDS: VANCOMYCIN HCL 50 MG/ML BTL PO SCH ×4 (00:08→17:55)
[2016-12-31] MEDS: AMPICILLIN SODIUM/SULBACTAM NA 1.5 GM in NORMAL SALINE 100 ML IV SCH ×4 (02:16→21:42)
[2016-12-31] MEDS: NORMAL SALINE IV SCH ×2 (05:17→17:48)
[2016-12-31] MEDS: LEVETIRACETAM IV SCH ×2 (05:17→17:48)
[2016-12-31 06:13] LABS: Hematocrit 26.9 % (37.0-47.0); Hemoglobin 8.4 gm/dL (12.5-16.0); Mean Cell Volume 90.3 fl (78-100); Mean Corpuscular Hemoglobin 28.2 pg (27-31); Mean Corpuscular Hgb Conc 31.2 g/dl (32-36); Mean Platelet Volume 8.9 fl (6.0-9.5); Neutrophil # 2.3 K/mm3 (1.3-6.0); Neutrophil % 71.4 % (42-75.0); Platelet Count 125 K/mm3 (150-450); Red Blood Count 2.98 M/mm3 (4.2-5.4); Red Cell Distribution Width 18.5 % (11.5-14.0); White Blood Count 3.2 K/mm3 (4.0-10.5)
[2016-12-31 06:21] LABS: Anion Gap 8.8 mmol/L (6.8-13.8); BUN/Creatinine Ratio 12.5 (9.0-21.6); Blood Urea Nitrogen 17 mg/dL (3-23); Calcium * 8.4 mg/dL (7.9-10.9); Carbon Dioxide 34.3 mmol/L (24-32.6); Chloride 103 mmol/L (97-106); Estimated Creat Clear 27.4; Glucose * 122 mg/dL (70-110); Potassium 3.1 mmol/L (3.4-4.6); Sodium 143 mmol/L (132-142)
[2016-12-31] MEDS: ONDANSETRON HCL 4 MG TABLET PO SCH ×4 (08:04→21:41)
[2016-12-31] MEDS: FUROSEMIDE 10 MG/ML VIAL IV SCH ×2 (08:04→21:32)
[2016-12-31 08:38] LABS: INR 1.63 INR (0.90-1.10)
[2016-12-31] MEDS: LEVOFLOXACIN/D5W 500 MG/100 ML BAG IV SCH (08:54)
[2016-12-31] MEDS: LISINOPRIL 20 MG TABLET PO SCH ×2 (08:57→21:39)
[2016-12-31] MEDS: FOLIC ACID 1 MG TABLET PO SCH (08:57)
[2016-12-31] MEDS: POTASSIUM CHLORIDE 20 MEQ TABLET.SA PO SCH ×2 (08:57→21:38)
[2016-12-31] MEDS: CARVEDILOL 6.25 MG TABLET PO SCH ×2 (08:57→21:40)
[2016-12-31] MEDS: CHOLECALCIFEROL 1,000 UNIT CAPSULE PO SCH (08:57)
[2016-12-31] MEDS: LACTOBACILLUS ACIDOPHILUS 100 CAP BTL PO SCH ×4 (08:57→21:39)
[2016-12-31] MEDS: NYSTATIN 15 APPL TUBE TP SCH ×2 (08:58→21:37)
[2016-12-31] MEDS: MULTIVITAMINS 1 CAP CAPSULE PO SCH (08:58)
[2016-12-31] MEDS: VANCOMYCIN HCL 1 GM in DEXTROSE 5 % IN WATER 250 ML IV SCH ×2 (09:58)
--- NOTE | 2016-12-31 16:35 | PN ---
Subjective - Date and Time Seen Date: 12/31/16 Time: 09:40 Subjective Narrative: Patient seen and examined at bedside. [id number] also at bedside. I spoke with the patient and her [id number] at length this AM about the plan of care. I later talked on the phone with the patient's son, Jaylen. He is planning on talking with his family this weekend and will likely change the patient to DNR. However, at this point in time he is "hopeful" and would like to continue with all current cares including BiPAP at this time. The patient is alert and talking this AM. She denies any pain. Objective - Review of Systems Generalized/Overall Review: Reports: No Symptoms Reported EENTM: Reports: No Symptoms Reported Respiratory: Reports: No Symptoms Reported Cardiac: Reports: No Symptoms Reported Abdominal: Reports: No Symptoms Reported Genitourinary Symptoms: Reports: No Symptoms Reported Musculoskeletal Complaints: Reports: No Symptoms Reported Neurological: Reports: No Symptoms Reported Skin: Reports: No Symptoms Reported Endocrine: Reports: No Symptoms Reported Misc: All systems neg except as marked - Vitals Vitals: Last Vital Signs Temp 36.7 C 12/31/16 10:49 Pulse 71 12/31/16 13:35 Resp 24 H 12/31/16 10:49 BP 142/65 12/31/16 13:35 Pulse Ox 98 12/31/16 10:49 - Abnormal Lab Findings Abnormal Lab Findings: Abnormal Lab Results 12/31/16 12/31/16 12/31/16 Range/Units 06:10 06:10 06:10 WBC 3.2 L (4.0-10.5) K/mm3 RBC 2.98 L (4.2-5.4) M/mm3 Hgb 8.4 L (12.5-16.0) gm/dL Hct 26.9 L (37.0-47.0) % MCHC 31.2 L (32-36) g/dl RDW 18.5 H (11.5-14.0) % Plt Count 125 L (150-450) K/mm3 Immature Gran % (Auto) 0.60 H (0.001-0.429) % Lymphocytes % 16.4 L (20-51) % Monocytes % 11.0 H (0.0-9) % Lymphocytes # 0.5 L (1.5-3.5) k/mm3 ESR 23 H (0-15) mm/hr PT (9.4-11.4) Seconds INR (Anticoag Therapy) (0.90-1.10) INR Sodium 143 H (132-142) mmol/L Plasma Sodium 143 H (130-142) mmol/L Potassium 3.1 L (3.4-4.6) mmol/L Carbon Dioxide 34.3 H (24-32.6) mmol/L Est GFR (Non-Af Amer) 40 L (60-130) mL/min Random Glucose 122 H D (70-110) mg/dL 12/31/16 Range/Units 08:13 WBC (4.0-10.5) K/mm3 RBC (4.2-5.4) M/mm3 Hgb (12.5-16.0) gm/dL Hct (37.0-47.0) % MCHC (32-36) g/dl RDW (11.5-14.0) % Plt Count (150-450) K/mm3 Immature Gran % (Auto) (0.001-0.429) % Lymphocytes % (20-51) % Monocytes % (0.0-9) % Lymphocytes # (1.5-3.5) k/mm3 ESR (0-15) mm/hr PT 17.0 H (9.4-11.4) Seconds INR (Anticoag Therapy) 1.63 H (0.90-1.10) INR Sodium (132-142) mmol/L Plasma Sodium (130-142) mmol/L Potassium (3.4-4.6) mmol/L Carbon Dioxide (24-32.6) mmol/L Est GFR (Non-Af Amer) (60-130) mL/min Random Glucose (70-110) mg/dL - Exam Constitutional: Present: Alert, No distress, Elderly, Obese ENT Exam: Present: moist mucous membranes Respiratory: Present: lungs clear, normal breath sounds, no respiratory distress Cardiovascular/Chest: Present: regular rate, rhythm, systolic murmur Abdomen: Present: Normal bowel sounds, soft, nontender Skin Exam: Present: normal color, warm/dry Neurologic: Present: alert Cauti Physician Documentation - Urinary Catheter Management Uretheral (Galo) Urethral Indwelling: No Date of Insertion: 12/18/16 Time of Insertion: 22:10 Date of Removal: 12/23/16 Time of Removal: 22:15 Assessment/Plan Plan Narrative: I am covering for Dr. KANG for the next 3 days. This a complex case of a patient with multiple medical issues as well as social and discharge issues as well. I spoke with both the [id number] and son today to discuss their wishes and their expectations for the patient's plan of care. At this time, the son is hopeful and would like to continue with all current cares. He would also like the patient to wear BiPAP so at this time she should be placed on BiPAP at all times while sleeping, including napping during the day. Patient will likely remain inpatient this week and it is unlikely the patient will be discharged prior to Dr. KANG's return. - Problems/Diagnosis (1) Chronic congestive heart failure with left ventricular diastolic dysfunction Problem: Chronic (2) Acute respiratory failure with hypoxia and hypercapnia Problem: Resolved (3) CO2 retention Problem: Chronic (4) Hypoventilation associated with obesity syndrome Problem: Chronic
[2016-12-31] MEDS ORDERED: WARFARIN SODIUM 3 MG TABLET PO SCH (17:00)
[2016-12-31] MEDS: INSULIN LISPRO 100 UNITS/ML VIAL SC SCH (17:38)
[2016-12-31] MEDS: ACETAMINOPHEN 325 MG TABLET PO PRN (17:41)
[2016-12-31] MEDS: WARFARIN SODIUM 3 MG TABLET PO SCH (17:52)
[2016-12-31] MEDS: SIMVASTATIN 40 MG TABLET PO SCH (21:39)
[2017-01-01] MEDS: AMPICILLIN SODIUM/SULBACTAM NA 1.5 GM in NORMAL SALINE 100 ML IV SCH ×2 (01:16→08:48)
[2017-01-01] MEDS: POLYVINYL ALCOHOL 150 DROP BTL OP SCH ×6 (01:17→23:59)
[2017-01-01] MEDS: hydrALAZINE HCL 50 MG TABLET PO SCH ×4 (01:18→19:58)
[2017-01-01] MEDS: VANCOMYCIN HCL 50 MG/ML BTL PO SCH ×5 (01:21→23:59)
[2017-01-01] MEDS: LEVETIRACETAM IV SCH ×2 (05:38→17:55)
[2017-01-01] MEDS: NORMAL SALINE IV SCH ×2 (05:38→17:55)
[2017-01-01] MEDS: INSULIN LISPRO 100 UNITS/ML VIAL SC SCH ×3 (06:34→17:51)
[2017-01-01 07:09] LABS: Hematocrit 27.7 % (37.0-47.0); Hemoglobin 8.7 gm/dL (12.5-16.0); Mean Cell Volume 89.9 fl (78-100); Mean Corpuscular Hemoglobin 28.2 pg (27-31); Mean Corpuscular Hgb Conc 31.4 g/dl (32-36); Mean Platelet Volume 10.1 fl (6.0-9.5); Platelet Count 131 K/mm3 (150-450); Red Blood Count 3.08 M/mm3 (4.2-5.4); Red Cell Distribution Width 18.7 % (11.5-14.0); White Blood Count 3.2 K/mm3 (4.0-10.5)
[2017-01-01 07:13] LABS: Prothrombin Time (Patient) 13.4 Seconds (9.4-11.4)
[2017-01-01] MEDS: ONDANSETRON HCL 4 MG TABLET PO SCH ×4 (07:13→20:03)
[2017-01-01] MEDS: FUROSEMIDE 10 MG/ML VIAL IV SCH ×2 (07:22→19:59)
[2017-01-01 07:23] LABS: INR 1.29 INR (0.90-1.10)
[2017-01-01] MEDS: LEVOFLOXACIN/D5W 500 MG/100 ML BAG IV SCH (07:23)
[2017-01-01 07:27] LABS: Anion Gap 8.9 mmol/L (6.8-13.8); BUN/Creatinine Ratio 11.9 (9.0-21.6); Calcium * 8.4 mg/dL (7.9-10.9); Carbon Dioxide 33.5 mmol/L (24-32.6); Estimated Creat Clear 27.6; Potassium 3.4 mmol/L (3.4-4.6)
--- NOTE | 2017-01-01 08:34 | PN ---
Subjective - Date and Time Seen Date: 01/01/17 Time: 08:34 Subjective Narrative: Ms. Samson had no acute events overnight. She reports pain around her IV site. No N/V. Appetite has been relatively poor. She denies shortness of breath. She continues to use Bipap overnight. Objective - Review of Systems Generalized/Overall Review: Reports: No Symptoms Reported EENTM: Reports: No Symptoms Reported Respiratory: Reports: No Symptoms Reported, Shortness of Breath Cardiac: Reports: No Symptoms Reported Abdominal: Reports: No Symptoms Reported - Poor appetite. - Vitals Vitals: Last Vital Signs Temp 36.7 C 01/01/17 07:15 Pulse 58 L 01/01/17 07:22 Resp 18 01/01/17 07:15 BP 147/66 01/01/17 07:22 Pulse Ox 97 01/01/17 07:15 - Abnormal Lab Findings Abnormal Lab Findings: Abnormal Lab Results 12/31/16 01/01/17 01/01/17 Range/Units 08:13 06:00 06:00 WBC 3.2 L (4.0-10.5) K/mm3 RBC 3.08 L (4.2-5.4) M/mm3 Hgb 8.7 L (12.5-16.0) gm/dL Hct 27.7 L (37.0-47.0) % MCHC 31.4 L (32-36) g/dl RDW 18.7 H (11.5-14.0) % Plt Count 131 L (150-450) K/mm3 MPV 10.1 H (6.0-9.5) fl PT 17.0 H 13.4 H (9.4-11.4) Seconds INR (Anticoag Therapy) 1.63 H 1.29 H (0.90-1.10) INR Carbon Dioxide (24-32.6) mmol/L Est GFR (Non-Af Amer) (60-130) mL/min Random Glucose (70-110) mg/dL 01/01/17 Range/Units 06:00 WBC (4.0-10.5) K/mm3 RBC (4.2-5.4) M/mm3 Hgb (12.5-16.0) gm/dL Hct (37.0-47.0) % MCHC (32-36) g/dl RDW (11.5-14.0) % Plt Count (150-450) K/mm3 MPV (6.0-9.5) fl PT (9.4-11.4) Seconds INR (Anticoag Therapy) (0.90-1.10) INR Carbon Dioxide 33.5 H (24-32.6) mmol/L Est GFR (Non-Af Amer) 40 L (60-130) mL/min Random Glucose 114 H (70-110) mg/dL - Exam Constitutional: Present: Alert - Oriented to self and place. ENT Exam: Present: normal ENT inspection - Edentulous Neck: Present: non-tender Respiratory: Present: lungs clear - Diminished throughout. Abdomen: Present: Normal bowel sounds, soft, nontender, nondistended Skin Exam: Present: normal color, warm/dry - Scattered areas of ecchymosis on bilateral upper extremities. Lymphatic: Present: no adenopathy Neurologic: Present: contracts intern II-XII nml as tested Appearance: Present: appropriate appearance Eye contact: Present: cooperative Cauti Physician Documentation - Urinary Catheter Management Uretheral (Galo) Urethral Indwelling: No Date of Insertion: 12/18/16 Time of Insertion: 22:10 Date of Removal: 12/23/16 Time of Removal: 22:15 Assessment/Plan - Problems/Diagnosis (1) CHF (congestive heart failure) Problem: Acute Qualifiers: Congestive heart failure type: diastolic Congestive heart failure chronicity: acute on chronic Qualified Code(s): I50.33 - Acute on chronic diastolic (congestive) heart failure Narrative: Continue furosemide 60 mg IV every 12 hours. No signs of volume overload at this time. (2) Cellulitis of wrist Problem: Acute Narrative: Continue levofloxacin 500 mg IV Q24 hours and vancomycin 1g IV Q24 hours (now day #13) and Unasyn 1.5 mg IV every 6 hours (day #15). Oral vancomycin 125 mg po daily to prevent C. diff infection as she recently suffered from C. diff infection. (3) Acute respiratory failure with hypoxia and hypercapnia Problem: Resolved Narrative: Continue Bipap at current setting overnight. Goals of care discussion with the family and Dr. Galaviz yesterday. Family is hopeful and would like to continue treatment.
[2017-01-01] MEDS: LACTOBACILLUS ACIDOPHILUS 100 CAP BTL PO SCH ×4 (08:55→19:59)
[2017-01-01] MEDS: CHOLECALCIFEROL 1,000 UNIT CAPSULE PO SCH (08:55)
[2017-01-01] MEDS: LISINOPRIL 20 MG TABLET PO SCH ×2 (08:56→20:00)
[2017-01-01] MEDS: MULTIVITAMINS 1 CAP CAPSULE PO SCH (08:56)
[2017-01-01] MEDS: FOLIC ACID 1 MG TABLET PO SCH (08:58)
[2017-01-01] MEDS: POTASSIUM CHLORIDE 20 MEQ TABLET.SA PO SCH ×2 (08:58→20:00)
[2017-01-01] MEDS: CARVEDILOL 6.25 MG TABLET PO SCH ×2 (09:03→20:01)
[2017-01-01] MEDS: NYSTATIN 15 APPL TUBE TP SCH ×2 (10:00→20:01)
[2017-01-01] MEDS: VANCOMYCIN HCL 1 GM in DEXTROSE 5 % IN WATER 250 ML IV SCH ×2 (10:00)
[2017-01-01] MEDS: ENOXAPARIN SODIUM 30 MG/0.3 ML SYRG SC SCH (16:46)
[2017-01-01] MEDS: WARFARIN SODIUM 3 MG TABLET PO SCH (16:48)
[2017-01-01] MEDS: ACETAMINOPHEN 325 MG TABLET PO PRN (16:55)
[2017-01-01] MEDS: SIMVASTATIN 40 MG TABLET PO SCH (20:00)
[2017-01-02] MEDS: hydrALAZINE HCL 50 MG TABLET PO SCH ×4 (00:03→19:27)
[2017-01-02] MEDS: POLYVINYL ALCOHOL 150 DROP BTL OP SCH ×6 (02:39→21:36)
[2017-01-02] MEDS: LEVETIRACETAM IV SCH (05:32)
[2017-01-02] MEDS: VANCOMYCIN HCL 50 MG/ML BTL PO SCH ×3 (05:32→18:02)
[2017-01-02] MEDS: NORMAL SALINE IV SCH (05:32)
[2017-01-02 06:06] LABS: Hematocrit 29.8 % (37.0-47.0); Hemoglobin 9.1 gm/dL (12.5-16.0); Mean Cell Volume 91.1 fl (78-100); Mean Corpuscular Hemoglobin 27.8 pg (27-31); Mean Corpuscular Hgb Conc 30.5 g/dl (32-36); Mean Platelet Volume 9.7 fl (6.0-9.5); Neutrophil # 2.2 K/mm3 (1.3-6.0); Neutrophil % 68.7 % (42-75.0); Platelet Count 147 K/mm3 (150-450); Red Blood Count 3.27 M/mm3 (4.2-5.4); Red Cell Distribution Width 18.6 % (11.5-14.0); White Blood Count 3.1 K/mm3 (4.0-10.5)
[2017-01-02 06:22] LABS: INR 1.39 INR (0.90-1.10); Prothrombin Time (Patient) 14.5 Seconds (9.4-11.4)
[2017-01-02 06:28] LABS: Anion Gap 10.9 mmol/L (6.8-13.8); BUN/Creatinine Ratio 11.2 (9.0-21.6); Carbon Dioxide 33.1 mmol/L (24-32.6); Estimated Creat Clear 26.1
[2017-01-02 06:34] LABS: Calcium * 8.7 mg/dL (7.9-10.9)
[2017-01-02] MEDS: INSULIN LISPRO 100 UNITS/ML VIAL SC SCH ×3 (06:51→17:24)
[2017-01-02] MEDS: ONDANSETRON HCL 4 MG TABLET PO SCH ×4 (08:01→20:12)
[2017-01-02] MEDS: FUROSEMIDE 10 MG/ML VIAL IV SCH (08:02)
[2017-01-02] MEDS: CARVEDILOL 6.25 MG TABLET PO SCH ×2 (08:03→20:15)
[2017-01-02] MEDS: LACTOBACILLUS ACIDOPHILUS 100 CAP BTL PO SCH ×4 (08:03→20:12)
[2017-01-02] MEDS: FOLIC ACID 1 MG TABLET PO SCH (08:03)
[2017-01-02] MEDS: MULTIVITAMINS 1 CAP CAPSULE PO SCH (08:04)
[2017-01-02] MEDS: POTASSIUM CHLORIDE 20 MEQ TABLET.SA PO SCH ×2 (08:04→20:12)
[2017-01-02] MEDS: LISINOPRIL 20 MG TABLET PO SCH ×2 (08:04→20:16)
[2017-01-02] MEDS: CHOLECALCIFEROL 1,000 UNIT CAPSULE PO SCH (08:04)
[2017-01-02] MEDS: NYSTATIN 15 APPL TUBE TP SCH ×2 (08:04→20:10)
--- NOTE | 2017-01-02 11:38 | PN ---
Subjective - Date and Time Seen Date: 01/02/17 Time: 11:32 Subjective Narrative: Mrs. Samson had no acute events overnight. She denies pain. No N/V. Her IV antibiotics were discontinued yesterday as she had a 14 day course. She is afebrile. Objective - Review of Systems Generalized/Overall Review: Reports: No Symptoms Reported Respiratory: Reports: No Symptoms Reported Cardiac: Reports: No Symptoms Reported - Vitals Vitals: Last Vital Signs Temp 37 C 01/02/17 07:00 Pulse 62 01/02/17 08:04 Resp 17 01/02/17 07:00 BP 158/55 01/02/17 08:04 Pulse Ox 96 01/02/17 07:00 - Abnormal Lab Findings Abnormal Lab Findings: Abnormal Lab Results 01/02/17 01/02/17 01/02/17 Range/Units 05:32 05:32 05:32 WBC 3.1 L (4.0-10.5) K/mm3 RBC 3.27 L (4.2-5.4) M/mm3 Hgb 9.1 L (12.5-16.0) gm/dL Hct 29.8 L (37.0-47.0) % MCHC 30.5 L (32-36) g/dl RDW 18.6 H (11.5-14.0) % Plt Count 147 L (150-450) K/mm3 MPV 9.7 H (6.0-9.5) fl Lymphocytes % 19.2 L (20-51) % Monocytes % 10.5 H (0.0-9) % Lymphocytes # 0.6 L (1.5-3.5) k/mm3 PT 14.5 H (9.4-11.4) Seconds INR (Anticoag Therapy) 1.39 H (0.90-1.10) INR Carbon Dioxide 33.1 H (24-32.6) mmol/L Creatinine 1.43 H (0.4-1.4) mg/dL Est GFR (Non-Af Amer) 38 L (60-130) mL/min - Exam Constitutional: Present: Alert, Cooperative ENT Exam: Present: hearing grossly normal Respiratory: Present: chest non-tender, lungs clear, normal breath sounds Cardiovascular/Chest: Present: normal peripheral pulses, regular rate, rhythm, no chest tenderness Abdomen: Present: Normal bowel sounds, soft, nontender Skin Exam: Present: normal color, warm/dry Appearance: Present: appropriate appearance Cauti Physician Documentation - Urinary Catheter Management Uretheral (Galo) Urethral Indwelling: No Date of Insertion: 12/18/16 Time of Insertion: 22:10 Date of Removal: 12/23/16 Time of Removal: 22:15 Assessment/Plan - Problems/Diagnosis (1) CHF (congestive heart failure) Problem: Acute Qualifiers: Congestive heart failure type: diastolic Congestive heart failure chronicity: acute on chronic Qualified Code(s): I50.33 - Acute on chronic diastolic (congestive) heart failure Narrative: Transition IV furosemide to oral furosemide 60 mg po BID. Her weight is stable at 76 kg. (2) Cellulitis of wrist Problem: Acute Narrative: She completed a 14 day course of Unasyn, IV vancomycin. IV antibiotics were discontinued. She remains afebrile. No elevation in WBC count. (3) Acute respiratory failure with hypoxia and hypercapnia Problem: Resolved Narrative: Continue Bipap overnight and with periods of rest.
[2017-01-02] MEDS ORDERED: FUROSEMIDE 20 MG, FUROSEMIDE 40 MG PO SCH ×2 (17:00)
[2017-01-02] MEDS: WARFARIN SODIUM 3 MG TABLET PO SCH (17:24)
[2017-01-02] MEDS: ENOXAPARIN SODIUM 30 MG/0.3 ML SYRG SC SCH (17:24)
[2017-01-02] MEDS: ACETAMINOPHEN 325 MG TABLET PO PRN (19:26)
[2017-01-02] MEDS: SIMVASTATIN 40 MG TABLET PO SCH (20:15)
[2017-01-02] MEDS ORDERED: levETIRAcetam 100 MG/ML BTL PO SCH (21:00)
[2017-01-03] MEDS: hydrALAZINE HCL 50 MG TABLET PO SCH ×4 (01:01→22:04)
[2017-01-03] MEDS: VANCOMYCIN HCL 50 MG/ML BTL PO SCH ×5 (01:04→23:45)
[2017-01-03] MEDS: POLYVINYL ALCOHOL 150 DROP BTL OP SCH ×6 (01:05→21:19)
[2017-01-03 01:17] LABS: Urine Bilirubin Negative (NEGATIVE); Urine Blood Negative /ul (NEGATIVE); Urine Ketone Negative (NEGATIVE); Urine Nitrite Negative (NEGATIVE); Urine Protein Negative (NEGATIVE); Urine Specific Gravity 1.015 SP.GR. (1.005-1.010); Urine Urobilinogen Normal (NORMAL)
[2017-01-03 01:33] LABS: Urine Appearance Clear; Urine Bacteria None Seen; Urine Color Yellow; Urine RBC None Seen /hpf (0-5); Urine WBC 0-5 /hpf (0-5)
[2017-01-03 01:34] LABS: Urine Amorphous Sediment Few - 1+ (NONE-FEW)
--- NOTE | 2017-01-03 02:39 | PN ---
<Sima Martinez - Last Filed: 01/03/17 02:31> Progess Note - Interim Narrative: 01/03/17 02:31 Patient seen today unresponsive and declining from her baseline, will obtain CT head if family agreeable. Troponin negative urinalysis with some WBC culture pending. Progressively apnea while on Bipap and rapidly declining. Discussed case with son Jaylen (POA) who want the pt to remain at [facility] as DNR and provide only comfort care. Pt will remains on Bipap until he visit in the morning. Case was discussed with Dr Galaviz. Will continue to monitor. <RodneyyulyBillJaylen bill - Last Filed: 01/04/17 12:57> Progess Note - Interim Narrative: 01/04/17 12:56 Have reviewed record and examined patient. Will minimize ANY meds that might sedate, and follow. Labs as needed.
[2017-01-03 04:10] LABS: Hemoglobin 9.2 gm/dL (12.5-16.0); Mean Cell Volume 90.9 fl (78-100); Mean Corpuscular Hemoglobin 27.9 pg (27-31); Mean Corpuscular Hgb Conc 30.7 g/dl (32-36); Mean Platelet Volume 9.8 fl (6.0-9.5); Neutrophil % 71.4 % (42-75.0); Platelet Count 153 K/mm3 (150-450); Red Cell Distribution Width 18.7 % (11.5-14.0); White Blood Count 4.2 K/mm3 (4.0-10.5)
[2017-01-03 04:24] LABS: Prothrombin Time (Patient) 15.3 Seconds (9.4-11.4)
[2017-01-03 04:26] LABS: INR 1.47 INR (0.90-1.10)
[2017-01-03 04:38] LABS: Calcium * 8.8 mg/dL (7.9-10.9); Carbon Dioxide 32.5 mmol/L (24-32.6); Estimated Creat Clear 20.4; Potassium 4.5 mmol/L (3.4-4.6)
[2017-01-03] MEDS: INSULIN LISPRO 100 UNITS/ML VIAL SC SCH ×3 (07:23→16:35)
[2017-01-03] MEDS: ONDANSETRON HCL 4 MG TABLET PO SCH ×4 (07:31→21:24)
[2017-01-03] MEDS: FOLIC ACID 1 MG TABLET PO SCH (08:27)
[2017-01-03] MEDS: POTASSIUM CHLORIDE 20 MEQ TABLET.SA PO SCH ×2 (08:28→21:17)
[2017-01-03] MEDS: CARVEDILOL 6.25 MG TABLET PO SCH ×2 (08:28→21:59)
[2017-01-03] MEDS: CHOLECALCIFEROL 1,000 UNIT CAPSULE PO SCH (08:28)
[2017-01-03] MEDS: LISINOPRIL 20 MG TABLET PO SCH ×2 (08:29→22:04)
[2017-01-03] MEDS: LACTOBACILLUS ACIDOPHILUS 100 CAP BTL PO SCH ×4 (08:30→21:16)
[2017-01-03] MEDS: FUROSEMIDE 20 MG, FUROSEMIDE 40 MG PO SCH ×2 (08:30)
[2017-01-03] MEDS: MULTIVITAMINS 1 CAP CAPSULE PO SCH (08:32)
[2017-01-03] MEDS: NYSTATIN 15 APPL TUBE TP SCH ×2 (08:32→21:21)
[2017-01-03] MEDS: ENOXAPARIN SODIUM 30 MG/0.3 ML SYRG SC SCH (16:28)
[2017-01-03] MEDS: WARFARIN SODIUM 3 MG TABLET PO SCH (16:29)
[2017-01-03] MEDS: SIMVASTATIN 40 MG TABLET PO SCH (21:18)
[2017-01-04] MEDS: hydrALAZINE HCL 50 MG TABLET PO SCH ×4 (01:44→19:04)
[2017-01-04] MEDS: POLYVINYL ALCOHOL 150 DROP BTL OP SCH ×6 (02:26→22:08)
[2017-01-04] MEDS: VANCOMYCIN HCL 50 MG/ML BTL PO SCH ×3 (05:39→17:14)
[2017-01-04 07:12] LABS: Prothrombin Time (Patient) 14.7 Seconds (9.4-11.4)
[2017-01-04 07:17] LABS: INR 1.41 INR (0.90-1.10)
[2017-01-04] MEDS: ACETAMINOPHEN 325 MG TABLET PO PRN ×2 (08:00→17:10)
[2017-01-04] MEDS: INSULIN LISPRO 100 UNITS/ML VIAL SC SCH ×3 (08:00→16:52)
[2017-01-04] MEDS: ONDANSETRON HCL 4 MG TABLET PO SCH ×4 (08:00→20:46)
[2017-01-04] MEDS: FOLIC ACID 1 MG TABLET PO SCH (08:01)
[2017-01-04] MEDS: FUROSEMIDE 20 MG, FUROSEMIDE 40 MG PO SCH ×2 (08:01)
[2017-01-04] MEDS: CHOLECALCIFEROL 1,000 UNIT CAPSULE PO SCH (08:01)
[2017-01-04] MEDS: MULTIVITAMINS 1 CAP CAPSULE PO SCH (08:01)
[2017-01-04] MEDS: POTASSIUM CHLORIDE 20 MEQ TABLET.SA PO SCH ×2 (08:01→20:41)
[2017-01-04] MEDS: LACTOBACILLUS ACIDOPHILUS 100 CAP BTL PO SCH ×4 (08:02→20:39)
[2017-01-04] MEDS: NYSTATIN 15 APPL TUBE TP SCH ×2 (08:02→20:52)
[2017-01-04] MEDS: LISINOPRIL 20 MG TABLET PO SCH ×2 (10:26→20:44)
[2017-01-04] MEDS: CARVEDILOL 6.25 MG TABLET PO SCH ×2 (10:27→20:40)
--- NOTE | 2017-01-04 13:04 | PN ---
Subjective - Date and Time Seen Date: 01/03/17 Time: 07:20 Subjective Narrative: Has only had the one brief convulsion. Will minimize all sedative medications. This morning she is more awake and responsive than last night. Is now off IV antibiotics, and we will continue to monitor. Pulse slow, are giving less carvedilol. Blood sugars have improved. Objective - Review of Systems Generalized/Overall Review: Reports: No Symptoms Reported - still too somnolent to provide a review of systems. son says she is doing better. - Vitals Vitals: Last Vital Signs Selected Entries 01/04/17 06:56 Temperature 36.8 C Temperature Oral Source Pulse Rate 61 Respiratory 24 H Rate Respiratory Normal Depth Blood Pressure 134/56 Blood Pressure Supine Position O2 Sat by Pulse 94 Oximetry Oxygen Delivery Bi-pap Method - Abnormal Lab Findings Abnormal Lab Findings: Abnormal Lab Results 01/04/17 Range/Units 06:10 PT 14.7 H (9.4-11.4) Seconds INR (Anticoag Therapy) 1.41 H (0.90-1.10) INR - Exam Constitutional: Present: Well developed, Well nourished, No distress, Somnolent ENT Exam: Present: normal ENT inspection Neck: Present: normal inspection Respiratory: Present: lungs clear, no respiratory distress Cardiovascular/Chest: Present: regular rate, rhythm, no murmur Abdomen: Present: Normal bowel sounds, soft, nondistended, no hepatospenomegaly , no masses Extremity: Present: pedal edema - amputation right leg Neurologic: Absent: alert Eye contact: Present: decreased rate of speech Cauti Physician Documentation - Urinary Catheter Management Uretheral (Galo) Urethral Indwelling: No Date of Insertion: 12/18/16 Time of Insertion: 22:10 Date of Removal: 12/23/16 Time of Removal: 22:15 Assessment/Plan Plan Narrative: Follow labs. Minimize sedative medications. - Problems/Diagnosis (1) Cellulitis of wrist Problem: Resolved (2) Hypokalemia Problem: Resolved (3) Weakness generalized Problem: Acute (4) CHF (congestive heart failure) Problem: Chronic Qualifiers: Congestive heart failure type: diastolic Congestive heart failure chronicity: chronic Qualified Code(s): I50.33 - Acute on chronic diastolic ( congestive) heart failure (5) Altered mental status Problem: Acute Qualifiers: Altered mental status type: delirium Qualified Code(s): R41.0 - Disorientation, unspecified (6) Clostridium difficile colitis Problem: Ruled-out (7) acute on chronic anemia Problem: Acute (8) Chronic congestive heart failure with left ventricular diastolic dysfunction Problem: Chronic (9) Chronic pain Problem: Chronic Qualifiers: Chronic pain type: other chronic pain Qualified Code(s): G89.29 - Other chronic pain (10) Chronic restrictive lung disease Problem: Chronic (11) 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 Problem: Chronic Qualifiers: 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 type: type 2 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 complication status: with other specified complication 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 longterm insulin use: with long term care administrator use Qualified Code(s): E11.69 - Type 2 diabetes mellitus with other specified complication; Z79.4 - assistant terminal manager (current) use of insulin (12) GERD (gastroesophageal reflux disease) Problem: Chronic Qualifiers: Esophagitis presence: without esophagitis Qualified Code(s): K21.9 - Gastro -esophageal reflux disease without esophagitis (13) Gallstones Problem: Chronic Qualifiers: Cholecystitis presence: without cholecystitis Biliary obstruction: without biliary obstruction Qualified Code(s): K80.20 - Calculus of gallbladder without cholecystitis without obstruction (14) Gout Problem: Chronic Qualifiers: Gout site: multiple sites Gout etiology: idiopathic Chronicity: chronic Presence of tophus: without tophus Qualified Code(s): M1A.09X0 - Idiopathic chronic gout, multiple sites, without tophus (tophi) (15) HLD (hyperlipidemia) Problem: Chronic Qualifiers: Hyperlipidemia type: mixed hyperlipidemia Qualified Code(s): E78.2 - Mixed hyperlipidemia (16) NIKOLSKI (hard of hearing) Problem: Chronic Qualifiers: Laterality: bilateral (17) History of recurrent UTIs Problem: Chronic (18) Hypertension Problem: Chronic Qualifiers: Hypertension type: essential hypertension Qualified Code(s): I10 - Essential (primary) hypertension (19) Hypoventilation associated with obesity syndrome Problem: Chronic (20) Immunosuppressed status Problem: Chronic (21) MRSA (methicillin resistant Staphylococcus aureus) carrier Problem: Inactive (22) Parkinsons Problem: Chronic (23) Pulmonary embolism Problem: Inactive Qualifiers: Pulmonary embolism type: other Chronicity: unspecified Acute cor pulmonale presence: without acute cor pulmonale Qualified Code(s): I26.99 - Other pulmonary embolism without acute cor pulmonale (24) Pulmonary hypertension Problem: Chronic (25) 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
--- NOTE | 2017-01-04 13:28 | PN ---
Subjective - Date and Time Seen Date: 01/04/17 Time: 13:25 Subjective Narrative: Today she is much more awake and responsive and oriented. Is now off IV antibiotics, and we will continue to monitor. Blood sugars have improved. Objective - Review of Systems Generalized/Overall Review: Reports: Weakness, Malaise EENTM: Reports: No Symptoms Reported Respiratory: Reports: No Symptoms Reported Cardiac: Reports: No Symptoms Reported Abdominal: Reports: No Symptoms Reported Genitourinary Symptoms: Reports: No Symptoms Reported Musculoskeletal Complaints: Reports: No Symptoms Reported Neurological: Reports: No Symptoms Reported Skin: Reports: No Symptoms Reported Endocrine: Reports: No Symptoms Reported Misc: All systems neg except as marked - Vitals Vitals: Last Vital Signs Selected Entries 01/04/17 11:32 Temperature 36.6 C Temperature Oral Source Pulse Rate 74 Respiratory Normal Depth Blood Pressure 128/64 Blood Pressure Sitting Position O2 Sat by Pulse 97 Oximetry Oxygen Delivery Room Air Method - Abnormal Lab Findings Abnormal Lab Findings: Abnormal Lab Results 01/04/17 Range/Units 06:10 PT 14.7 H (9.4-11.4) Seconds INR (Anticoag Therapy) 1.41 H (0.90-1.10) INR - Exam Constitutional: Present: Alert, Oriented x3, Cooperative, Well developed, Well nourished, No distress ENT Exam: Present: normal ENT inspection, hard of hearing Neck: Present: normal inspection Respiratory: Present: lungs clear, no respiratory distress Cardiovascular/Chest: Present: regular rate, rhythm, no murmur Abdomen: Present: Normal bowel sounds, soft, nontender, nondistended, no rebound tenderness, no hepatospenomegaly, no masses Extremity: Present: pedal edema - amputation right leg Skin Exam: Present: normal color, warm/dry, no cyanosis Neurologic: Present: alert, oriented x 3 Appearance: Present: appropriate appearance, neat, impaired insight Eye contact: Present: cooperative, good eye contact Cauti Physician Documentation - Urinary Catheter Management Uretheral (Galo) Urethral Indwelling: No Date of Insertion: 12/18/16 Time of Insertion: 22:10 Date of Removal: 12/23/16 Time of Removal: 22:15 Assessment/Plan Plan Narrative: Minimize sedative medications. Adjust insulin. BMP tomorrow. - Problems/Diagnosis (1) Cellulitis of wrist Problem: Resolved (2) Hypokalemia Problem: Resolved (3) Weakness generalized Problem: Acute (4) CHF (congestive heart failure) Problem: Chronic Qualifiers: Congestive heart failure type: diastolic Congestive heart failure chronicity: chronic Qualified Code(s): I50.33 - Acute on chronic diastolic ( congestive) heart failure (5) Altered mental status Problem: Acute Qualifiers: Altered mental status type: delirium Qualified Code(s): R41.0 - Disorientation, unspecified (6) Clostridium difficile colitis Problem: Ruled-out (7) acute on chronic anemia Problem: Acute (8) Chronic congestive heart failure with left ventricular diastolic dysfunction Problem: Chronic (9) Chronic pain Problem: Chronic Qualifiers: Chronic pain type: other chronic pain Qualified Code(s): G89.29 - Other chronic pain (10) Chronic restrictive lung disease Problem: Chronic (11) 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 Problem: Chronic Qualifiers: 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 type: type 2 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 complication status: with other specified complication 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 Qualified Code(s): E11.69 - Type 2 diabetes mellitus with other specified complication; 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09X0 - Idiopathic chronic gout, multiple sites, without tophus (tophi) (15) HLD (hyperlipidemia) Problem: Chronic Qualifiers: Hyperlipidemia type: mixed hyperlipidemia Qualified Code(s): E78.2 - Mixed hyperlipidemia (16) [place] (hard of hearing) Problem: Chronic Qualifiers: Laterality: bilateral (17) History of recurrent UTIs Problem: Chronic (18) Hypertension Problem: Chronic Qualifiers: Hypertension type: essential hypertension Qualified Code(s): I10 - Essential (primary) hypertension (19) Hypoventilation associated with obesity syndrome Problem: Chronic (20) Immunosuppressed status Problem: Chronic (21) MRSA (methicillin resistant Staphylococcus aureus) carrier Problem: Inactive (22) Parkinsons Problem: Chronic (23) Pulmonary embolism Problem: Inactive Qualifiers: Pulmonary embolism type: other Chronicity: unspecified Acute cor pulmonale presence: without acute cor pulmonale Qualified Code(s): I26.99 - Other pulmonary embolism without acute cor pulmonale (24) Pulmonary hypertension Problem: Chronic (25) 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
[2017-01-04] MEDS: INSULIN GLARGINE,HUM.REC.ANLOG 100 UNITS/ML VIAL SC SCH (14:21)
[2017-01-04] MEDS: ENOXAPARIN SODIUM 30 MG/0.3 ML SYRG SC SCH (15:45)
[2017-01-04] MEDS ORDERED: WARFARIN SODIUM 5 MG TABLET PO ONE (17:00)
[2017-01-04] MEDS: SIMVASTATIN 40 MG TABLET PO SCH (20:46)
[2017-01-05] MEDS: VANCOMYCIN HCL 50 MG/ML BTL PO SCH ×2 (00:09→06:20)
[2017-01-05] MEDS: POLYVINYL ALCOHOL 150 DROP BTL OP SCH ×6 (01:42→21:07)
[2017-01-05] MEDS: hydrALAZINE HCL 50 MG TABLET PO SCH ×4 (01:43→19:58)
[2017-01-05] MEDS: ACETAMINOPHEN 325 MG TABLET PO PRN ×3 (01:46→17:04)
[2017-01-05] MEDS: INSULIN GLARGINE,HUM.REC.ANLOG 100 UNITS/ML VIAL SC SCH ×2 (01:54→14:28)
[2017-01-05 05:58] LABS: Prothrombin Time (Patient) 15.3 Seconds (9.4-11.4)
[2017-01-05 06:00] LABS: Anion Gap 9.7 mmol/L (6.8-13.8); BUN/Creatinine Ratio 12.5 (9.0-21.6); Calcium * 8.8 mg/dL (7.9-10.9); Carbon Dioxide 31.6 mmol/L (24-32.6); Estimated Creat Clear 20.3; Potassium 4.3 mmol/L (3.4-4.6)
[2017-01-05 06:12] LABS: INR 1.47 INR (0.90-1.10)
[2017-01-05] MEDS: INSULIN LISPRO 100 UNITS/ML VIAL SC SCH ×3 (07:00→16:58)
[2017-01-05] MEDS: ONDANSETRON HCL 4 MG TABLET PO SCH (07:30)
--- NOTE | 2017-01-05 09:18 | PN ---
Subjective - Date and Time Seen Date: 01/05/17 Time: 08:50 Subjective Narrative: Today she is much more awake and responsive and oriented. Is now off IV antibiotics, and we will continue to monitor. Blood sugars have improved. Headache with nausea last night. FIO2 21%, but still on BiPap Objective - Review of Systems Generalized/Overall Review: Reports: Malaise EENTM: Reports: No Symptoms Reported Respiratory: Reports: No Symptoms Reported Cardiac: Reports: No Symptoms Reported Abdominal: Reports: Nausea Genitourinary Symptoms: Reports: No Symptoms Reported Musculoskeletal Complaints: Reports: No Symptoms Reported Neurological: Reports: Headache Skin: Reports: No Symptoms Reported Endocrine: Reports: No Symptoms Reported Misc: All systems neg except as marked - Vitals Vitals: Last Vital Signs Selected Entries 01/05/17 01/05/17 06:53 07:30 Temperature 36.8 C Pulse Rate 61 61 Respiratory 18 Rate Blood Pressure 124/53 124/53 O2 Sat by Pulse 98 Oximetry Oxygen Delivery Bi-pap Method - Abnormal Lab Findings Abnormal Lab Findings: Abnormal Lab Results 01/05/17 01/05/17 Range/Units 05:10 05:10 PT 15.3 H (9.4-11.4) Seconds INR (Anticoag Therapy) 1.47 H (0.90-1.10) INR Creatinine 1.84 H (0.4-1.4) mg/dL Est GFR (Non-Af Amer) 28 L (60-130) mL/min Random Glucose 124 H (70-110) mg/dL - Exam Constitutional: Present: Alert, Cooperative, Well developed, Well nourished, No distress ENT Exam: Present: normal ENT inspection, hard of hearing Neck: Present: normal inspection Respiratory: Present: lungs clear, no respiratory distress Cardiovascular/Chest: Present: regular rate, rhythm, no murmur Abdomen: Present: Normal bowel sounds, soft, nontender, nondistended, no rebound tenderness, no hepatospenomegaly, no masses Extremity: Present: pedal edema - amputation right leg Neurologic: Present: alert Appearance: Present: impaired insight, impaired recent memory Eye contact: Present: cooperative Cauti Physician Documentation - Urinary Catheter Management Uretheral (Galo) Urethral Indwelling: No Date of Insertion: 12/18/16 Time of Insertion: 22:10 Date of Removal: 12/23/16 Time of Removal: 22:15 Assessment/Plan Plan Narrative: Decrease Lasix. Follow labs. Monitor headaches. Taper Bipap. - Problems/Diagnosis (1) Cellulitis of wrist Problem: Resolved (2) Hypokalemia Problem: Resolved (3) Weakness generalized Problem: Acute (4) CHF (congestive heart failure) Problem: Chronic Qualifiers: Congestive heart failure type: diastolic Congestive heart failure chronicity: chronic Qualified Code(s): I50.33 - Acute on chronic diastolic ( congestive) heart failure (5) Altered mental status Problem: Acute Qualifiers: Altered mental status type: delirium Qualified Code(s): R41.0 - Disorientation, unspecified (6) Clostridium difficile colitis Problem: Ruled-out (7) acute on chronic anemia Problem: Acute (8) Chronic congestive heart failure with left ventricular diastolic dysfunction Problem: Chronic (9) Chronic pain Problem: Chronic Qualifiers: Chronic pain type: other chronic pain Qualified Code(s): G89.29 - Other chronic pain (10) Chronic restrictive lung disease Problem: Chronic (11) 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 Problem: Chronic Qualifiers: 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 type: type 2 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 complication status: with other specified complication 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 longterm insulin use: with longterm use Qualified Code(s): E11.69 - Type 2 diabetes mellitus with other specified complication; 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09X0 - Idiopathic chronic gout, multiple sites, without tophus (tophi) (15) HLD (hyperlipidemia) Problem: Chronic Qualifiers: Hyperlipidemia type: mixed hyperlipidemia Qualified Code(s): E78.2 - Mixed hyperlipidemia (16) [place] (hard of hearing) Problem: Chronic Qualifiers: Laterality: bilateral (17) History of recurrent UTIs Problem: Chronic (18) Hypertension Problem: Chronic Qualifiers: Hypertension type: essential hypertension Qualified Code(s): I10 - Essential (primary) hypertension (19) Hypoventilation associated with obesity syndrome Problem: Chronic (20) Immunosuppressed status Problem: Chronic (21) MRSA (methicillin resistant Staphylococcus aureus) carrier Problem: Inactive (22) Parkinsons Problem: Chronic (23) Pulmonary embolism Problem: Inactive Qualifiers: Pulmonary embolism type: other Chronicity: unspecified Acute cor pulmonale presence: without acute cor pulmonale Qualified Code(s): I26.99 - Other pulmonary embolism without acute cor pulmonale (24) Pulmonary hypertension Problem: Chronic (25) 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
[2017-01-05] MEDS: FUROSEMIDE 20 MG TABLET PO SCH (10:00)
[2017-01-05] MEDS: CARVEDILOL 6.25 MG TABLET PO SCH ×2 (10:00→21:05)
[2017-01-05] MEDS: LISINOPRIL 20 MG TABLET PO SCH ×2 (10:00→21:06)
[2017-01-05] MEDS: MULTIVITAMINS 1 CAP CAPSULE PO SCH (10:00)
[2017-01-05] MEDS: LACTOBACILLUS ACIDOPHILUS 100 CAP BTL PO SCH ×4 (10:00→21:04)
[2017-01-05] MEDS: CHOLECALCIFEROL 1,000 UNIT CAPSULE PO SCH (10:01)
[2017-01-05] MEDS: FOLIC ACID 1 MG TABLET PO SCH (10:01)
[2017-01-05] MEDS: POTASSIUM CHLORIDE 20 MEQ TABLET.SA PO SCH ×2 (10:01→17:05)
[2017-01-05] MEDS: NYSTATIN 15 APPL TUBE TP SCH ×2 (10:09→21:08)
[2017-01-05] MEDS: ENOXAPARIN SODIUM 30 MG/0.3 ML SYRG SC SCH (16:57)
[2017-01-05] MEDS ORDERED: WARFARIN SODIUM 3 MG TABLET PO SCH (17:00)
[2017-01-05] MEDS: SIMVASTATIN 40 MG TABLET PO SCH (21:06)
[2017-01-06] MEDS: POLYVINYL ALCOHOL 150 DROP BTL OP SCH ×3 (01:19→10:49)
[2017-01-06] MEDS: INSULIN GLARGINE,HUM.REC.ANLOG 100 UNITS/ML VIAL SC SCH (01:20)
[2017-01-06] MEDS: ACETAMINOPHEN 325 MG TABLET PO PRN (01:24)
[2017-01-06] MEDS: hydrALAZINE HCL 50 MG TABLET PO SCH ×2 (01:25→06:28)
[2017-01-06 05:54] LABS: Hematocrit 30.7 % (37.0-47.0); Hemoglobin 9.4 gm/dL (12.5-16.0); Mean Cell Volume 90.8 fl (78-100); Mean Corpuscular Hemoglobin 27.8 pg (27-31); Mean Corpuscular Hgb Conc 30.6 g/dl (32-36); Mean Platelet Volume 9.8 fl (6.0-9.5); Neutrophil # 3.3 K/mm3 (1.3-6.0); Neutrophil % 70.8 % (42-75.0); Platelet Count 133 K/mm3 (150-450); Red Blood Count 3.38 M/mm3 (4.2-5.4); Red Cell Distribution Width 18.6 % (11.5-14.0); White Blood Count 4.7 K/mm3 (4.0-10.5)
[2017-01-06 06:09] LABS: BUN/Creatinine Ratio 14.5 (9.0-21.6); Calcium * 8.7 mg/dL (7.9-10.9); Estimated Creat Clear 20.8
[2017-01-06] MEDS: INSULIN LISPRO 100 UNITS/ML VIAL SC SCH (06:15)
[2017-01-06 06:54] VITALS: BP 132/53
--- NOTE | 2017-01-06 08:19 | DS ---
(1) Cellulitis of wrist Problem: Resolved (2) Hypokalemia Problem: Resolved (3) Weakness generalized Problem: Acute (4) CHF (congestive heart failure) Problem: Chronic Qualifiers: Congestive heart failure type: diastolic Congestive heart failure chronicity: chronic Qualified Code(s): I50.33 - Acute on chronic diastolic ( congestive) heart failure (5) Altered mental status Problem: Resolved Qualifiers: Altered mental status type: delirium Qualified Code(s): R41.0 - Disorientation, unspecified (6) Clostridium difficile colitis Problem: Ruled-out (7) acute on chronic anemia Problem: Acute (8) Chronic congestive heart failure with left ventricular diastolic dysfunction Problem: Chronic (9) Chronic pain Problem: Chronic Qualifiers: Chronic pain type: other chronic pain Qualified Code(s): G89.29 - Other chronic pain (10) Chronic restrictive lung disease Problem: Chronic (11) 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 Problem: Chronic Qualifiers: 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 type: type 2 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 complication status: with other specified complication 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 chcf insulin use: with chcf use Qualified Code(s): E11.69 - Type 2 diabetes mellitus with other specified complication; 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09X0 - Idiopathic chronic gout, multiple sites, without tophus (tophi) (15) HLD (hyperlipidemia) Problem: Chronic Qualifiers: Hyperlipidemia type: mixed hyperlipidemia Qualified Code(s): E78.2 - Mixed hyperlipidemia (16) [place] (hard of hearing) Problem: Chronic Qualifiers: Laterality: bilateral (17) History of recurrent UTIs Problem: Chronic (18) Hypertension Problem: Chronic Qualifiers: Hypertension type: essential hypertension Qualified Code(s): I10 - Essential (primary) hypertension (19) Hypoventilation associated with obesity syndrome Problem: Chronic (20) Immunosuppressed status Problem: Chronic (21) MRSA (methicillin resistant Staphylococcus aureus) carrier Problem: Inactive (22) Parkinsons Problem: Chronic (23) Pulmonary embolism Problem: Inactive Qualifiers: Pulmonary embolism type: other Chronicity: unspecified Acute cor pulmonale presence: without acute cor pulmonale Qualified Code(s): I26.99 - Other pulmonary embolism without acute cor pulmonale (24) Pulmonary hypertension Problem: Chronic (25) 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 Description of Stay: Pneumonia treated with antibiotics. Improved, and now off these antibiotics. Given oral vancomycin prophylactically against C. dif. Active C. dif infection was rules out. Had one brief 10 second generalized convulsion, possibly related to stopping Ativan. No recurrence. Mentation up and down, did best with no sedating medications of any kind. O2 sats now doing very well off bipap, but probably is still a CO2 retainer, as demonstrated in the past. Will coninue BIPAP for this reason. Procedures Performed: none Discharge Disposition: [facility] [place][Note 3] Disposition: [facility] Condition: Good Discharge Activity: Activity as tolerated Discharge Diet: Consistent carbs, Low salt Discharge Level of Care:: SNF - Correction Correction Therapy: Physicial Therapy, Occupation Therapy Problem Oriented Discharge Instructions to Patient/Family: Pneumonitis Additional Patient Instructions (free text): BiPap when sleeping, room air, pressures 10 and 5 Avoid meds with sedative potential. CBC CMP blood tests in 1 week. Protime in 3 days. check fingerstick blood sugar before meals and at bedtime. Prescriptions (Any new or edited meds): Blood-Glucose Meter [Blood Glucose Monitoring] 1 each ACHS #1 kit Calcium Carbonate [Calcium] 500 mg PO TID #1 tab.chew Complete Home Medications List: Complete Home Medication List: Acetaminophen [Tylenol] 650 mg PO QID PRN #0 tablet 12/04/16 Carvedilol [Coreg] 6.25 mg PO BID #1 tablet 12/04/16 Cholecalciferol [Vitamin D] 1,000 unit PO DAILY capsule 12/04/16 Cod Liver Oil/Zinc Oxide [Desitin] 1 appl TP PRN PRN #0 tube 12/04/16 Folic Acid 1 mg PO DAILY tablet 12/04/16 Glycerin/[place] [Tucks Medicated Pads] 1 appl TP PRN PRN #0 box Hydrophilic Ointment [Aquaphilic Ointment] 1 appl TP PRN PRN #0 jar 12/04/16 Lisinopril [Zestril] 20 mg PO BID tablet 12/04/16 Menthol [Biofreeze] 1 appl TP Q4H PRN 12/04/16 Multivitamins [Multivitamin In[place]] 1 cap PO DAILY capsule 12/04/16 Nystatin [Mycostatin Ointment] 1 appl TP BID tube 12/04/16 Polyvinyl Alcohol [Artificial Tears] 1 drop OP Q4H btl 12/04/16 Simvastatin [Zocor] 40 mg PO HS tablet 12/04/16 Blood-Glucose Meter [Blood Glucose Monitoring] 1 each ACHS #1 kit 01/06/17 Calcium Carbonate [Calcium] 500 mg PO TID #1 tab.chew 01/06/17 Furosemide [Lasix] 20 mg PO DAILY tablet 01/06/17 Insulin Glargine,Hum.rec.anlog [Lantus] 2 units SC Q12H vial 01/06/17 Insulin Lispro [Humalog] 0 units SC ACINS vial 01/06/17 Potassium Chloride [K-Dur] 20 meq PO BIDWM tablet.sa 01/06/17 Warfarin Sodium [Coumadin] 3 mg PO DAILY@1700 tablet 01/06/17 hydrALAZINE HCL [Apresoline] 100 mg PO Q6H tablet 01/06/17
[2017-01-06] MEDS: POTASSIUM CHLORIDE 20 MEQ TABLET.SA PO SCH (08:33)
[2017-01-06] MEDS: CHOLECALCIFEROL 1,000 UNIT CAPSULE PO SCH (08:34)
[2017-01-06] MEDS: FOLIC ACID 1 MG TABLET PO SCH (08:34)
[2017-01-06] MEDS: FUROSEMIDE 20 MG TABLET PO SCH (08:34)
[2017-01-06] MEDS: LACTOBACILLUS ACIDOPHILUS 100 CAP BTL PO SCH (08:34)
[2017-01-06] MEDS: CARVEDILOL 6.25 MG TABLET PO SCH (08:34)
[2017-01-06] MEDS: LISINOPRIL 20 MG TABLET PO SCH (08:34)
[2017-01-06] MEDS: MULTIVITAMINS 1 CAP CAPSULE PO SCH (08:34)
[2017-01-06] MEDS: NYSTATIN 15 APPL TUBE TP SCH (08:35)
== END 2017-01-06 11:00 | DRG 193 ==
LOC: ER 18:41 → MS 21:54
PROVIDERS: ADMIT Nurse Practitioner; ATTEND Allergy & Immunology
PROC: 0T9B70Z Drainage of Bladder with Drainage Device, Via Natural or Artificial Opening (ICD-10-PCS; principal; 2016-12-18)
PROC: 4A033R1 Measurement of Arterial Saturation, Peripheral, Percutaneous Approach (ICD-10-PCS; 2016-12-26)
PROC: 5A09457 Assistance with Respiratory Ventilation, 24-96 Consecutive Hours, Continuous Positive Airway Pressure (ICD-10-PCS; 2016-12-26)
DX: J18.9 Pneumonia, unspecified organism (principal); J96.01 Acute respiratory failure with hypoxia; J96.02 Acute respiratory failure with hypercapnia; I50.33 Acute on chronic diastolic (congestive) heart failure; L03.113 Cellulitis of right upper limb; N18.4 Chronic kidney disease, stage 4 (severe); E87.0 Hyperosmolality and hypernatremia; R56.9 Unspecified convulsions; R40.4 Transient alteration of awareness; E87.6 Hypokalemia; E11.22 Type 2 diabetes mellitus with diabetic chronic kidney disease; I12.9 Hypertensive chronic kidney disease with stage 1 through stage 4 chronic kidney disease, or unspecified chronic kidney disease; E78.2 Mixed hyperlipidemia; M06.9 Rheumatoid arthritis, unspecified; R41.0 Disorientation, unspecified; I27.2 Other secondary pulmonary hypertension; M1A.09X0 Idiopathic chronic gout, multiple sites, without tophus (tophi); Z79.4 Long term (current) use of insulin; Z79.01 Long term (current) use of anticoagulants; Z22.322 Carrier or suspected carrier of Methicillin resistant Staphylococcus aureus; Z86.711 Personal history of pulmonary embolism

== ENCOUNTER 2017-01-12 19:31 | Emergency (ER) | payer MEDICARE, OTHER ==
--- NOTE | 2017-01-12 20:00 | ERNOTE ---
<Bone,Karan - Last Filed: 01/12/17 19:57> Dyspnea - Date Date of Service: 01/12/17 - General Presenting Symptoms: shortness of breath Source: [facility] - Immun/Allergies/Home Medications Immunizations: IMMUNIZATION HX Immunizations Up to Date Yes History of Influenza Vaccine Yes Hx Pneumococcal Vaccination Yes Allergies/Adverse Reactions: Allergies ibuprofen Allergy (Verified 12/18/16 19:00) ketorolac tromethamine [From Toradol] Allergy (Verified 12/18/16 19:00) tuberculin,PPD,multi-puncture Allergy (Verified 12/18/16 19:00) risperidone [From Risperdal] Adverse Reaction (Severe, Verified 12/18/16 19:00) pancytopenia Home Medications: HOME MEDICATIONS Acetaminophen [Tylenol] 650 mg PO QID PRN #0 tablet 12/04/16 [Last Taken Unknown ] Carvedilol [Coreg] 6.25 mg PO BID #1 tablet 12/04/16 [Last Taken Unknown] Cholecalciferol [Vitamin D] 1,000 unit PO DAILY capsule 12/04/16 [Last Taken Unknown] Cod Liver Oil/Zinc Oxide [Desitin] 1 appl TP PRN PRN #0 tube 12/04/16 [Last Taken Unknown] Folic Acid 1 mg PO DAILY tablet 12/04/16 [Last Taken Unknown] Glycerin/Witch Diana [place] [Tucks Medicated Pads] 1 appl TP PRN PRN #0 box [Last Taken Unknown] Hydrophilic Ointment [Aquaphilic Ointment] 1 appl TP PRN PRN #0 jar 12/04/16 [ Last Taken Unknown] Lisinopril [Zestril] 20 mg PO BID tablet 12/04/16 [Last Taken Unknown] Menthol [Biofreeze] 1 appl TP Q4H PRN 12/04/16 [Last Taken Unknown] Multivitamins [Multivitamin Ines] 1 cap PO DAILY capsule 12/04/16 [Last Taken Unknown] Nystatin [Mycostatin Ointment] 1 appl TP BID tube 12/04/16 [Last Taken Unknown] Polyvinyl Alcohol [Artificial Tears] 1 drop OP Q4H btl 12/04/16 [Last Taken Unknown] Simvastatin [Zocor] 40 mg PO HS tablet 12/04/16 [Last Taken Unknown] Blood-Glucose Meter [Blood Glucose Monitoring] 1 each ACHS #1 kit 01/06/17 [ Last Taken Unknown] Calcium Carbonate [Calcium] 500 mg PO TID #1 tab.chew 01/06/17 [Last Taken Unknown] Furosemide [Lasix] 20 mg PO DAILY tablet 01/06/17 [Last Taken Unknown] Insulin Glargine,Hum.rec.anlog [Lantus] 2 units SC Q12H vial 01/06/17 [Last Taken Unknown] Insulin Lispro [Humalog] 0 units SC ACINS vial 01/06/17 [Last Taken Unknown] Potassium Chloride [K-Dur] 20 meq PO BIDWM tablet.sa 01/06/17 [Last Taken Unknown] Warfarin Sodium [Coumadin] 3 mg PO DAILY@1700 tablet 01/06/17 [Last Taken Unknown] hydrALAZINE HCL [Apresoline] 100 mg PO Q6H tablet 01/06/17 [Last Taken Unknown] - Patient's Past Medical History Patient History - Medical: Anemia, Anxiety, Arthritis, Cataracts, Chronic Pain, Diabetes Type 2, GERD, Renal Failure, Rheumatoid Arthritis, UTI'S Patient History - Cardiac/Respiratory: Hypertension, Pulmonary Embolism Patient History - Cancer: Colon Patient History - Surgical Procedures: Amputation, Colon Resection, Hysterectomy Patient History - Other: None - Family History Mother Family History - Medical: Family History - Cardiac/Respiratory: History Unknown Father Family History - Medical: Family History - Cardiac/Respiratory: Myocardial Infarction - Social History Living Situations: pen[facility]entiary Abuse History: No History of abuse Psych History: Psychiatric Hx, Hx of Anxiety, Hx of Depression, Hx of Schizophrenia, Hx of Psychiatric Tx, Current tx/ever been on anti-depressants or anti-anxiety meds Does anyone smoke in the home?: No Alcohol Use: none Drug Use: none - Immunizations Immunizations Up to Date: Yes Hx Pneumococcal Vaccination: Yes History of Influenza Vaccine: Yes ED Progress - Vital Signs Vital Signs: Vital Signs 01/12/17 19:32 Temperature 37.0 C Pulse Rate 73 Respiratory 44 H Rate Blood Pressure 149/57 O2 Sat by Pulse 98 Oximetry - Progress/Reassessment Chief Complaint: Dyspnea Departure Clinical Impression: acute on chronic anemia, Chronic congestive heart failure with left ventricular diastolic dysfunction - Departure Disposition: [facility] [place] Condition: Stable Instructions: Heart Failure, [id number] Additional Instructions: Follow-up with Dr. Michael Jasmine to discuss ongoing treatment as well as concerns about gout <Binu Cook - Last Filed: 01/12/17 21:14> Dyspnea - General Source: family Exam Limitations: clinical condition - Immun/Allergies/Home Medications Immunizations: IMMUNIZATION HX Immunizations Up to Date Yes History of Influenza Vaccine Yes Hx Pneumococcal Vaccination Yes - History of Present Illness Narrative: 76-year-old female with chronic disease the worst of which is her recurrent chronic congestive heart failure with frequent recurrence of acute exacerbations along with chronic anemia chronic restrictive lung disease and MENTAL STATUS. SHE HAS HAD MULTIPLE ADMISSIONS AND DR. MICHAEL JASMINE HER PHYSICIAN STATES HE IS TRYING TO GET HER INTO A HOSPICE SITUATION BUT FAMILY HAS NOT COMPLIED. BEEN HOSPITALIZED ON NUMEROUS OCCASIONS. 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 Denies: fever/chills, chest pain/discomfort, cough, wheezing, ankle/leg swelling Prior Treatment: Reports: recently seen, treated by physician, recently hospitalized Review of Systems - Review of Systems Constitutional: Present: See HPI EYE: Present: no symptoms reported ENT: Present: no symptoms reported Respiratory: Present: See HPI Cardiology: Present: See HPI Gastrointestinal/Abdominal: Present: other - chronic abdominal distention and loose stools Genitourinary: Present: no symptoms reported Musculoskeletal: Present: no symptoms reported Skin: Present: other - redness of right hand and right stump Neurological: Present: See HPI Endocrine: Present: no symptoms reported Hematologic/Lymphatic: Present: See HPI - chronic anemia Psych: Present: See HPI Physical Exam - Physical Exam General Appearance: Present: mild distress - with tachypnea Eye Exam: Normal inspection: bilateral, PERRL: bilateral Ears, Nose, Throat: Present: normal ENT inspection, H, normal pharynx Neck: Present: normal inspection, nontender Respiratory: Present: no accessory muscle use, chest nontender, lungs clear. Absent: crackles, rales, wheezing Cardiovascular/Chest: Present: regular rate, rhythm, no murmur Gastrointestinal/Abdominal: Present: normal bowel sounds, nontender, distended - with tympany Rectal Exam: Present: deferred Back Exam: Present: no CVA tenderness Extremity Exam: Present: no edema, other - BKA right leg some redness and swelling of right hand Skin Exam: Present: warm/dry Lymphatic Exam: Present: no adenopathy Pelvic Exam: Present: deferred ED Progress - Results and Orders Patient's Lab Results:: I have reviewed the patient's lab results. - Vital Signs Patient's Vital Signs:: I have reviewed the patient's vital signs. Vital Signs: Vital Signs 01/12/17 19:32 Temperature 37.0 C Pulse Rate 73 Respiratory 44 H Rate Blood Pressure 149/57 O2 Sat by Pulse 98 Oximetry - EKG EKG: NSR, no ST T wave changes EKG read: Interp. by me - Progress/Reassessment Progress:: Unchanged Plan - Plan Plan: Reviewing the patient's lab and x-ray studies it appears the patient is actually improving in terms of her chronic congestive heart failure. Her BNP has come down to 1554 it was 2582 on the it was 4338 on the 26 of December. Her hemoglobin is stable at 8.8 g and the UA is clear. Chest x-ray shows cardiomegaly but no evidence of infiltrates at this time and her blood gases are back to normal. All this was discussed with the patient's son and it was decided that there is really nothing further we can or should be doing in the hospital and she [facility] and continue with her current medications and follow up with Dr. Michael Jasmine. They had some concerns about gout treatment and they'll discuss that with Dr. Michael Jasmine as well
[2017-01-12 20:13] LABS: Hematocrit 27.7 % (37.0-47.0); Hemoglobin 8.8 gm/dL (12.5-16.0); Mean Cell Volume 87.9 fl (78-100); Mean Corpuscular Hemoglobin 27.9 pg (27-31); Mean Corpuscular Hgb Conc 31.8 g/dl (32-36); Mean Platelet Volume 8.9 fl (6.0-9.5); Neutrophil # 8.1 K/mm3 (1.3-6.0); Neutrophil % 84.8 % (42-75.0); Platelet Count 127 K/mm3 (150-450); Red Blood Count 3.15 M/mm3 (4.2-5.4); Red Cell Distribution Width 18.2 % (11.5-14.0); White Blood Count 9.5 K/mm3 (4.0-10.5)
[2017-01-12 20:32] LABS: BUN/Creatinine Ratio 17.8 (9.0-21.6); Blood Urea Nitrogen 24 mg/dL (3-23); Glucose * 151 mg/dL (70-110); Sodium 137 mmol/L (132-142)
[2017-01-12 20:33] LABS: ALT 15 U/L (19-67); AST 17 U/L (0-48); Albumin * 2.3 gm/dl (3.4-5.0); Alkaline Phosphatase * 66 U/L (50-170); Anion Gap 13.8 mmol/L (6.8-13.8); BNP * 1554 pg/mL (5-550); Bilirubin, Total 0.5 mg/dL (0.0-1.1); Ca. Corrected For Albumin 9.6 mg/dL (8.4-10.2); Calcium * 8.6 mg/dL (7.9-10.9); Carbon Dioxide 25.6 mmol/L (24-32.6); Chloride 102 mmol/L (97-106); Potassium 4.4 mmol/L (3.4-4.6); Troponin I Less than 0.017 ng/ml (0.00-0.10)
[2017-01-12 20:35] LABS: Urine Appearance Clear; Urine Bilirubin Negative (NEGATIVE); Urine Color Yellow; Urine Ketone Negative (NEGATIVE)
[2017-01-12 20:36] LABS: Urine Amorphous Sediment Few - 1+ (NONE-FEW); Urine Bacteria None Seen; Urine Blood Negative /ul (NEGATIVE); Urine Nitrite Negative (NEGATIVE); Urine Protein Negative (NEGATIVE); Urine RBC None Seen /hpf (0-5); Urine Urobilinogen Normal (NORMAL); Urine WBC 0-5 /hpf (0-5)
[2017-01-13 00:45] VITALS: BP 135/59
== END 2017-01-13 00:42 ==
LOC: ER 19:31
DX: D53.9 Nutritional anemia, unspecified (principal); I50.1 Left ventricular failure, unspecified; F41.9 Anxiety disorder, unspecified; M19.90 Unspecified osteoarthritis, unspecified site; G89.29 Other chronic pain; E11.9 Type 2 diabetes mellitus without complications; K21.9 Gastro-esophageal reflux disease without esophagitis; N19 Unspecified kidney failure; I10 Essential (primary) hypertension

== ENCOUNTER 2017-02-10 20:59 | Observation (INO) | payer MEDICARE, OTHER ==
--- NOTE | 2017-02-10 21:07 | ERNOTE ---
Neuro HPI ER Record Presenting Symptoms: other - unresponsive Time Seen by Provider: 02/10/17 21:04 Source: EMS Exam Limitations: clinical condition Immunizations: IMMUNIZATION HX Immunizations Up to Date Yes History of Influenza Vaccine Yes Hx Pneumococcal Vaccination Yes Allergies/Adverse Reactions: Allergies Allergy/AdvReac Type Severity Reaction Status Date / Time ibuprofen Allergy Verified 12/18/16 19:00 ketorolac tromethamine Allergy Verified 12/18/16 19:00 [From Toradol] tuberculin,PPD,multi-puncture Allergy Verified 12/18/16 19:00 risperidone [From Risperdal] AdvReac Severe pancytopeni Verified 12/18/16 19:00 a Home Medications: HOME MEDICATIONS Acetaminophen [Tylenol] 650 mg PO QID PRN #0 tablet 12/04/16 [Last Taken Unknown ] Carvedilol [Coreg] 6.25 mg PO BID #1 tablet 12/04/16 [Last Taken Unknown] Folic Acid 1 mg PO DAILY tablet 12/04/16 [Last Taken Unknown] Lisinopril [Zestril] 20 mg PO BID tablet 12/04/16 [Last Taken Unknown] Polyvinyl Alcohol [Artificial Tears] 1 drop OP Q4H btl 12/04/16 [Last Taken Unknown] Simvastatin [Zocor] 40 mg PO HS tablet 12/04/16 [Last Taken Unknown] Furosemide [Lasix] 20 mg PO DAILY tablet 01/06/17 [Last Taken Unknown] Insulin Glargine,Hum.rec.anlog [Lantus] 2 units SC Q12H vial 01/06/17 [Last Taken Unknown] Potassium Chloride [K-Dur] 20 meq PO BIDWM tablet.sa 01/06/17 [Last Taken Unknown] hydrALAZINE HCL [Apresoline] 100 mg PO Q6H tablet 01/06/17 [Last Taken Unknown] Calcium Carbonate [Tums] 500 mg PO TID 02/11/17 [Last Taken Unknown] Cholecalciferol (Vitamin D3) [Vitamin D3] 1,000 unit PO DAILY 02/11/17 [Last Taken Unknown] Colchicine [Colcrys] 0.6 mg PO DAILY 02/11/17 [Last Taken Unknown] Insulin Lispro [Humalog] See Protocol SC ACINS 02/11/17 [Last Taken Unknown] Multivitamin [Multivitamins] 1 each PO DAILY 02/11/17 [Last Taken Unknown] QUEtiapine FUMARATE [Seroquel] 25 mg PO TID 02/11/17 [Last Taken Unknown] Simethicone [Mylicon Chewable Tablets] 160 mg PO ACHS 02/11/17 [Last Taken Unknown] Warfarin Sodium [Coumadin] 1 mg PO DAILY@1700 02/11/17 [Last Taken Unknown] - History of Present Illness Narrative: Pt was found unresponsive at the alf. EMS state they had minimal response when they first picked her up but then got no further response. She required O2 by mask to keep SaO2 greater than 90%. Onset: sudden onset Severity: severe - Character of Deficits New weakness: Present: general (diffuse) Review of Systems - Narrative Narrative: ROS taken from pt's son due to pt's decreased mental status - Review of Systems Constitutional: Present: no symptoms reported EYE: Present: no symptoms reported ENT: Present: no symptoms reported Respiratory: Present: no symptoms reported Cardiology: Present: no symptoms reported Gastrointestinal/Abdominal: Present: eating less, drinking less - only able to get her to drink small amounts 4-5 times a day Genitourinary: Present: no symptoms reported Musculoskeletal: Present: no symptoms reported Skin: Present: no symptoms reported Neurological: Present: no symptoms reported Endocrine: Present: no symptoms reported Hematologic/Lymphatic: Present: no symptoms reported Psych: Present: other - Pt have psychosis lately and was going to be restarted on anti-psychotics tonight. Pt had refused food lately because she told her son "God told me all food was poison" - Patient's Past Medical History Patient History - Medical: Anemia, Anxiety, Arthritis, Cataracts, Chronic Pain, Diabetes Type 2, GERD, Renal Failure, Rheumatoid Arthritis, UTI'S Patient History - Cardiac/Respiratory: Hypertension, Pulmonary Embolism Patient History - Cancer: Colon Patient History - Surgical Procedures: Amputation, Colon Resection, Hysterectomy Patient History - Other: None - Family History Mother Family History - Medical: Family History - Cardiac/Respiratory: History Unknown Father Family History - Medical: Family History - Cardiac/Respiratory: Myocardial Infarction - Social History Living Situations: alf Abuse History: No History of abuse Psych History: Psychiatric Hx, Hx of Anxiety, Hx of Depression, Hx of Schizophrenia, Hx of Psychiatric Tx, Current tx/ever been on anti-depressants or anti-anxiety meds Does anyone smoke in the home?: No Alcohol Use: none Drug Use: none - Immunizations Immunizations Up to Date: Yes Hx Pneumococcal Vaccination: Yes History of Influenza Vaccine: Yes Physical Exam - Physical Exam General Appearance: Present: wd/wn, lethargic Eye Exam: Abnormal pupil: bilateral - small pupils Ears, Nose, Throat: Present: normal except - - edentulous , normal pharynx Neck: Present: normal inspection Respiratory: Present: no accessory muscle use, decreased breath sounds Cardiovascular/Chest: Present: regular rate, rhythm, no murmur Gastrointestinal/Abdominal: Present: nondistended, soft Extremity Exam: Present: normal except - - right leg BKA, no edema Neurological Exam: Present: other - very lethargic Skin Exam: Present: normal color Lymphatic Exam: Present: no adenopathy Diana Coma Scale - Assess Eye Opening: To Pain Motor: Localizes to Pain Verbal: Inappropriate - Total Coma Scale Total: 10 ED Progress - Results and Orders Patient's Lab Results:: I have reviewed the patient's lab results. Results and Orders: Laboratory Tests 02/10/17 02/10/17 02/10/17 21:05 21:35 22:08 WBC 4.4 Hgb 11.9 L Hct 38.5 Plt Count 147 L Sodium 142 Potassium 5.0 H Chloride 107 H Carbon Dioxide 19.9 L Anion Gap 20.1 H BUN 64 H D Creatinine 2.12 H D Est GFR (Non-Af Amer) 24 L D BUN/Creatinine Ratio 30.2 H Random Glucose 86 Calcium 9.4 Total Bilirubin 0.5 AST 24 ALT 30 Alkaline Phosphatase 86 Total Protein 6.7 Albumin 3.7 Urine Color Yellow Urine Appearance Clear Urine pH 5.5 Ur Specific [place] 1.020 Urine Protein Negative Urine Glucose (UA) Negative Urine Ketones Negative Urine Blood Negative Urine Nitrate Negative Urine Bilirubin Negative Urine Urobilinogen Normal Ur Leukocyte Esterase Negative Urine RBC 0-5 Urine WBC 0-5 Ur Epithelial Cells 5-10 H Urine Bacteria 1+ H Hyaline Casts Trace Urine Culture Comments Culture to follow Stl C.difficile Tox A&B 02/11/17 02:01 WBC Hgb Hct Plt Count Sodium Potassium Chloride Carbon Dioxide Anion Gap BUN Creatinine Est GFR (Non-Af Amer) BUN/Creatinine Ratio Random Glucose Calcium Total Bilirubin AST ALT Alkaline Phosphatase Total Protein Albumin Urine Color Urine Appearance Urine pH Ur Specific [place] Urine Protein Urine Glucose (UA) Urine Ketones Urine Blood Urine Nitrate Urine Bilirubin Urine Urobilinogen Ur Leukocyte Esterase Urine RBC Urine WBC Ur Epithelial Cells Urine Bacteria Hyaline Casts Urine Culture Comments Stl C.difficile Tox A&B Negative - Vital Signs Patient's Vital Signs:: I have reviewed the patient's vital signs. - X-Ray X-Ray #1 X-Ray: chest Interpretation: Reviewed by me X-ray Comments: IMPRESSION: No acute pulmonary findings. 11 mm right midlung nodular opacity; consider further evaluation with routine outpatient CT chest to further evaluate. 4 mm screw like density superimposing the left seventh posterior rib. Findings could be external to the patient. Aspirated foreign body not entirely excluded. Cardiac silhouette enlargement. Electronically signed by Bhupendra Camacho D.O.. - CT/Ultrasound CT/Ultrasound Narrative: CT head: CT Head W/O Contrast *: Exam is degraded by patient motion artifact and positioning in the CT gantry. Age-related cortical atrophy and periventricular white matter chronic ischemic changes are present. No evidence of ventriculomegaly. Suggestion of a remote left cerebellar lacunar infarct. There is a remote left basal ganglia lacunar infarct. No acute intracranial hemorrhage. No midline shift or herniation. There are hyperdense extra-axial masses in the right frontal lobe as well as the left middle cranial fossa, that appear grossly unchanged as compared to the MRI dated July 23, 2013 , and findings likely represent meningiomas. No mass effect. The cortical rios/white matter differentiation is grossly intact. Benign intracranial calcifications noted. Pneumatized portions of the skull are clear. The calvarium is intact. There is hyperostosis frontalis internus. Soft tissues are unremarkable. IMPRESSION: No acute intracranial hemorrhage or mass effect. No discrete signs of a transcortical infarction. Additional findings and comments are as above. - Progress/Reassessment Progress:: Improved Progress Note-Subjective: 02/10/17 23:59 Pt becoming more awake, still very drowsy when awakened. Speaks slowly and with slurred speech. discussed observation admit with pt's son. He agrees with admit. Spoke with Jovita HOLMAN hospitalist. 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
--- OUTSIDE RECORDS SUMMARY | 2017-02-10 21:30 | XMS REPORT | Continuity of Care Document ---
:1940 Author Organization [facility] ([facility]) Address [place] [address] Phone [phone] Care Team Providers Name Role Phone Jaylen Soler Primary Care Provider [phone] Source Comments This disclosure is being made pursuant to the Care Everywhere program, applicable federal and state laws, and may not contain all informaitonavailable regarding this patient.[facility] ([facility]) Active Allergies and Adverse Reactions Allergen [...] Recent Encounters Date Type Specialty Providers Description 01/24/2017 Hospital Encounter Radiation Oncology Segundo Samson MD Chief Comp: Patient Reported Reason For Visit 01/13/2017 Office Visit 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 Chief Comp: Patient MANDA Ramirez Reported Reason For Visit 12/30/2016 Hospital Encounter Radiation Oncology Segundo Samson MD Chief Comp: Patient Reported Reason For Visit 12/30/2016 Office Visit 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 Chief Comp: Patient James MANDA Reported Reason For Visit 12/19/2016 Office Visit Urology Mago Alexandra Chief Comp: Дмитрий Schmid MD Reported Reason For Visit Social History Tobacco Use Types Packs/Day Years Used Date Never Smoker Smokeless Tobacco: Never Used Tobacco Cessation:Counseling Given: Yes Comments: Alcohol Use Drinks/Week oz/Week Comments No Last Filed Vital Signs Vital Sign Reading Time Taken Blood Pressure 191/81 07/01/2016 9:27 AM CDT Pulse 59 07/01/2016 9:27 AM CDT Temperature 36.4 C (97.5 F) 03/28/2016 11:15 AM CDT Respiratory Rate 20 09/01/2014 12:15 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 Height 1.67 m (5' 5.75") 12/14/2015 12:38 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
[2017-02-10 21:44] LABS: Hematocrit 38.5 % (37.0-47.0); Hemoglobin 11.9 gm/dL (12.5-16.0); Mean Cell Volume 88.7 fl (78-100); Mean Corpuscular Hemoglobin 27.4 pg (27-31); Mean Corpuscular Hgb Conc 30.9 g/dl (32-36); Mean Platelet Volume 10.7 fl (6.0-9.5); Neutrophil # 2.8 K/mm3 (1.3-6.0); Neutrophil % 63.1 % (42-75.0); Platelet Count 147 K/mm3 (150-450); Red Blood Count 4.34 M/mm3 (4.2-5.4); Red Cell Distribution Width 18.2 % (11.5-14.0); White Blood Count 4.4 K/mm3 (4.0-10.5)
[2017-02-10 21:58] LABS: Albumin * 3.7 gm/dl (3.4-5.0); BUN/Creatinine Ratio 30.2 (9.0-21.6); Bilirubin, Total 0.5 mg/dL (0.0-1.1); Ca. Corrected For Albumin 9.3 mg/dL (8.4-10.2); Calcium * 9.4 mg/dL (7.9-10.9); Total Protein 6.7 gm/dL (6.2-8.2)
[2017-02-10 22:07] LABS: Anion Gap 20.1 mmol/L (6.8-13.8); Carbon Dioxide 19.9 mmol/L (24-32.6)
[2017-02-10 22:36] LABS: Urine Bilirubin Negative (NEGATIVE); Urine Blood Negative /ul (NEGATIVE); Urine Ketone Negative (NEGATIVE); Urine Nitrite Negative (NEGATIVE); Urine Protein Negative (NEGATIVE); Urine Urobilinogen Normal (NORMAL); Urine pH 5.5 pH (5.0-7.0)
[2017-02-10 22:44] LABS: Urine Appearance Clear; Urine Bacteria 1+; Urine Color Yellow; Urine RBC 0-5 /hpf (0-5); Urine WBC 0-5 /hpf (0-5)
[2017-02-10 22:45] LABS: Urine Hyaline Cast TRACE /LPF
[2017-02-11] MEDS ORDERED: NORMAL SALINE 1,000 ML IV PRN ×2 (00:13→01:59)
--- OUTSIDE RECORDS SUMMARY | 2017-02-11 00:18 | XMS REPORT | Continuity of Care Document ---
:1940 Author Organization [facility] ([facility]) Address [place] [address] Phone [phone] Care Team Providers Name Role Phone Jaylen Soler Primary Care Provider [phone] Source Comments This disclosure is being made pursuant to the Care Everywhere program, applicable federal and state laws, and may not contain all informaitonavailable regarding this patient.[facility] ([facility]) Active Allergies and Adverse Reactions Allergen [...] Visit Urology Mago Alexandra Chief Comp: Дмитрий cShmid MD Reported Reason For Visit Social History [...] CDT Respiratory Rate 20 09/01/2014 12:15 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
--- NOTE | 2017-02-11 00:32 | HP ---
<Jovita Dillon - Last Filed: 02/11/17 07:10> Chief Complaint - Chief Complaint Date of Service: 02/11/17 Time of Service: 00:29 Chief Complaint: ' Unresponsiveness, poor appetite, refusing to eat or drink'. Source of HPI- Pt; unreliable, Pt's son/POA- Harvey. ER provider report. History of Present Illness: Ms. Samson is a 76-yr-old W[place] pt of Dr. Gold with a PMH of: Anemia, Anxiety, Arthritis, Chronic Pain Syndrome, DM II, GERD, Gout, HTN, Hearing Loss , Parkinson's disease, Pulmonary Embolism & Schizophrenia. History is unobtainable from the pt due to cognitive impairment from a psychiatry condition and is in a somnolent state. Son, Jaylen Samson (POA) provided most information. Pt is a assisted Care resident at [facility]. He states that for the last one week, pt has been refusing to eat or drink and the reason, he says, 'pt believes that the food is poisoned and God told her so. ' They have visited her everyday at the Center to encourage her to eat and she still refuses and 'accuses him of being paid $ 1000 to kill her.' He says pt has battled with schizophrenia for at least 35 yrs and was on [place] for many years. Eventually it was stopped due to being ineffective and she was started on Risperdal. However, the Risperdal was stopped during the last hospital admission due to somnolence. For the last two months, he says pt has not been on any Antipsychotics. He called the pt's PCP today to see if she can be started on medications to control her delusions/hallucinations. Seroquel 200mg was started today. However, pt had not received the first dose which was scheduled tonight as when they went to pay her a visit at the care home, they noticed that she was lethargic. They asked nursing to call the Dr. Rene happened to be the On- Call Provider and advised the pt's nurse to send her to the ED for further evaluation. While at the ED, she was triagged as a 'CVA Alert ,' and the Head CT completed did not show any infarcts. The CXR did not have any acute cardiopulmonary findings and the UA also did not show any infection. However, she was found to be dehydrated from Acute Renal Injury with a K of 5.0 , BUN/CR of: 64/2.12. She will be admitted under observation status for IVF due to dehydration. - Patient's Past Medical History Patient History - Medical: Anemia, Anxiety, Arthritis, Cataracts, Chronic Pain, Diabetes Type 2, GERD, Renal Failure, Rheumatoid Arthritis, UTI'S, Other - Chronic Miguel Angel Syndrome, Gout, Patient History - Cardiac/Respiratory: Hypertension, Pulmonary Embolism Patient History - Cancer: Colon Patient History - Surgical Procedures: Amputation, Colon Resection, Hysterectomy Patient History - Other: None - Family History Mother Family History - Medical: Family History - Cardiac/Respiratory: History Unknown Father Family History - Medical: Family History - Cardiac/Respiratory: Myocardial Infarction - Social History Living Situations: halfway Abuse History: No History of abuse Psych History: Psychiatric Hx, Hx of Anxiety, Hx of Depression, Hx of Schizophrenia, Hx of Psychiatric Tx, Current tx/ever been on anti-depressants or anti-anxiety meds Does anyone smoke in the home?: No Alcohol Use: none Drug Use: none - Immunizations Immunizations Up to Date: Yes Hx Pneumococcal Vaccination: Yes History of Influenza Vaccine: Yes Review Of Systems (GEN) - Review of Systems Additional Comments: ROS unobtainable due to AMS. Allergies/Adverse Reactions: Allergies Allergy/AdvReac Type Severity Reaction Status Date / Time ibuprofen Allergy Verified 12/18/16 19:00 ketorolac tromethamine Allergy Verified 12/18/16 19:00 [From Toradol] tuberculin,PPD,multi-puncture Allergy Verified 12/18/16 19:00 risperidone [From Risperdal] AdvReac Severe pancytopeni Verified 12/18/16 19:00 a Home Medications: HOME MEDICATIONS Acetaminophen [Tylenol] 650 mg PO QID PRN #0 tablet 12/04/16 [Last Taken Unknown ] Carvedilol [Coreg] 6.25 mg PO BID #1 tablet 12/04/16 [Last Taken Unknown] Folic Acid 1 mg PO DAILY tablet 12/04/16 [Last Taken Unknown] Lisinopril [Zestril] 20 mg PO BID tablet 12/04/16 [Last Taken Unknown] Polyvinyl Alcohol [Artificial Tears] 1 drop OP Q4H btl 12/04/16 [Last Taken Unknown] Simvastatin [Zocor] 40 mg PO HS tablet 12/04/16 [Last Taken Unknown] Furosemide [Lasix] 20 mg PO DAILY tablet 01/06/17 [Last Taken Unknown] Insulin Glargine,Hum.rec.anlog [Lantus] 2 units SC Q12H vial 01/06/17 [Last Taken Unknown] Potassium Chloride [K-Dur] 20 meq PO BIDWM tablet.sa 01/06/17 [Last Taken Unknown] hydrALAZINE HCL [Apresoline] 100 mg PO Q6H tablet 01/06/17 [Last Taken Unknown] Calcium Carbonate [Tums] 500 mg PO TID 02/11/17 [Last Taken Unknown] Cholecalciferol (Vitamin D3) [Vitamin D3] 1,000 unit PO DAILY 02/11/17 [Last Taken Unknown] Colchicine [Colcrys] 0.6 mg PO DAILY 02/11/17 [Last Taken Unknown] Insulin Lispro [Humalog] See Protocol SC ACINS 02/11/17 [Last Taken Unknown] Multivitamin [Multivitamins] 1 each PO DAILY 02/11/17 [Last Taken Unknown] QUEtiapine FUMARATE [Seroquel] 25 mg PO TID 02/11/17 [Last Taken Unknown] Simethicone [Mylicon Chewable Tablets] 160 mg PO ACHS 02/11/17 [Last Taken Unknown] Warfarin Sodium [Coumadin] 1 mg PO DAILY@1700 02/11/17 [Last Taken Unknown] Exam - Exam Vital Signs: Vital Signs - Last Taken Temp 36.4 C L 02/10/17 21:13 Pulse 64 02/10/17 23:44 Resp 18 02/10/17 23:44 BP 107/41 02/10/17 23:44 Pulse Ox 98 02/10/17 23:44 Constitutional: Present: Somnolent, Elderly ENT Exam: Present: hard of hearing, dry mucous membranes Neck: Present: non-tender, full range of motion Back Exam: Present: normal inspection Respiratory: Present: no accessory muscle use, No rales, No wheezing Cardiovascular/Chest: Present: regular rate, rhythm, no edema, no murmur Abdomen: Present: Normal bowel sounds, soft, nontender /Rectal: Present: Other - Galo Catheter Extremity: Present: slow capillary refill - LT foot, other - RT BKA. Skin Exam: Present: no cyanosis, cool/dry Lymphatic: Present: no adenopathy Neurologic: Present: disoriented x 3, other - GSC of 6, cannot follow commands. Appearance: Present: impaired insight, impaired remote memory Eye contact: Present: decreased rate of speech Thoughts: Present: delusions, incoherent, other - gets agiated with cares. Diagnostic Studies: Laboratory Results WBC 4.4 K/mm3 (4.0-10.5) 02/10/17 21:05 RBC 4.34 M/mm3 (4.2-5.4) 02/10/17 21:05 Hgb 11.9 gm/dL (12.5-16.0) L 02/10/17 21:05 Hct 38.5 % (37.0-47.0) 02/10/17 21:05 MCV 88.7 fl (78-100) 02/10/17 21:05 MCH 27.4 pg (27-31) 02/10/17 21:05 MCHC 30.9 g/dl (32-36) L 02/10/17 21:05 RDW 18.2 % (11.5-14.0) H 02/10/17 21:05 Plt Count 147 K/mm3 (150-450) L 02/10/17 21:05 MPV 10.7 fl (6.0-9.5) H 02/10/17 21:05 Immature Gran % (Auto) 0.20 % (0.001-0.429) 02/10/17 21:05 Immature Gran # (Auto) 0.01 K/mm3 (0.000-0.0310) 02/10/17 21:05 Neutrophils % 63.1 % (42-75.0) 02/10/17 21:05 Lymphocytes % 24.3 % (20-51) 02/10/17 21:05 Monocytes % 10.5 % (0.0-9) H 02/10/17 21:05 Eosinophils % 1.4 % (0.0-3.0) 02/10/17 21:05 Basophils % 0.5 % (0.0-1.0) 02/10/17 21:05 Nucleated RBC % 0.0 k/mm3 (0-1) 02/10/17 21:05 Neutrophils # 2.8 K/mm3 (1.3-6.0) 02/10/17 21:05 Lymphocytes # 1.1 k/mm3 (1.5-3.5) L 02/10/17 21:05 Monocytes # 0.5 k/mm3 (0.0-1.0) 02/10/17 21:05 Eosinophils # 0.1 k/mm3 (0.0-0.7) 02/10/17 21:05 Absolute Basophils 0.0 k/mm3 (0.0-0.1) 02/10/17 21:05 Sodium 142 mmol/L (132-142) 02/10/17 21:35 Plasma Sodium 142 mmol/L (130-142) 02/10/17 21:35 Potassium 5.0 mmol/L (3.4-4.6) H 02/10/17 21:35 Chloride 107 mmol/L (97-106) H 02/10/17 21:35 Carbon Dioxide 19.9 mmol/L (24-32.6) L 02/10/17 21:35 Anion Gap 20.1 mmol/L (6.8-13.8) H 02/10/17 21:35 BUN 64 mg/dL (3-23) H D 02/10/17 21:35 Creatinine 2.12 mg/dL (0.4-1.4) H D 02/10/17 21:35 Est GFR (Non-Af Amer) 24 mL/min (60-130) L D 02/10/17 21:35 BUN/Creatinine Ratio 30.2 (9.0-21.6) H 02/10/17 21:35 Random Glucose 86 mg/dL (70-110) 02/10/17 21:35 Calcium 9.4 mg/dL (7.9-10.9) 02/10/17 21:35 Calcium Adj for Albumin 9.3 mg/dL (8.4-10.2) 02/10/17 21:35 Total Bilirubin 0.5 mg/dL (0.0-1.1) 02/10/17 21:35 AST 24 U/L (0-48) 02/10/17 21:35 ALT 30 U/L (19-67) 02/10/17 21:35 Alkaline Phosphatase 86 U/L (50-170) 02/10/17 21:35 Total Protein 6.7 gm/dL (6.2-8.2) 02/10/17 21:35 Albumin 3.7 gm/dl (3.4-5.0) 02/10/17 21:35 Urine Color Yellow 02/10/17 22:08 Urine Appearance Clear 02/10/17 22:08 Urine pH 5.5 pH (5.0-7.0) 02/10/17 22:08 Ur Specific [place] 1.020 SP.GR. (1.005-1.010) 02/10/17 22:08 Urine Protein Negative mg/dL (NEGATIVE) 02/10/17 22:08 Urine Glucose (UA) Negative mg/dL (NEGATIVE) 02/10/17 22:08 Urine Ketones Negative mg/dL (NEGATIVE) 02/10/17 22:08 Urine Blood Negative /ul (NEGATIVE) 02/10/17 22:08 Urine Nitrate Negative (NEGATIVE) 02/10/17 22:08 Urine Bilirubin Negative mg/dl (NEGATIVE) 02/10/17 22:08 Urine Urobilinogen Normal EU/dl (NORMAL) 02/10/17 22:08 Ur Leukocyte Esterase Negative /ul (NEGATIVE) 02/10/17 22:08 Urine RBC 0-5 /hpf (0-5) 02/10/17 22:08 Urine WBC 0-5 /hpf (0-5) 02/10/17 22:08 Ur Epithelial Cells 5-10 /hpf (0-5) H 02/10/17 22:08 Urine Bacteria 1+ (NONE) H 02/10/17 22:08 Hyaline Casts Trace /LPF (NONE) 02/10/17 22:08 Urine Culture Comments Culture to follow 02/10/17 22:08 Assessment/Plan - Assessment/Plan (1) Acute kidney injury Assessment: BUN/CR of 64/2.12. Believe this pre-renal due to dehydration from Poor oral intake, continued diuretics and patsy inhibitor medications. Will hydrate with IVF. Will hold Lasix and Lisinopril for now. Check BMP in am. Problem: Acute (2) Metabolic encephalopathy Assessment: Pt noted to be in altered level of consciousness ( Somnolence) & agitation sometimes. This is most likely due to a systemic cause invovling Acute Renal Failure and not: a.)hypoxia- No pox desaturations, b.) Infection- UA, CBC & CXR normal, c.) Toxic causes- Not on any sedatives or antipsychotics. Should see an improvement with alertness after IVF hydration. Problem: Acute (3) Dehydration Assessment: IVF hydration-BMP in am Problem: Acute (4) Schizophrenia Assessment: Hold the Seroquel for now. Will restart when more awake. Problem: Chronic QualifierTitle: Schizophrenia type: catatonic schizophrenia Qualified Code(s): F20.2 - Catatonic schizophrenia (5) Diabetes Assessment: ACHS accuchecks, continue SSI & Lantus. Problem: Chronic QualifierTitle: 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 type: type 2 (6) HTN (hypertension) Assessment: Stable- Hold lisinpril for now, continue with Hydralazine. Problem: Chronic QualifierTitle: Hypertension type: essential hypertension Qualified Code( s): I10 - Essential (primary) hypertension (7) GERD (gastroesophageal reflux disease) Assessment: Stable- Problem: Chronic (8) Gout Problem: Chronic QualifierTitle: Gout site: multiple sites Gout etiology: idiopathic Chronicity: chronic Presence of tophus: without tophus Qualified Code(s): M1A.09X0 - Idiopathic chronic gout, multiple sites, without tophus (tophi) (9) A-fib Problem: Chronic <Jaylen Gold - Last Filed: 02/11/17 13:47> Immunizations: IMMUNIZATION HX Immunizations Up to Date Yes History of Influenza Vaccine Yes Hx Pneumococcal Vaccination Yes Exam - Exam Vital Signs: Vital Signs - Last Taken Temp 36.7 C 02/11/17 12:13 Pulse 67 02/11/17 12:13 Resp 24 H 02/11/17 12:13 BP 140/54 02/11/17 12:13 Pulse Ox 98 02/11/17 12:13 Diagnostic Studies: Abnormal Lab Results 02/11/17 02/11/17 02/11/17 Range/Units 06:13 06:13 06:13 WBC 3.8 L (4.0-10.5) K/mm3 RBC 3.64 L (4.2-5.4) M/mm3 Hgb 10.0 L (12.5-16.0) gm/dL Hct 32.6 L (37.0-47.0) % MCHC 30.7 L (32-36) g/dl RDW 18.1 H (11.5-14.0) % Plt Count 114 L (150-450) K/mm3 MPV 10.6 H (6.0-9.5) fl Immature Gran % (Auto) 0.50 H (0.001-0.429) % Monocytes % 10.0 H (0.0-9) % Lymphocytes # 0.8 L (1.5-3.5) k/mm3 PT 25.4 H (9.4-11.4) Seconds INR (Anticoag Therapy) 2.44 H (0.90-1.10) INR Sodium 143 H (132-142) mmol/L Plasma Sodium 143 H (130-142) mmol/L Chloride 112 H (97-106) mmol/L Carbon Dioxide 19.3 L (24-32.6) mmol/L Anion Gap 16.1 H (6.8-13.8) mmol/L BUN 65 H (3-23) mg/dL Creatinine 2.13 H (0.4-1.4) mg/dL Est GFR (Non-Af Amer) 24 L (60-130) mL/min BUN/Creatinine Ratio 30.5 H (9.0-21.6) Laboratory Results WBC 3.8 K/mm3 (4.0-10.5) L 02/11/17 06:13 RBC 3.64 M/mm3 (4.2-5.4) L 02/11/17 06:13 Hgb 10.0 gm/dL (12.5-16.0) L 02/11/17 06:13 Hct 32.6 % (37.0-47.0) L 02/11/17 06:13 MCV 89.6 fl (78-100) 02/11/17 06:13 MCH 27.5 pg (27-31) 02/11/17 06:13 MCHC 30.7 g/dl (32-36) L 02/11/17 06:13 RDW 18.1 % (11.5-14.0) H 02/11/17 06:13 Plt Count 114 K/mm3 (150-450) L 02/11/17 06:13 MPV 10.6 fl (6.0-9.5) H 02/11/17 06:13 Immature Gran % (Auto) 0.50 % (0.001-0.429) H 02/11/17 06:13 Immature Gran # (Auto) 0.02 K/mm3 (0.000-0.0310) 02/11/17 06:13 Neutrophils % 67.6 % (42-75.0) 02/11/17 06:13 Lymphocytes % 20.8 % (20-51) 02/11/17 06:13 Monocytes % 10.0 % (0.0-9) H 02/11/17 06:13 Eosinophils % 0.8 % (0.0-3.0) 02/11/17 06:13 Basophils % 0.3 % (0.0-1.0) 02/11/17 06:13 Nucleated RBC % 0.0 k/mm3 (0-1) 02/11/17 06:13 Neutrophils # 2.6 K/mm3 (1.3-6.0) 02/11/17 06:13 Lymphocytes # 0.8 k/mm3 (1.5-3.5) L 02/11/17 06:13 Monocytes # 0.4 k/mm3 (0.0-1.0) 02/11/17 06:13 Eosinophils # 0.0 k/mm3 (0.0-0.7) 02/11/17 06:13 Absolute Basophils 0.0 k/mm3 (0.0-0.1) 02/11/17 06:13 PT 25.4 Seconds (9.4-11.4) H 02/11/17 06:13 INR (Anticoag Therapy) 2.44 INR (0.90-1.10) H 02/11/17 06:13 Sodium 143 mmol/L (132-142) H 02/11/17 06:13 Plasma Sodium 143 mmol/L (130-142) H 02/11/17 06:13 Potassium 4.4 mmol/L (3.4-4.6) 02/11/17 06:13 Chloride 112 mmol/L (97-106) H 02/11/17 06:13 Carbon Dioxide 19.3 mmol/L (24-32.6) L 02/11/17 06:13 Anion Gap 16.1 mmol/L (6.8-13.8) H 02/11/17 06:13 BUN 65 mg/dL (3-23) H 02/11/17 06:13 Creatinine 2.13 mg/dL (0.4-1.4) H 02/11/17 06:13 Est GFR (Non-Af Amer) 24 mL/min (60-130) L 02/11/17 06:13 BUN/Creatinine Ratio 30.5 (9.0-21.6) H 02/11/17 06:13 Random Glucose 82 mg/dL (70-110) 02/11/17 06:13 Calcium 9.0 mg/dL (7.9-10.9) 02/11/17 06:13 Calcium Adj for Albumin 9.3 mg/dL (8.4-10.2) 02/10/17 21:35 Total Bilirubin 0.5 mg/dL (0.0-1.1) 02/10/17 21:35 AST 24 U/L (0-48) 02/10/17 21:35 ALT 30 U/L (19-67) 02/10/17 21:35 Alkaline Phosphatase 86 U/L (50-170) 02/10/17 21:35 Total Protein 6.7 gm/dL (6.2-8.2) 02/10/17 21:35 Albumin 3.7 gm/dl (3.4-5.0) 02/10/17 21:35 Urine Color Yellow 02/10/17 22:08 Urine Appearance Clear 02/10/17 22:08 Urine pH 5.5 pH (5.0-7.0) 02/10/17 22:08 Ur Specific [place] 1.020 SP.GR. (1.005-1.010) 02/10/17 22:08 Urine Protein Negative mg/dL (NEGATIVE) 02/10/17 22:08 Urine Glucose (UA) Negative mg/dL (NEGATIVE) 02/10/17 22:08 Urine Ketones Negative mg/dL (NEGATIVE) 02/10/17 22:08 Urine Blood Negative /ul (NEGATIVE) 02/10/17 22:08 Urine Nitrate Negative (NEGATIVE) 02/10/17 22:08 Urine Bilirubin Negative mg/dl (NEGATIVE) 02/10/17 22:08 Urine Urobilinogen Normal EU/dl (NORMAL) 02/10/17 22:08 Ur Leukocyte Esterase Negative /ul (NEGATIVE) 02/10/17 22:08 Urine RBC 0-5 /hpf (0-5) 02/10/17 22:08 Urine WBC 0-5 /hpf (0-5) 02/10/17 22:08 Ur Epithelial Cells 5-10 /hpf (0-5) H 02/10/17 22:08 Urine Bacteria 1+ (NONE) H 02/10/17 22:08 Hyaline Casts Trace /LPF (NONE) 02/10/17 22:08 Urine Culture Comments Culture to follow 02/10/17 22:08 Stl C.difficile Tox A&B Negative (Negative) 02/11/17 02:01 Assessment/Plan - Narrative Narrative: Record reviewed, patient examined. I personally directed all of our nurse practitioner hospitalist's care for this patient. The situation is one in which the patient's psychiatric problems have precipitated her readmission. We will try hard to address both to the best of our ability in the next 24 hours.
[2017-02-11] MEDS ORDERED: ACETAMINOPHEN 325 MG TABLET PO PRN (02:54)
[2017-02-11] MEDS ORDERED: hydrALAZINE HCL 50 MG TABLET PO SCH (03:00)
[2017-02-11] MEDS ORDERED: INSULIN GLARGINE,HUM.REC.ANLOG 100 UNITS/ML VIAL SC SCH (03:00)
[2017-02-11] MEDS: POLYVINYL ALCOHOL 150 DROP BTL OP SCH ×6 (03:56→23:09)
[2017-02-11] MEDS: DEXTROSE 5%-NORMAL SALINE 1,000 ML IV PRN ×2 (05:29→17:16)
[2017-02-11 06:14] LABS: Hematocrit 32.6 % (37.0-47.0); Mean Cell Volume 89.6 fl (78-100); Mean Corpuscular Hemoglobin 27.5 pg (27-31); Mean Corpuscular Hgb Conc 30.7 g/dl (32-36); Mean Platelet Volume 10.6 fl (6.0-9.5); Neutrophil # 2.6 K/mm3 (1.3-6.0); Neutrophil % 67.6 % (42-75.0); Platelet Count 114 K/mm3 (150-450); Red Blood Count 3.64 M/mm3 (4.2-5.4); Red Cell Distribution Width 18.1 % (11.5-14.0); White Blood Count 3.8 K/mm3 (4.0-10.5)
[2017-02-11 06:25] LABS: Prothrombin Time (Patient) 25.4 Seconds (9.4-11.4)
[2017-02-11 06:29] LABS: INR 2.44 INR (0.90-1.10)
[2017-02-11 06:30] LABS: Anion Gap 16.1 mmol/L (6.8-13.8); BUN/Creatinine Ratio 30.5 (9.0-21.6); Carbon Dioxide 19.3 mmol/L (24-32.6); Estimated Creat Clear 19.1; Potassium 4.4 mmol/L (3.4-4.6)
[2017-02-11] MEDS: INSULIN LISPRO 100 UNITS/ML VIAL SC SCH ×3 (07:40→17:23)
[2017-02-11] MEDS: SIMETHICONE 80 MG TAB.CHEW PO SCH ×4 (07:42→20:40)
[2017-02-11] MEDS ORDERED: CARVEDILOL 3.125 MG TABLET PO SCH (09:00)
[2017-02-11] MEDS ORDERED: CARVEDILOL 6.25 MG TABLET PO SCH (09:00)
[2017-02-11] MEDS ORDERED: COLCHICINE 0.6 MG TABLET PO SCH (09:00)
[2017-02-11] MEDS: INSULIN GLARGINE,HUM.REC.ANLOG 100 UNITS/ML VIAL SC SCH ×2 (09:01→20:47)
[2017-02-11] MEDS: MEGESTROL ACETATE 40 MG/ML BTL PO SCH (09:56)
[2017-02-11] MEDS: CHOLECALCIFEROL 1,000 UNIT CAPSULE PO SCH (09:57)
[2017-02-11] MEDS: MULTIVITAMINS 1 CAP CAPSULE PO SCH (09:57)
[2017-02-11] MEDS: FOLIC ACID 1 MG TABLET PO SCH (09:57)
[2017-02-11] MEDS: CALCIUM CARBONATE 500 MG TAB.CHEW PO SCH ×3 (09:57→17:22)
[2017-02-11] MEDS: CARVEDILOL 3.125 MG TABLET PO SCH ×2 (10:55→21:37)
[2017-02-11] MEDS: hydrALAZINE HCL 10 MG TABLET PO SCH ×3 (10:55→20:41)
[2017-02-11] MEDS ORDERED: WARFARIN SODIUM 3 MG TABLET PO SCH (17:00)
[2017-02-11] MEDS ORDERED: WARFARIN SODIUM 1 MG TABLET PO SCH (17:45)
[2017-02-11] MEDS ORDERED: QUEtiapine FUMARATE 25 MG TABLET PO SCH (21:00)
[2017-02-11] MEDS ORDERED: SIMVASTATIN 40 MG TABLET PO SCH (21:00)
[2017-02-12] MEDS: hydrALAZINE HCL 10 MG TABLET PO SCH ×2 (02:52→09:58)
[2017-02-12] MEDS: POLYVINYL ALCOHOL 150 DROP BTL OP SCH ×2 (03:07→07:18)
[2017-02-12] MEDS: DEXTROSE 5%-NORMAL SALINE 1,000 ML IV PRN (04:25)
[2017-02-12 05:46] LABS: Hematocrit 25.4 % (37.0-47.0); Hemoglobin 8.1 gm/dL (12.5-16.0); Mean Cell Volume 87.9 fl (78-100); Mean Corpuscular Hgb Conc 31.9 g/dl (32-36); Mean Platelet Volume 10.4 fl (6.0-9.5); Neutrophil # 1.9 K/mm3 (1.3-6.0); Neutrophil % 68.3 % (42-75.0); Platelet Count 64 K/mm3 (150-450); Red Blood Count 2.89 M/mm3 (4.2-5.4); Red Cell Distribution Width 17.8 % (11.5-14.0); White Blood Count 2.8 K/mm3 (4.0-10.5)
[2017-02-12 05:49] LABS: Anion Gap 16.2 mmol/L (6.8-13.8); BUN/Creatinine Ratio 33.8 (9.0-21.6); Calcium * 8.7 mg/dL (7.9-10.9); Carbon Dioxide 18.1 mmol/L (24-32.6); Estimated Creat Clear 29.9; Potassium 3.3 mmol/L (3.4-4.6); Prothrombin Time (Patient) 21.4 Seconds (9.4-11.4)
[2017-02-12 05:59] LABS: INR 2.06 INR (0.90-1.10)
[2017-02-12] MEDS: INSULIN LISPRO 100 UNITS/ML VIAL SC SCH (06:43)
[2017-02-12 06:48] VITALS: BP 149/59
[2017-02-12] MEDS: SIMETHICONE 80 MG TAB.CHEW PO SCH (07:18)
[2017-02-12] MEDS: INSULIN GLARGINE,HUM.REC.ANLOG 100 UNITS/ML VIAL SC SCH (07:18)
--- NOTE | 2017-02-12 07:50 | DS ---
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 (10) Weakness generalized Problem: Acute (11) CO2 retention Problem: Chronic (12) Chronic congestive heart failure with left ventricular diastolic dysfunction Problem: Chronic (13) Chronic pain Problem: Chronic Qualifiers: Chronic pain type: other chronic pain Qualified Code(s): G89.29 - Other chronic pain (14) Chronic restrictive lung disease Problem: Chronic (15) GERD (gastroesophageal reflux disease) Problem: Chronic Qualifiers: Esophagitis presence: without esophagitis Qualified Code(s): K21.9 - Gastro -esophageal reflux disease without esophagitis (16) Gallstones Problem: Chronic Qualifiers: Cholecystitis presence: without cholecystitis Biliary obstruction: without biliary obstruction Qualified Code(s): K80.20 - Calculus of gallbladder without cholecystitis without obstruction (17) Gout Problem: Chronic Qualifiers: Gout site: multiple sites Gout etiology: idiopathic Chronicity: chronic Presence of tophus: without tophus Qualified Code(s): M1A.09X0 - Idiopathic chronic gout, multiple sites, without tophus (tophi) (18) HLD (hyperlipidemia) Problem: Chronic Qualifiers: Hyperlipidemia type: mixed hyperlipidemia Qualified Code(s): E78.2 - Mixed hyperlipidemia (19) [place] (hard of hearing) Problem: Chronic Qualifiers: Laterality: bilateral (20) Hypoventilation associated with obesity syndrome Problem: Chronic (21) Parkinsons Problem: Chronic (22) Pulmonary hypertension Problem: Chronic (23) chronic psychiatric illness Problem: Chronic (24) Pulmonary embolism Problem: Inactive Qualifiers: Pulmonary embolism type: other Chronicity: unspecified Acute cor pulmonale presence: without acute cor pulmonale Qualified Code(s): I26.99 - Other pulmonary embolism without acute cor pulmonale (25) Pancytopenia Problem: Acute Description of Stay: Rehydrated. Slight medication adjustments. Improved. Warehouse Team Leader consult. Prognosis very poor. Procedures Performed: none Discharge Disposition: [facility] [place] Disposition: [facility] [place] Condition: Fair Discharge Activity: Activity as tolerated Discharge Diet: Consistent carbs - ensure clear tid po [facility] Therapy: Physicial Therapy, Occupation Therapy Referrals: Jaylen Gold MD [Primary Care Provider] - Problem Oriented Discharge Instructions to Patient/Family: Dehydration, Adult, [id number] Additional Patient Instructions (free text): Fingerstick blood sugar before meals and at bedtime. CBC BMP Protime in 2 days. Bipap 10/5 when sleeping. Prescriptions (Any new or edited meds): Megestrol Acetate [Megace Suspension] 800 mg PO DAILY #1 btl Warfarin Sodium [Coumadin] 1.5 mg PO DAILY@1700 #1 tablet Complete Home Medications List: Complete Home Medication List: Acetaminophen [Tylenol] 650 mg PO QID PRN #0 tablet 12/04/16 Folic Acid 1 mg PO DAILY tablet 12/04/16 Polyvinyl Alcohol [Artificial Tears] 1 drop OP Q4H btl 12/04/16 Simvastatin [Zocor] 40 mg PO HS tablet 12/04/16 Insulin Glargine,Hum.rec.anlog [Lantus] 2 units SC Q12H vial 01/06/17 Calcium Carbonate [Tums] 500 mg PO TID 02/11/17 Cholecalciferol (Vitamin D3) [Vitamin D3] 1,000 unit PO DAILY 02/11/17 Insulin Lispro [Humalog] See Protocol SC ACINS 02/11/17 Multivitamin [Multivitamins] 1 each PO DAILY 02/11/17 Simethicone [Mylicon Chewable Tablets] 160 mg PO ACHS 02/11/17 Carvedilol [Coreg] 3.125 mg PO Q12H tablet 02/12/17 Megestrol Acetate [Megace Suspension] 800 mg PO DAILY #1 btl 02/12/17 QUEtiapine FUMARATE [Seroquel] 25 mg PO HS tablet 02/12/17 Warfarin Sodium [Coumadin] 1.5 mg PO DAILY@1700 #1 tablet 02/12/17 hydrALAZINE HCL [Apresoline] 10 mg PO Q6H tablet 02/12/17
[2017-02-12] MEDS: MULTIVITAMINS 1 CAP CAPSULE PO SCH (09:58)
[2017-02-12] MEDS: CALCIUM CARBONATE 500 MG TAB.CHEW PO SCH (09:58)
[2017-02-12] MEDS: CARVEDILOL 3.125 MG TABLET PO SCH (09:58)
[2017-02-12] MEDS: CHOLECALCIFEROL 1,000 UNIT CAPSULE PO SCH (09:58)
[2017-02-12] MEDS: FOLIC ACID 1 MG TABLET PO SCH (09:58)
[2017-02-12] MEDS: MEGESTROL ACETATE 40 MG/ML BTL PO SCH (09:58)
--- NOTE | 2017-02-12 10:17 | DS ---
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 (10) Weakness generalized Problem: Acute (11) CO2 retention Problem: Chronic (12) Chronic congestive heart failure with left ventricular diastolic dysfunction Problem: Chronic (13) Chronic pain Problem: Chronic Qualifiers: Chronic pain type: other chronic pain Qualified Code(s): G89.29 - Other chronic pain (14) Chronic restrictive lung disease Problem: Chronic (15) GERD (gastroesophageal reflux disease) Problem: Chronic Qualifiers: Esophagitis presence: without esophagitis Qualified Code(s): K21.9 - Gastro -esophageal reflux disease without esophagitis (16) Gallstones Problem: Chronic Qualifiers: Cholecystitis presence: without cholecystitis Biliary obstruction: without biliary obstruction Qualified Code(s): K80.20 - Calculus of gallbladder without cholecystitis without obstruction (17) Gout Problem: Chronic Qualifiers: Gout site: multiple sites Gout etiology: idiopathic Chronicity: chronic Presence of tophus: without tophus Qualified Code(s): M1A.09X0 - Idiopathic chronic gout, multiple sites, without tophus (tophi) (18) HLD (hyperlipidemia) Problem: Chronic Qualifiers: Hyperlipidemia type: mixed hyperlipidemia Qualified Code(s): E78.2 - Mixed hyperlipidemia (19) CABAZON (hard of hearing) Problem: Chronic Qualifiers: Laterality: bilateral (20) Hypoventilation associated with obesity syndrome Problem: Chronic (21) Parkinsons Problem: Chronic (22) Pulmonary hypertension Problem: Chronic (23) chronic psychiatric illness Problem: Chronic (24) Pulmonary embolism Problem: Inactive Qualifiers: Pulmonary embolism type: other Chronicity: unspecified Acute cor pulmonale presence: without acute cor pulmonale Qualified Code(s): I26.99 - Other pulmonary embolism without acute cor pulmonale (25) Pancytopenia Problem: Acute (26) UTI (urinary tract infection) Problem: Acute Description of Stay: Rehydrated. Improved. Still only oriented to self. Noted to be pancytopenic..........will follow. Prognosis poor. Just prior to discharge, noted to have UTI, will treat with antibiotics. Made several med adjustments while she was in the hospital. Procedures Performed: none Discharge Disposition: [facility] Disposition: [facility] Condition: Fair Discharge Activity: Activity as tolerated Discharge Diet: Consistent carbs Discharge Level of Care:: SNF - [facility] Referrals: Jaylen Gold MD [Primary Care Provider] - Problem Oriented Discharge Instructions to Patient/Family: Dehydration, Adult, [id number] Additional Patient Instructions (free text): Fingerstick blood sugar before meals and at bedtime. CBC BMP Protime in 2 days. Bipap 10/5 when sleeping. Prescriptions (Any new or edited meds): Ciprofloxacin HCl [Cipro] 500 mg PO BID #20 tab Megestrol Acetate [Megace Suspension] 800 mg PO DAILY #1 btl Warfarin Sodium [Coumadin] 1.5 mg PO DAILY@1700 #1 tablet Complete Home Medications List: Complete Home Medication List: Acetaminophen [Tylenol] 650 mg PO QID PRN #0 tablet 12/04/16 Folic Acid 1 mg PO DAILY tablet 12/04/16 Polyvinyl Alcohol [Artificial Tears] 1 drop OP Q4H btl 12/04/16 Simvastatin [Zocor] 40 mg PO HS tablet 12/04/16 Insulin Glargine,Hum.rec.anlog [Lantus] 2 units SC Q12H vial 01/06/17 Calcium Carbonate [Tums] 500 mg PO TID 02/11/17 Cholecalciferol (Vitamin D3) [Vitamin D3] 1,000 unit PO DAILY 02/11/17 Insulin Lispro [Humalog] See Protocol SC ACINS 02/11/17 Multivitamin [Multivitamins] 1 each PO DAILY 02/11/17 Simethicone [Mylicon Chewable Tablets] 160 mg PO ACHS 02/11/17 Carvedilol [Coreg] 3.125 mg PO Q12H tablet 02/12/17 Ciprofloxacin HCl [Cipro] 500 mg PO BID #20 tab 02/12/17 Megestrol Acetate [Megace Suspension] 800 mg PO DAILY #1 btl 02/12/17 QUEtiapine FUMARATE [Seroquel] 25 mg PO HS tablet 02/12/17 Warfarin Sodium [Coumadin] 1.5 mg PO DAILY@1700 #1 tablet 02/12/17 hydrALAZINE HCL [Apresoline] 10 mg PO Q6H tablet 02/12/17 Amb Orders for Discharge: Basic Metabolic Panel Time Frame: 2 Days, Location: Determined By Patient CBC Time Frame: 2 Days, Location: Determined By Patient Prothrombin Time Time Frame: 2 Days, Location: Determined By Patient
== END 2017-02-12 11:00 ==
LOC: ER 20:59 → MS 02-11 00:14
PROVIDERS: ADMIT Nurse Practitioner; ATTEND Allergy & Immunology
PROC: 0T9B70Z Drainage of Bladder with Drainage Device, Via Natural or Artificial Opening (ICD-10-PCS; principal; 2017-02-10)
DX: N17.9 Acute kidney failure, unspecified (principal); G93.41 Metabolic encephalopathy; E86.0 Dehydration; E11.22 Type 2 diabetes mellitus with diabetic chronic kidney disease; I12.9 Hypertensive chronic kidney disease with stage 1 through stage 4 chronic kidney disease, or unspecified chronic kidney disease; N18.4 Chronic kidney disease, stage 4 (severe); Z79.4 Long term (current) use of insulin; F20.0 Paranoid schizophrenia; I50.32 Chronic diastolic (congestive) heart failure; E78.4 Other hyperlipidemia; G20 Parkinson's disease; D61.818 Other pancytopenia; N39.0 Urinary tract infection, site not specified; B96.20 Unspecified Escherichia coli [E. coli] as the cause of diseases classified elsewhere
CPT/HCPCS: 36415; 51702; 70450; 71010; 80048; 80053; 81001; 85025; 85610; 87040; 87077; 87081; 87086; 87186; 87493; 93005; 94660; 94762; 96361; 96365; 96366; 96372; 99285; G0378

== ENCOUNTER 2017-02-21 23:24 | Emergency (ER) | payer MEDICARE, OTHER ==
[2017-02-21] MEDS ORDERED: ALBUTEROL SULFATE/IPRATROPIUM 3 ML NEBU IH ONE ×2 (23:30→23:33)
[2017-02-21] MEDS ORDERED: ONDANSETRON HCL/PF 2 MG/ML VIAL ONE (23:41)
[2017-02-21] MEDS ORDERED: ONDANSETRON HCL/PF 2 MG/ML VIAL IM ONE (23:45)
[2017-02-21] MEDS ORDERED: METHYLPREDNISOLONE SOD SUCC/PF 125 MG/2 ML VIAL ONE (23:46)
--- OUTSIDE RECORDS SUMMARY | 2017-02-21 23:46 | XMS REPORT | Continuity of Care Document ---
:1940 Author Organization [facility] ([facility]) Address [place] [address] Phone [phone] Care Team Providers Name Role Phone Jaylen Soler Primary Care Provider [phone] Source Comments This disclosure is being made pursuant to the Care Everywhere program, applicable federal and state laws, and may not contain all informaitonavailable regarding this patient.[facility] ([facility]) Active Allergies and Adverse Reactions Allergen Noted [...] CDT Respiratory Rate 20 09/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
[2017-02-21 23:53] LABS: Hematocrit 33.6 % (37.0-47.0); Hemoglobin 10.6 gm/dL (12.5-16.0); Mean Cell Volume 85.9 fl (78-100); Mean Corpuscular Hemoglobin 27.1 pg (27-31); Mean Corpuscular Hgb Conc 31.5 g/dl (32-36); Mean Platelet Volume 9.1 fl (6.0-9.5); Platelet Count 237 K/mm3 (150-450); Red Blood Count 3.91 M/mm3 (4.2-5.4); Red Cell Distribution Width 18.5 % (11.5-14.0)
[2017-02-21] MEDS ORDERED: METHYLPREDNISOLONE SOD SUCC/PF 125 MG/2 ML VIAL IV ONE (23:55)
[2017-02-21 23:56] LABS: Total Cells Counted 100
[2017-02-22] MEDS ORDERED: LORazepam 2 MG/ML DISP.SYRIN IV ONE (00:09)
[2017-02-22] MEDS ORDERED: LORazepam 2 MG/ML DISP.SYRIN ONE (00:09)
[2017-02-22 00:13] LABS: Band 5 % (0-2.0); Basophil 1 % (0-1); Eosinophil 4 % (0-3); Lymphocyte 30 % (20-51); Monocyte 2 % (0-9); Neutrophil 58 % (42-75); Neutrophil # 6.4 K/mm3 (1.3-6.0); Platelet Estimate Normal (NORMAL)
[2017-02-22 00:14] LABS: Albumin * 2.6 gm/dl (3.4-5.0); Anion Gap 15.8 mmol/L (6.8-13.8); BUN/Creatinine Ratio 26.2 (9.0-21.6); Bilirubin, Total 0.4 mg/dL (0.0-1.1); Ca. Corrected For Albumin 10.2 mg/dL (8.4-10.2); Calcium * 9.4 mg/dL (7.9-10.9); Carbon Dioxide 25.9 mmol/L (24-32.6); Hypersegmented Polys 2+; Potassium 3.7 mmol/L (3.4-4.6); Toxic Granulation 3+
[2017-02-22 00:30] LABS: INR 1.1 INR (0.90-1.10); Prothrombin Time (Patient) 11.4 Seconds (9.4-11.4)
[2017-02-22] MEDS ORDERED: LORazepam 2 MG/ML DISP.SYRIN IM ONE (01:01)
[2017-02-22] MEDS ORDERED: ACETAMINOPHEN 325 MG TABLET PO ONE (01:01)
[2017-02-22 01:14] LABS: Urine Bilirubin Negative (NEGATIVE); Urine Ketone Negative (NEGATIVE); Urine Nitrite Negative (NEGATIVE); Urine Protein Negative (NEGATIVE); Urine Urobilinogen Normal (NORMAL)
[2017-02-22 01:16] LABS: Urine Appearance Slightly Cloudy; Urine Bacteria 2+; Urine Blood Negative /ul (NEGATIVE); Urine Color Pale Yellow
[2017-02-22] MEDS ORDERED: DIATRIZOATE MEGLU/DIATRIZO SOD 30 ML BTL PO ONE (01:20)
[2017-02-22] MEDS ORDERED: DIATRIZOATE MEGLU/DIATRIZO SOD 30 ML BTL ONE (01:20)
[2017-02-22] MEDS ORDERED: ALBUTEROL SULFATE/IPRATROPIUM 3 ML NEBU IH ONE ×2 (01:24→01:25)
[2017-02-22 02:05] LABS: Hematocrit 31.8 % (37.0-47.0); Mean Cell Volume 88.3 fl (78-100); Mean Corpuscular Hemoglobin 27.8 pg (27-31); Mean Corpuscular Hgb Conc 31.4 g/dl (32-36); Mean Platelet Volume 10.1 fl (6.0-9.5); Platelet Count 163 K/mm3 (150-450); Red Cell Distribution Width 18.6 % (11.5-14.0)
--- NOTE | 2017-02-22 03:29 | ERNOTE ---
GI Bleeding/Rectal Pain ER Presenting Symptoms: vomiting blood Time Seen by Provider: 02/21/17 23:26 Source: EMS Exam Limitations: clinical condition Immunizations: IMMUNIZATION HX Immunizations Up to Date Yes History of Influenza Vaccine More Information Required Hx Pneumococcal Vaccination More Information Required Allergies/Adverse Reactions: Allergies ibuprofen Allergy (Verified 02/22/17 03:50) ketorolac tromethamine [From Toradol] Allergy (Verified 02/22/17 03:50) tuberculin,PPD,multi-puncture Allergy (Verified 02/22/17 03:50) risperidone [From Risperdal] Adverse Reaction (Severe, Verified 02/22/17 03:50) pancytopenia Home Medications: HOME MEDICATIONS Acetaminophen [Tylenol] 650 mg PO Q4H PRN 02/22/17 [Last Taken Unknown] Calcium Carbonate [Tums] 500 mg PO TID 02/22/17 [Last Taken Unknown] Carvedilol [Coreg] 3.125 mg PO BID 02/22/17 [Last Taken Unknown] Cholecalciferol (Vitamin D3) [Vitamin D3] 1,000 unit PO DAILY 02/22/17 [Last Taken Unknown] Ertapenem Sodium [Invanz] 1 gm IV DAILY 02/22/17 [Last Taken Unknown] Folic Acid 1 mg PO DAILY 02/22/17 [Last Taken Unknown] Insulin Aspart [Novolog] See Protocol SC TIDWM 02/22/17 [Last Taken Unknown] Insulin Glargine,Hum.rec.anlog [Lantus] 2 units SC BID 02/22/17 [Last Taken Unknown] Megestrol Acetate [Megace Suspension] 20 ml PO DAILY 02/22/17 [Last Taken Unknown] Multivitamin [One Daily Multivitamin] 1 each PO DAILY 02/22/17 [Last Taken Unknown] Polyvinyl Alcohol [Artificial Tears] 1 drop OP PRN PRN 02/22/17 [Last Taken Unknown] QUEtiapine FUMARATE [Seroquel] 25 mg PO HS 02/22/17 [Last Taken Unknown] Simvastatin [Zocor] 40 mg PO HS 02/22/17 [Last Taken Unknown] Warfarin Sodium [Jantoven] 1 mg PO DAILY 02/22/17 [Last Taken Unknown] Warfarin Sodium [Jantoven] 2.5 mg PO DAILY 02/22/17 [Last Taken Unknown] Narrative: 76 y.o. female with history of COPD and CHF who began vomiting coffee ground emesis prior to presentation to ED. also has some shortness of breath. Pt is resident of a long term. There is no history of fevers or chills. Pt's status is DNR. She complains of shortness of breath and abdominal pain. Review of Systems - Review of Systems Constitutional: Present: fatigue EYE: Present: no symptoms reported ENT: Present: no symptoms reported Respiratory: Present: shortness of breath Cardiology: Present: no symptoms reported Gastrointestinal/Abdominal: Present: See HPI Genitourinary: Present: no symptoms reported Musculoskeletal: Present: no symptoms reported - Patient's Past Medical History Patient History - Medical: Anemia, Anxiety, Arthritis, Cataracts, Chronic Pain, Diabetes Type 2 Insulin Dependent, GERD, Renal Failure, Rheumatoid Arthritis, UTI'S, Other Patient History - Cardiac/Respiratory: CHF, Hypertension, Hyperlipidemia, Pulmonary Embolism, Pneumonia Patient History - Cancer: Colon Patient History - Surgical Procedures: Amputation, Colon Resection, Hysterectomy Patient History - Other: None - Family History Mother Family History - Medical: Family History - Cardiac/Respiratory: History Unknown Father Family History - Medical: Family History - Cardiac/Respiratory: Myocardial Infarction - Social History Living Situations: home Abuse History: No History of abuse Psych History: Psychiatric Hx, Hx of Anxiety, Hx of Depression, Hx of Schizophrenia, Hx of Psychiatric Tx, Current tx/ever been on anti-depressants or anti-anxiety meds Does anyone smoke in the home?: No Smoking Status: Unknown if ever smoked Alcohol Use: none Drug Use: none - Immunizations Immunizations Up to Date: Yes Hx Pneumococcal Vaccination: More Information Required to Determine History of Influenza Vaccine: More Information Required to Determine Physical Exam - Physical Exam Narrative: Upon arrival pt has active vomiting of coffee ground emesis. Systolic BP's are 175, then 131, then, 103 and then 98. Pt is tachycardic and orthostatics are impossible as she is too weak to stand. O2 sat is 100% on RA however pts respiratory rate is 60. After stat Duoneb Resp rate decreases to 40. General Appearance: Present: alert, mild distress - pt is in respiratory distress and vomiting coffee grounds Ears, Nose, Throat: Present: normal ENT inspection, normal pharynx Neck: Present: normal inspection, nontender Respiratory: Present: other - she is in respiratory distress and tachypneic, bibasal coarse breath sounds are heard Cardiovascular/Chest: Present: regular rate, rhythm, no murmur Gastrointestinal/Abdominal: Present: other - abdomen is tense and distended. Abd is tender to palpation and I do not hear any bowel sounds. Extremity Exam: Present: normal inspection Neurological Exam: Present: no motor/sensory deficits, other - pt is alert and I am unable to assess for mental status as pt is moaning and has difficulty breathing ED Progress - Results and Orders Patient's Lab Results:: I have reviewed the patient's lab results. - Vital Signs Patient's Vital Signs:: I have reviewed the patient's vital signs. Vital Signs: Vital Signs 02/21/17 02/21/17 02/22/17 23:30 23:53 01:30 Temperature 36.2 C L Pulse Rate 99 96 87 Respiratory 34 H 39 H 40 H Rate Blood Pressure 175/87 O2 Sat by Pulse 100 92 94 Oximetry 02/22/17 01:37 Temperature Pulse Rate 100 Respiratory 34 H Rate Blood Pressure O2 Sat by Pulse Oximetry - CT/Ultrasound CT/Ultrasound Narrative: Abd CT ordered and read by radiologist - Progress/Reassessment Chief Complaint: GI Bleed Plan - Plan Plan: pt's Xray of abd reveals dilated loops of bowel. NG tube was inserted but this took 45 minutes as pt kept vomiting it back up. Abd was slightly decompressed and she also had lots of flatus and following this abd was softer to palpation. KUB reveals multiple dilated loops of bowel. CXR reveals left hilar infiltrate. At this time Surgeon was consulted for upper GI bleed and he indicated that due to multiple comorbid factors involving this pt such as severe CHF, COPD and GI bleeding, pt was better off being transferred to a facility with a higher level of care. [facility] was consulted and Dr. Gaffney accepted pt however asked that we do a CT scan of belly and then transfer patient.Ct was ordered and reviewed. Departure Clinical Impression: Upper GI bleed, Small bowel obstruction - Departure Disposition: [facility] Condition: Serious Referrals: Jaylen Gold MD [Primary Care Provider] -
[2017-02-22] MEDS ORDERED: FAMOTIDINE 10 MG/ML VIAL IV ONE ×2 (04:01→04:50)
[2017-02-22 06:21] VITALS: BP 141/60
== END 2017-02-22 06:30 | disposition short-term general hospital (02) ==
LOC: ER 23:24
PROC: 0T9B70Z Drainage of Bladder with Drainage Device, Via Natural or Artificial Opening (ICD-10-PCS; principal; 2017-02-21)
DX: K92.2 Gastrointestinal hemorrhage, unspecified (principal); K56.69 Other intestinal obstruction; Z85.038 Personal history of other malignant neoplasm of large intestine; E78.5 Hyperlipidemia, unspecified; F41.9 Anxiety disorder, unspecified; E11.9 Type 2 diabetes mellitus without complications; Z79.4 Long term (current) use of insulin; Z86.711 Personal history of pulmonary embolism; Z79.01 Long term (current) use of anticoagulants; I10 Essential (primary) hypertension

== ENCOUNTER 2017-03-15 19:51 | Inpatient (IN) | payer MEDICARE, OTHER ==
--- OUTSIDE RECORDS SUMMARY | 2017-03-15 20:06 | XMS REPORT | Continuity of Care Document ---
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
[2017-03-15] MEDS ORDERED: LORazepam 2 MG/ML DISP.SYRIN IV ONE (20:09)
--- NOTE | 2017-03-15 20:19 | ERNOTE ---
Neuro HPI ER Record Date of Service: 03/15/17 Presenting Symptoms: other - AMS Time Seen by Provider: 03/15/17 19:58 Source: patient Exam Limitations: no limitations Immunizations: IMMUNIZATION HX Immunizations Up to Date Yes History of Influenza Vaccine Yes Hx Pneumococcal Vaccination Yes Allergies/Adverse Reactions: Allergies Allergy/AdvReac Type Severity Reaction Status Date / Time ibuprofen Allergy Verified 02/22/17 03:50 ketorolac tromethamine Allergy Verified 02/22/17 03:50 [From Toradol] tuberculin,PPD,multi-puncture Allergy Verified 02/22/17 03:50 risperidone [From Risperdal] AdvReac Severe pancytopeni Verified 02/22/17 03:50 a Home Medications: HOME MEDICATIONS Calcium Carbonate [Tums] 500 mg PO TID 02/22/17 [Last Taken Unknown] Carvedilol [Coreg] 3.125 mg PO BID 02/22/17 [Last Taken Unknown] Insulin Aspart [Novolog] See Protocol SC TID 02/22/17 [Last Taken Unknown] Multivitamin [One Daily Multivitamin] 1 each PO DAILY 02/22/17 [Last Taken Unknown] Polyvinyl Alcohol [Artificial Tears] 1 drop OP PRN PRN 02/22/17 [Last Taken Unknown] Warfarin Sodium [Jantoven] 2 mg PO DAILY 02/22/17 [Last Taken Unknown] Acetaminophen [Tylenol] 650 mg PO QID PRN 03/15/17 [Last Taken Unknown] Albuterol Sulfate [Albuterol Sulfate 2.5 MG/0.5ML] 1 vial IH Q4H PRN 03/15/17 [ Last Taken Unknown] Iron Aspgly,Ps/C/Succinic Acid [Ferrex 150 Plus Capsule] 1 each PO BID 03/15/17 [Last Taken Unknown] Megestrol Acetate [Megace Suspension] 20 ml PO DAILY 03/15/17 [Last Taken Unknown] Pantoprazole Sodium [Protonix] 40 mg PO DAILY 03/15/17 [Last Taken Unknown] QUEtiapine FUMARATE [Seroquel] 25 mg PO HS 03/15/17 [Last Taken Unknown] Simvastatin [Zocor] 40 mg PO HS 03/15/17 [Last Taken Unknown] - History of Present Illness Narrative: Pt. comes in from [facility] with c/o altered mental status since 3 hours ago. Family requested that pt. be brought to the hospital for treatment. Pt. has a hx of seizures and AMS. Facility denies any prehospital treatment. Review of Systems - Review of Systems Constitutional: Present: weakness EYE: Present: no symptoms reported ENT: Present: no symptoms reported Respiratory: Present: no symptoms reported. Absent: shortness of breath, cough , wheezing Cardiology: Present: syncope. Absent: edema, claudication Gastrointestinal/Abdominal: Present: no symptoms reported. Absent: diarrhea, eating less, drinking less Genitourinary: Present: no symptoms reported Musculoskeletal: Present: no symptoms reported Skin: Present: no symptoms reported Neurological: Present: seizure, other - AMS All Other Systems: All systems neg except as marked - Patient's Past Medical History Patient History - Medical: Anemia, Anxiety, Arthritis, Cataracts, Chronic Pain, Diabetes Type 2 Insulin Dependent, Depression, GERD, Renal Failure, Rheumatoid Arthritis, UTI'S Patient History - Cardiac/Respiratory: CHF, Hypertension, Hyperlipidemia, Pulmonary Embolism, Pneumonia Patient History - Cancer: Colon Patient History - Surgical Procedures: Amputation, Colon Resection, Hysterectomy Patient History - Other: None - Family History Mother Family History - Medical: Family History - Cardiac/Respiratory: History Unknown Father Family History - Medical: Family History - Cardiac/Respiratory: Myocardial Infarction - Social History Living Situations: assisted Abuse History: No History of abuse Psych History: Psychiatric Hx, Hx of Anxiety, Hx of Depression, Hx of Schizophrenia, Hx of Psychiatric Tx, Current tx/ever been on anti-depressants or anti-anxiety meds Does anyone smoke in the home?: No Smoking Status: Never smoker Have you smoked in the past 12 months: No Do you dip or chew tobacco: No Alcohol Use: none Drug Use: none - Immunizations Immunizations Up to Date: Yes Hx Pneumococcal Vaccination: Yes History of Influenza Vaccine: Yes Physical Exam - Physical Exam General Appearance: Present: no apparent distress, lethargic, obese Eye Exam: Other: right - Lateral deviated gaze and nystagmus Ears, Nose, Throat: Present: normal ENT inspection, dry mucous membranes Neck: Present: normal inspection, nontender. Absent: lymphadenopathy (R), lymphadenopathy (L) Respiratory: Present: no respiratory distress, no accessory muscle use, chest nontender, decreased breath sounds Cardiovascular/Chest: Present: regular rate, rhythm, no murmur, normal peripheral pulses Gastrointestinal/Abdominal: Present: normal bowel sounds, nondistended, soft, no organomegaly Back Exam: Present: normal inspection Extremity Exam: Present: normal inspection Neurological Exam: Present: other - nonresponsive Skin Exam: Present: cool/dry, pallor [place] Coma Scale - Assess Eye Opening: None Motor: None Verbal: None - Total Coma Scale Total: 3 ED Progress - Date and Time Seen: Date and Time: 03/15/17 20:19 Pt. nonresponsive but managing secretions at this time. - Results and Orders Patient's Lab Results:: I have reviewed the patient's lab results. - Vital Signs Patient's Vital Signs:: I have reviewed the patient's vital signs. Vital Signs: Vital Signs 03/15/17 19:57 Temperature 36.9 C Pulse Rate 76 Respiratory 24 H Rate Blood Pressure 198/96 O2 Sat by Pulse 99 Oximetry - EKG EKG: other - Sinus rhythm no acute EKG read: Reviewed by me - X-Ray X-Ray #1 X-Ray: chest Interpretation: Reviewed by me X-ray Comments: no consolidation, mild pulm edema - Progress/Reassessment Chief Complaint: Altered Mental Status Progress:: Improved - Transfer of Care Physician Sign Out: Cherie Rangel Receiving Physician: Roderick Mccarty Pending Results: CT/MRI results, Labs Expected Disposition: Admit Departure Clinical Impression: Chronic congestive heart failure with left ventricular diastolic dysfunction, Metabolic encephalopathy, Chronic restrictive lung disease Hypertension Qualifiers: Hypertension type: essential hypertension Qualified Code(s): I10 - Essential ( primary) hypertension - Departure
[2017-03-15] MEDS ORDERED: hydrALAZINE HCL 20 MG/ML VIAL IV ONE (20:21)
[2017-03-15 20:22] LABS: Urine Appearance Slightly Cloudy; Urine Bilirubin Negative (NEGATIVE); Urine Blood Negative /ul (NEGATIVE); Urine Color Yellow; Urine Ketone Negative (NEGATIVE); Urine Nitrite Negative (NEGATIVE); Urine Protein 15 mg/dL (NEGATIVE); Urine Urobilinogen Normal (NORMAL); Urine pH 7.5 pH (5.0-7.0)
[2017-03-15 20:23] LABS: Urine Amorphous Sediment Few - 1+ (NONE-FEW); Urine Bacteria None Seen; Urine RBC None Seen /hpf (0-5); Urine WBC 0-5 /hpf (0-5)
[2017-03-15] MEDS ORDERED: hydrALAZINE HCL 20 MG/ML VIAL ONE (20:26)
[2017-03-15] MEDS ORDERED: LORazepam 2 MG/ML DISP.SYRIN ONE (20:26)
[2017-03-15 20:28] LABS: Hematocrit 33.1 % (37.0-47.0); Hemoglobin 10.3 gm/dL (12.5-16.0); Mean Corpuscular Hemoglobin 27.4 pg (27-31); Mean Corpuscular Hgb Conc 31.1 g/dl (32-36); Mean Platelet Volume 9.6 fl (6.0-9.5); Neutrophil # 7.7 K/mm3 (1.3-6.0); Neutrophil % 79.9 % (42-75.0); Platelet Count 208 K/mm3 (150-450); Red Blood Count 3.76 M/mm3 (4.2-5.4); Red Cell Distribution Width 18.7 % (11.5-14.0); White Blood Count 9.6 K/mm3 (4.0-10.5)
[2017-03-15 20:32] LABS: Cocaine Ur Negative (NEGATIVE); Urine Barbiturate Negative (NEGATIVE); Urine Benzodiazepines Negative (NEGATIVE); Urine Opiates Negative (NEGATIVE); Urine PCP Negative (NEGATIVE); Urine THC Negative (NEGATIVE)
[2017-03-15 20:37] LABS: Prothrombin Time (Patient) 10.4 Seconds (9.4-11.4)
[2017-03-15 20:46] LABS: ALT 16 U/L (19-67); AST 19 U/L (0-48); Albumin * 3.1 gm/dl (3.4-5.0); Alkaline Phosphatase * 67 U/L (50-170); Anion Gap 13.8 mmol/L (6.8-13.8); BUN/Creatinine Ratio 20.6 (9.0-21.6); Bilirubin, Total 0.7 mg/dL (0.0-1.1); Blood Urea Nitrogen 20 mg/dL (3-23); Ca. Corrected For Albumin 9.6 mg/dL (8.4-10.2); Calcium * 9.2 mg/dL (7.9-10.9); Carbon Dioxide 24.9 mmol/L (24-32.6); Chloride 111 mmol/L (97-106); Glucose * 85 mg/dL (70-110); Potassium 3.7 mmol/L (3.4-4.6); Sodium 146 mmol/L (132-142); Troponin I 0.058 ng/ml (0.00-0.10)
[2017-03-15] MEDS ORDERED: NORMAL SALINE 1,000 ML IV ONE (20:56)
--- NOTE | 2017-03-15 23:52 | HP ---
<Carmela Ureña - Last Filed: 03/16/17 01:22> Chief Complaint - Chief Complaint Date of Service: 03/15/17 Time of Service: 01:20 Chief Complaint: altered LOC History of Present Illness: Pt is a 76 year old female, pt of Dr. Soler who presented from from [facility] [facility] with c/o altered mental status since 3 hours [employer]. PMH includes: CHF, DM II, CRF, SZ, schizophrenia, RA, HTN, GLENN-bipap at home, and HLD. Per son she was fine yesterday, feeding herself and singing all morning. He notes that recently she has been in the best mental and physical health. He was called today from her care facility due to her becoming unresponsive around 5pm and requested she be sent to the ER for further evaluation. There was mention of a possible fever, however I do not see that noted any where, she has been afebrile since admission. Facility denies any prehospital treatment. In the ER head CT was without any acute findings, it does mention remote infarcts as well as questionable left otomastoiditis. EKG- NSR, ABG's-compensated respiratory alkalosis. Laboratory findings were unremarkable. It was thought that the pt could be exhibiting sz activity due to left nystagmus gaze and lateral head jerking, for this she received 2mg IV ativan and IV Keppra, following which the activity stopped. Due to her persistent obtunded state , multiple co-morbidites she will be admitted to in care for further evaluation and treatment, I suspect that she will need greater than a two midnight stay. - Patient's Past Medical History Patient History - Medical: Anemia, Anxiety, Arthritis, Cataracts, Chronic Pain, Diabetes Type 2 Insulin Dependent, Depression, GERD, Renal Failure, Rheumatoid Arthritis, UTI'S Patient History - Cardiac/Respiratory: CHF, Hypertension, Hyperlipidemia, Pulmonary Embolism, Pneumonia Patient History - Cancer: Colon Patient History - Surgical Procedures: Amputation, Colon Resection, Hysterectomy Patient History - Other: None - Family History Mother Family History - Medical: Family History - Cardiac/Respiratory: History Unknown Family History - Cancer: No pertinent family hx Father Family History - Medical: Family History - Cardiac/Respiratory: Myocardial Infarction Family History - Cancer: No pertinent family hx - Social History Living Situations: [facility] Abuse History: No History of abuse Psych History: Psychiatric Hx, Hx of Anxiety, Hx of Depression, Hx of Schizophrenia, Hx of Psychiatric Tx, Current tx/ever been on anti-depressants or anti-anxiety meds Does anyone smoke in the home?: No Smoking Status: Never smoker Have you smoked in the past 12 months: No Do you dip or chew tobacco: No Alcohol Use: none Drug Use: none - Immunizations Immunizations Up to Date: Yes Hx Pneumococcal Vaccination: Yes History of Influenza Vaccine: Yes Review Of Systems (GEN) - Review of Systems Additional Comments: FRANK as pt is not responsive Allergies/Adverse Reactions: Allergies Allergy/AdvReac Type Severity Reaction Status Date / Time ibuprofen Allergy Verified 02/22/17 03:50 ketorolac tromethamine Allergy Verified 02/22/17 03:50 [From Toradol] tuberculin,PPD,multi-puncture Allergy Verified 02/22/17 03:50 risperidone [From Risperdal] AdvReac Severe pancytopeni Verified 02/22/17 03:50 a Home Medications: HOME MEDICATIONS Calcium Carbonate [Tums] 500 mg PO TID 02/22/17 [Last Taken 03/15/17 12:00] Carvedilol [Coreg] 3.125 mg PO BID 02/22/17 [Last Taken 03/15/17 08:00] Insulin Aspart [Novolog] See Protocol SC TID 02/22/17 [Last Taken Unknown] Multivitamin [One Daily Multivitamin] 1 each PO DAILY 02/22/17 [Last Taken 03/15 08:00] Polyvinyl Alcohol [Artificial Tears] 1 drop EACHEYE Q4H 02/22/17 [Last Taken 04:00] Warfarin Sodium [Jantoven] 2 mg PO DAILY 02/22/17 [Last Taken 03/14/17 05:00] Acetaminophen [Tylenol] 650 mg PO QID PRN 03/15/17 [Last Taken 03/15/17 11:56] Albuterol Sulfate [Albuterol Sulfate 2.5 MG/0.5ML] 1 vial IH Q4H PRN 03/15/17 [ Last Taken 03/02/17 10:30] Iron Aspgly,Ps/C/Succinic Acid [Ferrex 150 Plus Capsule] 1 each PO BID 03/15/17 [Last Taken 03/15/17 08:00] Megestrol Acetate [Megace Suspension] 20 ml PO DAILY 03/15/17 [Last Taken 08:00] Pantoprazole Sodium [Protonix] 40 mg PO DAILY 03/15/17 [Last Taken 03/15/17 08: 00] QUEtiapine FUMARATE [Seroquel] 25 mg PO HS 03/15/17 [Last Taken 03/14/17 20:00] Simvastatin [Zocor] 40 mg PO HS 03/15/17 [Last Taken 03/14/17 20:00] Cholecalciferol (Vitamin D3) [Vitamin D3] 1,000 unit PO DAILY 03/16/17 [Last Taken 03/15/17 08:00] Folic Acid 1 mg PO DAILY 03/16/17 [Last Taken 03/15/17 08:00] Mi Acid 80 mg PO ACHS 03/16/17 [Last Taken 03/15/17 12:00] Nystatin [Mycostatin (Nystatin) Cream] 30 gm TP TID PRN 03/16/17 [Last Taken 14:00] hydrALAZINE HCL [Hydralazine HCl] 25 mg PO QID 03/16/17 [Last Taken 03/15/17 12: 00] Exam - Exam Vital Signs: Vital Signs - Last Taken Temp 36.9 C 03/15/17 19:57 Pulse 77 03/15/17 23:09 Resp 16 03/15/17 23:09 BP 204/90 03/15/17 23:09 Pulse Ox 96 RA 03/15/17 23:09 Constitutional: Present: Obtunded, Elderly ENT Exam: Present: hard of hearing, other - bilateral cerumen impaction Eye Exam: bilateral eye: normal inspection, PERRL - +1 Respiratory: Present: chest non-tender, no respiratory distress, no accessory muscle use, decreased breath sounds Cardiovascular/Chest: Present: normal peripheral pulses, regular rate, rhythm, no chest tenderness, no edema, no gallop, no JVD, no murmur Peripheral Pulses: dorsalis-pedis (R): 2+, dorsalis-pedis (L): 2+, radial (R): 2 +, radial (L): 2+ Abdomen: Present: Normal bowel sounds, soft, nontender, nondistended, no rebound tenderness, no hepatospenomegaly /Rectal: Present: Exam deferred Extremity: Present: non-tender, normal inspection, no pedal edema, no calf tenderness, other - RBK Skin Exam: Present: no cyanosis, cool/dry Neurologic: Present: other - pt is nonresponsive Diagnostic Studies: Laboratory Results Laboratory Tests 03/15/17 03/15/17 03/15/17 20:00 20:20 20:25 WBC 9.6 Hgb 10.3 L Hct 33.1 L Plt Count 208 Neutrophils % 79.9 H ESR PT INR (Anticoag Therapy) pCO2 pO2 HCO3 Total CO2 Base Excess ABG pH ABG O2 Sat (Measured) Plasma Sodium Potassium Chloride Carbon Dioxide BUN Creatinine Random Glucose Lactic Acid, Venous AST ALT Alkaline Phosphatase Troponin I C-Reactive Prot, Quant B-Natriuretic Peptide 6883 H Urine Bacteria None seen 03/15/17 03/15/17 03/15/17 20:25 20:25 20:25 WBC Hgb Hct Plt Count Neutrophils % ESR 19 H PT INR (Anticoag Therapy) pCO2 pO2 HCO3 Total CO2 Base Excess ABG pH ABG O2 Sat (Measured) Plasma Sodium 146 H Potassium 3.7 Chloride 111 H Carbon Dioxide 24.9 BUN 20 Creatinine 0.97 Random Glucose 85 Lactic Acid, Venous 1.2 AST 19 ALT 16 L Alkaline Phosphatase 67 Troponin I 0.058 C-Reactive Prot, Quant Less than 0.2 B-Natriuretic Peptide Urine Bacteria 03/15/17 03/15/17 03/15/17 20:25 21:18 22:30 WBC Hgb Hct Plt Count Neutrophils % ESR PT 10.4 INR (Anticoag Therapy) 1.00 pCO2 25.6 L 30.7 L pO2 74.5 L 75.9 L HCO3 20.1 L 22.0 Total CO2 20.8 22.9 Base Excess -1.7 -0.5 ABG pH 7.51 H 7.47 H ABG O2 Sat (Measured) 96.4 96.1 Plasma Sodium Potassium Chloride Carbon Dioxide BUN Creatinine Random Glucose Lactic Acid, Venous AST ALT Alkaline Phosphatase Troponin I C-Reactive Prot, Quant B-Natriuretic Peptide Urine Bacteria Assessment/Plan - Assessment/Plan (1) Altered mental status Assessment: Pt remains unresponsive, however during examination reached up and scratched her head and nose and pulled away from painful stimuli. She yelled with the sheest insertion. Pt has had multiple previous admissions with similar presentation, unclear etiology at this point, differentials include: TIA, seizure, or hypertensive encephalopathy, will continue to monitor closely overnight. Plan: -NPO -Neuro checks Q2H -Hold all medications for now -Ammonia and level Problem: Acute QualifierTitle: Altered mental status type: somnolence Qualified Code(s) : R40.0 - Somnolence (2) HTN (hypertension) Assessment: Pt BP highly elevated upon arrival to the ER, SBP>200, received hydralizine IV x1. SBP 160's upon arrival to floor. Will continue to monitor with PRN IV medications overnight. Plan: -VS Q2H -Telemetry Problem: Chronic QualifierTitle: Hypertension type: essential hypertension Qualified Code( s): I10 - Essential (primary) hypertension (3) CHF (congestive heart failure) Assessment: BNP elevated at 6K on admission laboratory work. Will order 40mg IV Lasix x1 and place sheets for accurate I/O. Plan: -BNP/CMP in am -Sheets -Strict i/o -Daily wt Problem: Chronic (4) 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 Assessment: Chronic, NPO due to decreased LOC will order accu checks Q6H. Plan: -NPO -Accu checks Q6H Problem: Chronic (5) GERD (gastroesophageal reflux disease) Assessment: Chronic Problem: Chronic (6) Parkinsons Assessment: Chronic Problem: Chronic <Jaylen Gold - Last Filed: 03/17/17 17:54> Immunizations: IMMUNIZATION HX Immunizations Up to Date Yes History of Influenza Vaccine Yes Hx Pneumococcal Vaccination Yes Exam - Exam Vital Signs: Vital Signs - Last Taken Temp 37.0 C 03/17/17 14:58 Pulse 59 L 03/17/17 17:32 Resp 17 03/17/17 14:58 BP 150/53 03/17/17 17:32 Pulse Ox 97 03/17/17 14:58 Diagnostic Studies: Abnormal Lab Results 03/17/17 03/17/17 Range/Units 05:51 05:51 RBC 3.35 L (4.2-5.4) M/mm3 Hgb 9.3 L (12.5-16.0) gm/dL Hct 30.0 L (37.0-47.0) % MCHC 31.0 L (32-36) g/dl RDW 18.8 H (11.5-14.0) % MPV 9.6 H (6.0-9.5) fl Immature Gran % (Auto) 0.60 H (0.001-0.429) % Lymphocytes % 18.7 L (20-51) % Monocytes % 9.2 H (0.0-9) % Lymphocytes # 0.9 L (1.5-3.5) k/mm3 Sodium 145 H (132-142) mmol/L Plasma Sodium 145 H (130-142) mmol/L Chloride 108 H (97-106) mmol/L Est GFR (Non-Af Amer) 43 L D (60-130) mL/min Random Glucose 116 H D (70-110) mg/dL ALT 12 L (19-67) U/L B-Natriuretic Peptide 3533 H (5-550) pg/mL Total Protein 5.6 L (6.2-8.2) gm/dL Albumin 2.7 L (3.4-5.0) gm/dl Microbiology 03/16/17 00:25 - Final Nares MRSA Negative Laboratory Results WBC 4.9 K/mm3 (4.0-10.5) D 03/17/17 05:51 RBC 3.35 M/mm3 (4.2-5.4) L 03/17/17 05:51 Hgb 9.3 gm/dL (12.5-16.0) L 03/17/17 05:51 Hct 30.0 % (37.0-47.0) L 03/17/17 05:51 MCV 89.6 fl (78-100) 03/17/17 05:51 MCH 27.8 pg (27-31) 03/17/17 05:51 MCHC 31.0 g/dl (32-36) L 03/17/17 05:51 RDW 18.8 % (11.5-14.0) H 03/17/17 05:51 Plt Count 165 K/mm3 (150-450) 03/17/17 05:51 MPV 9.6 fl (6.0-9.5) H 03/17/17 05:51 Immature Gran % (Auto) 0.60 % (0.001-0.429) H 03/17/17 05:51 Immature Gran # (Auto) 0.03 K/mm3 (0.000-0.0310) 03/17/17 05:51 Neutrophils % 70.1 % (42-75.0) 03/17/17 05:51 Lymphocytes % 18.7 % (20-51) L 03/17/17 05:51 Monocytes % 9.2 % (0.0-9) H 03/17/17 05:51 Eosinophils % 1.2 % (0.0-3.0) 03/17/17 05:51 Basophils % 0.2 % (0.0-1.0) 03/17/17 05:51 Nucleated RBC % 0.0 k/mm3 (0-1) 03/17/17 05:51 Neutrophils # 3.4 K/mm3 (1.3-6.0) 03/17/17 05:51 Lymphocytes # 0.9 k/mm3 (1.5-3.5) L 03/17/17 05:51 Monocytes # 0.5 k/mm3 (0.0-1.0) 03/17/17 05:51 Eosinophils # 0.1 k/mm3 (0.0-0.7) 03/17/17 05:51 Absolute Basophils 0.0 k/mm3 (0.0-0.1) 03/17/17 05:51 ESR 19 mm/hr (0-15) H 03/15/17 20:25 PT 11.1 Seconds (9.4-11.4) 03/17/17 05:40 INR (Anticoag Therapy) 1.07 INR (0.90-1.10) 03/17/17 05:40 pCO2 27.2 mmHg (32.0-45.0) L 03/16/17 05:55 pO2 71.1 mmHg (83.0-108.0) L 03/16/17 05:55 HCO3 21.4 mmol/L (21.0-28.0) 03/16/17 05:55 Total CO2 22.2 mmol/L (19.0-24.0) 03/16/17 05:55 Base Excess 0.0 mmol/L (-2.0-3.0) 03/16/17 05:55 ABG pH 7.51 (7.35-7.45) H 03/16/17 05:55 ABG O2 Sat (Measured) 95.9 % (94.0-98.0) 03/16/17 05:55 Sodium 145 mmol/L (132-142) H 03/17/17 05:51 Plasma Sodium 145 mmol/L (130-142) H 03/17/17 05:51 Potassium 3.6 mmol/L (3.4-4.6) 03/17/17 05:51 Chloride 108 mmol/L (97-106) H 03/17/17 05:51 Carbon Dioxide 27.7 mmol/L (24-32.6) 03/17/17 05:51 Anion Gap 12.9 mmol/L (6.8-13.8) 03/17/17 05:51 BUN 23 mg/dL (3-23) 03/17/17 05:51 Creatinine 1.27 mg/dL (0.4-1.4) 03/17/17 05:51 Est GFR (Non-Af Amer) 43 mL/min (60-130) L D 03/17/17 05:51 BUN/Creatinine Ratio 18.1 (9.0-21.6) 03/17/17 05:51 Random Glucose 116 mg/dL (70-110) H D 03/17/17 05:51 Lactic Acid, Venous 1.2 mmol/L (0.4-1.9) 03/15/17 20:25 Calcium 8.8 mg/dL (7.9-10.9) 03/17/17 05:51 Calcium Adj for Albumin 9.5 mg/dL (8.4-10.2) 03/17/17 05:51 Total Bilirubin 0.5 mg/dL (0.0-1.1) 03/17/17 05:51 AST 15 U/L (0-48) 03/17/17 05:51 ALT 12 U/L (19-67) L 03/17/17 05:51 Alkaline Phosphatase 59 U/L (50-170) 03/17/17 05:51 Ammonia 20.0 mcmol/L (11-35) 03/16/17 00:25 Troponin I 0.062 ng/ml (0.00-0.10) 03/16/17 03:10 C-Reactive Prot, Quant Less than 0.2 mg/dL (0.0-0.9) 03/15/17 20:25 B-Natriuretic Peptide 3533 pg/mL (5-550) H 03/17/17 05:51 Total Protein 5.6 gm/dL (6.2-8.2) L 03/17/17 05:51 Albumin 2.7 gm/dl (3.4-5.0) L 03/17/17 05:51 Procalcitonin Less than 0.05 ng/mL (0.05-0.50) L 03/16/17 00:25 Urine Color Yellow 03/15/17 20:00 Urine Appearance Slightly cloudy 03/15/17 20:00 Urine pH 7.5 pH (5.0-7.0) 03/15/17 20:00 Ur Specific [place] 1.010 SP.GR. (1.005-1.010) 03/15/17 20:00 Urine Protein 15 mg/dL (NEGATIVE) H 03/15/17 20:00 Urine Glucose (UA) Negative mg/dL (NEGATIVE) 03/15/17 20:00 Urine Ketones Negative mg/dL (NEGATIVE) 03/15/17 20:00 Urine Blood Negative /ul (NEGATIVE) 03/15/17 20:00 Urine Nitrate Negative (NEGATIVE) 03/15/17 20:00 Urine Bilirubin Negative mg/dl (NEGATIVE) 03/15/17 20:00 Prot Sulfosalicylic Acd 1+ mg/dL (0) 03/15/17 20:00 Urine Urobilinogen Normal EU/dl (NORMAL) 03/15/17 20:00 Ur Leukocyte Esterase Negative /ul (NEGATIVE) 03/15/17 20:00 Urine RBC None seen /hpf (0-5) 03/15/17 20:00 Urine WBC 0-5 /hpf (0-5) 03/15/17 20:00 Ur Epithelial Cells 0-5 /hpf (0-5) 03/15/17 20:00 Amorphous Sediment Few - 1+ (NONE-FEW) 03/15/17 20:00 Urine Bacteria None seen (NONE) 03/15/17 20:00 Urine Culture Comments No culture indicated 03/15/17 20:00 Urine Opiates Screen Negative (NEGATIVE) 03/15/17 20:00 Barbiturate Screen Negative (NEGATIVE) 03/15/17 20:00 Ur Phencyclidine Scrn Negative (NEGATIVE) 03/15/17 20:00 Urine Amphetamine Negative (NEGATIVE) 03/15/17 20:00 U Benzodiazepines Scrn Negative (NEGATIVE) 03/15/17 20:00 Urine Cocaine Screen Negative (NEGATIVE) 03/15/17 20:00 Urine Marijuana (THC) Negative (NEGATIVE) 03/15/17 20:00 Assessment/Plan - Narrative Narrative: She most like did have a seizure, probably does NOT have anything new in her brain on head CT except an otitis media, and is a little more anemic, but not a lot. Needs antibiotics and anticonvulsant. Will monitor hgb and need a few days in the hospital. I directly supervised our nurse practitioner hospitalist' s care for this patient.
[2017-03-16] MEDS ORDERED: hydrALAZINE HCL 20 MG/ML VIAL IV PRN (02:43)
[2017-03-16] MEDS: NYSTATIN 15 APPL BTL TP SCH ×3 (02:51→20:51)
[2017-03-16 05:29] LABS: Hematocrit 32.2 % (37.0-47.0); Hemoglobin 9.9 gm/dL (12.5-16.0); Mean Corpuscular Hemoglobin 27.3 pg (27-31); Mean Corpuscular Hgb Conc 30.7 g/dl (32-36); Neutrophil # 6.8 K/mm3 (1.3-6.0); Neutrophil % 79.7 % (42-75.0); Platelet Count 188 K/mm3 (150-450); Red Blood Count 3.62 M/mm3 (4.2-5.4); Red Cell Distribution Width 18.9 % (11.5-14.0); White Blood Count 8.5 K/mm3 (4.0-10.5)
[2017-03-16 05:50] LABS: Albumin * 2.9 gm/dl (3.4-5.0); BUN/Creatinine Ratio 18.8 (9.0-21.6); Bilirubin, Total 0.6 mg/dL (0.0-1.1); Ca. Corrected For Albumin 9.6 mg/dL (8.4-10.2); Carbon Dioxide 27.5 mmol/L (24-32.6); Potassium 3.5 mmol/L (3.4-4.6); Total Protein 5.6 gm/dL (6.2-8.2)
[2017-03-16] MEDS ORDERED: FUROSEMIDE 10 MG/ML VIAL IV ONE ×2 (06:40)
[2017-03-16] MEDS ORDERED: ALBUTEROL SULFATE 2.5 MG/3 ML VIAL.NEB IH PRN (06:41)
[2017-03-16] MEDS ORDERED: NYSTATIN 30 APPL TUBE TP PRN (06:41)
[2017-03-16] MEDS ORDERED: ENOXAPARIN SODIUM 40 MG/0.4 ML SYRG SC SCH (06:45)
--- NOTE | 2017-03-16 06:50 | PN ---
<Carmela Ureña - Last Filed: 03/16/17 06:27> Subjective - Date and Time Seen Date: 03/16/17 Time: 06:27 Objective Objective Narrative: Pt remains only responsive to painful stimuli, pupils +1 reactive. Is tachypnic with respirations in the low 20's, ABG's this am as followed: Laboratory Tests 03/15/17 03/16/17 21:18 05:55 pCO2 25.6 L 27.2 L pO2 74.5 L 71.1 L HCO3 20.1 L 21.4 Total CO2 20.8 22.2 Base Excess -1.7 0.0 ABG pH 7.51 H 7.51 H ABG O2 Sat (Measured) 96.4 95.9 BNP elevated in 9K, will diurese with IV lasix and replace potassium with k- ryders as appropriate. Had net balance of -1999 last night, lungs with coarse crackles in the bases this morning, saturations remain good at 94% on RA. - Review of Systems Musculoskeletal Complaints: Reports: Other - FRANK as pt is nonresponsive - Vitals Vitals: Last Vital Signs Temp 36.8 C 03/16/17 04:00 Pulse 78 03/16/17 04:00 Resp 20 03/16/17 04:00 BP 169/57 03/16/17 04:00 Pulse Ox 95 03/16/17 04:00 - Abnormal Lab Findings Abnormal Lab Findings: Abnormal Lab Results 03/16/17 03/16/17 03/16/17 Range/Units 00:25 05:05 05:05 RBC 3.62 L (4.2-5.4) M/mm3 Hgb 9.9 L (12.5-16.0) gm/dL Hct 32.2 L (37.0-47.0) % MCHC 30.7 L (32-36) g/dl RDW 18.9 H (11.5-14.0) % MPV 10.0 H (6.0-9.5) fl Immature Gran % (Auto) 1.30 H (0.001-0.429) % Immature Gran # (Auto) 0.11 H (0.000-0.0310) K/mm3 Neutrophils % 79.7 H (42-75.0) % Lymphocytes % 11.2 L (20-51) % Neutrophils # 6.8 H (1.3-6.0) K/mm3 Lymphocytes # 1.0 L (1.5-3.5) k/mm3 pCO2 (32.0-45.0) mmHg pO2 (83.0-108.0) mmHg ABG pH (7.35-7.45) Sodium 147 H (132-142) mmol/L Plasma Sodium 147 H (130-142) mmol/L Chloride 111 H (97-106) mmol/L Est GFR (Non-Af Amer) 56 L (60-130) mL/min ALT 15 L (19-67) U/L B-Natriuretic Peptide 9912 H (5-550) pg/mL Total Protein 5.6 L (6.2-8.2) gm/dL Albumin 2.9 L (3.4-5.0) gm/dl Procalcitonin Less than 0.05 L (0.05-0.50) ng/mL 03/16/17 Range/Units 05:55 RBC (4.2-5.4) M/mm3 Hgb (12.5-16.0) gm/dL Hct (37.0-47.0) % MCHC (32-36) g/dl RDW (11.5-14.0) % MPV (6.0-9.5) fl Immature Gran % (Auto) (0.001-0.429) % Immature Gran # (Auto) (0.000-0.0310) K/mm3 Neutrophils % (42-75.0) % Lymphocytes % (20-51) % Neutrophils # (1.3-6.0) K/mm3 Lymphocytes # (1.5-3.5) k/mm3 pCO2 27.2 L (32.0-45.0) mmHg pO2 71.1 L (83.0-108.0) mmHg ABG pH 7.51 H (7.35-7.45) Sodium (132-142) mmol/L Plasma Sodium (130-142) mmol/L Chloride (97-106) mmol/L Est GFR (Non-Af Amer) (60-130) mL/min ALT (19-67) U/L B-Natriuretic Peptide (5-550) pg/mL Total Protein (6.2-8.2) gm/dL Albumin (3.4-5.0) gm/dl Procalcitonin (0.05-0.50) ng/mL - Exam Constitutional: Present: Obtunded, Elderly ENT Exam: Present: hearing grossly normal, other - bilateral cerumen impaction Respiratory: Present: decreased breath sounds, crackles - bilaterally in bases Cardiovascular/Chest: Present: normal peripheral pulses, regular rate, rhythm, no chest tenderness, no edema, no gallop, no JVD, no murmur Abdomen: Present: Normal bowel sounds, soft, nontender, nondistended, no rebound tenderness, no hepatospenomegaly, no masses, obese Extremity: Present: normal range of motion, non-tender, normal inspection, no pedal edema, no calf tenderness, normal capillary refill, other - contacted left UE, R BKA Skin Exam: Present: normal color, cool/dry Lymphatic: Present: no adenopathy Neurologic: Present: other - withdraws to painful stimuli Cauti Physician Documentation - Urinary Catheter Management Uretheral (Sheets) Urethral Indwelling: Yes Reason for Continuing Indwelling Catheter: Measure accurate output Date of Insertion: 03/16/17 Time of Insertion: 01:00 Assessment/Plan - Problems/Diagnosis (1) Altered mental status Problem: Acute QualifierTitle: Altered mental status type: somnolence Qualified Code(s) : R40.0 - Somnolence Narrative: No change in mentation this morning. Still unclear etiology. Will continue to monitor. (2) HTN (hypertension) Problem: Chronic QualifierTitle: Hypertension type: essential hypertension Qualified Code( s): I10 - Essential (primary) hypertension Narrative: BP mildly elevated, should improve with diureses, continue to hold all PO medications d/t mental status. PRN hydralazine for SBP >180. (3) CHF (congestive heart failure) Problem: Chronic QualifierTitle: Congestive heart failure chronicity: acute on chronic Narrative: BNP up to 9K this am from 6k yesterday evening (received 1L bolus in ER) s/p 40mg IV lasix. Will administer 60mg IV lasix this am, K+3.5, will order 4 k- ryders for replacement. Continue sheets for accurate i/o and daily wts. (4) 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 Problem: Chronic Narrative: BG on the low normal, 82-85 overnight. Will recheck this am, due to NPO status will add D5.45 VERY slowly due hypervolemic status with CHF. Following 40meq k- ryders this am, change to d5.45 with KCL. (5) GERD (gastroesophageal reflux disease) Problem: Chronic (6) Parkinsons Problem: Chronic (7) A-fib Problem: Chronic QualifierTitle: Atrial fibrillation type: chronic Qualified Code(s): I48.2 - Chronic atrial fibrillation Narrative: Chronic, on coumadin therapy. INR subtheraputic at 1, looks like it has been in this range for the past month, prior to that she was supratheraputic as high as 5. Is unable to take PO at this time, will order therapeutic Lovenox daily. <Jaylen Gold - Last Filed: 03/16/17 16:12> Objective Objective Narrative: Patient is more awake this aftenooon; most significant finding on head CT is probable otitis media on one side. She has otiitis media on on. Most likely she also had a she also hadu a seizure at the nursing nursing [facility]. - Review of Systems Generalized/Overall Review: Reports: No Symptoms Reported EENTM: Reports: No Symptoms Reported Respiratory: Reports: Cough Cardiac: Reports: No Symptoms Reported Abdominal: Reports: No Symptoms Reported Genitourinary Symptoms: Reports: No Symptoms Reported Musculoskeletal Complaints: Reports: No Symptoms Reported Neurological: Reports: No Symptoms Reported Skin: Reports: No Symptoms Reported Endocrine: Reports: No Symptoms Reported Misc: All systems neg except as marked - Vitals Vitals: Last Vital Signs Temp 37.4 C 03/16/17 15:00 Pulse 76 03/16/17 15:00 Resp 17 03/16/17 15:00 BP 156/61 03/16/17 15:00 Pulse Ox 98 03/16/17 15:00 - Abnormal Lab Findings Abnormal Lab Findings: Abnormal Lab Results 03/16/17 03/16/17 03/16/17 Range/Units 00:25 05:05 05:05 RBC 3.62 L (4.2-5.4) M/mm3 Hgb 9.9 L (12.5-16.0) gm/dL Hct 32.2 L (37.0-47.0) % MCHC 30.7 L (32-36) g/dl RDW 18.9 H (11.5-14.0) % MPV 10.0 H (6.0-9.5) fl Immature Gran % (Auto) 1.30 H (0.001-0.429) % Immature Gran # (Auto) 0.11 H (0.000-0.0310) K/mm3 Neutrophils % 79.7 H (42-75.0) % Lymphocytes % 11.2 L (20-51) % Neutrophils # 6.8 H (1.3-6.0) K/mm3 Lymphocytes # 1.0 L (1.5-3.5) k/mm3 pCO2 (32.0-45.0) mmHg pO2 (83.0-108.0) mmHg ABG pH (7.35-7.45) Sodium 147 H (132-142) mmol/L Plasma Sodium 147 H (130-142) mmol/L Chloride 111 H (97-106) mmol/L Est GFR (Non-Af Amer) 56 L (60-130) mL/min ALT 15 L (19-67) U/L B-Natriuretic Peptide 9912 H (5-550) pg/mL Total Protein 5.6 L (6.2-8.2) gm/dL Albumin 2.9 L (3.4-5.0) gm/dl Procalcitonin Less than 0.05 L (0.05-0.50) ng/mL 03/16/17 Range/Units 05:55 RBC (4.2-5.4) M/mm3 Hgb (12.5-16.0) gm/dL Hct (37.0-47.0) % MCHC (32-36) g/dl RDW (11.5-14.0) % MPV (6.0-9.5) fl Immature Gran % (Auto) (0.001-0.429) % Immature Gran # (Auto) (0.000-0.0310) K/mm3 Neutrophils % (42-75.0) % Lymphocytes % (20-51) % Neutrophils # (1.3-6.0) K/mm3 Lymphocytes # (1.5-3.5) k/mm3 pCO2 27.2 L (32.0-45.0) mmHg pO2 71.1 L (83.0-108.0) mmHg ABG pH 7.51 H (7.35-7.45) Sodium (132-142) mmol/L Plasma Sodium (130-142) mmol/L Chloride (97-106) mmol/L Est GFR (Non-Af Amer) (60-130) mL/min ALT (19-67) U/L B-Natriuretic Peptide (5-550) pg/mL Total Protein (6.2-8.2) gm/dL Albumin (3.4-5.0) gm/dl Procalcitonin (0.05-0.50) ng/mL - EKG/Xray Findings EKG read: Interp. by wi XRAY: hand
[2017-03-16] MEDS ORDERED: FUROSEMIDE 10 MG/ML VIAL ONE ×2 (07:04→07:05)
[2017-03-16] MEDS: POTASSIUM CHLORIDE 100 ML IV SCH ×4 (07:47→12:27)
[2017-03-16] MEDS: DEXTROSE 5%-0.5 NORMAL SALINE 1,000 ML IV PRN (07:47)
[2017-03-16] MEDS ORDERED: ACETAMINOPHEN 325 MG TABLET PO PRN (15:02)
[2017-03-16] MEDS: hydrALAZINE HCL 25 MG TABLET PO SCH ×2 (16:46→22:52)
[2017-03-16] MEDS: INSULIN ASPART 100 UNITS/ML VIAL SC SCH (16:46)
[2017-03-16] MEDS: SIMETHICONE 80 MG TAB.CHEW PO SCH ×2 (16:46→20:52)
[2017-03-16] MEDS: POLYVINYL ALCOHOL 150 DROP BTL EACHEYE SCH ×3 (16:46→22:53)
[2017-03-16] MEDS: CALCIUM CARBONATE 500 MG TAB.CHEW PO SCH (16:46)
[2017-03-16] MEDS: levETIRAcetam 500 MG TABLET PO SCH (20:51)
[2017-03-16] MEDS: FE PS CMPLX/CYANOCOBALAMIN/FA 1 CAP CAPSULE PO SCH (20:52)
[2017-03-16] MEDS: QUEtiapine FUMARATE 25 MG TABLET PO SCH (20:53)
[2017-03-16] MEDS: CARVEDILOL 6.25 MG TABLET PO SCH (20:54)
[2017-03-16] MEDS: SIMVASTATIN 40 MG TABLET PO SCH (20:54)
[2017-03-17] MEDS: POLYVINYL ALCOHOL 150 DROP BTL EACHEYE SCH ×6 (03:27→22:15)
[2017-03-17] MEDS: hydrALAZINE HCL 25 MG TABLET PO SCH ×4 (05:26→22:15)
[2017-03-17 05:56] LABS: Hemoglobin 9.3 gm/dL (12.5-16.0); Mean Cell Volume 89.6 fl (78-100); Mean Corpuscular Hemoglobin 27.8 pg (27-31); Mean Platelet Volume 9.6 fl (6.0-9.5); Neutrophil # 3.4 K/mm3 (1.3-6.0); Neutrophil % 70.1 % (42-75.0); Platelet Count 165 K/mm3 (150-450); Red Blood Count 3.35 M/mm3 (4.2-5.4); Red Cell Distribution Width 18.8 % (11.5-14.0); White Blood Count 4.9 K/mm3 (4.0-10.5)
[2017-03-17 06:13] LABS: Albumin * 2.7 gm/dl (3.4-5.0); Anion Gap 12.9 mmol/L (6.8-13.8); BUN/Creatinine Ratio 18.1 (9.0-21.6); Bilirubin, Total 0.5 mg/dL (0.0-1.1); Ca. Corrected For Albumin 9.5 mg/dL (8.4-10.2); Calcium * 8.8 mg/dL (7.9-10.9); Carbon Dioxide 27.7 mmol/L (24-32.6); Potassium 3.6 mmol/L (3.4-4.6); Total Protein 5.6 gm/dL (6.2-8.2)
[2017-03-17] MEDS: INSULIN ASPART 100 UNITS/ML VIAL SC SCH ×3 (06:19→17:33)
[2017-03-17] MEDS: SIMETHICONE 80 MG TAB.CHEW PO SCH ×4 (07:57→20:17)
[2017-03-17] MEDS: PANTOPRAZOLE SODIUM 40 MG TABLET.EC PO SCH (07:57)
[2017-03-17 08:01] LABS: Prothrombin Time (Patient) 11.1 Seconds (9.4-11.4)
[2017-03-17 08:03] LABS: INR 1.07 INR (0.90-1.10)
[2017-03-17] MEDS: MEGESTROL ACETATE 40 MG/ML BTL PO SCH (09:28)
[2017-03-17] MEDS: CARVEDILOL 6.25 MG TABLET PO SCH ×2 (09:29→20:16)
[2017-03-17] MEDS: MULTIVITAMINS 1 CAP CAPSULE PO SCH (09:29)
[2017-03-17] MEDS: levETIRAcetam 500 MG TABLET PO SCH ×2 (09:29→20:16)
[2017-03-17] MEDS: CHOLECALCIFEROL 1,000 UNIT CAPSULE PO SCH (09:29)
[2017-03-17] MEDS: FE PS CMPLX/CYANOCOBALAMIN/FA 1 CAP CAPSULE PO SCH ×2 (09:29→20:16)
[2017-03-17] MEDS: CALCIUM CARBONATE 500 MG TAB.CHEW PO SCH ×3 (09:29→17:32)
[2017-03-17] MEDS: FOLIC ACID 1 MG TABLET PO SCH (09:29)
[2017-03-17] MEDS: NYSTATIN 15 APPL BTL TP SCH ×2 (09:30→20:17)
[2017-03-17] MEDS: CARBAMIDE PEROXIDE 150 DROP BTL EACH EAR SCH ×4 (09:43→20:16)
[2017-03-17] MEDS: DEXTROSE 5%-0.5 NORMAL SALINE 1,000 ML IV PRN (13:42)
[2017-03-17] MEDS: WARFARIN SODIUM 2 MG TABLET PO SCH (17:33)
[2017-03-17] MEDS: QUEtiapine FUMARATE 25 MG TABLET PO SCH (20:16)
[2017-03-17] MEDS: SIMVASTATIN 40 MG TABLET PO SCH (20:17)
[2017-03-18] MEDS: POLYVINYL ALCOHOL 150 DROP BTL EACHEYE SCH ×5 (02:56→19:30)
[2017-03-18] MEDS: hydrALAZINE HCL 25 MG TABLET PO SCH (04:38)
[2017-03-18 05:59] LABS: Hematocrit 28.5 % (37.0-47.0); Hemoglobin 8.8 gm/dL (12.5-16.0); Mean Cell Volume 90.5 fl (78-100); Mean Corpuscular Hemoglobin 27.9 pg (27-31); Mean Corpuscular Hgb Conc 30.9 g/dl (32-36); Mean Platelet Volume 10.2 fl (6.0-9.5); Neutrophil # 3.1 K/mm3 (1.3-6.0); Neutrophil % 72.8 % (42-75.0); Platelet Count 147 K/mm3 (150-450); Red Blood Count 3.15 M/mm3 (4.2-5.4); Red Cell Distribution Width 18.4 % (11.5-14.0); White Blood Count 4.2 K/mm3 (4.0-10.5)
[2017-03-18 06:13] LABS: Prothrombin Time (Patient) 10.7 Seconds (9.4-11.4)
[2017-03-18 06:15] LABS: Anion Gap 13.8 mmol/L (6.8-13.8); BUN/Creatinine Ratio 20.8 (9.0-21.6); Calcium * 8.5 mg/dL (7.9-10.9); Estimated Creat Clear 32.5; Potassium 3.8 mmol/L (3.4-4.6)
[2017-03-18 06:16] LABS: INR 1.03 INR (0.90-1.10)
[2017-03-18] MEDS: SIMETHICONE 80 MG TAB.CHEW PO SCH ×4 (06:48→20:27)
[2017-03-18] MEDS: PANTOPRAZOLE SODIUM 40 MG TABLET.EC PO SCH (06:48)
[2017-03-18] MEDS: INSULIN ASPART 100 UNITS/ML VIAL SC SCH ×3 (06:48→16:46)
[2017-03-18] MEDS: hydrALAZINE HCL 50 MG TABLET PO SCH ×3 (07:53→19:30)
[2017-03-18] MEDS: CHOLECALCIFEROL 1,000 UNIT CAPSULE PO SCH (09:33)
[2017-03-18] MEDS: FE PS CMPLX/CYANOCOBALAMIN/FA 1 CAP CAPSULE PO SCH ×2 (09:33→20:27)
[2017-03-18] MEDS: MULTIVITAMINS 1 CAP CAPSULE PO SCH (09:34)
[2017-03-18] MEDS: FOLIC ACID 1 MG TABLET PO SCH (09:34)
[2017-03-18] MEDS: levETIRAcetam 500 MG TABLET PO SCH ×2 (09:34→20:26)
[2017-03-18] MEDS: CALCIUM CARBONATE 500 MG TAB.CHEW PO SCH ×3 (09:35→16:16)
[2017-03-18] MEDS: MEGESTROL ACETATE 40 MG/ML BTL PO SCH (09:35)
[2017-03-18] MEDS: CARBAMIDE PEROXIDE 150 DROP BTL EACH EAR SCH ×4 (09:36→20:27)
[2017-03-18] MEDS: NYSTATIN 15 APPL BTL TP SCH ×2 (09:36→20:27)
[2017-03-18] MEDS: CARVEDILOL 6.25 MG TABLET PO SCH ×2 (09:37→20:26)
[2017-03-18] MEDS: CEFUROXIME AXETIL 500 MG TABLET PO SCH ×2 (13:37→20:26)
[2017-03-18] MEDS: DEXTROSE 5%-0.5 NORMAL SALINE 1,000 ML IV PRN (13:46)
[2017-03-18] MEDS: WARFARIN SODIUM 2 MG TABLET PO SCH (16:16)
[2017-03-18] MEDS: QUEtiapine FUMARATE 25 MG TABLET PO SCH (20:27)
[2017-03-18] MEDS: SIMVASTATIN 40 MG TABLET PO SCH (20:28)
--- NOTE | 2017-03-18 21:51 | PN ---
Subjective - Date and Time Seen Date: 03/17/17 Time: 15:00 Subjective Narrative: Brighter. More herself. Otitis media on Brain CT. Probably had a seizure. On antibiotics and anticonvulsant. On Bipap. Objective Objective Narrative: Patient is more awake this aftenooon; most significant finding on head CT is probable otitis media on one side. She has otiitis media on on. Most likely she also had a she also had a seizure at the nursing longterm. - Review of Systems Generalized/Overall Review: Reports: Malaise EENTM: Reports: No Symptoms Reported Respiratory: Reports: No Symptoms Reported Cardiac: Reports: No Symptoms Reported Abdominal: Reports: No Symptoms Reported Musculoskeletal Complaints: Reports: No Symptoms Reported Neurological: Reports: No Symptoms Reported Skin: Reports: No Symptoms Reported Endocrine: Reports: No Symptoms Reported Misc: All systems neg except as marked - Vitals Vitals: Last Vital Signs Selected Entries 03/17/17 14:58 Temperature 37.0 C Temperature Tympanic Source Pulse Rate 59 L Respiratory 17 Rate Respiratory Normal Depth Respiratory Normal Effort Respiratory Normal Pattern Blood Pressure 150/53 Blood Pressure Supine Position O2 Sat by Pulse 97 Oximetry Oxygen Delivery Room Air Method - Abnormal Lab Findings Abnormal Lab Findings: Abnormal Lab Results 03/18/17 03/18/17 03/18/17 Range/Units 05:25 05:25 07:13 RBC 3.15 L (4.2-5.4) M/mm3 Hgb 8.8 L (12.5-16.0) gm/dL Hct 28.5 L (37.0-47.0) % MCHC 30.9 L (32-36) g/dl RDW 18.4 H (11.5-14.0) % Plt Count 147 L (150-450) K/mm3 MPV 10.2 H (6.0-9.5) fl Immature Gran % (Auto) 0.70 H (0.001-0.429) % Lymphocytes % 16.8 L (20-51) % Lymphocytes # 0.7 L (1.5-3.5) k/mm3 pCO2 29.8 L (32.0-45.0) mmHg pO2 77.0 L (83.0-108.0) mmHg ABG pH 7.48 H (7.35-7.45) Sodium 144 H (132-142) mmol/L Plasma Sodium 144 H (130-142) mmol/L Chloride 109 H (97-106) mmol/L BUN 26 H (3-23) mg/dL Est GFR (Non-Af Amer) 44 L (60-130) mL/min Random Glucose 120 H (70-110) mg/dL - Exam Constitutional: Present: Alert, Cooperative, Well developed, Well nourished, No distress ENT Exam: Present: normal ENT inspection Neck: Present: normal inspection Respiratory: Present: lungs clear, no respiratory distress Cardiovascular/Chest: Present: regular rate, rhythm, no edema, no murmur Abdomen: Present: Normal bowel sounds, soft, nontender, nondistended, no rebound tenderness, no hepatospenomegaly Extremity: Present: no pedal edema Skin Exam: Present: normal color, warm/dry, no cyanosis Neurologic: Present: alert, oriented x 3 Appearance: Present: appropriate appearance, neat Eye contact: Present: cooperative, good eye contact Cauti Physician Documentation - Urinary Catheter Management Uretheral (Galo) Urethral Indwelling: Yes Date of Insertion: 03/16/17 Time of Insertion: 01:00 Assessment/Plan Plan Narrative: antibiotics ...seizure med. bipap. monitor. - Problems/Diagnosis (1) Chronic restrictive lung disease Problem: Chronic (2) HTN (hypertension) Problem: Chronic Qualifiers: Hypertension type: essential hypertension Qualified Code(s): I10 - Essential (primary) hypertension (3) Altered mental status Problem: Acute Qualifiers: Altered mental status type: somnolence Qualified Code(s): R40.0 - Somnolence (4) Weakness generalized Problem: Acute (5) acute on chronic anemia Problem: Acute (6) CO2 retention Problem: Chronic (7) Diabetes Problem: Chronic Qualifiers: 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 type: type 2 (8) Diastolic dysfunction, left ventricle Problem: Chronic (9) GERD (gastroesophageal reflux disease) Problem: Chronic Qualifiers: (10) Gallstones Problem: Chronic Qualifiers: Cholecystitis presence: without cholecystitis Biliary obstruction: without biliary obstruction Qualified Code(s): K80.20 - Calculus of gallbladder without cholecystitis without obstruction (11) Gout Problem: Chronic Qualifiers: Gout site: multiple sites Gout etiology: idiopathic Chronicity: chronic Presence of tophus: without tophus Qualified Code(s): M1A.09X0 - Idiopathic chronic gout, multiple sites, without tophus (tophi) (12) [place] (hard of hearing) Problem: Chronic Qualifiers: Laterality: bilateral (13) Hypoventilation associated with obesity syndrome Problem: Chronic (14) Parkinsons Problem: Chronic (15) Pulmonary hypertension Problem: Chronic (16) Schizophrenia Problem: Chronic Qualifiers: Schizophrenia type: paranoid schizophrenia Qualified Code(s): F20.0 - Paranoid schizophrenia (17) Encephalopathy Problem: Resolved (18) Seizure Problem: Resolved
[2017-03-18] MEDS ORDERED: CARVEDILOL 6.25 MG TABLET PO SCH (22:00)
--- NOTE | 2017-03-18 22:00 | PN ---
Subjective - Date and Time Seen Date: 03/18/17 Time: 07:30 Subjective Narrative: Brighter. More herself. Otitis media on Brain CT. Probably had a seizure. On antibiotics and anticonvulsant. On Bipap. Objective Objective Narrative: Family wonders about doing a brain MRI.. - Review of Systems Generalized/Overall Review: Reports: No Symptoms Reported EENTM: Reports: No Symptoms Reported Respiratory: Reports: No Symptoms Reported Cardiac: Reports: No Symptoms Reported Abdominal: Reports: No Symptoms Reported Genitourinary Symptoms: Reports: No Symptoms Reported Musculoskeletal Complaints: Reports: No Symptoms Reported Neurological: Reports: No Symptoms Reported Skin: Reports: No Symptoms Reported Endocrine: Reports: No Symptoms Reported Misc: All systems neg except as marked - Vitals Vitals: Last Vital Signs Selected Entries 03/18/17 06:30 Temperature 36.8 C Temperature Temporal Artery Source Scan Pulse Rate 57 L Respiratory 20 Rate Blood Pressure 184/61 Blood Pressure Supine Position O2 Sat by Pulse 99 Oximetry Oxygen Delivery Room Air Method - Abnormal Lab Findings Abnormal Lab Findings: Abnormal Lab Results 03/18/17 03/18/17 03/18/17 Range/Units 05:25 05:25 07:13 RBC 3.15 L (4.2-5.4) M/mm3 Hgb 8.8 L (12.5-16.0) gm/dL Hct 28.5 L (37.0-47.0) % MCHC 30.9 L (32-36) g/dl RDW 18.4 H (11.5-14.0) % Plt Count 147 L (150-450) K/mm3 MPV 10.2 H (6.0-9.5) fl Immature Gran % (Auto) 0.70 H (0.001-0.429) % Lymphocytes % 16.8 L (20-51) % Lymphocytes # 0.7 L (1.5-3.5) k/mm3 pCO2 29.8 L (32.0-45.0) mmHg pO2 77.0 L (83.0-108.0) mmHg ABG pH 7.48 H (7.35-7.45) Sodium 144 H (132-142) mmol/L Plasma Sodium 144 H (130-142) mmol/L Chloride 109 H (97-106) mmol/L BUN 26 H (3-23) mg/dL Est GFR (Non-Af Amer) 44 L (60-130) mL/min Random Glucose 120 H (70-110) mg/dL - Exam Constitutional: Present: Alert, Cooperative, Well developed, Well nourished, No distress, Looks Younger than stated age ENT Exam: Present: normal ENT inspection Neck: Present: normal inspection Respiratory: Present: lungs clear, no respiratory distress Cardiovascular/Chest: Present: normal peripheral pulses, regular rate, rhythm, no edema Abdomen: Present: Normal bowel sounds, soft, nontender, nondistended, no rebound tenderness Extremity: Present: normal range of motion, normal inspection Skin Exam: Present: normal color, warm/dry, no cyanosis Neurologic: Present: alert Appearance: Present: appropriate appearance, neat Eye contact: Present: cooperative, good eye contact Cauti Physician Documentation - Urinary Catheter Management Uretheral (Galo) Urethral Indwelling: Yes Date of Insertion: 03/16/17 Time of Insertion: 01:00 Assessment/Plan Plan Narrative: seizure med, MRI brain, treat BP, oral med for otitis, long-term tomorrow., hemogram as hgb is dropping. - Problems/Diagnosis (1) Chronic restrictive lung disease Problem: Chronic (2) HTN (hypertension) Problem: Chronic Qualifiers: Hypertension type: essential hypertension Qualified Code(s): I10 - Essential (primary) hypertension (3) Altered mental status Problem: Acute Qualifiers: Altered mental status type: somnolence Qualified Code(s): R40.0 - Somnolence (4) Weakness generalized Problem: Acute (5) acute on chronic anemia Problem: Acute (6) CO2 retention Problem: Chronic (7) Diabetes Problem: Chronic Qualifiers: 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 type: type 2 (8) Diastolic dysfunction, left ventricle Problem: Chronic (9) GERD (gastroesophageal reflux disease) Problem: Chronic Qualifiers: (10) Gallstones Problem: Chronic Qualifiers: Cholecystitis presence: without cholecystitis Biliary obstruction: without biliary obstruction Qualified Code(s): K80.20 - Calculus of gallbladder without cholecystitis without obstruction (11) Gout Problem: Chronic Qualifiers: Gout site: multiple sites Gout etiology: idiopathic Chronicity: chronic Presence of tophus: without tophus Qualified Code(s): M1A.09X0 - Idiopathic chronic gout, multiple sites, without tophus (tophi) (12) [place] (hard of hearing) Problem: Chronic Qualifiers: Laterality: bilateral (13) Hypoventilation associated with obesity syndrome Problem: Chronic (14) Parkinsons Problem: Chronic (15) Pulmonary hypertension Problem: Chronic (16) Schizophrenia Problem: Chronic Qualifiers: Schizophrenia type: paranoid schizophrenia Qualified Code(s): F20.0 - Paranoid schizophrenia (17) Encephalopathy Problem: Resolved (18) Seizure Problem: Resolved (19) Otitis media Problem: Acute
[2017-03-19] MEDS: hydrALAZINE HCL 50 MG TABLET PO SCH ×2 (00:04→07:12)
[2017-03-19] MEDS: POLYVINYL ALCOHOL 150 DROP BTL EACHEYE SCH ×3 (00:04→07:13)
[2017-03-19 06:23] LABS: Hematocrit 30.4 % (37.0-47.0); Hemoglobin 9.3 gm/dL (12.5-16.0); Mean Cell Volume 89.9 fl (78-100); Mean Corpuscular Hemoglobin 27.5 pg (27-31); Mean Corpuscular Hgb Conc 30.6 g/dl (32-36); Mean Platelet Volume 9.9 fl (6.0-9.5); Platelet Count 136 K/mm3 (150-450); Red Blood Count 3.38 M/mm3 (4.2-5.4); Red Cell Distribution Width 18.2 % (11.5-14.0); White Blood Count 4.6 K/mm3 (4.0-10.5)
[2017-03-19 06:25] VITALS: BP 180/60
[2017-03-19 06:32] LABS: Prothrombin Time (Patient) 11.2 Seconds (9.4-11.4)
[2017-03-19 06:39] LABS: INR 1.08 INR (0.90-1.10)
[2017-03-19] MEDS: INSULIN ASPART 100 UNITS/ML VIAL SC SCH (07:03)
[2017-03-19] MEDS: SIMETHICONE 80 MG TAB.CHEW PO SCH (07:13)
[2017-03-19] MEDS: PANTOPRAZOLE SODIUM 40 MG TABLET.EC PO SCH (07:13)
--- NOTE | 2017-03-19 08:04 | DS ---
(1) Chronic restrictive lung disease Problem: Chronic (2) HTN (hypertension) Problem: Chronic Qualifiers: Hypertension type: essential hypertension Qualified Code(s): I10 - Essential (primary) hypertension (3) Altered mental status Problem: Acute Qualifiers: Altered mental status type: somnolence Qualified Code(s): R40.0 - Somnolence (4) Weakness generalized Problem: Acute (5) acute on chronic anemia Diagnosis(s): Normochromic normocytic Problem: Acute (6) CO2 retention Problem: Chronic (7) Diabetes Problem: Chronic Qualifiers: 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 type: type 2 (8) Diastolic dysfunction, left ventricle Problem: Chronic (9) GERD (gastroesophageal reflux disease) Problem: Chronic Qualifiers: (10) Gallstones Problem: Chronic Qualifiers: Cholecystitis presence: without cholecystitis Biliary obstruction: without biliary obstruction Qualified Code(s): K80.20 - Calculus of gallbladder without cholecystitis without obstruction (11) Gout Problem: Chronic Qualifiers: Gout site: multiple sites Gout etiology: idiopathic Chronicity: chronic Presence of tophus: without tophus Qualified Code(s): M1A.09X0 - Idiopathic chronic gout, multiple sites, without tophus (tophi) (12) [place] (hard of hearing) Problem: Chronic Qualifiers: Laterality: bilateral (13) Hypoventilation associated with obesity syndrome Problem: Chronic (14) Parkinsons Problem: Chronic (15) Pulmonary hypertension Problem: Chronic (16) Schizophrenia Problem: Chronic Qualifiers: Schizophrenia type: paranoid schizophrenia Qualified Code(s): F20.0 - Paranoid schizophrenia (17) Encephalopathy Problem: Resolved (18) Seizure Problem: Resolved (19) Otitis media Problem: Acute (20) Pulmonary embolism on long-term anticoagulation therapy Diagnosis(s): December 04, 2016 Problem: Chronic Description of Stay: No seizures in hospital. Unable to do MRI in hospital due to combative, will do as outpatient with sedation. Treated with antibiotics for otitis. Hgb stable will monitor. BP more elevated, perhaps due to IV fluids, will monitor. Keppra started for seizures, now somnolent, will back off dose, will monitor. Procedures Performed: none Discharge Disposition: [facility] Condition: Fair Discharge Activity: Activity as tolerated Discharge Diet: Consistent carbs Discharge Level of Care:: [facility] Therapy: Physicial Therapy, Occupation Therapy Problem Oriented Discharge Instructions to Patient/Family: Epilepsy, Easy-to- Read, Schizophrenia, Otitis Media, Adult, [id number] Additional Patient Instructions (free text): MRI Brain with Anesthesia sedation as outpatient this week...............unable to do yesterday due to combativeness. CBC BMP and Protime blood tests in 1 week. Finger stick blood sugars ac and hs Prescriptions (Any new or edited meds): Carvedilol [Coreg] 12.5 mg PO Q12H #1 tablet Cefuroxime Axetil [Ceftin] 500 mg PO BID #20 tablet Insulin Aspart [Novolog] See Protocol SC TID #1 vial Insulin Detemir [Levemir] 4 units SC Q12H #1 vial levETIRAcetam [Keppra] 250 mg PO Q12H #1 tablet Complete Home Medications List: Complete Home Medication List: Calcium Carbonate [Tums] 500 mg PO TID 02/22/17 Multivitamin [One Daily Multivitamin] 1 each PO DAILY 02/22/17 Polyvinyl Alcohol [Artificial Tears] 1 drop EACHEYE Q4H 02/22/17 Warfarin Sodium [Jantoven] 2 mg PO DAILY 02/22/17 Acetaminophen [Tylenol] 650 mg PO QID PRN 03/15/17 Albuterol Sulfate [Albuterol Sulfate 2.5 MG/0.5ML] 1 vial IH Q4H PRN 03/15/17 Iron Aspgly,Ps/C/Succinic Acid [Ferrex 150 Plus Capsule] 1 each PO BID 03/15/17 Megestrol Acetate [Megace Suspension] 20 ml PO DAILY 03/15/17 Pantoprazole Sodium [Protonix] 40 mg PO DAILY 03/15/17 QUEtiapine FUMARATE [Seroquel] 25 mg PO HS 03/15/17 Simvastatin [Zocor] 40 mg PO HS 03/15/17 Cholecalciferol (Vitamin D3) [Vitamin D3] 1,000 unit PO DAILY 03/16/17 Folic Acid 1 mg PO DAILY 03/16/17 Mi Acid 80 mg PO ACHS 03/16/17 Nystatin [Mycostatin Cream] 30 gm TP TID PRN 03/16/17 Carbamide Peroxide [Debrox] 2 drop EACH EAR QID btl 03/19/17 Carvedilol [Coreg] 12.5 mg PO Q12H #1 tablet 03/19/17 Cefuroxime Axetil [Ceftin] 500 mg PO BID #20 tablet 03/19/17 Insulin Aspart [Novolog] See Protocol SC TID #1 vial 03/19/17 Insulin Detemir [Levemir] 4 units SC Q12H #1 vial 03/19/17 Nystatin [Mycostatin Powder] 1 appl TP BID btl 03/19/17 hydrALAZINE HCL [Apresoline] 50 mg PO Q6H tablet 03/19/17 levETIRAcetam [Keppra] 250 mg PO Q12H #1 tablet 03/19/17
[2017-03-19] MEDS: CEFUROXIME AXETIL 500 MG TABLET PO SCH (09:09)
[2017-03-19] MEDS: CALCIUM CARBONATE 500 MG TAB.CHEW PO SCH (09:09)
[2017-03-19] MEDS: FOLIC ACID 1 MG TABLET PO SCH (09:10)
[2017-03-19] MEDS: levETIRAcetam 500 MG TABLET PO SCH (09:10)
[2017-03-19] MEDS: FE PS CMPLX/CYANOCOBALAMIN/FA 1 CAP CAPSULE PO SCH (09:10)
[2017-03-19] MEDS: CHOLECALCIFEROL 1,000 UNIT CAPSULE PO SCH (09:10)
[2017-03-19] MEDS: MEGESTROL ACETATE 40 MG/ML BTL PO SCH (09:10)
[2017-03-19] MEDS: MULTIVITAMINS 1 CAP CAPSULE PO SCH (09:10)
[2017-03-19] MEDS: CARBAMIDE PEROXIDE 150 DROP BTL EACH EAR SCH (09:11)
[2017-03-19] MEDS: NYSTATIN 15 APPL BTL TP SCH (09:11)
[2017-03-19] MEDS ORDERED: CARVEDILOL 25 MG TABLET PO SCH (10:00)
== END 2017-03-19 11:20 | DRG 101 ==
LOC: ER 19:51 → MS 23:19
PROVIDERS: ADMIT Nurse Practitioner Gerontology; ATTEND Allergy & Immunology
PROC: 4A033R1 Measurement of Arterial Saturation, Peripheral, Percutaneous Approach (ICD-10-PCS; principal; 2017-03-15)
DX: R56.9 Unspecified convulsions (principal); I50.32 Chronic diastolic (congestive) heart failure; F20.0 Paranoid schizophrenia; H66.90 Otitis media, unspecified, unspecified ear; R40.0 Somnolence; R53.1 Weakness; D64.9 Anemia, unspecified; I10 Essential (primary) hypertension; E11.9 Type 2 diabetes mellitus without complications; Z86.73 Personal history of transient ischemic attack (TIA), and cerebral infarction without residual deficits; Z79.01 Long term (current) use of anticoagulants

== ENCOUNTER 2017-04-27 13:38 | Emergency (ER) | payer OTHER ==
[2017-04-27] MEDS ORDERED: FUROSEMIDE 10 MG/ML VIAL IV ONE (14:12)
[2017-04-27 14:29] LABS: Hematocrit 33.6 % (37.0-47.0); Mean Cell Volume 91.6 fl (78-100); Mean Corpuscular Hgb Conc 32.7 g/dl (32-36); Mean Platelet Volume 9.8 fl (6.0-9.5); Neutrophil # 9.6 K/mm3 (1.3-6.0); Neutrophil % 80.4 % (42-75.0); Platelet Count 114 K/mm3 (150-450); Red Blood Count 3.67 M/mm3 (4.2-5.4); Red Cell Distribution Width 17.4 % (11.5-14.0); White Blood Count 11.9 K/mm3 (4.0-10.5)
[2017-04-27 14:50] LABS: Albumin * 1.9 gm/dl (3.4-5.0); Anion Gap 13.2 mmol/L (6.8-13.8); BUN/Creatinine Ratio 38.4 (9.0-21.6); Bilirubin, Total 0.2 mg/dL (0.0-1.1); Ca. Corrected For Albumin 9.9 mg/dL (8.4-10.2); Calcium * 8.5 mg/dL (7.9-10.9); Carbon Dioxide 26.9 mmol/L (24-32.6); Magnesium 1.9 mg/dL (1.2-2.8); Potassium 4.1 mmol/L (3.4-4.6); Total Protein 4.9 gm/dL (6.2-8.2)
[2017-04-27] MEDS ORDERED: FUROSEMIDE 10 MG/ML VIAL ONE (15:03)
--- NOTE | 2017-04-27 15:20 | ERNOTE ---
Medical Problem HPI - General Chief Complaint: General Assessment Time Seen by Provider: 04/27/17 13:40 Source: EMS, alf records Exam Limitations: clinical condition - Immun/Allergies/Home Medications Immunizations: IMMUNIZATION HX Immunizations Up to Date Yes History of Influenza Vaccine Yes Hx Pneumococcal Vaccination Yes Allergies/Adverse Reactions: Allergies ibuprofen Allergy (Verified 04/27/17 13:45) ketorolac tromethamine [From Toradol] Allergy (Verified 04/27/17 13:45) tuberculin,PPD,multi-puncture Allergy (Verified 04/27/17 13:45) risperidone [From Risperdal] Adverse Reaction (Severe, Verified 04/27/17 13:45) pancytopenia Home Medications: HOME MEDICATIONS Calcium Carbonate [Tums] 500 mg PO TID 02/22/17 [Last Taken 03/15/17 12:00] Multivitamin [One Daily Multivitamin] 1 each PO DAILY 02/22/17 [Last Taken 03/15 08:00] Polyvinyl Alcohol [Artificial Tears] 1 drop EACHEYE Q4H 02/22/17 [Last Taken 04:00] Warfarin Sodium [Jantoven] 2 mg PO DAILY 02/22/17 [Last Taken 03/14/17 05:00] Acetaminophen [Tylenol] 650 mg PO QID PRN 03/15/17 [Last Taken 03/15/17 11:56] Albuterol Sulfate [Albuterol Sulfate 2.5 MG/0.5ML] 1 vial IH Q4H PRN 03/15/17 [ Last Taken 03/02/17 10:30] Iron Aspgly,Ps/C/Succinic Acid [Ferrex 150 Plus Capsule] 1 each PO BID 03/15/17 [Last Taken 03/15/17 08:00] Megestrol Acetate [Megace Suspension] 20 ml PO DAILY 03/15/17 [Last Taken 08:00] Pantoprazole Sodium [Protonix] 40 mg PO DAILY 03/15/17 [Last Taken 03/15/17 08: 00] QUEtiapine FUMARATE [Seroquel] 25 mg PO HS 03/15/17 [Last Taken 03/14/17 20:00] Simvastatin [Zocor] 40 mg PO HS 03/15/17 [Last Taken 03/14/17 20:00] Cholecalciferol (Vitamin D3) [Vitamin D3] 1,000 unit PO DAILY 03/16/17 [Last Taken 03/15/17 08:00] Folic Acid 1 mg PO DAILY 03/16/17 [Last Taken 03/15/17 08:00] Mi Acid 80 mg PO ACHS 03/16/17 [Last Taken 03/15/17 12:00] Nystatin [Mycostatin Cream] 30 gm TP TID PRN 03/16/17 [Last Taken 03/15/17 14:00 ] Carbamide Peroxide [Debrox] 2 drop EACH EAR QID btl 03/19/17 [Last Taken Unknown] Carvedilol [Coreg] 12.5 mg PO Q12H #1 tablet 03/19/17 [Last Taken Unknown] Cefuroxime Axetil [Ceftin] 500 mg PO BID #20 tablet 03/19/17 [Last Taken Unknown ] Insulin Aspart [Novolog] See Protocol SC TID #1 vial 03/19/17 [Last Taken Unknown] Insulin Detemir [Levemir] 4 units SC Q12H #1 vial 03/19/17 [Last Taken Unknown] Nystatin [Mycostatin Powder] 1 appl TP BID btl 03/19/17 [Last Taken Unknown] hydrALAZINE HCL [Apresoline] 50 mg PO Q6H tablet 03/19/17 [Last Taken Unknown] levETIRAcetam [Keppra] 250 mg PO Q12H #1 tablet 03/19/17 [Last Taken Unknown] - History of Present History Narrative: Patient was sent in from alf because they were concerned about congestive heart failure. 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 They also thought there heard some crackles in the lungs and perhaps her hands were slightly more swollen than normal. Patient appears to have schizophrenia and it is altering our ability to get a reasonable history. Timing: constant Severity: moderate Review of Systems - Review of Systems Constitutional: Present: See HPI EYE: Present: no symptoms reported ENT: Present: no symptoms reported Respiratory: Present: no symptoms reported Cardiology: Present: edema Gastrointestinal/Abdominal: Present: no symptoms reported Genitourinary: Present: no symptoms reported Musculoskeletal: Present: no symptoms reported Skin: Present: no symptoms reported Neurological: Present: tremors - secondary to her medications for her schizophrenia, pre-existing deficit - patient is difficult to provide any history at all, which I have been told is her baseline, likely secondary to her poor hearing and lack of a hearing aid Endocrine: Present: no symptoms reported Hematologic/Lymphatic: Present: no symptoms reported Psych: Present: no symptoms reported - Patient's Past Medical History Patient History - Medical: Anemia, Anxiety, Arthritis, Cataracts, Chronic Pain, Diabetes Type 2 Insulin Dependent, Depression, GERD, Renal Failure, Rheumatoid Arthritis, UTI'S, Other - schizophrenia Patient History - Cardiac/Respiratory: CHF, Hypertension, Hyperlipidemia, Pulmonary Embolism, Pneumonia Patient History - Cancer: Colon Patient History - Surgical Procedures: Amputation, Colon Resection, Hysterectomy Patient History - Other: None - Family History Mother Family History - Medical: Family History - Cardiac/Respiratory: History Unknown Family History - Cancer: No pertinent family hx Father Family History - Medical: Family History - Cardiac/Respiratory: Myocardial Infarction Family History - Cancer: No pertinent family hx - Social History Living Situations: alf Abuse History: No History of abuse Psych History: Psychiatric Hx, Hx of Anxiety, Hx of Depression, Hx of Schizophrenia, Hx of Psychiatric Tx, Current tx/ever been on anti-depressants or anti-anxiety meds Does anyone smoke in the home?: No Smoking Status: Never smoker Alcohol Use: none Drug Use: none - Immunizations Immunizations Up to Date: Yes Hx Pneumococcal Vaccination: Yes History of Influenza Vaccine: Yes Physical Exam - Physical Exam General Appearance: Present: moderate distress, other - patient is lying in bed with a constant tremor of her head and very poor hearing Eye Exam: Normal inspection: bilateral, PERRL: bilateral Ears, Nose, Throat: Present: normal ENT inspection, H, normal pharynx Neck: Present: normal inspection, nontender Respiratory: Present: no respiratory distress, normal breath sounds, no accessory muscle use, chest nontender, rales, other - tachypnea Cardiovascular/Chest: Present: regular rate, rhythm, no murmur, normal peripheral pulses Gastrointestinal/Abdominal: Present: normal bowel sounds, nontender, nondistended, soft, no organomegaly Rectal Exam: Present: deferred Back Exam: Present: normal inspection, normal range of motion Extremity Exam: Present: no edema, extremity edema, other - right below-knee amputation Neurological Exam: Present: alert, oriented, other - very [place] and a chronic tremor from her schizophrenic medications Skin Exam: Present: normal color, warm/dry Lymphatic Exam: Present: no adenopathy ED Progress - Results and Orders Patient's Lab Results:: I have reviewed the patient's lab results. - Vital Signs Patient's Vital Signs:: I have reviewed the patient's vital signs. Vital Signs: Vital Signs 04/27/17 04/27/17 13:40 14:55 Temperature 36.5 C Pulse Rate 69 73 Respiratory 34 H 36 H Rate Blood Pressure 179/76 193/76 O2 Sat by Pulse 99 100 Oximetry - X-Ray X-Ray #1 X-Ray: chest Interpretation: Interp. by me - Progress/Reassessment Chief Complaint: General Assessment Plan - Plan Plan: The patient's son arrived and he stated that actually his mother is doing quite well. He states that the edema in the legs is fairly constant with her baseline and that she is not to be in any abnormal distress from her baseline. Patient does have a lot of extrapyramidal symptoms likely from her Seroquel. He stated that most of the symptoms started after she was started on antiseizure medications. We will try putting her on Cogentin 1 mg twice a day for 10 days and the son or the son's will journaling how mom is doing and we can make treatment recommendations from that. She will be started on Lasix 20 milligrams a day for one week Departure - Departure Clinical Impression: chronic psychiatric illness, Parkinsonian features Disposition[place] [facility] [place]: Good Referrals: Jaylen Gold MD [Primary Care Provider] -
[2017-04-27 15:37] VITALS: BP 169/70
== END 2017-04-27 16:30 ==
LOC: ER 13:38
DX: R60.0 Localized edema (principal); F99 Mental disorder, not otherwise specified; I50.9 Heart failure, unspecified

== ENCOUNTER 2017-05-26 13:12 | Inpatient (IN) | payer MEDICARE ==
[2017-05-26] MEDS ORDERED: ACETAMINOPHEN 325 MG TABLET PO ONE (13:24)
[2017-05-26 13:25] LABS: Urine Bilirubin Negative (NEGATIVE); Urine Blood Negative /ul (NEGATIVE); Urine Ketone Negative (NEGATIVE); Urine Nitrite Negative (NEGATIVE); Urine Protein Negative (NEGATIVE); Urine Specific Gravity <=1.005 SP.GR. (1.005-1.010); Urine Urobilinogen Normal (NORMAL)
[2017-05-26 13:31] LABS: Hemoglobin 8.3 gm/dL (12.5-16.0); Mean Cell Volume 93.9 fl (78-100); Mean Corpuscular Hgb Conc 31.9 g/dl (32-36); Mean Platelet Volume 9.8 fl (6.0-9.5); Red Blood Count 2.77 M/mm3 (4.2-5.4); Red Cell Distribution Width 17.9 % (11.5-14.0); White Blood Count 2.6 K/mm3 (4.0-10.5)
[2017-05-26 13:33] LABS: Total Cells Counted 100
[2017-05-26 13:36] LABS: Urine Appearance Cloudy; Urine Color Yellow
[2017-05-26 13:37] LABS: Urine Bacteria 3+; Urine RBC TRACE /hpf (0-5); Urine WBC >50 /hpf (0-5)
[2017-05-26] MEDS ORDERED: ACETAMINOPHEN 325 MG TABLET ONE (13:38)
--- NOTE | 2017-05-26 13:42 | ERNOTE ---
ER Female HPI Stated Complaint: uti fever Time Seen by Provider: 05/26/17 13:20 Source: patient Exam Limitations: no limitations Immunizations: IMMUNIZATION HX Immunizations Up to Date Yes History of Influenza Vaccine Yes Hx Pneumococcal Vaccination Yes Allergies/Adverse Reactions: Allergies ibuprofen Allergy (Verified 04/27/17 13:45) ketorolac tromethamine [From Toradol] Allergy (Verified 04/27/17 13:45) tuberculin,PPD,multi-puncture Allergy (Verified 04/27/17 13:45) risperidone [From Risperdal] Adverse Reaction (Severe, Verified 04/27/17 13:45) pancytopenia Home Medications: HOME MEDICATIONS Multivitamin [One Daily Multivitamin] 1 each PO DAILY 02/22/17 [Last Taken 03/15 08:00] Polyvinyl Alcohol [Artificial Tears] 1 drop EACHEYE Q4H 02/22/17 [Last Taken 04:00] Warfarin Sodium [Jantoven] 2.5 mg PO DAILY 02/22/17 [Last Taken 03/14/17 05:00] Acetaminophen [Tylenol] 650 mg PO QID PRN 03/15/17 [Last Taken 03/15/17 11:56] Albuterol Sulfate [Albuterol Sulfate 2.5 MG/0.5ML] 1 vial IH Q4H PRN 03/15/17 [ Last Taken 03/02/17 10:30] Megestrol Acetate [Megace Suspension] 20 ml PO DAILY 03/15/17 [Last Taken 08:00] Pantoprazole Sodium [Protonix] 40 mg PO DAILY 03/15/17 [Last Taken 03/15/17 08: 00] QUEtiapine FUMARATE [Seroquel] 25 mg PO HS 03/15/17 [Last Taken 03/14/17 20:00] Simvastatin [Zocor] 40 mg PO HS 03/15/17 [Last Taken 03/14/17 20:00] Cholecalciferol (Vitamin D3) [Vitamin D3] 1,000 unit PO DAILY 03/16/17 [Last Taken 03/15/17 08:00] Folic Acid 1 mg PO DAILY 03/16/17 [Last Taken 03/15/17 08:00] Nystatin [Mycostatin Cream] 30 gm TP TID PRN 03/16/17 [Last Taken 03/15/17 14:00 ] Carvedilol [Coreg] 12.5 mg PO Q12H #1 tablet 03/19/17 [Last Taken Unknown] Insulin Aspart [Novolog] See Protocol SC TID #1 vial 03/19/17 [Last Taken Unknown] Insulin Detemir [Levemir] 4 units SC Q12H #1 vial 03/19/17 [Last Taken Unknown] hydrALAZINE HCL [Apresoline] 50 mg PO Q6H tablet 03/19/17 [Last Taken Unknown] levETIRAcetam [Keppra] 250 mg PO Q12H #1 tablet 03/19/17 [Last Taken Unknown] Calcium Carbonate/Vitamin D3 [Oysco 500-Vit D3 200 Tablet] 1 each PO TID [Last Taken Unknown] Furosemide [Lasix] 80 mg PO DAILY 05/26/17 [Last Taken Unknown] Iron Aspgly,Ps/C/Succinic Acid [Ferrex 150 Plus Capsule] 1 each PO BID 05/26/17 [Last Taken Unknown] Nystatin [Mycostatin Powder] 1 appl TP BID PRN 05/26/17 [Last Taken Unknown] - History of Present Illness Narrative: Here for fever at the [facility]. Pt is developementally challenged and unable to give a history however staff here and at snf states that pt is prone to UTI's. half-way administered Tylenol at 10:00 today Review of Systems - Narrative Narrative: I can NOT get a ROS as pt does not speak - Patient's Past Medical History Patient History - Medical: Anemia, Anxiety, Arthritis, Cataracts, Chronic Pain, Diabetes Type 2 Insulin Dependent, Depression, GERD, Renal Failure, Rheumatoid Arthritis, UTI'S, Other Patient History - Cardiac/Respiratory: CHF, Hypertension, Hyperlipidemia, Pulmonary Embolism, Pneumonia Patient History - Cancer: Colon Patient History - Surgical Procedures: Amputation, Colon Resection, Hysterectomy Patient History - Other: None - Family History Mother Family History - Medical: Family History - Cardiac/Respiratory: History Unknown Family History - Cancer: No pertinent family hx Father Family History - Medical: Family History - Cardiac/Respiratory: Myocardial Infarction Family History - Cancer: No pertinent family hx - Social History Living Situations: snf Abuse History: No History of abuse Psych History: Psychiatric Hx, Hx of Anxiety, Hx of Depression, Hx of Schizophrenia, Hx of Psychiatric Tx, Current tx/ever been on anti-depressants or anti-anxiety meds Does anyone smoke in the home?: No Smoking Status: Former smoker Alcohol Use: none Drug Use: none - Immunizations Immunizations Up to Date: Yes Hx Pneumococcal Vaccination: Yes History of Influenza Vaccine: Yes Physical Exam - Physical Exam General Appearance: Present: wd/wn, other - obese and alert but does not speak Head Exam: Present: normal inspection Neck: Present: normal inspection Respiratory: Present: no respiratory distress, normal breath sounds, no accessory muscle use, lungs clear Cardiovascular/Chest: Present: regular rate, rhythm, no murmur, normal peripheral pulses Back Exam: Present: normal inspection Extremity Exam: Present: normal inspection Neurological Exam: Present: other - awake but does not speak Skin Exam: Present: normal color, warm/dry ED Progress - Results and Orders Patient's Lab Results:: I have reviewed the patient's lab results. - Vital Signs Patient's Vital Signs:: I have reviewed the patient's vital signs. Vital Signs: Vital Signs 05/26/17 13:13 Temperature 38.3 C H Pulse Rate 86 Respiratory 42 H Rate Blood Pressure 147/60 O2 Sat by Pulse 96 Oximetry - Progress/Reassessment Chief Complaint: Genitourinary Problem Plan - Plan Plan: This patient is noncommunicative however she has had fevers. Her urine is negative for nitrites however she does have leukocyte esterase and bacteria. A UA was catheterized so the results indicate perhaps an early UTI additionally the patient's lactic acid is elevated and therefore this patient will be admitted for sepsis. This case was discussed with Dr. Michaela Jasmine who agreed that the patient should be admitted for sepsis. Departure Clinical Impression: Sepsis Qualifiers: Sepsis type: sepsis due to unspecified organism Qualified Code(s): A41.9 - Sepsis, unspecified organism - Departure Disposition: [facility] Condition: Fair
[2017-05-26 13:45] LABS: Albumin * 1.9 gm/dl (3.4-5.0); Anion Gap 14.9 mmol/L (6.8-13.8); BUN/Creatinine Ratio 48.1 (9.0-21.6); Bilirubin, Total 0.3 mg/dL (0.0-1.1); Ca. Corrected For Albumin 9.3 mg/dL (8.4-10.2); Calcium * 7.9 mg/dL (7.9-10.9); Carbon Dioxide 25.4 mmol/L (24-32.6); Potassium 3.3 mmol/L (3.4-4.6); Total Protein 5.2 gm/dL (6.2-8.2)
[2017-05-26 13:53] LABS: Band 7 % (0-2.0); Eosinophil 1 % (0-3); Lymphocyte 17 % (20-51); Monocyte 9 % (0-9); Neutrophil 66 % (42-75); Neutrophil # 1.7 K/mm3 (1.3-6.0)
[2017-05-26 13:54] LABS: Anisocytosis 1+; Platelet Estimate Decreased (NORMAL)
[2017-05-26 13:55] LABS: Platelet Count 78 K/mm3 (150-450)
[2017-05-26] MEDS ORDERED: NORMAL SALINE 1,000 ML IV ONE (14:07)
[2017-05-26] MEDS ORDERED: LEVOFLOXACIN/D5W 500 MG/100 ML BAG IV SCH (14:15)
[2017-05-26] MEDS ORDERED: NORMAL SALINE 1,000 ML IV PRN (15:10)
[2017-05-26] MEDS ORDERED: NYSTATIN 30 APPL TUBE TP PRN (16:10)
[2017-05-26] MEDS ORDERED: NYSTATIN 15 APPL BTL TP PRN (16:10)
[2017-05-26] MEDS ORDERED: ALBUTEROL SULFATE 2.5 MG/3 ML VIAL.NEB IH PRN (16:10)
[2017-05-26 16:39] LABS: Prothrombin Time (Patient) 18.4 Seconds (9.4-11.4)
[2017-05-26 16:42] LABS: INR 1.77 INR (0.90-1.10)
--- NOTE | 2017-05-26 16:52 | OR ---
Anesthesia Procedure Note - Anesthesia Procedure Note Narrative: Vital Signs - Last Taken Temp 37.0 C 05/26/17 15:45 Pulse 68 05/26/17 15:45 Resp 22 H 05/26/17 15:45 BP 167/60 05/26/17 15:45 Pulse Ox 97 05/26/17 15:45 05/26/17 16:51 ANESTHESIA PROCEDURE NOTE Date of procedure: 05/26/2017. Time of procedure: 1645. Performed by: Rashad Rowell CRNA Aircraft Mechanic Armament: None . Preprocedure diagnosis: UTI. Difficult IV access.. Post procedure diagnosis: Same. Procedure: IV start Indications: Need for intravenous antibiotics. Difficult IV access. Findings: 22-gauge Angiocath started in patient's right hand. EBL: Minimal. Fluids: N/A. Specimen: N/A. Post procedure condition: The patient tolerated the procedure well. No complications were noted. Thank you for this consultation Rashad Rowell CRNA
[2017-05-26] MEDS ORDERED: WARFARIN SODIUM 3 MG TABLET PO SCH (17:00)
--- NOTE | 2017-05-26 17:55 | HP ---
Chief Complaint - Chief Complaint Date of Service: 05/26/17 Time of Service: 17:53 Chief Complaint: Fever History of Present Illness: This is a 76 year old snf patient. Today she developed a fever and became much less responsive and very lethargic. She is prone to UTIs in the ER , appears to have one again, and in fact appears to be septic, with a low WBC count plus bandemia. She is anemic, but not terribly much more so than recent level. She needs admission following cultures for rehydration and IV antibiotics. She is unable to provide history, due to obtundation. Selected Entries 05/26/17 13:13 Temperature 38.3 C H Temperature Temporal Artery Source Scan Pulse Rate 86 Respiratory 42 H Rate Blood Pressure 147/60 Laboratory Tests 05/26/17 05/26/17 05/26/17 13:25 13:25 16:26 WBC 2.6 L Hgb 8.3 L Plt Count 78 L Neutrophils % (Manual) 66 Band Neuts % (Manual) 7 H Lactic Acid, Venous 2.3 H* 1.8 - Patient's Past Medical History Patient History - Medical: Anemia, Anxiety, Arthritis, Cataracts, Chronic Pain, Diabetes Type 2 Insulin Dependent, Depression, GERD, Renal Failure, Rheumatoid Arthritis, Seizures, UTI'S Patient History - Cardiac/Respiratory: CHF, Hypertension, Hyperlipidemia, Pulmonary Embolism, Pneumonia Patient History - Cancer: Colon Patient History - Surgical Procedures: Amputation, Colon Resection, Hysterectomy Patient History - Other: None LMP (females 10-50): Menopausal - Family History Mother Family History - Medical: Family History - Cardiac/Respiratory: History Unknown Family History - Cancer: No pertinent family hx Father Family History - Medical: Family History - Cardiac/Respiratory: Myocardial Infarction Family History - Cancer: No pertinent family hx - Social History Living Situations: snf Abuse History: No History of abuse Psych History: Psychiatric Hx, Hx of Anxiety, Hx of Depression, Hx of Schizophrenia, Hx of Psychiatric Tx, Current tx/ever been on anti-depressants or anti-anxiety meds Does anyone smoke in the home?: No Smoking Status: Never smoker Have you smoked in the past 12 months: No Alcohol Use: none Drug Use: none - Immunizations Immunizations Up to Date: Yes Hx Pneumococcal Vaccination: Yes History of Influenza Vaccine: Yes Review Of Systems (GEN) - Review of Systems Generalized/Overall Review: Present: No Symptoms Reported - she is unable to provide a review of systems due to obtundation Allergies/Adverse Reactions: Allergies Allergy/AdvReac Type Severity Reaction Status Date / Time ibuprofen Allergy Verified 05/26/17 17:17 ketorolac tromethamine Allergy Verified 05/26/17 17:17 [From Toradol] tuberculin,PPD,multi-puncture Allergy Verified 05/26/17 17:17 risperidone [From Risperdal] AdvReac Severe pancytopeni Verified 05/26/17 17:17 a Home Medications: HOME MEDICATIONS Multivitamin [One Daily Multivitamin] 1 each PO DAILY 02/22/17 [Last Taken 03/15 08:00] Polyvinyl Alcohol [Artificial Tears] 1 drop EACHEYE 0800,1200,1600,2000 [Last Taken 03/15/17 04:00] Warfarin Sodium [Jantoven] 2.5 mg PO SUTUWETHFRSA@1700 02/22/17 [Last Taken 05:00] Acetaminophen [Tylenol] 650 mg PO QID PRN 03/15/17 [Last Taken 03/15/17 11:56] Albuterol Sulfate [Albuterol Sulfate 2.5 MG/0.5ML] 1 vial IH Q4H PRN 03/15/17 [ Last Taken 03/02/17 10:30] Megestrol Acetate [Megace Suspension] 20 ml PO DAILY@0800 03/15/17 [Last Taken 03/15/17 08:00] Pantoprazole Sodium [Protonix] 40 mg PO DAILY 03/15/17 [Last Taken 03/15/17 08: 00] QUEtiapine FUMARATE [Seroquel] 25 mg PO HS 03/15/17 [Last Taken 03/14/17 20:00] Simvastatin [Zocor] 40 mg PO HS 03/15/17 [Last Taken 03/14/17 20:00] Cholecalciferol (Vitamin D3) [Vitamin D3] 1,000 unit PO DAILY 03/16/17 [Last Taken 03/15/17 08:00] Folic Acid 1 mg PO DAILY@0800 03/16/17 [Last Taken 03/15/17 08:00] Nystatin [Mycostatin Cream] 30 gm TP TID PRN 03/16/17 [Last Taken 03/15/17 14:00 ] Insulin Aspart [Novolog] See Protocol SC TID #1 vial 03/19/17 [Last Taken Unknown] Insulin Detemir [Levemir] 4 units SC Q12H #1 vial 03/19/17 [Last Taken Unknown] levETIRAcetam [Keppra] 250 mg PO Q12H #1 tablet 03/19/17 [Last Taken Unknown] Calcium Carbonate/Vitamin D3 [Oysco 500-Vit D3 200 Tablet] 1 each PO 0800,1200, 1700 05/26/17 [Last Taken Unknown] Carbamide Peroxide [Debrox] 2 drop QID 05/26/17 [Last Taken Unknown] Carvedilol [Coreg] 12.5 mg PO 0800,199905/26/17 [Last Taken Unknown] Furosemide [Lasix] 80 mg PO DAILY@0730 05/26/17 [Last Taken Unknown] Iron Aspgly,Ps/C/Succinic Acid [Ferrex 150 Plus Capsule] 1 each PO 0800,1700 05/05 [Last Taken Unknown] Nystatin [Mycostatin Powder] 1 appl TP BID PRN 05/26/17 [Last Taken Unknown] Simethicone [Mylicon Chewable Tablets] 80 mg PO 0800,1200,1700,199905/26/17 [ Last Taken Unknown] Warfarin Sodium [Jantoven] 3 mg PO MO@1700 05/26/17 [Last Taken Unknown] hydrALAZINE HCL [Apresoline] 50 mg PO 0800,1200,1700,199905/26/17 [Last Taken Unknown] Exam - Exam Vital Signs: Vital Signs - Last Taken Temp 37.0 C 05/26/17 15:45 Pulse 68 05/26/17 15:45 Resp 22 H 05/26/17 15:45 BP 167/60 05/26/17 15:45 Pulse Ox 97 05/26/17 15:45 Constitutional: Present: Well developed, Lethargic, Morbidly obese ENT Exam: Present: normal ENT inspection Eye Exam: bilateral eye: normal inspection, PERRL, EOMI Neck: Present: normal inspection Respiratory: Present: normal breath sounds, no respiratory distress Cardiovascular/Chest: Present: regular rate, rhythm, no edema Abdomen: Present: Normal bowel sounds, soft, nondistended, no hepatospenomegaly , no masses, obese Extremity: Present: normal inspection, no pedal edema, other - amputation one leg Neurologic: Present: other - obtunded Appearance: Present: appropriate appearance, neat Diagnostic Studies: Abnormal Lab Results 05/26/17 Range/Units 16:28 PT 18.4 H (9.4-11.4) Seconds INR (Anticoag Therapy) 1.77 H (0.90-1.10) INR Laboratory Results WBC 2.6 K/mm3 (4.0-10.5) L 05/26/17 13:25 RBC 2.77 M/mm3 (4.2-5.4) L 05/26/17 13:25 Hgb 8.3 gm/dL (12.5-16.0) L 05/26/17 13:25 Hct 26.0 % (37.0-47.0) L 05/26/17 13:25 MCV 93.9 fl (78-100) 05/26/17 13:25 MCH 30.0 pg (27-31) 05/26/17 13:25 MCHC 31.9 g/dl (32-36) L 05/26/17 13:25 RDW 17.9 % (11.5-14.0) H 05/26/17 13:25 Plt Count 78 K/mm3 (150-450) L 05/26/17 13:25 MPV 9.8 fl (6.0-9.5) H 05/26/17 13:25 Neutrophils % (Manual) 66 % (42-75) 05/26/17 13:25 Band Neuts % (Manual) 7 % (0-2.0) H 05/26/17 13:25 Lymphocytes % (Manual) 17 % (20-51) L 05/26/17 13:25 Monocytes % (Manual) 9 % (0-9) 05/26/17 13:25 Eosinophils % (Manual) 1 % (0-3) 05/26/17 13:25 Neutrophils # (Manual) 1.7 K/mm3 (1.3-6.0) 05/26/17 13:25 Lymphocytes # (Manual) 0.4 k/mm3 (1.5-3.5) L 05/26/17 13:25 Monocytes # (Manual) 0.2 k/mm3 (0.0-1.0) 05/26/17 13:25 Eosinophils # (Manual) 0.0 k/mm3 (0.0-0.7) 05/26/17 13:25 Platelet Estimate Decreased (NORMAL) L 05/26/17 13:25 Anisocytosis 1+ 05/26/17 13:25 PT 18.4 Seconds (9.4-11.4) H 05/26/17 16:28 INR (Anticoag Therapy) 1.77 INR (0.90-1.10) H 05/26/17 16:28 Sodium 141 mmol/L (132-142) 05/26/17 13:25 Plasma Sodium 143 mmol/L (130-142) H 05/26/17 13:25 Potassium 3.3 mmol/L (3.4-4.6) L 05/26/17 13:25 Chloride 104 mmol/L (97-106) 05/26/17 13:25 Carbon Dioxide 25.4 mmol/L (24-32.6) 05/26/17 13:25 Anion Gap 14.9 mmol/L (6.8-13.8) H 05/26/17 13:25 BUN 64 mg/dL (3-23) H 05/26/17 13:25 Creatinine 1.33 mg/dL (0.4-1.4) 05/26/17 13:25 Est GFR (Non-Af Amer) 41 mL/min (60-130) L 05/26/17 13:25 BUN/Creatinine Ratio 48.1 (9.0-21.6) H 05/26/17 13:25 Random Glucose 222 mg/dL (70-110) H 05/26/17 13:25 Lactic Acid, Venous 1.8 mmol/L (0.4-1.9) 05/26/17 16:26 Calcium 7.9 mg/dL (7.9-10.9) 05/26/17 13:25 Calcium Adj for Albumin 9.3 mg/dL (8.4-10.2) 05/26/17 13:25 Total Bilirubin 0.3 mg/dL (0.0-1.1) 05/26/17 13:25 AST 43 U/L (0-48) 05/26/17 13:25 ALT 51 U/L (19-67) 05/26/17 13:25 Alkaline Phosphatase 64 U/L (50-170) 05/26/17 13:25 Total Protein 5.2 gm/dL (6.2-8.2) L 05/26/17 13:25 Albumin 1.9 gm/dl (3.4-5.0) L 05/26/17 13:25 Urine Color Yellow 05/26/17 13:19 Urine Appearance Cloudy 05/26/17 13:19 Urine pH 6.0 pH (5.0-7.0) 05/26/17 13:19 Ur Specific [place] <=1.005 SP.GR. (1.005-1.010) 05/26/17 13:19 Urine Protein Negative mg/dL (NEGATIVE) 05/26/17 13:19 Urine Glucose (UA) Negative mg/dL (NEGATIVE) 05/26/17 13:19 Urine Ketones Negative mg/dL (NEGATIVE) 05/26/17 13:19 Urine Blood Negative /ul (NEGATIVE) 05/26/17 13:19 Urine Nitrate Negative (NEGATIVE) 05/26/17 13:19 Urine Bilirubin Negative mg/dl (NEGATIVE) 05/26/17 13:19 Urine Urobilinogen Normal EU/dl (NORMAL) 05/26/17 13:19 Ur Leukocyte Esterase 500 /ul (NEGATIVE) H 05/26/17 13:19 Urine RBC Trace /hpf (0-5) 05/26/17 13:19 Urine WBC >50 /hpf (0-5) H 05/26/17 13:19 Ur Epithelial Cells 0-5 /hpf (0-5) 05/26/17 13:19 Urine Bacteria 3+ (NONE) H 05/26/17 13:19 Urine Culture Comments Culture to follow 05/26/17 13:19 Assessment/Plan - Narrative Narrative: Await cultures. Follow labs. Fluid support. As CHF type is unknow, Echo. Estimate stay of 72 hours. - Assessment/Plan (1) Bandemia Problem: Acute (2) GLENN (obstructive sleep apnea) Problem: Chronic (3) Seizures Problem: Chronic (4) Morbid obesity Problem: Chronic (5) Sepsis Problem: Acute Qualifiers: Sepsis type: sepsis due to unspecified organism Qualified Code(s): A41.9 - Sepsis, unspecified organism (6) Hypokalemia Problem: Acute (7) Leukopenia Problem: Acute Qualifiers: Leukopenia type: neutropenia Neutropenia type: unspecified Qualified Code (s): D70.9 - Neutropenia, unspecified (8) Anemia Problem: Chronic Qualifiers: Anemia type: unspecified type Qualified Code(s): D64.9 - Anemia, unspecified (9) Pulmonary embolism Problem: Resolved Qualifiers: Pulmonary embolism type: other Chronicity: unspecified Acute cor pulmonale presence: without acute cor pulmonale Qualified Code(s): I26.99 - Other pulmonary embolism without acute cor pulmonale (10) Hypertension Problem: Chronic Qualifiers: Hypertension type: essential hypertension Qualified Code(s): I10 - Essential (primary) hypertension (11) Hyperlipidemia Problem: Chronic Qualifiers: Hyperlipidemia type: unspecified Qualified Code(s): E78.5 - Hyperlipidemia , unspecified (12) CHF (congestive heart failure) Problem: Chronic Qualifiers: Congestive heart failure type: unspecified congestive heart failure type Congestive heart failure chronicity: unspecified congestive heart failure chronicity Qualified Code(s): I50.9 - Heart failure, unspecified (13) 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 Problem: Chronic Qualifiers: 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 type: type 2 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 complication status: with unspecified complications 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
[2017-05-26] MEDS: CARBAMIDE PEROXIDE 150 DROP BTL EACH EAR SCH ×2 (18:16→20:17)
[2017-05-26] MEDS: CALCIUM CARBONATE/VITAMIN D3 1 TAB TABLET PO SCH (18:16)
[2017-05-26] MEDS: hydrALAZINE HCL 50 MG TABLET PO SCH ×2 (18:16→20:20)
[2017-05-26] MEDS: FE PS CMPLX/CYANOCOBALAMIN/FA 1 CAP CAPSULE PO SCH (18:17)
[2017-05-26] MEDS: POTASSIUM CHLORIDE 10 MEQ in NORMAL SALINE 1,000 ML IV SCH (18:18)
[2017-05-26] MEDS: SIMETHICONE 80 MG TAB.CHEW PO SCH ×2 (18:18→20:20)
[2017-05-26] MEDS: INSULIN LISPRO 100 UNITS/ML VIAL SC SCH (18:23)
[2017-05-26] MEDS: POLYVINYL ALCOHOL 150 DROP BTL EACHEYE SCH (20:17)
[2017-05-26] MEDS: CARVEDILOL 12.5 MG TABLET PO SCH (20:18)
[2017-05-26] MEDS: levETIRAcetam 500 MG TABLET PO SCH (20:20)
[2017-05-26] MEDS: SIMVASTATIN 40 MG TABLET PO SCH (20:20)
[2017-05-26] MEDS: QUEtiapine FUMARATE 25 MG TABLET PO SCH (20:20)
[2017-05-26] MEDS: INSULIN DETEMIR 100 UNITS/ML VIAL SC SCH (20:35)
[2017-05-27] MEDS: POTASSIUM CHLORIDE 10 MEQ in NORMAL SALINE 1,000 ML IV SCH (02:20)
[2017-05-27 06:29] LABS: Hematocrit 26.8 % (37.0-47.0); Hemoglobin 8.3 gm/dL (12.5-16.0); Mean Cell Volume 96.8 fl (78-100); Mean Platelet Volume 10.3 fl (6.0-9.5); Neutrophil # 2.2 K/mm3 (1.3-6.0); Neutrophil % 60.9 % (42-75.0); Platelet Count 72 K/mm3 (150-450); Red Blood Count 2.77 M/mm3 (4.2-5.4); White Blood Count 3.6 K/mm3 (4.0-10.5)
[2017-05-27 06:41] LABS: Prothrombin Time (Patient) 19.5 Seconds (9.4-11.4)
[2017-05-27 06:50] LABS: Anion Gap 13.3 mmol/L (6.8-13.8); BUN/Creatinine Ratio 57.4 (9.0-21.6); Carbon Dioxide 22.5 mmol/L (24-32.6); Estimated Creat Clear 21.8; Potassium 3.8 mmol/L (3.4-4.6)
[2017-05-27] MEDS: PANTOPRAZOLE SODIUM 40 MG TABLET.EC PO SCH (06:51)
[2017-05-27] MEDS ORDERED: FUROSEMIDE 10 MG/ML VIAL IV PRN (06:53)
[2017-05-27 06:57] LABS: INR 1.88 INR (0.90-1.10)
[2017-05-27] MEDS: hydrALAZINE HCL 50 MG TABLET PO SCH ×4 (07:01→21:22)
[2017-05-27] MEDS: POLYVINYL ALCOHOL 150 DROP BTL EACHEYE SCH ×4 (07:01→21:21)
[2017-05-27] MEDS: CARVEDILOL 12.5 MG TABLET PO SCH ×2 (07:02→21:23)
[2017-05-27] MEDS: SIMETHICONE 80 MG TAB.CHEW PO SCH ×4 (07:02→21:23)
[2017-05-27] MEDS: FOLIC ACID 1 MG TABLET PO SCH (07:02)
--- NOTE | 2017-05-27 07:22 | PN ---
Subjective - Date and Time Seen Date: 05/27/17 Time: 07:22 Subjective Narrative: Patient seen and examined at bedside. No acute issues overnight. Patient non- communicative this AM. Objective Objective Narrative: ROS unable to obtain secondary to patient's clinical condition (patient non- communicative this AM) - Vitals Vitals: Last Vital Signs Temp 36.6 C 05/27/17 04:38 Pulse 66 05/27/17 07:02 Resp 23 H 05/27/17 04:38 BP 182/48 05/27/17 07:02 Pulse Ox 98 05/27/17 04:38 - Abnormal Lab Findings Abnormal Lab Findings: Abnormal Lab Results 05/26/17 05/27/17 05/27/17 Range/Units 16:28 06:15 06:15 WBC 3.6 L D (4.0-10.5) K/mm3 RBC 2.77 L (4.2-5.4) M/mm3 Hgb 8.3 L (12.5-16.0) gm/dL Hct 26.8 L (37.0-47.0) % MCHC 31.0 L (32-36) g/dl RDW 18.0 H (11.5-14.0) % Plt Count 72 L (150-450) K/mm3 MPV 10.3 H (6.0-9.5) fl Immature Gran % (Auto) 11.10 H (0.001-0.429) % Immature Gran # (Auto) 0.40 H (0.000-0.0310) K/mm3 Lymphocytes % 18.3 L (20-51) % Lymphocytes # 0.7 L (1.5-3.5) k/mm3 PT 18.4 H (9.4-11.4) Seconds INR (Anticoag Therapy) 1.77 H (0.90-1.10) INR Sodium 143 H (132-142) mmol/L Plasma Sodium 143 H (130-142) mmol/L Chloride 111 H (97-106) mmol/L Carbon Dioxide 22.5 L (24-32.6) mmol/L BUN 62 H (3-23) mg/dL Est GFR (Non-Af Amer) 52 L D (60-130) mL/min BUN/Creatinine Ratio 57.4 H (9.0-21.6) 05/27/17 Range/Units 06:15 WBC (4.0-10.5) K/mm3 RBC (4.2-5.4) M/mm3 Hgb (12.5-16.0) gm/dL Hct (37.0-47.0) % MCHC (32-36) g/dl RDW (11.5-14.0) % Plt Count (150-450) K/mm3 MPV (6.0-9.5) fl Immature Gran % (Auto) (0.001-0.429) % Immature Gran # (Auto) (0.000-0.0310) K/mm3 Lymphocytes % (20-51) % Lymphocytes # (1.5-3.5) k/mm3 PT 19.5 H (9.4-11.4) Seconds INR (Anticoag Therapy) 1.88 H (0.90-1.10) INR Sodium (132-142) mmol/L Plasma Sodium (130-142) mmol/L Chloride (97-106) mmol/L Carbon Dioxide (24-32.6) mmol/L BUN (3-23) mg/dL Est GFR (Non-Af Amer) (60-130) mL/min BUN/Creatinine Ratio (9.0-21.6) - Exam Constitutional: Present: Alert, Mild distress - tachypnea ENT Exam: Present: moist mucous membranes Respiratory: Present: other - Coarse breath sounds bilaterally without crackles , rhonchi or wheezes noted Cardiovascular/Chest: Present: regular rate, rhythm, edema - 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 Discontinue IVFs. Give IV Lasix 40mg X 1. Resume home Lasix of 80mg PO daily. Daily weights. Strict I&Os. Recheck BMP in AM. Continue IV antibiotics for UTI. Await final C&S results and adjust antibiotics as necessary. - Problems/Diagnosis (1) UTI (urinary tract infection) Problem: Acute (2) Subtherapeutic anticoagulation Problem: Acute (3) CHF (congestive heart failure) Problem: Chronic Qualifiers: Congestive heart failure type: unspecified congestive heart failure type Congestive heart failure chronicity: unspecified congestive heart failure chronicity Qualified Code(s): I50.9 - Heart failure, unspecified (4) Pancytopenia Problem: Chronic
[2017-05-27] MEDS ORDERED: FUROSEMIDE 10 MG/ML VIAL ONE (08:56)
[2017-05-27] MEDS: CHOLECALCIFEROL 1,000 UNIT CAPSULE PO SCH (09:02)
[2017-05-27] MEDS: CALCIUM CARBONATE/VITAMIN D3 1 TAB TABLET PO SCH ×3 (09:02→16:22)
[2017-05-27] MEDS: MULTIVITAMINS 1 CAP CAPSULE PO SCH (09:02)
[2017-05-27] MEDS: levETIRAcetam 500 MG TABLET PO SCH ×2 (09:03→21:24)
[2017-05-27] MEDS: CARBAMIDE PEROXIDE 150 DROP BTL EACH EAR SCH ×4 (09:03→21:22)
[2017-05-27] MEDS: POTASSIUM CHLORIDE 20 MEQ TABLET.SA PO SCH (09:03)
[2017-05-27] MEDS: FUROSEMIDE 80 MG TABLET PO SCH (09:04)
[2017-05-27] MEDS: ENOXAPARIN SODIUM 30 MG/0.3 ML SYRG SC SCH (09:12)
[2017-05-27] MEDS: FE PS CMPLX/CYANOCOBALAMIN/FA 1 CAP CAPSULE PO SCH ×2 (09:13→16:24)
[2017-05-27] MEDS: MEGESTROL ACETATE 40 MG/ML BTL PO SCH (09:13)
[2017-05-27] MEDS: INSULIN LISPRO 100 UNITS/ML VIAL SC SCH ×3 (09:27→17:25)
[2017-05-27] MEDS: INSULIN DETEMIR 100 UNITS/ML VIAL SC SCH ×2 (09:36→21:29)
[2017-05-27] MEDS: ACETAMINOPHEN 325 MG TABLET PO PRN (16:22)
[2017-05-27] MEDS: WARFARIN SODIUM 2.5 MG TABLET PO SCH (16:23)
[2017-05-27] MEDS: QUEtiapine FUMARATE 25 MG TABLET PO SCH (21:24)
[2017-05-27] MEDS: SIMVASTATIN 40 MG TABLET PO SCH (21:25)
[2017-05-28] MEDS: ACETAMINOPHEN 325 MG TABLET PO PRN (04:40)
[2017-05-28 06:17] LABS: Hematocrit 27.3 % (37.0-47.0); Hemoglobin 8.6 gm/dL (12.5-16.0); Mean Cell Volume 95.8 fl (78-100); Mean Corpuscular Hemoglobin 30.2 pg (27-31); Mean Corpuscular Hgb Conc 31.5 g/dl (32-36); Mean Platelet Volume 9.7 fl (6.0-9.5); Platelet Count 105 K/mm3 (150-450); Red Blood Count 2.85 M/mm3 (4.2-5.4); Red Cell Distribution Width 18.1 % (11.5-14.0); White Blood Count 5.7 K/mm3 (4.0-10.5)
[2017-05-28 06:18] LABS: Anion Gap 13.2 mmol/L (6.8-13.8); BUN/Creatinine Ratio 56.8 (9.0-21.6); Calcium * 8.5 mg/dL (7.9-10.9); Carbon Dioxide 27.4 mmol/L (24-32.6); Potassium 3.6 mmol/L (3.4-4.6)
[2017-05-28 06:20] LABS: Prothrombin Time (Patient) 19.4 Seconds (9.4-11.4)
[2017-05-28 06:26] LABS: INR 1.87 INR (0.90-1.10)
[2017-05-28 06:38] LABS: Total Cells Counted 100
[2017-05-28] MEDS: FUROSEMIDE 80 MG TABLET PO SCH (06:59)
[2017-05-28] MEDS: PANTOPRAZOLE SODIUM 40 MG TABLET.EC PO SCH (06:59)
[2017-05-28] MEDS: hydrALAZINE HCL 50 MG TABLET PO SCH ×4 (07:06→20:33)
[2017-05-28] MEDS: CARVEDILOL 12.5 MG TABLET PO SCH ×2 (07:07→20:33)
[2017-05-28] MEDS: POLYVINYL ALCOHOL 150 DROP BTL EACHEYE SCH ×4 (07:07→20:33)
[2017-05-28] MEDS: FOLIC ACID 1 MG TABLET PO SCH (07:07)
[2017-05-28] MEDS: SIMETHICONE 80 MG TAB.CHEW PO SCH ×4 (07:08→20:34)
[2017-05-28 07:29] LABS: Band 6 % (0-2.0); Immature Granulocyte 6 (0-1); Lymphocyte 20 % (20-51); Monocyte 6 % (0-9); Neutrophil 62 % (42-75); Neutrophil # 3.5 K/mm3 (1.3-6.0)
[2017-05-28 07:30] LABS: Platelet Estimate Decreased (NORMAL)
[2017-05-28 07:32] LABS: Anisocytosis 1+; Hypochromia Trace
[2017-05-28] MEDS ORDERED: FUROSEMIDE 40 MG TABLET PO SCH (07:39)
--- NOTE | 2017-05-28 08:31 | PN ---
Subjective - Date and Time Seen Date: 05/28/17 Time: 08:26 Subjective Narrative: Poorly responsive. Hard of hearing. Does however converse. Objective - Review of Systems Generalized/Overall Review: Reports: No Symptoms Reported - poor historian. - Vitals Vitals: Last Vital Signs Selected Entries 05/26/17 05/28/17 15:45 07:53 Temperature 37.0 C 36.9 C Temperature Temporal Artery Oral Source Scan Pulse Rate 68 74 Respiratory 22 H 20 Rate Blood Pressure 167/60 107/69 Blood Pressure Supine Position O2 Sat by Pulse 97 98 Oximetry Oxygen Delivery Room Air Room Air Method - Abnormal Lab Findings Abnormal Lab Findings: Abnormal Lab Results 05/28/17 05/28/17 05/28/17 Range/Units 05:57 05:57 05:57 RBC 2.85 L (4.2-5.4) M/mm3 Hgb 8.6 L (12.5-16.0) gm/dL Hct 27.3 L (37.0-47.0) % MCHC 31.5 L (32-36) g/dl RDW 18.1 H (11.5-14.0) % Plt Count 105 L (150-450) K/mm3 MPV 9.7 H (6.0-9.5) fl Band Neuts % (Manual) 6 H (0-2.0) % Immature Granulocytes 6 H (0-1) Lymphocytes # (Manual) 1.1 L (1.5-3.5) k/mm3 Nucleated RBCs 2.0 H (0-1) % Platelet Estimate Decreased L (NORMAL) PT 19.4 H (9.4-11.4) Seconds INR (Anticoag Therapy) 1.87 H (0.90-1.10) INR Sodium 147 H (132-142) mmol/L Plasma Sodium 147 H (130-142) mmol/L Chloride 110 H (97-106) mmol/L BUN 67 H (3-23) mg/dL Est GFR (Non-Af Amer) 47 L (60-130) mL/min BUN/Creatinine Ratio 56.8 H (9.0-21.6) - Exam Constitutional: Present: Cooperative, Well developed, Somnolent, Morbidly obese ENT Exam: Present: normal ENT inspection, hard of hearing Neck: Present: normal inspection Respiratory: Present: normal breath sounds, no respiratory distress Cardiovascular/Chest: Present: regular rate, rhythm, no murmur Abdomen: Present: Normal bowel sounds, soft, nontender, nondistended, no rebound tenderness, no hepatospenomegaly, no masses, obese Extremity: Present: no pedal edema, other - one leg amputated Neurologic: Present: other Appearance: Present: appropriate appearance, neat, other - kyphotic in bed Eye contact: Present: decreased rate of speech Assessment/Plan Plan Narrative: wbc count improved from 2.6 to 5.7. Hgb stable. Still with bandemia. Growing gram negative bacilli from urine. Continue fluids and IV antibiotics. Follow labs. - Problems/Diagnosis (1) Bandemia Problem: Acute (2) GLENN (obstructive sleep apnea) Problem: Chronic (3) Seizures Problem: Chronic (4) Morbid obesity Problem: Chronic (5) Sepsis Problem: Acute Qualifiers: Sepsis type: sepsis due to unspecified organism Qualified Code(s): A41.9 - Sepsis, unspecified organism (6) Hypokalemia Problem: Acute (7) Leukopenia Problem: Acute Qualifiers: Leukopenia type: neutropenia Neutropenia type: unspecified Qualified Code (s): D70.9 - Neutropenia, unspecified (8) Anemia Problem: Chronic Qualifiers: Anemia type: unspecified type Qualified Code(s): D64.9 - Anemia, unspecified (9) Pulmonary embolism Problem: Resolved Qualifiers: Pulmonary embolism type: other Chronicity: unspecified Acute cor pulmonale presence: without acute cor pulmonale Qualified Code(s): I26.99 - Other pulmonary embolism without acute cor pulmonale (10) Hypertension Problem: Chronic Qualifiers: Hypertension type: essential hypertension Qualified Code(s): I10 - Essential (primary) hypertension (11) Hyperlipidemia Problem: Chronic Qualifiers: Hyperlipidemia type: unspecified Qualified Code(s): E78.5 - Hyperlipidemia , unspecified (12) CHF (congestive heart failure) Problem: Chronic Qualifiers: Congestive heart failure type: unspecified congestive heart failure type Congestive heart failure chronicity: unspecified congestive heart failure chronicity Qualified Code(s): I50.9 - Heart failure, unspecified (13) 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 Problem: Chronic Qualifiers: 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 type: type 2 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 complication status: with unspecified complications 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 joint terminal attack controller insulin use: unspecified jail insulin use status Qualified Code(s): E11.8 - Type 2 diabetes mellitus with unspecified complications
[2017-05-28] MEDS: FE PS CMPLX/CYANOCOBALAMIN/FA 1 CAP CAPSULE PO SCH ×2 (08:55→16:20)
[2017-05-28] MEDS: CALCIUM CARBONATE/VITAMIN D3 1 TAB TABLET PO SCH ×3 (08:56→16:18)
[2017-05-28] MEDS: CARBAMIDE PEROXIDE 150 DROP BTL EACH EAR SCH ×4 (08:56→20:34)
[2017-05-28] MEDS: CHOLECALCIFEROL 1,000 UNIT CAPSULE PO SCH (08:57)
[2017-05-28] MEDS: INSULIN LISPRO 100 UNITS/ML VIAL SC SCH ×3 (08:57→16:56)
[2017-05-28] MEDS: MULTIVITAMINS 1 CAP CAPSULE PO SCH (08:58)
[2017-05-28] MEDS: POTASSIUM CHLORIDE 20 MEQ TABLET.SA PO SCH (09:01)
[2017-05-28] MEDS: levETIRAcetam 500 MG TABLET PO SCH ×2 (09:02→20:35)
[2017-05-28] MEDS: ENOXAPARIN SODIUM 30 MG/0.3 ML SYRG SC SCH (09:02)
[2017-05-28] MEDS: MEGESTROL ACETATE 40 MG/ML BTL PO SCH (11:17)
[2017-05-28] MEDS: INSULIN DETEMIR 100 UNITS/ML VIAL SC SCH ×2 (11:19→20:47)
[2017-05-28] MEDS ORDERED: LEVOFLOXACIN/D5W 750 MG/150 ML BAG IV SCH (14:00)
--- NOTE | 2017-05-28 15:05 | ECHO ---
This report is available in the EMR
[2017-05-28] MEDS: WARFARIN SODIUM 2.5 MG TABLET PO SCH (16:19)
[2017-05-28] MEDS: 0.5 NORMAL SALINE 1,000 ML IV PRN (16:21)
[2017-05-28] MEDS: QUEtiapine FUMARATE 25 MG TABLET PO SCH (20:35)
[2017-05-28] MEDS: SIMVASTATIN 40 MG TABLET PO SCH (20:35)
[2017-05-29] MEDS: 0.5 NORMAL SALINE 1,000 ML IV PRN (02:27)
[2017-05-29] MEDS: PANTOPRAZOLE SODIUM 40 MG TABLET.EC PO SCH (06:34)
[2017-05-29 06:46] LABS: Hematocrit 26.9 % (37.0-47.0); Hemoglobin 8.4 gm/dL (12.5-16.0); Mean Cell Volume 96.1 fl (78-100); Mean Corpuscular Hgb Conc 31.2 g/dl (32-36); Mean Platelet Volume 9.8 fl (6.0-9.5); Platelet Count 94 K/mm3 (150-450); Red Cell Distribution Width 17.7 % (11.5-14.0); White Blood Count 6.7 K/mm3 (4.0-10.5)
[2017-05-29 06:55] LABS: INR 1.68 INR (0.90-1.10); Prothrombin Time (Patient) 17.5 Seconds (9.4-11.4)
[2017-05-29 06:58] LABS: Total Cells Counted 100
[2017-05-29 07:04] LABS: Anion Gap 13.2 mmol/L (6.8-13.8); BUN/Creatinine Ratio 57.3 (9.0-21.6); Calcium * 8.8 mg/dL (7.9-10.9); Carbon Dioxide 25.5 mmol/L (24-32.6); Estimated Creat Clear 20.2; Potassium 3.7 mmol/L (3.4-4.6)
[2017-05-29] MEDS: DEXTROSE 5 % IN WATER 1,000 ML IV PRN ×2 (08:10→21:18)
[2017-05-29 08:26] LABS: Band 10 % (0-2.0); Eosinophil 1 % (0-3); Immature Granulocyte 11 (0-1); Lymphocyte 12 % (20-51); Monocyte 6 % (0-9); Neutrophil 60 % (42-75)
[2017-05-29 08:27] LABS: Platelet Estimate Decreased (NORMAL)
[2017-05-29 08:28] LABS: Basophilic Stippling Trace; Polychromasia 1+
[2017-05-29 08:32] LABS: Anisocytosis 1+; Toxic Granulation 1+
[2017-05-29 08:33] LABS: Hypochromia Trace
[2017-05-29] MEDS: hydrALAZINE HCL 25 MG TABLET PO SCH ×5 (09:09→21:08)
[2017-05-29] MEDS: POLYVINYL ALCOHOL 150 DROP BTL EACHEYE SCH ×5 (09:09→21:12)
[2017-05-29] MEDS: FOLIC ACID 1 MG TABLET PO SCH (09:10)
[2017-05-29] MEDS: CALCIUM CARBONATE/VITAMIN D3 1 TAB TABLET PO SCH ×3 (09:10→16:54)
[2017-05-29] MEDS: CARBAMIDE PEROXIDE 150 DROP BTL EACH EAR SCH ×5 (09:10→21:11)
[2017-05-29] MEDS: FE PS CMPLX/CYANOCOBALAMIN/FA 1 CAP CAPSULE PO SCH ×2 (09:10→16:55)
[2017-05-29] MEDS: SIMETHICONE 80 MG TAB.CHEW PO SCH ×5 (09:10→21:09)
[2017-05-29] MEDS: CARVEDILOL 12.5 MG TABLET PO SCH ×2 (09:10→21:09)
[2017-05-29] MEDS: levETIRAcetam 500 MG TABLET PO SCH ×2 (09:11→21:07)
[2017-05-29] MEDS: POTASSIUM CHLORIDE 20 MEQ TABLET.SA PO SCH (09:11)
[2017-05-29] MEDS: ENOXAPARIN SODIUM 30 MG/0.3 ML SYRG SC SCH (09:12)
[2017-05-29] MEDS: INSULIN DETEMIR 100 UNITS/ML VIAL SC SCH ×2 (09:12→21:02)
[2017-05-29] MEDS: CHOLECALCIFEROL 1,000 UNIT CAPSULE PO SCH (09:13)
[2017-05-29] MEDS: MULTIVITAMINS 1 CAP CAPSULE PO SCH (09:13)
[2017-05-29] MEDS: INSULIN LISPRO 100 UNITS/ML VIAL SC SCH ×3 (09:19→17:31)
[2017-05-29] MEDS: MEGESTROL ACETATE 40 MG/ML BTL PO SCH (11:10)
[2017-05-29] MEDS ORDERED: WARFARIN SODIUM 4 MG TABLET PO ONE (17:00)
--- NOTE | 2017-05-29 19:05 | PN ---
Subjective - Date and Time Seen Date: 05/29/17 Time: 19:02 Subjective Narrative: Poorly responsive. Hard of hearing. Does however converse. Objective - Review of Systems Generalized/Overall Review: Reports: No Symptoms Reported - Vitals Vitals: Last Vital Signs Selected Entries 05/29/17 15:50 Temperature 36.8 C Temperature Axillary Source Pulse Rate 75 Respiratory 20 Rate Blood Pressure 147/71 O2 Sat by Pulse 98 Oximetry Oxygen Delivery Room Air Method - Abnormal Lab Findings Abnormal Lab Findings: Abnormal Lab Results 05/29/17 05/29/17 05/29/17 Range/Units 06:33 06:33 06:33 RBC 2.80 L (4.2-5.4) M/mm3 Hgb 8.4 L (12.5-16.0) gm/dL Hct 26.9 L (37.0-47.0) % MCHC 31.2 L (32-36) g/dl RDW 17.7 H (11.5-14.0) % Plt Count 94 L (150-450) K/mm3 MPV 9.8 H (6.0-9.5) fl Band Neuts % (Manual) 10 H (0-2.0) % Lymphocytes % (Manual) 12 L (20-51) % Immature Granulocytes 11 H (0-1) Lymphocytes # (Manual) 0.8 L (1.5-3.5) k/mm3 Platelet Estimate Decreased L (NORMAL) PT 17.5 H (9.4-11.4) Seconds INR (Anticoag Therapy) 1.68 H (0.90-1.10) INR Chloride 107 H (97-106) mmol/L BUN 67 H (3-23) mg/dL Est GFR (Non-Af Amer) 48 L (60-130) mL/min BUN/Creatinine Ratio 57.3 H (9.0-21.6) - Exam Constitutional: Present: Cooperative, Somnolent ENT Exam: Present: normal ENT inspection, hard of hearing Neck: Present: normal inspection Respiratory: Present: lungs clear, no respiratory distress Cardiovascular/Chest: Present: regular rate, rhythm, no murmur Abdomen: Present: Normal bowel sounds, soft, nontender, nondistended, no rebound tenderness, no hepatospenomegaly, no masses, obese Extremity: Present: no pedal edema, other - amputation Skin Exam: Present: normal color, warm/dry, no cyanosis Neurologic: Present: other Appearance: Present: appropriate appearance, neat Eye contact: Present: cooperative Assessment/Plan Plan Narrative: continue antibiotics. follow labs. e coli from urine. bp improved. - Problems/Diagnosis (1) Bandemia Problem: Acute (2) GLENN (obstructive sleep apnea) Problem: Chronic (3) Seizures Problem: Chronic (4) Morbid obesity Problem: Chronic (5) Sepsis Problem: Acute Qualifiers: Sepsis type: sepsis due to unspecified organism Qualified Code(s): A41.9 - Sepsis, unspecified organism (6) Hypokalemia Problem: Acute (7) Leukopenia Problem: Acute Qualifiers: Leukopenia type: neutropenia Neutropenia type: unspecified Qualified Code (s): D70.9 - Neutropenia, unspecified (8) Anemia Problem: Chronic Qualifiers: Anemia type: unspecified type Qualified Code(s): D64.9 - Anemia, unspecified (9) Pulmonary embolism Problem: Resolved Qualifiers: Pulmonary embolism type: other Chronicity: unspecified Acute cor pulmonale presence: without acute cor pulmonale Qualified Code(s): I26.99 - Other pulmonary embolism without acute cor pulmonale (10) Hypertension Problem: Chronic Qualifiers: Hypertension type: essential hypertension Qualified Code(s): I10 - Essential (primary) hypertension (11) Hyperlipidemia Problem: Chronic Qualifiers: Hyperlipidemia type: unspecified Qualified Code(s): E78.5 - Hyperlipidemia , unspecified (12) CHF (congestive heart failure) Problem: Chronic Qualifiers: Congestive heart failure type: unspecified congestive heart failure type Congestive heart failure chronicity: unspecified congestive heart failure chronicity Qualified Code(s): I50.9 - Heart failure, unspecified (13) 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 Problem: Chronic Qualifiers: 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 type: type 2 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 complication status: with unspecified complications 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 terminal gauger supervisor insulin use: unspecified intermediate insulin use status Qualified Code(s): E11.8 - Type 2 diabetes mellitus with unspecified complications
--- NOTE | 2017-05-29 20:22 | OR ---
Anesthesia Procedure Note - Anesthesia Procedure Note Date of Service: 05/29/17 Narrative: Vital Signs - Last Taken Temp 36.8 C 05/29/17 15:50 Pulse 75 05/29/17 15:50 Resp 20 05/29/17 15:50 BP 147/71 05/29/17 15:50 Pulse Ox 98 05/29/17 15:50 O2 Oxygen Delivery Method Room Air 05/29/17 20:16 ANESTHESIA PROCEDURE NOTE Date of Procedure: 05/29/2017. Time of procedure: 172. Performed by: Dev Piper CRNA Transport Rn: None. Preprocedure diagnosis: Difficult IV access. Post procedure diagnosis: Same. Procedure: Attempted right Ultrasound guided PICC line insertion, successful right arm ultrasound-guided midline insertion. Indications: This 76-year-old female with difficult IV access who is in need of a PICC line for antibiotic therapy. Findings: See below. Details of the procedure: Under ultrasound guidance the right basilic vein was visualized. Skin over the intended target site was cleansed with ChloraPrep. The patient was draped in sterile fashion. The skin over the intended target site was anesthetized with 1% lidocaine. Under direct ultrasound visualization the vein was cannulated with a 22-gauge IV catheter. Dark red blood was noted from the catheter. A 0.45 mm guidewire was inserted through the IV catheter and IV catheter was removed intact. A skin adriano was made at the guidewire insertion site with a scalpel. The 5 [place] vessel dilator was inserted over the guidewire and the guidewire was removed intact. Dark red blood was noted from the vessel dilator. The PICC line was inserted to a depth of 42 cm and the vessel dilator was peeled away. Dark red blood was noted from both ports of the PICC line. PICC line was flushed with sterile normal saline solution. A sterile dressing was then applied over the PICC line insertion site. Single view chest x-ray revealed the PICC line catheter terminated into a right neck vein. Under sterile technique the PICC line was withdrawn 12 cm and re- insertion was attempted but resistance was met with 8 cm of catheter outside of being fully inserted. The catheter could not be advanced despite attempts. It was then secured with a sterile dressing and taped in place. Chest x-ray revealed the catheter tip terminating in a vessel inferior to the clavicle. Dark red blood was aspirated from both ports and ports were then flushed with sterile normal saline solution. EBL: Minimal. Fluids: N/A. Specimen: N/A. Post procedure condition: The patient tolerated the procedure well. No complications were noted. Chest x-ray revealed the adequate placement of the MID line to be in the venous system just inferior of the clavicle. Thank you for this consultation. Dev Piper RESAW TAILER
[2017-05-29] MEDS: SIMVASTATIN 40 MG TABLET PO SCH (21:11)
[2017-05-29] MEDS: QUEtiapine FUMARATE 25 MG TABLET PO SCH (21:11)
[2017-05-30] MEDS: DEXTROSE 5 % IN WATER 1,000 ML IV PRN (05:25)
[2017-05-30 05:57] LABS: Hematocrit 28.2 % (37.0-47.0); Mean Cell Volume 94.9 fl (78-100); Mean Corpuscular Hemoglobin 30.3 pg (27-31); Mean Corpuscular Hgb Conc 31.9 g/dl (32-36); Mean Platelet Volume 9.9 fl (6.0-9.5); Neutrophil # 5.1 K/mm3 (1.3-6.0); Neutrophil % 61.2 % (42-75.0); Platelet Count 95 K/mm3 (150-450); Red Blood Count 2.97 M/mm3 (4.2-5.4); Red Cell Distribution Width 17.6 % (11.5-14.0); White Blood Count 8.4 K/mm3 (4.0-10.5)
[2017-05-30 06:17] LABS: Prothrombin Time (Patient) 15.2 Seconds (9.4-11.4)
[2017-05-30 06:27] LABS: Anion Gap 12.9 mmol/L (6.8-13.8); BUN/Creatinine Ratio 57.8 (9.0-21.6); Calcium * 8.9 mg/dL (7.9-10.9); Carbon Dioxide 24.7 mmol/L (24-32.6); Estimated Creat Clear 21.6; Potassium 3.6 mmol/L (3.4-4.6)
[2017-05-30 06:45] LABS: INR 1.46 INR (0.90-1.10)
[2017-05-30] MEDS: PANTOPRAZOLE SODIUM 40 MG TABLET.EC PO SCH (07:57)
[2017-05-30] MEDS ORDERED: hydrALAZINE HCL 50 MG TABLET PO SCH (08:00)
--- NOTE | 2017-05-30 08:07 | DS ---
(1) Bandemia Problem: Acute (2) GLENN (obstructive sleep apnea) Problem: Chronic (3) Seizures Problem: Chronic (4) Morbid obesity Problem: Chronic (5) Sepsis Problem: Acute Qualifiers: Sepsis type: sepsis due to unspecified organism Qualified Code(s): A41.9 - Sepsis, unspecified organism (6) Hypokalemia Problem: Acute (7) Leukopenia Problem: Acute Qualifiers: Leukopenia type: neutropenia Neutropenia type: unspecified Qualified Code (s): D70.9 - Neutropenia, unspecified (8) Anemia Problem: Chronic Qualifiers: Anemia type: unspecified type Qualified Code(s): D64.9 - Anemia, unspecified (9) Pulmonary embolism Problem: Resolved Qualifiers: Pulmonary embolism type: other Chronicity: unspecified Acute cor pulmonale presence: without acute cor pulmonale Qualified Code(s): I26.99 - Other pulmonary embolism without acute cor pulmonale (10) Hypertension Problem: Chronic Qualifiers: Hypertension type: essential hypertension Qualified Code(s): I10 - Essential (primary) hypertension (11) Hyperlipidemia Problem: Chronic Qualifiers: Hyperlipidemia type: unspecified Qualified Code(s): E78.5 - Hyperlipidemia , unspecified (12) CHF (congestive heart failure) Problem: Chronic Qualifiers: Congestive heart failure type: unspecified congestive heart failure type Congestive heart failure chronicity: unspecified congestive heart failure chronicity Qualified Code(s): I50.9 - Heart failure, unspecified (13) 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 Problem: Chronic Qualifiers: 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 type: type 2 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 complication status: with unspecified complications 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 penitentiary insulin use: unspecified penitentiary insulin use status Qualified Code(s): E11.8 - Type 2 diabetes mellitus with unspecified complications (14) E. coli UTI (urinary tract infection) Problem: Acute Description of Stay: Improved with antibiotics while here. Continued with IV antibiotics while here. PICC line placed while here yesterday due to poor IV access. When maintain for two weeks, just in case IV access still needed. If NOT, will DC. WBC count has come up to normal. Hgb remained stable. BP meds have been adjusted. Sodium has normalized. Blood sugars are acceptable. Procedures Performed: none - PICC line by anesthesia Discharge Disposition: [facility] Disposition: [facility] [place] Condition: Fair Discharge Activity: Activity as tolerated Discharge Diet: Consistent carbs Discharge Level of Care:: SNF - [facility] Therapy: Physicial Therapy, Occupation Therapy Referrals: Jaylen Gold MD [Primary Care Provider] - Problem Oriented Discharge Instructions to Patient/Family: Urinary Tract Infection, Adult, [id number], Sepsis, Adult Additional Patient Instructions (free text): Maintain PICC line for 2 weeks, just in case in might be needed. If NOT, DC after 2 weeks. CBC, Protime and BMP in 2 weeks. Continue CPAP when sleeping as before. Fingerstick BS achs. Prescriptions (Any new or edited meds): Insulin Aspart [Novolog] See Protocol SC TID #1 vial Levofloxacin [Levaquin] 750 mg PO Q48H #8 tablet Complete Home Medications List: Complete Home Medication List: Multivitamin [One Daily Multivitamin] 1 each PO DAILY 02/22/17 Polyvinyl Alcohol [Artificial Tears] 1 drop EACHEYE 0800,1200,1600,2000 Warfarin Sodium [Jantoven] 2.5 mg PO SUTUWETHFRSA@1700 02/22/17 Acetaminophen [Tylenol] 650 mg PO QID PRN 03/15/17 Albuterol Sulfate [Albuterol Sulfate 2.5 MG/0.5ML] 1 vial IH Q4H PRN 03/15/17 Megestrol Acetate [Megace Suspension] 20 ml PO DAILY@0800 03/15/17 Pantoprazole Sodium [Protonix] 40 mg PO DAILY 03/15/17 QUEtiapine FUMARATE [Seroquel] 25 mg PO HS 03/15/17 Simvastatin [Zocor] 40 mg PO HS 03/15/17 Cholecalciferol (Vitamin D3) [Vitamin D3] 1,000 unit PO DAILY 03/16/17 Folic Acid 1 mg PO DAILY@0800 03/16/17 Nystatin [Mycostatin Cream] 1 appl TP TID PRN 03/16/17 Insulin Detemir [Levemir] 4 units SC Q12H #1 vial 03/19/17 levETIRAcetam [Keppra] 250 mg PO Q12H #1 tablet 03/19/17 Calcium Carbonate/Vitamin D3 [[place] 500-Vit D3 200 Tablet] 1 each PO 0800,1200, 1700 05/26/17 Carvedilol [Coreg] 12.5 mg PO 0800,199905/26/17 Furosemide [Lasix] 80 mg PO DAILY@0730 05/26/17 Iron Aspgly,Ps/C/Succinic Acid [Ferrex 150 Plus Capsule] 1 each PO 0800,1700 05/05 Nystatin [Mycostatin Powder] 1 appl TP BID 05/26/17 Simethicone [Mylicon Chewable Tablets] 80 mg PO 0800,1200,1700,199905/26/17 Warfarin Sodium [Jantoven] 3 mg PO MO@1700 05/26/17 Insulin Aspart [Novolog] See Protocol SC TID #1 vial 05/30/17 Levofloxacin [Levaquin] 750 mg PO Q48H #8 tablet 05/30/17 Potassium Chloride [K-Dur] 40 meq PO DAILY tablet.sa 05/30/17 hydrALAZINE HCL [Apresoline] 100 mg PO 0800,1200,1700,1999 tablet 05/30/17
[2017-05-30] MEDS: CALCIUM CARBONATE/VITAMIN D3 1 TAB TABLET PO SCH (09:16)
[2017-05-30] MEDS: MULTIVITAMINS 1 CAP CAPSULE PO SCH (09:17)
[2017-05-30] MEDS: SIMETHICONE 80 MG TAB.CHEW PO SCH (09:17)
[2017-05-30] MEDS: levETIRAcetam 500 MG TABLET PO SCH (09:17)
[2017-05-30] MEDS: FE PS CMPLX/CYANOCOBALAMIN/FA 1 CAP CAPSULE PO SCH (09:18)
[2017-05-30] MEDS: POTASSIUM CHLORIDE 20 MEQ TABLET.SA PO SCH (09:18)
[2017-05-30] MEDS: FOLIC ACID 1 MG TABLET PO SCH (09:18)
[2017-05-30] MEDS: CARVEDILOL 12.5 MG TABLET PO SCH (09:18)
[2017-05-30] MEDS: POLYVINYL ALCOHOL 150 DROP BTL EACHEYE SCH (09:25)
[2017-05-30] MEDS: MEGESTROL ACETATE 40 MG/ML BTL PO SCH (09:33)
[2017-05-30] MEDS: CARBAMIDE PEROXIDE 150 DROP BTL EACH EAR SCH (09:35)
[2017-05-30] MEDS: INSULIN DETEMIR 100 UNITS/ML VIAL SC SCH (09:38)
[2017-05-30] MEDS: INSULIN LISPRO 100 UNITS/ML VIAL SC SCH (09:39)
[2017-05-30] MEDS: CHOLECALCIFEROL 1,000 UNIT CAPSULE PO SCH (09:41)
[2017-05-30] MEDS: ENOXAPARIN SODIUM 30 MG/0.3 ML SYRG SC SCH (09:41)
[2017-05-30] MEDS ORDERED: HEPARIN SOD.,PORCINE 100 UNITS/ML ONE (09:47)
[2017-05-30 16:28] VITALS: BP 170/88
[2017-05-30] MEDS ORDERED: WARFARIN SODIUM 2.5 MG TABLET PO SCH (17:00)
== END 2017-05-30 10:30 | DRG 872 ==
LOC: ER 13:12 → MS 14:13 → OBSVTOIN 16:14
PROVIDERS: ADMIT Allergy & Immunology; ATTEND Allergy & Immunology
PROC: 0T9B7ZZ Drainage of Bladder, Via Natural or Artificial Opening (ICD-10-PCS; principal; 2017-05-26)
PROC: B246ZZZ Ultrasonography of Right and Left Heart (ICD-10-PCS; 2017-05-27)
DX: A41.9 Sepsis, unspecified organism (principal); N39.0 Urinary tract infection, site not specified; D72.825 Bandemia; D70.9 Neutropenia, unspecified; I10 Essential (primary) hypertension; E11.8 Type 2 diabetes mellitus with unspecified complications; I50.9 Heart failure, unspecified; D64.9 Anemia, unspecified; B96.20 Unspecified Escherichia coli [E. coli] as the cause of diseases classified elsewhere; E11.9 Type 2 diabetes mellitus without complications; Z79.4 Long term (current) use of insulin; Z86.711 Personal history of pulmonary embolism; Z79.01 Long term (current) use of anticoagulants

== ENCOUNTER 2017-09-08 18:32 | Emergency (ER) | payer MEDICARE, OTHER ==
[2017-09-08] MEDS ORDERED: NORMAL SALINE 1,000 ML IV ONE ×2 (18:48→21:49)
--- NOTE | 2017-09-08 19:19 | ERNOTE ---
<Sergo Ochoa - Last Filed: 09/08/17 19:56> Dyspnea - Date Date of Service: 09/08/17 - General Presenting Symptoms: shortness of breath Time Seen by Provider: 09/08/17 18:44 Source: family Exam Limitations: clinical condition - Immun/Allergies/Home Medications Immunizations: IMMUNIZATION HX Immunizations Up to Date Yes History of Influenza Vaccine Yes Hx Pneumococcal Vaccination Yes Allergies/Adverse Reactions: Allergies ibuprofen Allergy (Verified 05/26/17 17:17) ketorolac tromethamine [From Toradol] Allergy (Verified 05/26/17 17:17) tuberculin,PPD,multi-puncture Allergy (Verified 05/26/17 17:17) risperidone [From Risperdal] Adverse Reaction (Severe, Verified 05/26/17 17:17) pancytopenia Home Medications: HOME MEDICATIONS Multivitamin [One Daily Multivitamin] 1 each PO DAILY 02/22/17 [Last Taken 03/15 08:00] Polyvinyl Alcohol [Artificial Tears] 1 drop EACHEYE 0800,1200,1600,2000 [Last Taken 03/15/17 04:00] Warfarin Sodium [Jantoven] 5 mg PO SUMOTUWETHFRSA@1700 02/22/17 [Last Taken 05:00] Acetaminophen [Tylenol] 650 mg PO QID PRN 03/15/17 [Last Taken 03/15/17 11:56] Albuterol Sulfate [Albuterol Sulfate 2.5 MG/0.5ML] 1 vial IH Q4H PRN 03/15/17 [ Last Taken 03/02/17 10:30] Megestrol Acetate [Megace Suspension] 20 ml PO DAILY@0800 03/15/17 [Last Taken 03/15/17 08:00] Pantoprazole Sodium [Protonix] 40 mg PO DAILY 03/15/17 [Last Taken 03/15/17 08: 00] QUEtiapine FUMARATE [Seroquel] 25 mg PO HS 03/15/17 [Last Taken 03/14/17 20:00] Simvastatin [Zocor] 40 mg PO HS 03/15/17 [Last Taken 03/14/17 20:00] Cholecalciferol (Vitamin D3) [Vitamin D3] 1,000 unit PO DAILY 03/16/17 [Last Taken 03/15/17 08:00] Folic Acid 1 mg PO DAILY@0800 03/16/17 [Last Taken 03/15/17 08:00] Nystatin [Mycostatin Cream] 1 appl TP TID PRN 03/16/17 [Last Taken 03/15/17 14: 00] Insulin Detemir [Levemir] 4 units SC Q12H #1 vial 03/19/17 [Last Taken Unknown] levETIRAcetam [Keppra] 250 mg PO Q12H #1 tablet 03/19/17 [Last Taken Unknown] Calcium Carbonate/Vitamin D3 [Oysco 500-Vit D3 200 Tablet] 1 each PO 0800,1200, 1700 05/26/17 [Last Taken Unknown] Carvedilol [Coreg] 12.5 mg PO 0800,2000 05/26/17 [Last Taken Unknown] Furosemide [Lasix] 80 mg PO DAILY@0730 05/26/17 [Last Taken Unknown] Iron Aspgly,Ps/C/Succinic Acid [Ferrex 150 Plus Capsule] 1 each PO 0800,1700 05/05 [Last Taken Unknown] Nystatin [Mycostatin Powder] 1 appl TP BID 05/26/17 [Last Taken Unknown] Simethicone [Mylicon Chewable Tablets] 80 mg PO 0800,1200,1700,2000 05/26/17 [ Last Taken Unknown] Warfarin Sodium [Jantoven] 6 mg PO MO@1700 05/26/17 [Last Taken Unknown] Insulin Aspart [Novolog] See Protocol SC TID #1 vial 05/30/17 [Last Taken Unknown] Potassium Chloride [K-Dur] 40 meq PO DAILY tablet.sa 05/30/17 [Last Taken Unknown] hydrALAZINE HCL [Apresoline] 100 mg PO 0800,1200,1700,2000 tablet 05/30/17 [ Last Taken Unknown] Benztropine Mesylate 1 mg PO BID 09/08/17 [Last Taken Unknown] Ertapenem Sodium [Invanz] 1 gm IV DAILY 09/08/17 [Last Taken Unknown] - History of Present Illness Narrative: No history available from the patient. Her son is here and relates that she has been being treated for a UTI and has been gradually declining in her mental status for 3 days. He thinks she is dehydrated because she is not drinking. She will sometimes answer him but over the last days has't really been communicating with him anymore. No clear fever. He tells me that the NH told him she was having a hard time breathing today. No Hx available from the patient. Severity: other - unknown Treatment CRANIOLOGIST: paramedics Initiating event: Reports: unknown Modifying Factors - (Improves): Reports: other - unknown Modifying Factors (Worsens): Reports: other - unknown Associated Symptoms-Dyspnea: Reports: other - recent UTI. Denies: fever/chills Prior Treatment: Denies: recently hospitalized Review of Systems - Narrative Narrative: unable to obtain d/t patient mental status. - Patient's Past Medical History Patient History - Medical: Anemia, Anxiety, Arthritis, Cataracts, Chronic Pain, Diabetes Type 2 Insulin Dependent, Depression, GERD, Renal Failure, Rheumatoid Arthritis, Seizures, UTI'S Patient History - Cardiac/Respiratory: CHF, Hypertension, Hyperlipidemia, Pulmonary Embolism, Pneumonia Patient History - Cancer: Colon Patient History - Surgical Procedures: Amputation, Colon Resection, Hysterectomy Patient History - Other: None LMP (females 10-50): Menopausal - Family History Mother Family History - Medical: Family History - Cardiac/Respiratory: History Unknown Family History - Cancer: No pertinent family hx Father Family History - Medical: Family History - Cardiac/Respiratory: Myocardial Infarction Family History - Cancer: No pertinent family hx - Social History Living Situations: half-way Abuse History: No History of abuse Psych History: Psychiatric Hx, Hx of Anxiety, Hx of Depression, Hx of Schizophrenia, Hx of Psychiatric Tx, Current tx/ever been on anti-depressants or anti-anxiety meds Alcohol Use: sober Drug Use: none - Immunizations Immunizations Up to Date: Yes Hx Pneumococcal Vaccination: Yes History of Influenza Vaccine: Yes Physical Exam - Physical Exam General Appearance: Present: other - will open eyes to verbal but does not answer my questions. When I ask her if she is having pain she seems to shake her head no. Head Exam: Present: normal inspection, no evidence of injury Eye Exam: Normal inspection: bilateral Ears, Nose, Throat: Present: dry mucous membranes Neck: Present: normal inspection Respiratory: Present: lungs clear, other - mild tachypnea, no distress. No wheezing heard Cardiovascular/Chest: Present: regular rate, rhythm, normal peripheral pulses Gastrointestinal/Abdominal: Present: normal bowel sounds, nontender, soft Back Exam: Absent: CVA tenderness (R), CVA tenderness (L) Extremity Exam: Present: other - RLE prior amp noted Neurological Exam: Present: other - difficult exam given her exam Skin Exam: Present: normal color, warm/dry ED Progress - Results and Orders Patient's Lab Results:: I have reviewed the patient's lab results. - Vital Signs Patient's Vital Signs:: I have reviewed the patient's vital signs. Vital Signs: Vital Signs 09/08/17 18:33 Temperature 36.6 C Pulse Rate 64 Respiratory 39 H Rate Blood Pressure 115/47 O2 Sat by Pulse 92 Oximetry - EKG EKG: NSR EKG read: Interp. by me EKG Comments: NSR rate 64. Non-specific changes, no STEMI. - X-Ray X-Ray #1 X-Ray: chest Interpretation: Interp. by me X-ray Comments: I reviewed images and official report - Progress/Reassessment Chief Complaint: Dyspnea - Transfer of Care Physician Sign Out: Sergo Ochoa Receiving Physician: Benjamin Dawkins Pending Results: Labs Expected Disposition: Admit Departure Clinical Impression: Elevated serum creatinine, Elevated troponin level Mental status change Qualifiers: Altered mental status type: somnolence Qualified Code(s): R40.0 - Somnolence Urinary tract infection Qualifiers: Urinary tract infection type: acute cystitis Hematuria presence: with hematuria Qualified Code(s): N30.01 - Acute cystitis with hematuria - Departure Disposition: [facility] Condition: Stable Referrals: Jaylen Gold MD [Primary Care Provider] - <Benjamin Dawkins - Last Filed: 09/09/17 05:59> Dyspnea - Immun/Allergies/Home Medications Immunizations: IMMUNIZATION HX Immunizations Up to Date Yes History of Influenza Vaccine Yes Hx Pneumococcal Vaccination Yes Physical Exam - Physical Exam Head Exam: Present: normal inspection, no evidence of injury Respiratory: Present: no accessory muscle use, lungs clear Cardiovascular/Chest: Present: regular rate, rhythm, no murmur ED Progress - Results and Orders Patient's Lab Results:: I have reviewed the patient's lab results. Results and Orders: Laboratory Tests 09/08/17 09/08/17 09/08/17 18:55 19:20 19:20 WBC 7.6 Hgb 8.8 L Hct 30.1 L Plt Count 106 L pCO2 pO2 HCO3 Total CO2 Base Excess ABG pH ABG O2 Sat (Measured) Sodium 157 H Potassium 4.5 D Chloride 115 H Anion Gap 15.9 H BUN 140 H D Creatinine 3.73 H D Lactic Acid, Venous Calcium 9.3 Total Bilirubin 0.4 AST 52 H ALT 34 Alkaline Phosphatase 82 Troponin I 0.244 H* Total Protein 6.1 L Albumin 1.8 L Urine Color Urine Appearance Urine pH Ur Specific [place] Urine Protein Urine Glucose (UA) Urine Ketones Urine Blood Urine Nitrate Urine Bilirubin Prot Sulfosalicylic Acd Urine Urobilinogen Ur Leukocyte Esterase Urine RBC Urine WBC Ur Epithelial Cells Urine Bacteria Urine Mucus Urine Yeast Urine Culture Comments Influenza Type A Ag Negative Influenza Type B Ag Negative 09/08/17 09/08/17 09/08/17 19:20 19:30 19:55 WBC Hgb Hct Plt Count pCO2 41.3 pO2 78.2 L HCO3 26.9 Total CO2 28.2 H Base Excess 2.4 ABG pH 7.43 ABG O2 Sat (Measured) 95.9 Sodium Potassium Chloride Anion Gap BUN Creatinine Lactic Acid, Venous 1.5 Calcium Total Bilirubin AST ALT Alkaline Phosphatase Troponin I Total Protein Albumin Urine Color Yellow Urine Appearance Cloudy Urine pH 7.5 Ur Specific [place] 1.015 Urine Protein 100 H Urine Glucose (UA) Negative Urine Ketones Negative Urine Blood 25 H Urine Nitrate Negative Urine Bilirubin Negative Prot Sulfosalicylic Acd 2+ H Urine Urobilinogen Normal Ur Leukocyte Esterase 500 H Urine RBC 5-10 H Urine WBC >50 H Ur Epithelial Cells 0-5 Urine Bacteria 4+ H Urine Mucus Many - 3+ H Urine Yeast Many - 3+ H Urine Culture Comments Culture to follow Influenza Type A Ag Influenza Type B Ag 09/08/17 22:05 WBC Hgb Hct Plt Count pCO2 pO2 HCO3 Total CO2 Base Excess ABG pH ABG O2 Sat (Measured) Sodium Potassium Chloride Anion Gap BUN Creatinine Lactic Acid, Venous Calcium Total Bilirubin AST ALT Alkaline Phosphatase Troponin I 0.223 H* Total Protein Albumin Urine Color Urine Appearance Urine pH Ur Specific [place] Urine Protein Urine Glucose (UA) Urine Ketones Urine Blood Urine Nitrate Urine Bilirubin Prot Sulfosalicylic Acd Urine Urobilinogen Ur Leukocyte Esterase Urine RBC Urine WBC Ur Epithelial Cells Urine Bacteria Urine Mucus Urine Yeast Urine Culture Comments Influenza Type A Ag Influenza Type B Ag - Vital Signs Patient's Vital Signs:: I have reviewed the patient's vital signs. Vital Signs: Vital Signs 09/08/17 09/08/17 09/08/17 18:33 18:40 19:15 Temperature 36.6 C 36.6 C Pulse Rate 64 64 64 Respiratory 39 H 39 H 26 H Rate Blood Pressure 115/47 115/47 120/52 O2 Sat by Pulse 92 92 98 Oximetry 09/08/17 09/08/17 19:45 20:32 Temperature Pulse Rate 65 65 Respiratory 22 H 21 H Rate Blood Pressure 152/60 152/60 O2 Sat by Pulse 100 97 Oximetry - CT/Ultrasound CT/Ultrasound Narrative: CT head: No acute intracranial mass or acute hemorrhage. changes of remote infarctions; microvascular angiopathy left mastoid effusion / possible otomastoiditis Sinus mucosal thickening otherwise nonacute/ unremarkable for age. - Progress/Reassessment Progress:: Unchanged Progress Note-Subjective: 09/08/17 21:48 I spoke with Jovita Santana [facility] hospitalist. She would like to know if family would want full treatment if her elevated troponin is a non-ST NC instead of dehydration. I spoke to her son and described the options. He would be willing to seek treatment if it consisted of an cath/ stent but not CABG. I will repeat troponin and if continuing to elevate we will seek transfer to cardiology. 09/09/17 00:21 Spoke with ER at [facility] their doctor is involved with a critical patient they will have her call me back. 09/09/17 00:[address] Margarita Naqvi at [facility] she requests a CT head before she can accept the patient. CT head ordered 09/09/17 00:41 Spoke with patient's son he is frustrated that she is not able to stay here. I tried to explain but then simply reassured him we would complete this as quickly as possible. 09/09/17 02:02 CT negative for acute stroke or hemorrhage Spoke with Dr. Naqvi at [facility] and she agrees to accept the patient
[2017-09-08 19:29] LABS: Hematocrit 30.1 % (37.0-47.0); Hemoglobin 8.8 gm/dL (12.5-16.0); Mean Cell Volume 106.4 fl (78-100); Mean Corpuscular Hemoglobin 31.1 pg (27-31); Mean Corpuscular Hgb Conc 29.2 g/dl (32-36); Mean Platelet Volume 9.7 fl (6.0-9.5); Platelet Count 106 K/mm3 (150-450); Red Blood Count 2.83 M/mm3 (4.2-5.4); Red Cell Distribution Width 16.3 % (11.5-14.0); White Blood Count 7.6 K/mm3 (4.0-10.5)
[2017-09-08 19:51] LABS: Albumin * 1.8 gm/dl (3.4-5.0); Anion Gap 15.9 mmol/L (6.8-13.8); BUN/Creatinine Ratio 37.5 (9.0-21.6); Bilirubin, Total 0.4 mg/dL (0.0-1.1); Ca. Corrected For Albumin 10.7 mg/dL (8.4-10.2); Calcium * 9.3 mg/dL (7.9-10.9); Carbon Dioxide 30.6 mmol/L (24-32.6); Potassium 4.5 mmol/L (3.4-4.6); Total Protein 6.1 gm/dL (6.2-8.2)
[2017-09-08 19:58] LABS: Troponin I 0.244 ng/ml (0.00-0.10)
[2017-09-08 20:07] LABS: Urine Bilirubin Negative (NEGATIVE); Urine Blood 25 /ul (NEGATIVE); Urine Ketone Negative (NEGATIVE); Urine Nitrite Negative (NEGATIVE); Urine Protein 100 mg/dL (NEGATIVE); Urine Specific Gravity 1.015 SP.GR. (1.005-1.010); Urine Urobilinogen Normal (NORMAL); Urine pH 7.5 pH (5.0-7.0)
[2017-09-08 20:08] LABS: Total Cells Counted 100
[2017-09-08 20:17] LABS: Atypical (Reactive) Lymph 4 % (0-2); Band 2 % (0-2.0); Basophil 1 % (0-1); Immature Granulocyte 17 (0-1); Lymphocyte 7 % (20-51); Monocyte 7 % (0-9); Neutrophil 62 % (42-75); Neutrophil # 4.7 K/mm3 (1.3-6.0)
[2017-09-08 20:20] LABS: Macrocytosis 1+; Tear Drop Cells 1+
[2017-09-08 20:21] LABS: Platelet Estimate Decreased (NORMAL); RBC Morphology Normal (NORMAL)
[2017-09-08 20:36] LABS: Urine Appearance Cloudy; Urine Color Yellow
[2017-09-08 20:37] LABS: Urine Bacteria 4+; Urine Mucus Many - 3+; Urine WBC >50 /hpf (0-5); Urine Yeast Many - 3+
[2017-09-09 02:08] VITALS: BP 117/58
== END 2017-09-09 02:20 | disposition short-term general hospital (02) ==
LOC: ER 18:32
DX: R79.89 Other specified abnormal findings of blood chemistry (principal); R74.8 Abnormal levels of other serum enzymes; R40.0 Somnolence; N30.01 Acute cystitis with hematuria; R56.9 Unspecified convulsions; I10 Essential (primary) hypertension; I50.9 Heart failure, unspecified; Z86.711 Personal history of pulmonary embolism; Z79.01 Long term (current) use of anticoagulants; E11.9 Type 2 diabetes mellitus without complications; Z79.4 Long term (current) use of insulin; D64.9 Anemia, unspecified; Z85.038 Personal history of other malignant neoplasm of large intestine; E78.5 Hyperlipidemia, unspecified; Z87.440 Personal history of urinary (tract) infections

== ENCOUNTER 2017-11-12 07:38 | Observation (INO) | payer MEDICARE, MEDICAID ==
[2017-11-12 08:50] LABS: Mean Cell Volume 95.5 fl (78-100); Mean Corpuscular Hemoglobin 29.6 pg (27-31); Mean Corpuscular Hgb Conc 30.9 g/dl (32-36); Mean Platelet Volume 9.1 fl (6.0-9.5); Neutrophil % 66.8 % (42-75.0); Platelet Count 112 K/mm3 (150-450); Red Blood Count 2.47 M/mm3 (4.2-5.4); Red Cell Distribution Width 17.2 % (11.5-14.0); White Blood Count 4.4 K/mm3 (4.0-10.5)
[2017-11-12 08:51] LABS: Anion Gap 8.4 mmol/L (6.8-13.8); BUN/Creatinine Ratio 50.5 (9.0-21.6); Carbon Dioxide 31.5 mmol/L (24-32.6); Estimated Creat Clear 38.6; Potassium 2.9 mmol/L (3.4-4.6)
[2017-11-12 08:52] LABS: Hematocrit 23.6 % (37.0-47.0); Hemoglobin 7.3 gm/dL (12.5-16.0); Prothrombin Time (Patient) 11.4 Seconds (9.0-11.0)
[2017-11-12 08:53] LABS: INR 1.14 INR (0.90-1.10)
[2017-11-12] MEDS ORDERED: POTASSIUM CHLORIDE 20 MEQ TABLET.SA PO ONE (09:39)
--- NOTE | 2017-11-12 09:48 | ERNOTE ---
Medical Problem HPI - Narrative Date of Service: 11/12/17 - General Chief Complaint: General Assessment Time Seen by Provider: 11/12/17 08:05 Source: family Exam Limitations: hard of hearing - Immun/Allergies/Home Medications Immunizations: IMMUNIZATION HX Immunizations Up to Date Yes History of Influenza Vaccine Yes Hx Pneumococcal Vaccination Yes Allergies/Adverse Reactions: Allergies ibuprofen Allergy (Verified 05/26/17 17:17) ketorolac tromethamine [From Toradol] Allergy (Verified 05/26/17 17:17) tuberculin,PPD,multi-puncture Allergy (Verified 05/26/17 17:17) risperidone [From Risperdal] Adverse Reaction (Severe, Verified 05/26/17 17:17) pancytopenia Home Medications: HOME MEDICATIONS Multivitamin [One Daily Multivitamin] 1 each PO DAILY 02/22/17 [Last Taken 03/15 08:00] Polyvinyl Alcohol [Artificial Tears] 1 drop EACHEYE 0800,1200,1600,2000 [Last Taken 03/15/17 04:00] Warfarin Sodium [Jantoven] 5 mg PO SUMOTUWETHFRSA@1700 02/22/17 [Last Taken 05:00] Acetaminophen [Tylenol] 650 mg PO QID PRN 03/15/17 [Last Taken 03/15/17 11:56] Albuterol Sulfate [Albuterol Sulfate 2.5 MG/0.5ML] 1 vial IH Q4H PRN 03/15/17 [ Last Taken 03/02/17 10:30] Megestrol Acetate [Megace Suspension] 20 ml PO DAILY@0800 03/15/17 [Last Taken 03/15/17 08:00] Pantoprazole Sodium [Protonix] 40 mg PO DAILY 03/15/17 [Last Taken 03/15/17 08: 00] QUEtiapine FUMARATE [Seroquel] 25 mg PO HS 03/15/17 [Last Taken 03/14/17 20:00] Simvastatin [Zocor] 40 mg PO HS 03/15/17 [Last Taken 03/14/17 20:00] Cholecalciferol (Vitamin D3) [Vitamin D3] 1,000 unit PO DAILY 03/16/17 [Last Taken 03/15/17 08:00] Folic Acid 1 mg PO DAILY@0800 03/16/17 [Last Taken 03/15/17 08:00] Nystatin [Mycostatin Cream] 1 appl TP TID PRN 03/16/17 [Last Taken 03/15/17 14: 00] Insulin Detemir [Levemir] 4 units SC Q12H #1 vial 03/19/17 [Last Taken Unknown] levETIRAcetam [Keppra] 250 mg PO Q12H #1 tablet 03/19/17 [Last Taken Unknown] Calcium Carbonate/Vitamin D3 [Oysco 500-Vit D3 200 Tablet] 1 each PO 0800,1200, 1700 05/26/17 [Last Taken Unknown] Carvedilol [Coreg] 12.5 mg PO 0800,2000 05/26/17 [Last Taken Unknown] Furosemide [Lasix] 80 mg PO DAILY@0730 05/26/17 [Last Taken Unknown] Iron Aspgly,Ps/C/Succinic Acid [Ferrex 150 Plus Capsule] 1 each PO 0800,1700 05/05 [Last Taken Unknown] Nystatin [Mycostatin Powder] 1 appl TP BID 05/26/17 [Last Taken Unknown] Simethicone [Mylicon Chewable Tablets] 80 mg PO 0800,1200,1700,2000 05/26/17 [ Last Taken Unknown] Warfarin Sodium [Jantoven] 6 mg PO MO@1700 05/26/17 [Last Taken Unknown] Insulin Aspart [Novolog] See Protocol SC TID #1 vial 05/30/17 [Last Taken Unknown] Potassium Chloride [K-Dur] 40 meq PO DAILY tablet.sa 05/30/17 [Last Taken Unknown] hydrALAZINE HCL [Apresoline] 100 mg PO 0800,1200,1700,2000 tablet 05/30/17 [ Last Taken Unknown] Benztropine Mesylate 1 mg PO BID 09/08/17 [Last Taken Unknown] Ertapenem Sodium [Invanz] 1 gm IV DAILY 09/08/17 [Last Taken Unknown] - History of Present History Narrative: patient really cannot give me any history, her son gives all the history. Her hearing aides were left at the long-term and she cannot hear anything I say to her. So complicated Hx. Patient sent in for low HGB with blood draw today. 6.9 HGB. No bleeding. Son states she has had this before and has received transfusions in the past. No identified cause for her anemia, no recent blood in stool. Otherwise Hx unavailable from the patient. Timing: constant Modifying Factors - (Improves): Present: other - nothing Modifying Factors - (Worsens): Present: other - nothing Review of Systems - Narrative Narrative: Unobtainable d/t UNGA and condition - Patient's Past Medical History Patient History - Medical: Anemia, Anxiety, Arthritis, Cataracts, Chronic Pain, Diabetes Type 2 Insulin Dependent, Depression, GERD, Renal Failure, Rheumatoid Arthritis, Seizures, UTI'S Patient History - Cardiac/Respiratory: CHF, Hypertension, Hyperlipidemia, Pulmonary Embolism, Pneumonia Patient History - Cancer: Colon Patient History - Surgical Procedures: Amputation, Colon Resection, Hysterectomy Patient History - Other: None LMP (females 10-50): Menopausal - Family History Mother Family History - Medical: Family History - Cardiac/Respiratory: History Unknown Family History - Cancer: No pertinent family hx Father Family History - Medical: Family History - Cardiac/Respiratory: Myocardial Infarction Family History - Cancer: No pertinent family hx - Social History Living Situations: long-term Abuse History: No History of abuse Psych History: Psychiatric Hx, Hx of Anxiety, Hx of Depression, Hx of Schizophrenia, Hx of Psychiatric Tx, Current tx/ever been on anti-depressants or anti-anxiety meds Smoking Status: Never smoker Alcohol Use: none Drug Use: none - Immunizations Immunizations Up to Date: Yes Hx Pneumococcal Vaccination: Yes History of Influenza Vaccine: Yes Physical Exam - Physical Exam General Appearance: Present: alert, no apparent distress Head Exam: Present: normal inspection Eye Exam: Normal inspection: bilateral Ears, Nose, Throat: Absent: dry mucous membranes Neck: Present: normal inspection Respiratory: Present: no respiratory distress, normal breath sounds, no accessory muscle use Cardiovascular/Chest: Present: regular rate, rhythm, normal peripheral pulses Gastrointestinal/Abdominal: Present: normal bowel sounds, nontender, soft Back Exam: Present: other - no apparent CVA tenderness Extremity Exam: Present: other - Post surgical changes right, no cellulitis Neurological Exam: Present: alert, other - difficult exam. No clear acute focal motor deficits Skin Exam: Present: normal color, warm/dry, pallor ED Progress - Results and Orders Patient's Lab Results:: I have reviewed the patient's lab results. - Vital Signs Patient's Vital Signs:: I have reviewed the patient's vital signs. Vital Signs: Vital Signs 11/12/17 11/12/17 11/12/17 07:44 08:12 08:53 Temperature 36.6 C Pulse Rate 76 74 87 Respiratory 33 H 32 H 29 H Rate Blood Pressure 137/53 153/52 141/76 O2 Sat by Pulse 96 95 92 Oximetry 11/12/17 09:12 Temperature Pulse Rate 89 Respiratory 42 H Rate Blood Pressure 115/61 O2 Sat by Pulse 95 Oximetry - Progress/Reassessment Chief Complaint: General Assessment Progress Note-Subjective: 11/12/17 09:[address] Fermin, she recommends PO K-dur and admission. Son agreeable. Stable for admission to floor at this time. 11/12/17 09:46 patient crossmatched. Departure Clinical Impression: Anemia, Hypokalemia - Departure Disposition: [facility] Condition: Stable
[2017-11-12] MEDS ORDERED: POTASSIUM CHLORIDE 20 MEQ TABLET.SA ONE (09:54)
[2017-11-12] MEDS: POTASSIUM CHLORIDE 20 MEQ TABLET.SA PO SCH ×3 (14:08→20:13)
[2017-11-12] MEDS: DEXTROSE 5 % IN WATER 1,000 ML IV PRN (14:12)
--- NOTE | 2017-11-12 15:32 | HP ---
Chief Complaint - Chief Complaint Date of Service: 11/12/17 Time of Service: 15:32 Chief Complaint: Anemia and a low K+2.9 found on routine labs. patient unsure why she in the hospital and unable to give a H/O. History of Present Illness: Patient is a 77-year-old WF with a H/O HTN, T2DM on insulin, HLD, anemia requiring transfusions in the past, H/O colon cancer S/P resection, bladder cancer Dxed in fall of 2016 [nonresectable due to multiple comorbidities], was admitted due to anemia and a low potassium of 2.9. Most of the history was obtained from the ER doctor who obtained it from her son. Patient is [place] and has hearing aids and is occasionally able to give a history but is hard to understand. Significant labs on admission: H/H 7.3/23.6, Na+ 146 K+ 2.9 Cl- 109 BUN 48 CR 0.95. She did undergo a CT abdomen/pelvis W/C 02/22/17: 1. Thickening of the bowel wall within the distal esophagus with questionable left-sided ulceration at the GE junction. Follow-up endoscopy recommended. 2. 2.1 cm solid-appearing lesion involving the mid to lower pole left kidney. This may reflect a persistent hyperdense cyst of slow-growing solid lesion/ neoplasm. This was seen on prior studies. 3. Multiple small calcified gallstones within a contracted gallbladder. 4. Stool seen throughout the colon. 5. Status post hysterectomy. The patient is being admitted into observation and treated conservatively: Will be transfused with 2 units of packed RBC, potassium replenished, IV fluids given with possible discharge in a.m. - Patient's Past Medical History Additional info: PAST MEDICAL HISTORY: Hypertension, HLD, T2 DM on insulin, gout, GERD, schizophrenia, Parkinson's disease. Chronic pain syndrome. HFpEF[echo 2017-EF 70%, diastolic dysfunction trace MR and trace TR]. Anemia requiring transfusion. Bilateral PE 2009, 2017 on warfarin; now DC'd. Anxiety and depression;arthritis. 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 Additional Info: CANCER HISTORY: Colon cancer with colectomy. Bladder cancer-fall 2016. Additional Info: PAST SURGICAL HISTORY: 1. Hysterectomy and bilateral partial salpingectomy. 2. Colon resection with colectomy. 3. Right BKA due to ankle fracture with MRSA infection -2009. Patient History - Other: None LMP (females 10-50): Menopausal - Family History Mother Family History - Medical: Family History - Cardiac/Respiratory: History Unknown Family History - Cancer: No pertinent family hx Father Family History - Medical: Family History - Cardiac/Respiratory: Myocardial Infarction Family History - Cancer: No pertinent family hx - Social History Living Situations: snf Abuse History: No History of abuse Psych History: Psychiatric Hx, Hx of Anxiety, Hx of Depression, Hx of Schizophrenia, Hx of Psychiatric Tx, Current tx/ever been on anti-depressants or anti-anxiety meds Smoking Status: Never smoker Have you smoked in the past 12 months: No Do you dip or chew tobacco: No Patient requests Smoking Cessation Consult: No Initiate information on Smoking Cessation: No Alcohol Use: none Drug Use: none - Immunizations Immunizations Up to Date: Yes Hx Pneumococcal Vaccination: Yes History of Influenza Vaccine: Yes Review Of Systems (GEN) - Review of Systems Generalized/Overall Review: Present: Weakness Respiratory: Absent: Cough, Shortness of Breath Musculoskeletal: Present: Joint Pain, Back Pain Neurological: Present: Other - Tremors- head Immunizations: IMMUNIZATION HX Immunizations Up to Date Yes History of Influenza Vaccine Yes Hx Pneumococcal Vaccination Yes Allergies/Adverse Reactions: Allergies Allergy/AdvReac Type Severity Reaction Status Date / Time ibuprofen Allergy Verified 11/12/17 11:11 ketorolac tromethamine Allergy Verified 11/12/17 11:11 [From Toradol] tuberculin,PPD,multi-puncture Allergy Verified 11/12/17 11:11 risperidone [From Risperdal] AdvReac Severe pancytopeni Verified 11/12/17 11:11 a Home Medications: HOME MEDICATIONS Multivitamin [One Daily Multivitamin] 1 each PO DAILY 02/22/17 [Last Taken 11/11] Acetaminophen [Tylenol] 650 mg PO QID PRN 03/15/17 [Last Taken 11/11/17] Albuterol Sulfate [Albuterol Sulfate 2.5 MG/0.5ML] 1 vial IH Q4H PRN 03/15/17 [ Last Taken 03/02/17 10:30] Pantoprazole Sodium [Protonix] 40 mg PO DAILY 03/15/17 [Last Taken 11/11/17] QUEtiapine FUMARATE [Seroquel] 25 mg PO HS 03/15/17 [Last Taken 11/11/17] Simvastatin [Zocor] 40 mg PO HS 03/15/17 [Last Taken 11/11/17] Cholecalciferol (Vitamin D3) [Vitamin D3] 1,000 unit PO DAILY@1200 03/16/17 [ Last Taken 11/11/17] Folic Acid 1 mg PO DAILY@0800 03/16/17 [Last Taken 11/11/17] Nystatin [Mycostatin Cream] 1 appl TP TID PRN 03/16/17 [Last Taken 03/15/17 14: 00] Insulin Detemir [Levemir] 4 units SC Q12H #1 vial 03/19/17 [Last Taken 11/11/17] Carvedilol [Coreg] 12.5 mg PO 08,199905/26/17 [Last Taken 11/11/17] Furosemide [Lasix] 40 mg PO DAILY@0730 05/26/17 [Last Taken 11/11/17] Insulin Aspart [Novolog] See Protocol SC TID #1 vial 05/30/17 [Last Taken ] Acetaminophen [Tylenol] 650 mg PO QID PRN 11/12/17 [Last Taken Unknown] Arginine/Ascorbate Sod/Vandana AC [Arginaid Powder] 1 each PO BID 11/12/17 [Last Taken 11/11/17] Aspirin 81 mg PO DAILY 11/12/17 [Last Taken 11/11/17] Calcium Carbonate [Tums] 1 tab PO TID 11/12/17 [Last Taken Unknown] Losartan Potassium [Cozaar] 50 mg PO DAILY 11/12/17 [Last Taken 11/11/17] Magnesium Hydroxide [Milk Of Magnesia] 30 ml PO DAILY PRN 11/12/17 [Last Taken Unknown] Polyvinyl Alcohol [Artificial Tears] 1 drop OP Q4H 11/12/17 [Last Taken 11/11/17 ] Potassium Chloride [Potassium Chloride 40 meq/15ml Liquid] 40 meq PO DAILY 11/12 [Last Taken Unknown] Simethicone [Gas Relief] 80 mg PO ACHS 11/12/17 [Last Taken 11/11/17] hydrALAZINE HCL [Apresoline] 100 mg PO TID 11/12/17 [Last Taken 11/11/17] levETIRAcetam [Keppra] 250 mg PO BID 11/12/17 [Last Taken 11/11/17] traMADol HCL [Tramadol HCl] 50 mg PO Q6H PRN 11/12/17 [Last Taken Unknown] Exam - Exam Vital Signs: Vital Signs - Last Taken Temp 37.0 C 11/12/17 15:05 Pulse 74 11/12/17 15:05 Resp 20 11/12/17 15:05 BP 153/68 11/12/17 15:05 Pulse Ox 96 11/12/17 15:05 Constitutional: Present: Alert, Oriented x3, Cooperative - in NAD, Elderly, Looks Older than stated age ENT Exam: Present: hard of hearing - has hearing aids; edentulous, dry mucous membranes Eye Exam: bilateral eye: PERRL, EOMI Neck: Present: normal inspection, trachea midline Respiratory: Present: lungs clear, normal breath sounds Cardiovascular/Chest: Present: regular rate, rhythm. Absent: tachycardia Peripheral Pulses: carotid (R): 2+, carotid (L): 2+ Abdomen: Present: Normal bowel sounds, soft, nontender, nondistended, no rebound tenderness /Rectal: Present: Other - heme negative - ER Extremity: Present: other - RT BKA. LT WNL Skin Exam: Present: warm/dry, pallor Neurologic: Present: other - Cannot ambulate. Appearance: Present: other - Unable to test Eye contact: Present: good eye contact Diagnostic Studies: Laboratory Tests 11/12/17 08:30 WBC 4.4 D Hgb 7.3 L* Hct 23.6 L* Plt Count 112 L 11/12/17 08:30 Plasma Sodium 146 H Potassium 2.9 L Chloride 109 H Carbon Dioxide 31.5 BUN 48 H Creatinine 0.95 BUN/Creatinine Ratio 50.5 H Random Glucose 83 Calcium 9.0 11/12/17 08:33 Iron 37 TIBC 138 L Transferrin % Sat 27 Stool Occult Blood Negative Assessment/Plan - Narrative Narrative: 1. ANEMIA: H&H 7.3/23.6 on admission. Type cross and transfuse 2 units of packed RBC. Patient has abnormal lesions on CAT scan done in 02/2017 both at the GE junction and questionable mass behind the kidney. Also has a history of bladder cancer and not a candidate for surgery. Obtain serum iron and serum ferritin, T sat and B12 studies. Hold IV fluids during transfusions. Abnormal CT of abdomen/ pelvis in 02/2017 as discussed in HPI. 2. HYPOKALEMIA: Potassium of 2.9. Patient is getting furosemide 80 mg daily. Currently on hold. No evidence of edema may try increasing other antihypertensive medications and see if she really needs furosemide. 3. DEHYDRATION: Serum Na+ 146, Cl- 109, BUN 48/CR 0.95 indicating of dehydration. Patient will receive IV fluids in the form of D5W and the rate of 150 mL an hour and check electrolytes in a.m. 4. HYPERTENSION: Currently on carvedilol 12.5 mg twice a day, losartan 50 mg twice a day and hydralazine 100 mg 3 times a day. 5. HYPERLIPIDEMIA: On simvastatin 40 mg daily at bedtime. 6. SCHIZOPHRENIA: On Seroquel 25 mg at bedtime. 7. GERD: On IV pantoprazole 40 mg daily and will switch to by mouth at the time of discharge 8. CODE STATUS: DO NOT RESUSCITATE. - Assessment/Plan (1) Anemia Problem: Acute Qualifiers: Anemia type: unspecified type (2) Hypokalemia Problem: Acute (3) Dehydration with hypernatremia Problem: Acute (4) Hypertension Problem: Chronic
[2017-11-12] MEDS ORDERED: PANTOPRAZOLE SODIUM 40 MG in NORMAL SALINE 100 ML IV ONE (15:35)
[2017-11-12 16:11] LABS: Iron 37 mcg/dL (35-120); Transferrin Sat. (% Sat.) 27 % (15-55)
[2017-11-12] MEDS: NYSTATIN 15 APPL BTL TP SCH ×2 (16:23→20:14)
[2017-11-12] MEDS: levETIRAcetam 500 MG TABLET PO SCH ×2 (16:23→20:15)
[2017-11-12] MEDS: SIMVASTATIN 40 MG TABLET PO SCH ×2 (16:23→20:48)
[2017-11-12 17:03] LABS: Urine Bilirubin Negative (NEGATIVE); Urine Blood Negative /ul (NEGATIVE); Urine Ketone Negative (NEGATIVE); Urine Nitrite Negative (NEGATIVE); Urine Protein Negative (NEGATIVE); Urine Urobilinogen Normal (NORMAL)
[2017-11-12 17:12] LABS: Urine Appearance Clear; Urine Color Yellow
[2017-11-12 17:13] LABS: Urine Amorphous Sediment Few - 1+ (NONE-FEW); Urine Bacteria 2+; Urine RBC None Seen /hpf (0-5)
[2017-11-12] MEDS: hydrALAZINE HCL 50 MG TABLET PO SCH (17:13)
[2017-11-12] MEDS: CARVEDILOL 12.5 MG TABLET PO SCH ×2 (17:14→20:22)
[2017-11-12] MEDS: INSULIN LISPRO 100 UNITS/ML VIAL SC SCH ×2 (17:15)
[2017-11-12] MEDS ORDERED: ALBUTEROL SULFATE 2.5 MG/0.5 ML VIAL.NEB IH PRN (19:56)
[2017-11-12] MEDS: LOSARTAN POTASSIUM 50 MG TABLET PO SCH (20:16)
[2017-11-12] MEDS: traMADol HCL 50 MG TABLET PO PRN (20:48)
[2017-11-12] MEDS ORDERED: QUEtiapine FUMARATE 25 MG TABLET PO SCH (21:00)
[2017-11-13] MEDS: hydrALAZINE HCL 50 MG TABLET PO SCH ×2 (00:13→09:03)
[2017-11-13 01:29] LABS: Hematocrit 34.3 % (37.0-47.0)
[2017-11-13] MEDS: DEXTROSE 5 % IN WATER 1,000 ML IV PRN (03:15)
[2017-11-13] MEDS: traMADol HCL 50 MG TABLET PO PRN (03:20)
[2017-11-13 05:59] LABS: Hemoglobin 10.7 gm/dL (12.5-16.0); Mean Cell Volume 91.9 fl (78-100); Mean Corpuscular Hemoglobin 29.8 pg (27-31); Mean Corpuscular Hgb Conc 32.4 g/dl (32-36); Mean Platelet Volume 8.9 fl (6.0-9.5); Neutrophil # 6.3 K/mm3 (1.3-6.0); Neutrophil % 81.3 % (42-75.0); Platelet Count 103 K/mm3 (150-450); Red Blood Count 3.59 M/mm3 (4.2-5.4); White Blood Count 7.8 K/mm3 (4.0-10.5)
[2017-11-13 06:43] LABS: Albumin * 2.1 gm/dl (3.4-5.0); Anion Gap 12.1 mmol/L (6.8-13.8); BUN/Creatinine Ratio 39.8 (9.0-21.6); Bilirubin, Total 0.6 mg/dL (0.0-1.1); Calcium * 8.8 mg/dL (7.9-10.9); Carbon Dioxide 27.5 mmol/L (24-32.6); Potassium 4.6 mmol/L (3.4-4.6); Total Protein 5.3 gm/dL (6.2-8.2)
[2017-11-13] MEDS ORDERED: PANTOPRAZOLE SODIUM 40 MG in NORMAL SALINE 100 ML IV SCH (07:00)
[2017-11-13] MEDS: INSULIN LISPRO 100 UNITS/ML VIAL SC SCH ×4 (07:30→11:53)
--- NOTE | 2017-11-13 08:39 | DS ---
Description of Stay: Altagracia Samson is a 77-year-old WF with a H/O HTN, T2DM on insulin, HLD, anemia requiring transfusions in the past, H/O colon cancer S/P resection, bladder cancer Dxed in fall of 2016 [nonresectable due to multiple comorbidities], was admitted on 11/12/2017 due to anemia and a low potassium of 2.9. Most of the history was obtained from the ER doctor who obtained it from her son. Patient is [place] and has hearing aids and is occasionally able to give a history but is hard to understand. Significant labs on admission: H/H 7.3/23.6, Na+ 146 K+ 2.9 Cl- 109 BUN 48 CR 0.95. She did undergo a CT abdomen/pelvis W/C 02/22/17: 1. Thickening of the bowel wall within the distal esophagus with questionable left-sided ulceration at the GE junction. Follow-up endoscopy recommended. 2. 2.1 cm solid-appearing lesion involving the mid to lower pole left kidney. This may reflect a persistent hyperdense cyst of slow-growing solid lesion/ neoplasm. This was seen on prior studies. 3. Multiple small calcified gallstones within a contracted gallbladder. 4. Stool seen throughout the colon. 5. Status post hysterectomy. She was admitted into observation and treated conservatively: She was transfused with 2 units of packed RBC, potassium replenished, IV fluids. Her Hb is up to 11 and her K is back to normal. She will be discahrged today as planned. Follow up with PCP in 2 weeks. Procedures Performed: none Discharge Disposition: [facility] Disposition: [facility] Condition: Stable Discharge Activity: Activity as tolerated Discharge Diet: Consistent carbs, Low salt Problem Oriented Discharge Instructions to Patient/Family: Blood Transfusion, [id number], Muscle Cramps and Spasms, [id number], Dehydration, Adult, Easy- to-Read, Hypertension, [id number] Additional Patient Instructions (free text): MD to follow at [facility]. Complete Home Medications List: Complete Home Medication List: Multivitamin [One Daily Multivitamin] 1 each PO DAILY 02/22/17 Acetaminophen [Tylenol] 650 mg PO QID PRN 03/15/17 Albuterol Sulfate [Albuterol Sulfate 2.5 MG/0.5ML] 1 vial IH Q4H PRN 03/15/17 Pantoprazole Sodium [Protonix] 40 mg PO DAILY 03/15/17 QUEtiapine FUMARATE [Seroquel] 25 mg PO HS 03/15/17 Simvastatin [Zocor] 40 mg PO HS 03/15/17 Cholecalciferol (Vitamin D3) [Vitamin D3] 1,000 unit PO DAILY@1200 03/16/17 Folic Acid 1 mg PO DAILY@0800 03/16/17 Nystatin [Mycostatin Cream] 1 appl TP TID PRN 03/16/17 Insulin Detemir [Levemir] 4 units SC Q12H #1 vial 03/19/17 Carvedilol [Coreg] 12.5 mg PO 0800,199905/26/17 Furosemide [Lasix] 40 mg PO DAILY@0730 05/26/17 Insulin Aspart [Novolog] See Protocol SC TID #1 vial 05/30/17 Acetaminophen [Tylenol] 650 mg PO QID PRN 11/12/17 Arginine/Ascorbate Sod/Vandana AC [Arginaid Powder] 1 each PO BID 11/12/17 Aspirin 81 mg PO DAILY 11/12/17 Calcium Carbonate [Tums] 1 tab PO TID 11/12/17 Losartan Potassium [Cozaar] 50 mg PO DAILY 11/12/17 Magnesium Hydroxide [Milk Of Magnesia] 30 ml PO DAILY PRN 11/12/17 Polyvinyl Alcohol [Artificial Tears] 1 drop OP Q4H 11/12/17 Potassium Chloride [Potassium Chloride 40 meq/15ml Liquid] 40 meq PO DAILY 11/12 Simethicone [Gas Relief] 80 mg PO ACHS 11/12/17 hydrALAZINE HCL [Apresoline] 100 mg PO TID 11/12/17 levETIRAcetam [Keppra] 250 mg PO BID 11/12/17 traMADol HCL [Tramadol HCl] 50 mg PO Q6H PRN 11/12/17
[2017-11-13] MEDS: LOSARTAN POTASSIUM 50 MG TABLET PO SCH (09:04)
[2017-11-13] MEDS: NYSTATIN 15 APPL BTL TP SCH (09:09)
[2017-11-13] MEDS: CARVEDILOL 12.5 MG TABLET PO SCH (09:15)
[2017-11-13] MEDS: levETIRAcetam 500 MG TABLET PO SCH (09:15)
[2017-11-13] MEDS ORDERED: FUROSEMIDE 10 MG/ML VIAL IV ONE (09:36)
[2017-11-13 10:22] VITALS: BP 155/78
== END 2017-11-13 13:47 ==
LOC: ER 07:38 → MS 09:41
PROVIDERS: ADMIT Internal Medicine; ATTEND Internal Medicine
DX: E11.9 Type 2 diabetes mellitus without complications; D64.9 Anemia, unspecified; K21.9 Gastro-esophageal reflux disease without esophagitis; F20.9 Schizophrenia, unspecified; I50.9 Heart failure, unspecified; F03.90 Unspecified dementia, unspecified severity, without behavioral disturbance, psychotic disturbance, mood disturbance, and anxiety; E87.6 Hypokalemia; Z68.30 Body mass index [BMI] 30.0-30.9, adult; J44.9 Chronic obstructive pulmonary disease, unspecified; Z85.51 Personal history of malignant neoplasm of bladder; E86.0 Dehydration
CPT/HCPCS: 36415; 36430; 51798; 80048; 80053; 81001; 82272; 82607; 83540; 83550; 85014; 85018; 85025; 85610; 86850; 86900; 87077; 87081; 87086; 87186; 94640; 94660; 96365; 96366; 96372; 96376; 99285; G0378; P9016; P9603